=== PATIENT | male | born 1950 | race Caucasian/White ===

== ENCOUNTER 2016-12-25 18:26 | Inpatient (IN) | payer OTHER ==
[~2016-12-25] VITALS: Ht 175.3 cm; Wt 59.8 kg
[~2016-12-25 18:26] MED LIST: AUGM875T PO; BACT800T5 PO; CIPR500T4 PO; FURO1TAB93 PO; HYDR-3533 PO; POTA10IN2 PO; TAB-TAB PO
[2016-12-25 18:42] VITALS: BP 94/66; PULSE 83; RESP 15; TEMP 97.6; O2SAT 97
[2016-12-25] MEDS ORDERED: FURO1TAB60 PO (19:52)
[2016-12-25] MEDS ORDERED: MULTTAB67 PO (19:52)
[2016-12-25] MEDS ORDERED: IRON18TA2 PO (19:53)
[2016-12-25] MEDS ORDERED: VITA50TA10 PO (19:53)
[2016-12-25 19:54] VITALS: BP 107/67; PULSE 70; RESP 18; O2SAT 99
[2016-12-25 20:33] LABS: AUTOMATED NEUTROPHIL # 8.9 TH/MM3 (1.8-7.7); BASOPHIL # 0.1 TH/MM3 (0-0.2); BASOPHIL % 0.7 % (0.0-2.0); EOSINOPHIL # 0.2 TH/MM3 (0-0.4); EOSINOPHIL % 1.6 % (0.0-4.0); HEMATOCRIT 24.4 % (39.0-51.0); LYMPH % 7.2 % (9.0-44.0); LYMPHOCYTE # 0.8 TH/MM3 (1.0-4.8); MEAN CELL VOLUME 86.1 FL (80.0-100.0); MEAN CORPUSCULAR HEMOGLOBIN 28.2 PG (27.0-34.0); MEAN CORPUSCULAR HGB CONC 32.7 % (32.0-36.0); MONO % 8.8 % (0.0-8.0); NEUT % 81.7 % (16.0-70.0); PLATELET COUNT 238 TH/MM3 (150-450); RED BLOOD COUNT 2.83 MIL/MM3 (4.50-5.90); RED CELL DISTRIBUTION WIDTH 16.6 % (11.6-17.2)
[2016-12-25 20:36] LABS: HEMO FLAGS AUTO DIFF
[2016-12-25 20:43] LABS: POTASSIUM 3.9 MEQ/L (3.5-5.1)
[2016-12-25 20:46] LABS: BICARBONATE 24.9 MEQ/L (21.0-32.0)
[2016-12-25 20:48] LABS: APTT (PATIENT) 29.7 SEC (24.3-30.1); INTERNATIONAL NORMALIZED RATIO 1.3 RATIO
[2016-12-25 20:50] LABS: OVALOCYTES 1+ (NORMAL); TEARDROP RBCS 1+ (NORMAL)
[2016-12-25 20:51] LABS: PLATELET ESTIMATE SMEAR NORMAL (NORMAL); PLATELET MORPHOLOGY NORMAL (NORMAL); SCAN/DIFF AUTO DIFF CONFIRMED
[2016-12-25 21:15] VITALS: BP 109/70; PULSE 76; RESP 18; O2SAT 100
[2016-12-25] MEDS ORDERED: MORPHINE SULFATE 4 MG/ML INJ IV PUSH ONE (21:15)
--- NOTE | 2016-12-25 21:16 | RADHPO ---
EXAM DATE/TIME: 12/25/2016 20:52 [facility] COMPARISON: No previous studies available for comparison. INDICATIONS : Left leg swelling. MEDICAL HISTORY : Carcinoma, bladder. Hypercholesterolemia. Arthritis. Hyperlipidemia. HTN. Hernias. Gout. Depressio n. Anxiety. SURGICAL HISTORY : Inguinal hernia repair. Bladder cancer surgery. Testicle removed for infection. Orthopedic surgery , left leg and left thumb fracture. Chemotherapy. Blood transfusions. ENCOUNTER: Initial ACUITY: 2 weeks PAIN SCORE: 6/10 LOCATION: Left leg. TECHNIQUE: Venous ultrasound of the leg was performed from the inguinal ligament to the proximal calf. Real-jony e, color Doppler and spectral tracing, compression and augmentation techniques were used. FINDINGS: The examination is positive for nonocclusive deep venous thrombosis in the left iliac vein and common femoral vein as well as superficial thrombus in the proximal greater saphenous vein within the spine . Distal popliteal, peroneal posterior tibial veins are patent. CONCLUSION: Positive for nonocclusive deep venous thrombosis in the left iliac vein and common femoral vein as we ll as superficial thrombus in the greater saphenous vein. Trevon Real MD on December 25, 2016 at 21:14 Board Certified Radiologist. This report was verified electronically.
--- NOTE | 2016-12-25 21:19 | PD ---
HPI Chief Complaint: Edema Time Seen by Provider: 19:50 Travel History International Travel<30 days: No Contact w/Intl Traveler<30days: No Traveled to known affect area: No History of Present Illness HPI Patient is a 66-year-old male who comes in due to left leg swelling. He says he went to see his primary doctor this afternoon who told him to come in for an ultrasound to rule out a DVT. He has history of bladder cancer and reports producing large blood clots in his urine. He denies any chest pain or shortness of breath. He says he is scheduled to have surgery in another week at the [facility] in [place] to remove his bladder. He says he feels like his feet are in ice. PFSH Past Medical History Hx Anticoagulant Therapy: No Arthritis: Yes Asthma: No Autoimmune Disease: No Blood Disorders: No Anxiety: Yes Depression: Yes (at times) Heart Rhythm Problems: No Cancer: Yes (bladder) Cardiovascular Problems: Yes High Cholesterol: Yes Chemotherapy: Yes Chest Pain: No Congestive Heart Failure: No COPD: No Cerebrovascular Accident: No Diabetes: No Diminished Hearing: No Endocrine: No Gastrointestinal Disorders: Yes (hernias right side) GERD: No Gout: Yes Genitourinary: Yes Headaches: No Hiatal Hernia: Yes (BILAT) Hypertension: Yes Immune Disorder: No Inguinal Hernia: Yes (RIGHT SIDE REPAIRED) Implanted Vascular Access Dvce: No Kidney Stones: No Musculoskeletal: No Neurologic: No Psychiatric: No Reproductive: No Respiratory: No Immunizations Current: Yes Migraines: No Radiation Therapy: No Renal Failure: No Seizures: No Sleep Apnea: No Thyroid Disease: No Triglycerides - High: Yes Ulcer: No Tetanus Vaccination: > 5 Years Influenza Vaccination: No PNEUMOCCOCAL Vaccine (Year): 2 ?: Not Past Surgical History Abdominal Surgery: Yes (BILAT HERNIA) AICD: No Arteriovenous Shunt: No Cardiac Surgery: No Ear Surgery: No Endocrine Surgery: No Eye Surgery: No Genitourinary Surgery: Yes (BLADDER CA) Gynecologic Surgery: No Insulin Pump: No Joint Replacement: No Neurologic Surgery: No Oral Surgery: No Pacemaker: No Thoracic Surgery: No Other Surgery: Yes (RT HERNIA REPAR/ TESTICLE REMOVED) Social History Alcohol Use: No Tobacco Use: Yes (1 ppd) Substance Use: No Allergies-Medications (Allergen,Severity, Reaction): Uncoded Allergies: BCG TREATMENT (Adverse Reaction, Severe, HTYPOTENSION , 12/25/16) Reported Meds & Prescriptions Reported Meds & Active Scripts Active Reported Vitamin B-12 (Cyanocobalamin) 50 Mcg Tab 50 Mcg PO DAILY Iron (Ferrous Fumarate) 18 Mg Tab 18 Mg PO BID Multiple Vitamin 1 Tab 1 Tab PO DAILY Lasix (Furosemide) 40 Mg Tab 40 Mg PO DAILY Review of Systems Except as stated in HPI: all other systems reviewed are Neg General / Constitutional: No: Fever, Chills HENT: No: Headaches, Lightheadedness Cardiovascular: No: Chest Pain or Discomfort Respiratory: No: Shortness of Breath Gastrointestinal: No: Nausea, Vomiting Genitourinary: Positive: Hematuria Musculoskeletal: Positive: Edema, Pain Skin: No Change in Pigmentation Neurologic: No: Weakness, Dizziness Physical Exam Narrative GENERAL: Awake and alert, in no acute distress. SKIN: Warm and dry. HEAD: Atraumatic. Normocephalic. EYES: Pupils equal and round. No scleral icterus. ENT: Mucous membranes pink and moist. NECK: Trachea midline. No JVD. CARDIOVASCULAR: Regular rate and rhythm. No murmur appreciated. RESPIRATORY: No accessory muscle use. Clear to auscultation. Breath sounds equal bilaterally. GASTROINTESTINAL: Abdomen soft, non-tender, nondistended. MUSCULOSKELETAL: No obvious deformities. No clubbing. No cyanosis. Large edema of left foot and ankle, 3+ pitting edema. Pain to palpation of left calf. Pedal pulses intact. NEUROLOGICAL: Awake and alert. No obvious cranial nerve deficits. Motor grossly within normal limits. Normal speech. PSYCHIATRIC: Appropriate mood and affect; insight and judgment normal. Data Data Last Documented VS Vital Signs Date Time Temp Pulse Resp B/P Pulse Ox O2 Delivery O2 Flow Rate FiO2 12/25/16 22:20 83 18 107/71 100 Room Air 12/25/16 18:42 97.6 Orders Complete Blood Count With Diff (12/25/16 19:59) Basic Metabolic Panel (Bmp) (12/25/16 19:59) Act Partial Throm Time (Ptt) (12/25/16 19:59) Prothrombin Time / Inr (Pt) (12/25/16 19:59) Us Leg Venous Doppler (12/25/16 ) Ct Pulmonary Angiogram (12/25/16 21:08) Morphine Inj (Morphine Inj) (12/25/16 21:15) Iohexol 350 Inj (Omnipaque 350 Inj) (12/25/16 22:24) Heparin Infusion ZOYA.Q1H (12/25/16 23:14) Heparin Inj (Heparin Inj) (12/26/16 05:15) Heparin Inj (Heparin Inj) (12/26/16 05:15) Heparin-D5w Inj (Heparin-D5w Inj) (12/25/16 23:15) Cbc No Diff, Includes Plts (12/28/16 06:00) Act Partial Throm Time (Ptt) (12/26/16 06:14) Occult Blood (Hemoccult) Stool (12/25/16 23:14) Admit Order (Ed Use Only) (12/25/16 ) Labs Laboratory Tests Test 12/25/16 20:25 White Blood Count 11.0 TH/MM3 Red Blood Count 2.83 MIL/MM3 Hemoglobin 8.0 GM/DL Hematocrit 24.4 % Mean Corpuscular Volume 86.1 FL Mean Corpuscular Hemoglobin 28.2 PG Mean Corpuscular Hemoglobin 32.7 % Concent Red Cell Distribution Width 16.6 % Platelet Count 238 TH/MM3 Mean Platelet Volume 8.6 FL Neutrophils (%) (Auto) 81.7 % Lymphocytes (%) (Auto) 7.2 % Monocytes (%) (Auto) 8.8 % Eosinophils (%) (Auto) 1.6 % Basophils (%) (Auto) 0.7 % Neutrophils # (Auto) 8.9 TH/MM3 Lymphocytes # (Auto) 0.8 TH/MM3 Monocytes # (Auto) 1.0 TH/MM3 Eosinophils # (Auto) 0.2 TH/MM3 Basophils # (Auto) 0.1 TH/MM3 CBC Comment AUTO DIFF Differential Comment AUTO DIFF CONFIRMED Platelet Estimate NORMAL Platelet Morphology Comment NORMAL Tear Drop Cells 1+ Ovalocytes 1+ Prothrombin Time 14.0 SEC Prothromb Time International 1.3 RATIO Ratio Activated Partial 29.7 SEC Thromboplast Time Sodium Level 136 MEQ/L Potassium Level 3.9 MEQ/L Chloride Level 101 MEQ/L Carbon Dioxide Level 24.9 MEQ/L Anion Gap 10 MEQ/L Blood Urea Nitrogen 17 MG/DL Creatinine 1.10 MG/DL Estimat Glomerular Filtration 67 ML/MIN Rate Random Glucose 143 MG/DL Calcium Level 8.8 MG/DL MDM Medical Decision Making Medical Screen Exam Complete: Yes Emergency Medical Condition: Yes Medical Record Reviewed: Yes Differential Diagnosis DVT versus cellulitis versus PE Narrative Course Patient is a 66-year-old male who comes in complaining of left leg pain and swelling. Exam shows large swelling to the left foot and ankle. IV established , labs sent. Labs show hemoglobin of 8.0 which is consistent with previous labs. Doppler ultrasound performed of the left leg shows 2 DVTs as well as one superficial clot. CTA of the chest performed shows no evidence of PE. I spoke with Dr. Kim of hematology for recommendations on anticoagulation as the patient has history of bladder cancer and often passes clots from his bladder. He recommends starting the patient on heparin and monitoring him for excessive bleeding. If he tolerates the heparin, he can be switched to Lovenox for discharge. Patient admitted for further management. Diagnosis Primary Impression: DVT (deep venous thrombosis) Qualified Code: I82.4Y2 - Acute deep vein thrombosis (DVT) of proximal vein of left lower extremity Additional Impression: Gross hematuria Admitting Information Admitting Physician Requests: Admit Condition: Stable Nayeli Wiley MD Dec 25, 2016 21:19 bladder. Nayeli Wiley MD Dec 25, 2016 21:19
[2016-12-25 22:20] VITALS: BP 107/71; PULSE 83; RESP 18; O2SAT 100
[2016-12-25] MEDS ORDERED: IOHEXOL 350 MG/ML 10 ML VIAL (for RAD DIAG) IV ONE (22:24)
--- NOTE | 2016-12-25 22:39 | RADHPO ---
EXAM DATE/TIME: 12/25/2016 22:02 [facility] COMPARISON: No previous studies available for comparison. INDICATIONS : Left leg swelling. IV CONTRAST: 80 cc Omnipaque 350 (iohexol) IV RADIATION DOSE: 12.23 CTDIvol (mGy) MEDICAL HISTORY : Carcinoma, bladder. Hypertension. Hernia, hiatal. SURGICAL HISTORY : Inguinal hernia repair. ENCOUNTER: Initial ACUITY: 1 day PAIN SCALE: 7/10 LOCATION: chest TECHNIQUE: Volumetric scanning of the chest was performed using a pulmonary embolism protocol MIP images were re constructed. Using automated exposure control and adjustment of the mA and/or kV according to patien t size, radiation dose was kept as low as reasonably achievable to obtain optimal diagnostic quality images. FINDINGS: No filling defects identified within the pulmonary arteries to suggest pulmonary embolic disease. No focal lung consolidation. Minimal dependent atelectasis. No pleural or pericardial effusion. Upper abdomen reveals findings characteristic of liver cirrhosis. There is mild ascites. Hydronephrosis ri ght kidney and probably left kidney as well. Small hiatal hernia. Moderate coronary calcifications. CONCLUSION: 1. Negative for pulmonary embolus. 2. Moderate to severe coronary calcifications. 3. Liver cirrhosis and ascites in the upper abdomen. Hydronephrosis on the right and possibly the lef t. Trevon Real MD on December 25, 2016 at 22:34 Board Certified Radiologist. This report was verified electronically.
[2016-12-25] MEDS ORDERED: HEPARIN-D5W INJ 250 ML IV SCH (23:15)
[2016-12-25] MEDS ORDERED: ONDANSETRON HCL 4 MG/2 ML VIAL IVP PRN (23:30)
[2016-12-25] MEDS ORDERED: BISACODYL 10 MG SUPP PR PRN (23:30)
[2016-12-25] MEDS ORDERED: SODIUM CHLORIDE 0.9% FLUSH 10 ML FLUSH IV FLUSH PRN (23:30)
[2016-12-26] VITALS (7 sets, daily range): BP systolic 94–107; BP diastolic 52–72; PULSE 71–77; RESP 18; TEMP 96.4–98.1; O2SAT 95–98
[2016-12-26] MEDS: SODIUM CHLOR 0.9% 1000 ML INJ 1,000 ML IV SCH ×2 (00:14→10:20)
[2016-12-26] MEDS: HYDROmorphone HCL PF 1 MG/ML VIAL IV PRN ×4 (00:14→15:13)
[2016-12-26] MEDS ORDERED: HEPARIN SODIUM - IV 10,000 UNITS/10 ML VIAL IV PRN ×2 (05:15)
[2016-12-26 06:51] LABS: AUTOMATED NEUTROPHIL # 9.2 TH/MM3 (1.8-7.7); BASOPHIL % 0.3 % (0.0-2.0); EOSINOPHIL # 0.3 TH/MM3 (0-0.4); EOSINOPHIL % 2.2 % (0.0-4.0); HEMATOCRIT 24.4 % (39.0-51.0); HEMO FLAGS DIFF FINAL; LYMPH % 9.2 % (9.0-44.0); LYMPHOCYTE # 1.1 TH/MM3 (1.0-4.8); MEAN CELL VOLUME 87.3 FL (80.0-100.0); MEAN CORPUSCULAR HEMOGLOBIN 28.3 PG (27.0-34.0); MEAN CORPUSCULAR HGB CONC 32.4 % (32.0-36.0); MONO % 8.9 % (0.0-8.0); NEUT % 79.4 % (16.0-70.0); PLATELET COUNT 221 TH/MM3 (150-450); RED CELL DISTRIBUTION WIDTH 16.4 % (11.6-17.2); WHITE BLOOD COUNT 11.6 TH/MM3 (4.0-11.0)
[2016-12-26 06:53] LABS: CHLORIDE 104 MEQ/L (98-107); POTASSIUM 4.1 MEQ/L (3.5-5.1); SODIUM (NA) 136 MEQ/L (136-145)
[2016-12-26 06:56] LABS: APTT (PATIENT) 38.4 SEC (24.3-30.1)
[2016-12-26 06:57] LABS: ANION GAP 9 MEQ/L (5-15); BLOOD UREA NITROGEN 15 MG/DL (7-18)
[2016-12-26 07:00] LABS: ALT (GPT) 11 U/L (12-78); AST (GOT) 14 U/L (15-37); GLOMERULAR FILTRATION RATE 84 ML/MIN (>89)
[2016-12-26 07:02] LABS: TOTAL BILIRUBIN ADULT 0.4 MG/DL (0.2-1.0)
[2016-12-26 07:03] LABS: ALKALINE PHOSPHATASE 124 U/L (45-117)
[2016-12-26] MEDS: SODIUM CHLORIDE 0.9% FLUSH 10 ML FLUSH IV FLUSH SCH ×2 (08:35→20:15)
[2016-12-26] MEDS: ACETAMINOPHEN/HYDROcodone 325 MG/5 MG TAB PO PRN ×2 (08:39→12:21)
[2016-12-26] MEDS: FUROSEMIDE 40 MG TAB PO SCH (08:39)
[2016-12-26] MEDS: FERROUS FUMARATE 325 MG TAB (106 MG ELEMENTAL IRON) PO SCH (08:41)
[2016-12-26] MEDS: CYANOCOBALAMIN 100 MCG TAB PO SCH (08:44)
[2016-12-26] MEDS: MULTIVITAMIN TAB PO SCH (08:44)
--- NOTE | 2016-12-26 11:18 | HHI.HP ---
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 In the ED, doppler US revealed nonocclusive DVT in the left iliac vein and common femoral vein and superficial thrombus in the greater saphenous vein. CTA was obtained and was negative for DVT. Patient is under the care of Dr. Lo. Presently, patient is in alot of pain and is either unable or unwilling to give accurate historical information therefore majority of history is obtained from medical chart review. Purportedly, the patients urine has been dark in color but turned bright red today. He has been unable to urinate. ED physician spoke with licensed audiologist Dr. Kim who recommended starting the patient on heparin followed by Lovenox at discharge. Review of Systems Except as stated in HPI: all other systems reviewed are Neg (10 point review of systems completed and all pertinent negative except for stated in history of present illness) Past Family Social History Past Medical History Cirrhosis with chronic ascites due to liver failure from alcohol dependency Chronic alcohol dependency from history Muscle invasive bladder cancer GERD HLD Tobacco dependency Depression Anxiety Past Surgical History Umbilical Hernia repair Tonsillectomy Cystoscopy with TURBT Reported Medications Vitamin B-12 (Cyanocobalamin) 50 Mcg Tab 50 Mcg PO DAILY Iron (Ferrous Fumarate) 18 Mg Tab 18 Mg PO BID Multiple Vitamin 1 Tab 1 Tab PO DAILY Lasix (Furosemide) 40 Mg Tab 40 Mg PO DAILY Allergies: Uncoded Allergies: BCG TREATMENT (Adverse Reaction, Severe, HTYPOTENSION , 12/25/16) Active Ordered Medications Current Medications Medications (Trade) Dose Ordered Sig/Dejuan Route Start Time Stop Time Status Last Admin (Heparin Inj) 5,000 units UNSCH PRN IV 12/26/16 05:15 Heparin Sodium (Porcine) 2500 units 2,500 units UNSCH PRN IV 12/26/16 05:15 Heparin Sodium/ Dextrose 250 ml @ 0 mls/hr TITRATE IV 12/25/16 23:15 12/26/16 00:24 (NS 1000 ml Inj) 1,000 ml @ 100 mls/hr Q10H IV 12/25/16 23:28 12/26/16 10:20 (NS Flush) 2 ml UNSCH PRN IV FLUSH 12/25/16 23:30 (NS Flush) 2 ml BID IV FLUSH 12/26/16 09:00 (Zofran Inj) 4 mg Q6H PRN IVP 12/25/16 23:30 (Dulcolax Supp) 10 mg DAILY PRN OK 12/25/16 23:30 (Tylenol) 650 mg Q6H PRN PO 12/25/16 23:30 (Durand 5-325 Mg) 1 tab Q4H PRN PO 12/25/16 23:30 12/26/16 12:21 (Dilaudid Pf Inj) 1 mg Q3H PRN IV 12/25/16 23:30 12/26/16 11:18 (Vitamin B12) 50 mcg DAILY PO 12/26/16 09:00 12/26/16 08:44 (Lasix) 40 mg DAILY PO 12/26/16 09:00 12/26/16 08:39 (Theragran) 1 tab DAILY PO 12/26/16 09:00 12/26/16 08:44 (Hemocyte) 325 mg DAILY PO 12/26/16 09:00 12/26/16 08:41 (Xylocaine 2% Jelly) 5 ml STAT ONCE TOPICAL 12/26/16 13:30 12/26/16 13:31 (Morphine Inj) 2 mg STAT ONCE IV 12/26/16 13:30 12/26/16 13:31 Family History Parents are in their 80s and healthy Social History Smoker, 1ppd Patient denies any alcohol use. Review of previous medical record reveals the patient previously had history of alcohol dependency and consumed beer daily and whiskey at night. He denies any illicit drug use. Physical Exam Vital Signs Vital Signs Date Time Temp Pulse Resp B/P Pulse Ox O2 Delivery O2 Flow Rate FiO2 12/26/16 10:17 72 18 104/68 97 Room Air 12/26/16 07:55 98 Room Air 12/26/16 07:55 97.6 73 18 94/62 98 Room Air 12/26/16 06:30 71 18 101/72 95 Room Air 12/26/16 05:20 18 12/26/16 04:00 97.8 72 18 103/66 98 Room Air 12/26/16 01:30 75 18 100/64 96 Room Air 12/26/16 00:00 98.1 77 18 104/60 95 Room Air 12/25/16 22:20 83 18 107/71 100 Room Air 12/25/16 22:20 18 12/25/16 21:15 76 18 109/70 100 Room Air 12/25/16 19:54 18 97 Room Air 12/25/16 19:54 70 18 107/67 99 Room Air 12/25/16 18:42 97.6 83 15 94/66 97 Physical Exam GENERAL: This is a well-nourished, well-developed patient. In obvious pain. Lying in hospital bed trying to use urinal with gross hematuria. SKIN: Warm and dry. HEAD: Atraumatic. Normocephalic. EYES: EOMI. ENT: Nose without bleeding, purulent drainage or septal hematoma. NECK: Trachea midline. CARDIOVASCULAR: Regular rate and rhythm without murmurs, gallops, or rubs. RESPIRATORY: Clear to auscultation. Breath sounds equal bilaterally. No wheezes , rales, or rhonchi. GASTROINTESTINAL: Abdomen soft, non-tender, nondistended. No hepato-splenomegaly , or palpable masses. No guarding. GENITOURINARY: Normal phallus with obvious blood at the meatus. MUSCULOSKELETAL: Extremities without clubbing or cyanosis. Appreciable edema in the entire left foot extending into the ankle. NEUROLOGICAL: Awake and alert. Patient will all 4 extremities. No focal neurologic deficits appreciated. Laboratory Laboratory Tests Test 12/25/16 12/26/16 20:25 06:25 White Blood Count 11.0 11.6 Red Blood Count 2.83 2.80 Hemoglobin 8.0 7.9 Hematocrit 24.4 24.4 Mean Corpuscular Volume 86.1 87.3 Mean Corpuscular Hemoglobin 28.2 28.3 Mean Corpuscular Hemoglobin 32.7 32.4 Concent Red Cell Distribution Width 16.6 16.4 Platelet Count 238 221 Mean Platelet Volume 8.6 8.8 Neutrophils (%) (Auto) 81.7 79.4 Lymphocytes (%) (Auto) 7.2 9.2 Monocytes (%) (Auto) 8.8 8.9 Eosinophils (%) (Auto) 1.6 2.2 Basophils (%) (Auto) 0.7 0.3 Neutrophils # (Auto) 8.9 9.2 Lymphocytes # (Auto) 0.8 1.1 Monocytes # (Auto) 1.0 1.0 Eosinophils # (Auto) 0.2 0.3 Basophils # (Auto) 0.1 0.0 CBC Comment AUTO DIFF DIFF FINAL Differential Comment AUTO DIFF CONFIRMED Platelet Estimate NORMAL Platelet Morphology Comment NORMAL Tear Drop Cells 1+ Ovalocytes 1+ Prothrombin Time 14.0 Prothromb Time International 1.3 Ratio Activated Partial 29.7 38.4 Thromboplast Time Sodium Level 136 136 Potassium Level 3.9 4.1 Chloride Level 101 104 Carbon Dioxide Level 24.9 23.0 Anion Gap 10 9 Blood Urea Nitrogen 17 15 Creatinine 1.10 0.91 Estimat Glomerular Filtration 67 84 Rate Random Glucose 143 89 Calcium Level 8.8 8.5 Total Bilirubin 0.4 Aspartate Amino Transf 14 (AST/SGOT) Alanine Aminotransferase 11 (ALT/SGPT) Alkaline Phosphatase 124 Total Protein 6.8 Albumin 2.5 Result Diagram: 12/26/1625 12/26/16624 Imaging Last [address] Angiography 12/25/162107 Signed Impressions: Service Date/Time: Sunday, December 25, 2016 22:02 - CONCLUSION: 1. Negative for pulmonary embolus. 2. Moderate to severe coronary calcifications. 3. Liver cirrhosis and ascites in the upper abdomen. Hydronephrosis on the right and possibly the left. Trevon Real MD Lower Extremity Ultrasound 12/25/16 0000 Signed Impressions: Service Date/Time: Sunday, December 25, 2016 20:52 - CONCLUSION: Positive for nonocclusive deep venous thrombosis in the left iliac vein and common femoral vein as well as superficial thrombus in the greater saphenous vein. 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 Presently, patient is in significant pain and is either unable to unwilling to give an accurate history. Majority of history is obtained from chart review. Nonocclusive DVT left lower extremity - Admit to inpatient - Left lower extremity ultrasound shows nonocclusive deep vein thrombosis in the left iliac vein and common femoral vein as well as superficial thrombus in the greater saphenous vein. - CTA negative for PE - Currently on heparin drip per hematology recommendations. Plans for heparin drip to be placed on hold for upcoming procedure. - Plan for Lovenox at discharge Urinary retention secondary to hematuria and clotting - Urology consulted and evaluated by Dr. Castillo. Very much appreciate his assistance. Discussed with Dr. Castillo plans to transfer patient to the main for cystoscopy with clot evacuation - IV pain medications prn Anemia - secondary to active bleeding - hypotensive but MAP intact - serial H&Hs Cirrhosis with chronic ascites due to ETOH related liver failure - patient did not divulge this history but recovered from chart review - CTA shows liver cirrhosis and ascites in the upper abdomen and hydronephrosis on the right and possibly the left. - continue on Lasix - Denies any current alcohol use. Monitor for signs of withdrawal. DVT prophylaxis - on Heparin Written by Karley Phillips PA-C acting as scribe for Dr. Arias on 12/26/16 at 11:16. All or portions of this note were transcribed by scribfred Phillips PA-C. I, Dr. Chang Arias personally performed the history, physical exam, and medical decision making; and confirmed the accuracy of the information in the transcribed note. Authenticated by Dr. Chang Arias on 12/26/16 at 15:01. Physician Certification 2 Midnight Certification Type: Admission for Inpatient Services Order for Inpatient Services The services are ordered in accordance with Medicare regulations or non- Medicare payer requirements, as applicable. In the case of services not specified as inpatient-only, they are appropriately provided as inpatient services in accordance with the 2-midnight benchmark. Estimated LOS (days): 3 3 days is the estimated time the patient will need to remain in the hospital, assuming treatment plan goals are met and no additional complications. Post-Hospital Plan: Not yet determined Karley Phillips Dec 26, 2016 11:18 Chang Arias MD Dec 26, 2016 15:01
[2016-12-26] MEDS ORDERED: MORPHINE SULFATE 4 MG/ML INJ ONE (13:04)
[2016-12-26] MEDS ORDERED: MORPHINE SULFATE 4 MG/ML INJ IV ONE (13:30)
[2016-12-26] MEDS ORDERED: LIDOCAINE HCL 2% JELLY 5 ML SYRINGE TOPICAL ONE (13:30)
--- NOTE | 2016-12-26 13:37 | PD.CONS ---
[facility] Service Urology Consult Requested By Primary Care Physician Non-Staff Diagnosis: History of Present Illness 66-year-old male with history of muscle invasive bladder cancer presents with left lower leg swelling and gross hematuria. Lower extremity ultrasound demonstrated a left DVT patient is now currently on a heparin drip. Patient states that he's had ongoing hematuria over a long course of time he's been passing clots. Until today, the urine was dark in color and outs become more bright red probably secondary to the heparin drip. Attempt was made to place a Ellis catheter to bedside this was unsuccessful. Patient will quite ago the OR today to undergo cystoscopy with clot evacuation and Ellis insertion. Patient was scheduled to go to [facility] next Tuesday to undergo cystectomy. He's currently under the care of Dr. Lo. Review of Systems Constitutional: DENIES: Diaphoretic episodes Endocrine: DENIES: Heat/cold intolerance Eyes: DENIES: Blurred vision Ears, nose, mouth, throat: DENIES: Tinnitus Respiratory: DENIES: Apneas Cardiovascular: DENIES: Chest pain Gastrointestinal: DENIES: Abdominal pain Genitourinary: COMPLAINS OF: Hematuria Musculoskeletal: DENIES: Joint pain Integumentary: DENIES: Abnormal pigmentation Hematologic/lymphatic: DENIES: Bruising Immunologic/allergic: DENIES: Eczema Neurologic: DENIES: Abnormal gait Past Family Social History Past Medical History Muscle invasive bladder cancer GERD Hyperlipidemia Anxiety/depression Liver cirrhosis BPH Past Surgical History Cystoscopy with TURBT Umbilical hernia repair Inguinal hernia repair Allergies: Uncoded Allergies: BCG TREATMENT (Adverse Reaction, Severe, HTYPOTENSION , 12/25/16) Family History Denies family history of prostate cancer Social History Long history of smoking and alcohol usage Prior service Physical Exam Vital Signs Date Time Temp Pulse Resp B/P Pulse Ox O2 Delivery O2 Flow Rate FiO2 12/26/16 10:17 72 18 104/68 97 Room Air 12/26/16 07:55 98 Room Air 12/26/16 07:55 97.6 73 18 94/62 98 Room Air 12/26/16 06:30 71 18 101/72 95 Room Air 12/26/16 05:20 18 12/26/16 04:00 97.8 72 18 103/66 98 Room Air 12/26/16 01:30 75 18 100/64 96 Room Air 12/26/16 00:00 98.1 77 18 104/60 95 Room Air 12/25/16 22:20 83 18 107/71 100 Room Air 12/25/16 22:20 18 12/25/16 21:15 76 18 109/70 100 Room Air 12/25/16 19:54 18 97 Room Air 12/25/16 19:54 70 18 107/67 99 Room Air 12/25/16 18:42 97.6 83 15 94/66 97 Physical Exam GENERAL: This is a well-nourished, well-developed patient, in no apparent distress. SKIN: No rashes, ecchymoses or lesions. Cool and dry. HEAD: Atraumatic. Normocephalic. No temporal or scalp tenderness. EYES: Pupils equal round and reactive. Extraocular motions intact. No scleral icterus. No injection or drainage. ENT: Nose without bleeding, purulent drainage or septal hematoma. Throat without erythema, tonsillar hypertrophy or exudate. Uvula midline. Airway patent. NECK: Trachea midline. No JVD or lymphadenopathy. Supple, nontender, no meningeal signs. CARDIOVASCULAR: Regular rate and rhythm without murmurs, gallops, or rubs. RESPIRATORY: Clear to auscultation. Breath sounds equal bilaterally. No wheezes , rales, or rhonchi. GASTROINTESTINAL: Abdomen soft, non-tender, bladder distended on exam. No hepato -splenomegaly, or palpable masses. No guarding. GENITOURINARY: Normal phallus with testes descended. MUSCULOSKELETAL: Left lower extremity with some edema compared with right lower extremity. NEUROLOGICAL: Awake and alert. Normal speech. Laboratory Tests Test 12/25/16 12/26/16 20:25 06:25 White Blood Count 11.0 11.6 Red Blood Count 2.83 2.80 Hemoglobin 8.0 7.9 Hematocrit 24.4 24.4 Mean Corpuscular Volume 86.1 87.3 Mean Corpuscular Hemoglobin 28.2 28.3 Mean Corpuscular Hemoglobin 32.7 32.4 Concent Red Cell Distribution Width 16.6 16.4 Platelet Count 238 221 Mean Platelet Volume 8.6 8.8 Neutrophils (%) (Auto) 81.7 79.4 Lymphocytes (%) (Auto) 7.2 9.2 Monocytes (%) (Auto) 8.8 8.9 Eosinophils (%) (Auto) 1.6 2.2 Basophils (%) (Auto) 0.7 0.3 Neutrophils # (Auto) 8.9 9.2 Lymphocytes # (Auto) 0.8 1.1 Monocytes # (Auto) 1.0 1.0 Eosinophils # (Auto) 0.2 0.3 Basophils # (Auto) 0.1 0.0 CBC Comment AUTO DIFF DIFF FINAL Differential Comment AUTO DIFF CONFIRMED Platelet Estimate NORMAL Platelet Morphology Comment NORMAL Tear Drop Cells 1+ Ovalocytes 1+ Prothrombin Time 14.0 Prothromb Time International 1.3 Ratio Activated Partial 29.7 38.4 Thromboplast Time Sodium Level 136 136 Potassium Level 3.9 4.1 Chloride Level 101 104 Carbon Dioxide Level 24.9 23.0 Anion Gap 10 9 Blood Urea Nitrogen 17 15 Creatinine 1.10 0.91 Estimat Glomerular Filtration 67 84 Rate Random Glucose 143 89 Calcium Level 8.8 8.5 Total Bilirubin 0.4 Aspartate Amino Transf 14 (AST/SGOT) Alanine Aminotransferase 11 (ALT/SGPT) Alkaline Phosphatase 124 Total Protein 6.8 Albumin 2.5 Result Diagram: 12/26/1662412/26/[address] Angiography 12/25/162107 Signed Impressions: Service Date/Time: Sunday, December 25, 2016 22:02 - CONCLUSION: 1. Negative for pulmonary embolus. 2. Moderate to severe coronary calcifications. 3. Liver cirrhosis and ascites in the upper abdomen. Hydronephrosis on the right and possibly the left. Trevon Real MD Lower Extremity Ultrasound 12/25/16 0000 Signed Impressions: Service Date/Time: Sunday, December 25, 2016 20:52 - CONCLUSION: Positive for nonocclusive deep venous thrombosis in the left iliac vein and common femoral vein as well as superficial thrombus in the greater saphenous vein. Trevon Real MD Assessment and Plan Assessment and Plan 66-year-old male with muscle invasive bladder cancer with newly diagnosed left DVT and gross hematuria with clot retention. Plan for cystoscopy with clot evacuation in the OR today Nothing by mouth. Hold heparin drip for now. Audie Castillo DO Dec 26, 2016 13:37
[2016-12-26] MEDS ORDERED: PHENYLEPH/NS 1000 MCG/10 ML SYR IV ONE (14:10)
[2016-12-26] MEDS ORDERED: ONDANSETRON HCL 4 MG/2 ML VIAL IV PUSH ONE (14:10)
[2016-12-26] MEDS ORDERED: PROPOFOL 200 MG/20 ML AMP IV ONE (14:10)
[2016-12-26] MEDS ORDERED: SODIUM CHLOR 0.9% 1000 ML INJ 1,000 ML IV ONE (14:11)
[2016-12-26 14:33] LABS: HEMATOCRIT 27.3 % (39.0-51.0)
[2016-12-26 14:41] LABS: REVIEW FLAG FINAL
[2016-12-26 15:05] LABS: APTT (PATIENT) 36.2 SEC (24.3-30.1)
[2016-12-26] MEDS ORDERED: SUGAMMADEX SODIUM 200 MG/2 ML VIAL IV PUSH ONE ×2 (17:05)
[2016-12-26] MEDS ORDERED: ceFAZolin INJ 1,000 MG VIAL IV ONE (17:28)
[2016-12-26] MEDS: BELLADONNA ALKALOIDS/OPIUM 60 MG SUPP RECTAL SCH (18:30)
--- NOTE | 2016-12-26 18:31 | PD.OP ---
Operative Report Date of Surgery: Dec 26, 2016 Preoperative Diagnosis: Gross hematuria with history of bladder cancer Postoperative Diagnosis: Same Procedure: Cystoscopy, clot evacuation, fulguration, Ellis catheter placed over a wire. Anesthesia: YOSELIN Surgeon: Audie Castilol Risk Mgr(s): None Resident Surgeon: None Operation and Findings: 66-year-old male with history of muscle invasive bladder cancer who presented ongoing gross hematuria with clot retention. Earlier today, at the bedside, I was unable to pass a Ellis catheter into the bladder. Decision was then made to take patient to the operating room. Risk and benefit assessment he is willing to proceed. Patient was brought to the operating room and identified by myself as Randall Bello. He was placed in dorsal lithotomy position, prepped and draped in usual sterile fashion, received preprocedure antibiotics, and general endotracheal tube anesthesia was administered. 22 Nigerian scope was inserted in the bladder. Large amount of clots were identified within the bladder. Using the elic evacuator the clots were then evacuated. The 24 sheath resectoscope was inserted in the bladder. Bleeding was identified at the area of the bladder neck. Friable tumor was also identified in this region. The rollerball was then used at a setting of 180 to coagulate the areas bleeding around the bladder neck. Once hemostasis was obtained and a Amplatz wire was passed through the resectoscope sheath, then a 24 Nigerian hematuria catheter was then placed. He was then started on CBI. He was extubated and transferred to recovery in stable condition. He tolerated procedure well. Audie Castillo DO Dec 26, 2016 18:31
[2016-12-26] MEDS ORDERED: fentaNYL CITRATE 250 MCG/5 ML AMP ONE (18:35)
[2016-12-26] MEDS ORDERED: DO NOT ADM ANY ANTICOAGULANT DRUGS XX PRN (19:00)
[2016-12-26] MEDS: AMINOCAPROIC ACID INJ 3,000 MG in SODIUM CHLORIDE 0.9% IRR BAG 3,000 ML IRRIGATION SCH (19:26)
[2016-12-27] VITALS (14 sets, daily range): BP systolic 82–99; BP diastolic 51–72; PULSE 59–93; RESP 14–20; TEMP 97.8–100.7; O2SAT 95–100
[2016-12-27] MEDS: AMINOCAPROIC ACID INJ 3,000 MG in SODIUM CHLORIDE 0.9% IRR BAG 3,000 ML IRRIGATION SCH ×2 (00:34→06:15)
[2016-12-27] MEDS: BELLADONNA ALKALOIDS/OPIUM 60 MG SUPP RECTAL SCH ×4 (00:34→15:52)
[2016-12-27] MEDS: ACETAMINOPHEN 325 MG TAB PO PRN (01:07)
[2016-12-27] MEDS ORDERED: SODIUM CHLOR 0.9% 1000 ML INJ 1,000 ML IV ONE (03:45)
[2016-12-27] MEDS ORDERED: SODIUM CHLORID 0.9% 500 ML INJ 500 ML IV ONE (03:45)
[2016-12-27 04:31] LABS: AUTOMATED NEUTROPHIL # 9.8 TH/MM3 (1.8-7.7); BASOPHIL # 0.1 TH/MM3 (0-0.2); BASOPHIL % 0.8 % (0.0-2.0); EOSINOPHIL # 0.1 TH/MM3 (0-0.4); LYMPH % 8.1 % (9.0-44.0); MEAN CELL VOLUME 85.4 FL (80.0-100.0); MEAN CORPUSCULAR HGB CONC 32.7 % (32.0-36.0); MONO % 10.3 % (0.0-8.0); NEUT % 79.8 % (16.0-70.0); PLATELET COUNT 184 TH/MM3 (150-450); RED BLOOD COUNT 2.36 MIL/MM3 (4.50-5.90); RED CELL DISTRIBUTION WIDTH 17.1 % (11.6-17.2); WHITE BLOOD COUNT 12.3 TH/MM3 (4.0-11.0)
[2016-12-27 04:33] LABS: HEMATOCRIT 20.2 % (39.0-51.0)
[2016-12-27 04:34] LABS: HEMO FLAGS DIFF FINAL
[2016-12-27 04:44] LABS: BICARBONATE 22.5 MEQ/L (21.0-32.0)
[2016-12-27] MEDS ORDERED: SODIUM CHLOR 0.9% 250 ML INJ 250 ML IV ONE (04:45)
[2016-12-27] MEDS: SODIUM CHLORIDE 0.9% FLUSH 10 ML FLUSH IV FLUSH SCH ×2 (09:00→21:43)
--- NOTE | 2016-12-27 09:16 | HHI.PR ---
Subjective Patient symptoms today Pt seen and examined. Feeling better. Urine clear. Objective Vital Signs Vital Signs Date Time Temp Pulse Resp B/P Pulse Ox O2 Delivery O2 Flow Rate FiO2 12/27/16 08:00 97.8 72 18 87/59 96 12/27/16 07:55 97 Nasal Cannula 2.00 12/27/16 04:23 82/51 12/27/16 03:21 98.8 82 18 85/52 97 12/27/16 00:00 100.7 93 19 90/57 97 12/26/16 20:00 96.4 76 18 107/52 97 12/26/16 19:00 97.4 89 12 102/66 97 Nasal Cannula 2 12/26/16 18:45 75 12 114/73 97 Nasal Cannula 2 12/26/16 18:30 97.4 98 12 104/65 94 Nasal Cannula 2 12/26/16 10:17 72 18 104/68 97 Room Air Result Diagram: 12/27/16 0419 12/27/16 0419 Objective Remarks Abd:soft,nt,nd Ellis: urine clear. Left SADIE/DVT Medications and IVs Current Medications Medications (Trade) Dose Ordered Sig/Dejuan Route Start Time Stop Time Status Last Admin (Heparin Inj) 5,000 units UNSCH PRN IV 12/26/16 05:15 Heparin Sodium (Porcine) 2500 units 2,500 units UNSCH PRN IV 12/26/16 05:15 (Heparin-D5W Inj) 250 ml @ 0 mls/hr TITRATE IV 12/25/16 23:15 12/26/16 00:24 (NS Flush) 2 ml UNSCH PRN IV FLUSH 12/25/16 23:30 (NS Flush) 2 ml BID IV FLUSH 12/26/16 09:00 12/26/16 20:15 (Zofran Inj) 4 mg Q6H PRN IVP 12/25/16 23:30 (Dulcolax Supp) 10 mg DAILY PRN OK 12/25/16 23:30 (Tylenol) 650 mg Q6H PRN PO 12/25/16 23:30 12/27/16 01:07 (Yermo 5-325 Mg) 1 tab Q4H PRN PO 12/25/16 23:30 12/26/16 12:21 (Dilaudid Pf Inj) 1 mg Q3H PRN IV 12/25/16 23:30 12/26/16 15:13 (Vitamin B12) 50 mcg DAILY PO 12/26/16 09:00 12/26/16 08:44 (Lasix) 40 mg DAILY PO 12/26/16 09:00 12/26/16 08:39 (Theragran) 1 tab DAILY PO 12/26/16 09:00 12/26/16 08:44 Ferrous Fumarate 325 mg 325 mg DAILY PO 12/26/16 09:00 12/26/16 08:41 (Amicar Inj/NS Irr Bag) 3,012 ml @ 125.5 mls/ hr Q24H IRRIGATION 12/26/16 18:30 12/27/16 06:15 (B & O Supp) 60 mg Q6HR RECTAL 12/26/16 18:30 12/27/16 06:14 Miscellaneous Information ALL NURSING DEPARTME... UNSCH PRN XX 12/26/16 19:00 12/27/16 18:59 (NS 250 ml Inj) 250 ml @ 15 mls/hr ONCE ONCE IV 12/27/16 04:45 12/27/16 21:24 Assessment and Plan Assessment and Plan 66-year-old male with muscle invasive bladder cancer with newly diagnosed left DVT and gross hematuria with clot retention. Plan for cystoscopy with clot evacuation in the OR today Nothing by mouth. Hold heparin drip for now. 12/27 66 y.o male with muscle invasive bladder cancer s/p cysto with fulguration Hgb at 6.6. Transfuse 2 units of PRBC's today CBI off After transfusion; consider restarting anticoagulation for DVT. Audie Castillo DO Dec 27, 2016 09:15
[2016-12-27] MEDS: CYANOCOBALAMIN 100 MCG TAB PO SCH (09:38)
[2016-12-27] MEDS: MULTIVITAMIN TAB PO SCH (09:38)
[2016-12-27] MEDS: FERROUS FUMARATE 325 MG TAB (106 MG ELEMENTAL IRON) PO SCH (09:39)
[2016-12-27] MEDS: FUROSEMIDE 40 MG TAB PO SCH (09:39)
--- NOTE | 2016-12-27 09:57 | HHI.PR ---
Subjective Remarks Urine clearing up. CBI dced. Patient eager to be discharged so he can make his appointment to [place] on Tuesday. home but agreed to stay for blood transfusion. Objective Vitals Vital Signs Date Time Temp Pulse Resp B/P Pulse Ox O2 Delivery O2 Flow Rate FiO2 12/27/16 08:00 97.8 72 18 87/59 96 12/27/16 07:55 97 Nasal Cannula 2.00 12/27/16 04:23 82/51 12/27/16 03:21 98.8 82 18 85/52 97 12/27/16 00:00 100.7 93 19 90/57 97 12/26/16 20:00 96.4 76 18 107/52 97 12/26/16 19:00 97.4 89 12 102/66 97 Nasal Cannula 2 12/26/16 18:45 75 12 114/73 97 Nasal Cannula 2 12/26/16 18:30 97.4 98 12 104/65 94 Nasal Cannula 2 12/26/16 10:17 72 18 104/68 97 Room Air I/O 12/26/16 12/26/16 12/26/16 12/27/16 12/27/16 12/27/16 07:00 15:00 23:00 07:00 15:00 23:00 Intake Total 1240 ml 1540 ml 240 ml Output Total 50 ml Balance 1240 ml 1490 ml 240 ml Intake Oral 240 ml 240 ml 240 ml IV Total 1000 ml Other 1300 ml Estimated Blood Loss 50 ml # Voids 1 Result Diagram: 12/27/16 0419 12/27/[address] Angiography 12/25/162107 Signed Impressions: Service Date/Time: Sunday, December 25, 2016 22:02 - CONCLUSION: 1. Negative for pulmonary embolus. 2. Moderate to severe coronary calcifications. 3. Liver cirrhosis and ascites in the upper abdomen. Hydronephrosis on the right and possibly the left. Trevon Real MD Lower Extremity Ultrasound 12/25/16 0000 Signed Impressions: Service Date/Time: Sunday, December 25, 2016 20:52 - CONCLUSION: Positive for nonocclusive deep venous thrombosis in the left iliac vein and common femoral vein as well as superficial thrombus in the greater saphenous vein. Trevon Real MD Objective Remarks GENERAL: This is a well-nourished, well-developed patient, in no apparent distress. CARDIOVASCULAR: Normal rate and regular rhythm without murmurs, gallops, or rubs. RESPIRATORY: Good respiratory efforts. Breath sounds equal and clear to auscultation bilaterally. GASTROINTESTINAL: Abdomen soft, non-tender, non-distended. Normal active bowel sounds MUSCULOSKELETAL: Trace left lower extremity edema. NEURO: Alert & Oriented x4 to person, place, time, situation. Moves all ext x4 PSYCH: Appropriate mood and affect. 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 Imaging confirmed left lower extremity DVT. Left lower extremity DVT:Left lower extremity ultrasound shows nonocclusive deep vein thrombosis in the left iliac vein and common femoral vein as well as superficial thrombus in the greater saphenous vein. - CTA negative for PE -Discontinue heparin and switch to Lovenox in anticipation for discharge. Nursing to teach patient to do Lovenox injection. Hematuria and urinary retention secondary to clots - Urology following. Patient is status post cystoscopy and cauterization of bleeding. Urine clearing up. CBI discontinued. - Further plans per urology. Anemia secondary to blood loss: - Transfuse 2 units of PRBC today. Monitor H&H. Cirrhosis with chronic ascites due to ETOH related liver failure - CTA shows liver cirrhosis and ascites in the upper abdomen and hydronephrosis on the right and possibly the left. - continue on Lasix - Denies any current alcohol use. Monitor for signs of withdrawal. DVT prophylaxis - on Lovenox Discharge Planning Possible discharge tomorrow if okay from a urological standpoint. Freedom Amador MD Dec 27, 2016 09:57
[2016-12-27] MEDS: ACETAMINOPHEN/HYDROcodone 325 MG/5 MG TAB PO PRN (12:00)
[2016-12-27] MEDS: HYDROmorphone HCL PF 1 MG/ML VIAL IV PRN ×3 (13:27→21:39)
--- NOTE | 2016-12-27 18:13 | EKG ---
Date Performed: 12/26/2016 Time Performed: 16:58:59 PTAGE: 66 years EKG: Sinus rhythm Normalization compared to prior tracing. NORMAL ECG PREVIOUS TRACING : 05/13/2016 08.39 DOCTOR: Ashkan Reza Interpretating Date/Time 12/27/2016 18:13:19
[2016-12-27] MEDS: ENOXAPARIN SODIUM 60 MG/0.6 ML SYRINGE SQ SCH (18:37)
[2016-12-27 20:57] LABS: HEMATOCRIT 27.7 % (39.0-51.0)
[2016-12-28] VITALS (8 sets, daily range): BP systolic 90–98; BP diastolic 54–66; PULSE 63–75; RESP 17–20; TEMP 97–99.5; O2SAT 94–99
[2016-12-28] MEDS: HYDROmorphone HCL PF 1 MG/ML VIAL IV PRN ×6 (01:32→20:51)
[2016-12-28] MEDS: ACETAMINOPHEN 325 MG TAB PO PRN (03:37)
[2016-12-28] MEDS: BELLADONNA ALKALOIDS/OPIUM 60 MG SUPP RECTAL SCH ×5 (05:17→16:32)
[2016-12-28] MEDS: ENOXAPARIN SODIUM 60 MG/0.6 ML SYRINGE SQ SCH ×2 (05:29→17:48)
[2016-12-28] MEDS: FUROSEMIDE 40 MG TAB PO SCH (08:47)
[2016-12-28] MEDS: FERROUS FUMARATE 325 MG TAB (106 MG ELEMENTAL IRON) PO SCH (08:47)
[2016-12-28] MEDS: MULTIVITAMIN TAB PO SCH (08:47)
[2016-12-28] MEDS: SODIUM CHLORIDE 0.9% FLUSH 10 ML FLUSH IV FLUSH SCH ×2 (08:50→20:52)
[2016-12-28] MEDS: CYANOCOBALAMIN 100 MCG TAB PO SCH (08:50)
--- NOTE | 2016-12-28 08:58 | HHI.PR ---
Subjective Remarks Hematuria again noted this morning. Urine was clear yesterday. He denies pain or shortness of breath. Objective Vitals Vital Signs Date Time Temp Pulse Resp B/P Pulse Ox O2 Delivery O2 Flow Rate FiO2 12/28/16 04:00 98.8 68 18 96/54 94 12/28/16 00:00 99.5 72 17 98/63 99 12/27/16 20:23 95 12/27/16 20:00 98.3 72 18 94/62 98 12/27/16 20:00 68 12/27/16 16:23 98 12/27/16 16:21 98.5 68 14 98/68 12/27/16 16:13 98.8 68 14 96/62 98 12/27/16 15:30 98.3 88 20 96/72 96 12/27/16 13:50 99.2 59 14 99/58 12/27/16 13:31 99.5 69 14 89/57 99 12/27/16 12:00 98.5 70 18 91/62 100 I/O 12/27/16 12/27/16 12/27/16 12/28/16 12/28/16 12/28/16 07:00 15:00 23:00 07:00 15:00 23:00 Intake Total 240 ml 960 ml 480 ml 250 ml Output Total 900 ml 600 ml Balance 240 ml 960 ml -420 ml -350 ml Intake Oral 240 ml 960 ml 480 ml 250 ml Output Urine Total 900 ml 600 ml # Bowel Movements 0 1 Result Diagram: 12/27/16202612/27/16 0419 Objective Remarks GENERAL: This is a well-nourished, well-developed patient, in no apparent distress. CARDIOVASCULAR: Normal rate and regular rhythm without murmurs, gallops, or rubs. RESPIRATORY: Good respiratory efforts. Breath sounds equal and clear to auscultation bilaterally. GASTROINTESTINAL: Abdomen soft, non-tender, non-distended. Normal active bowel sounds MUSCULOSKELETAL: Trace left lower extremity edema. NEURO: Alert & Oriented x4 to person, place, time, situation. Moves all ext x4 PSYCH: Appropriate mood and affect. 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 Imaging confirmed left lower extremity DVT. Left lower extremity DVT:Left lower extremity ultrasound shows nonocclusive deep vein thrombosis in the left iliac vein and common femoral vein as well as superficial thrombus in the greater saphenous vein. - CTA negative for PE - On Lovenox. Hematuria again this morning. Discussed with urology. Irrigation done at bedside and his urine cleared up. Plan to discharge tomorrow with Ellis for the patient to follow-up at [facility]. Hematuria and urinary retention secondary to clots - Urology following. Patient is status post cystoscopy and cauterization of bleeding. Urine clearing up Anemia secondary to blood loss: - S/P 2 units of PRBC on 12/28/16. Monitor H&H. Cirrhosis with chronic ascites due to ETOH related liver failure - CTA shows liver cirrhosis and ascites in the upper abdomen and hydronephrosis on the right and possibly the left. - continue on Lasix - Denies any current alcohol use. Monitor for signs of withdrawal. DVT prophylaxis - on Lovenox Discharge Planning Possible discharge tomorrow if stable Freedom Amador MD Dec 28, 2016 08:58 Freedom Amador MD Dec 28, 2016 08:58
--- NOTE | 2016-12-28 10:03 | HHI.PR ---
Subjective Patient symptoms today Pt seen and examined. Feeling better after 2 Units PRBC's. Urine irrigated at bedside. Now clear. Objective Vital Signs Vital Signs Date Time Temp Pulse Resp B/P Pulse Ox O2 Delivery O2 Flow Rate FiO2 12/28/16 04:00 98.8 68 18 96/54 94 12/28/16 00:00 99.5 72 17 98/63 99 12/27/16 20:23 95 12/27/16 20:00 98.3 72 18 94/62 98 12/27/16 20:00 68 12/27/16 16:23 98 12/27/16 16:21 98.5 68 14 98/68 12/27/16 16:13 98.8 68 14 96/62 98 12/27/16 15:30 98.3 88 20 96/72 96 12/27/16 13:50 99.2 59 14 99/58 12/27/16 13:31 99.5 69 14 89/57 99 12/27/16 12:00 98.5 70 18 91/62 100 Result Diagram: 12/27/16202612/27/16418 Objective Remarks Abd:soft,nt,nd Lion: urine clear. Left SADIE/DVT 12/28 Abd:soft,nt,nd Lion: urine clear. Left SADIE/DVT Medications and IVs Current Medications Medications (Trade) Dose Ordered Sig/Dejuan Route Start Time Stop Time Status Last Admin (NS Flush) 2 ml UNSCH PRN IV FLUSH 12/25/16 23:30 (NS Flush) 2 ml BID IV FLUSH 12/26/16 09:00 12/28/16 08:50 (Zofran Inj) 4 mg Q6H PRN IVP 12/25/16 23:30 (Dulcolax Supp) 10 mg DAILY PRN MS 12/25/16 23:30 (Tylenol) 650 mg Q6H PRN PO 12/25/16 23:30 12/28/16 03:37 (Vitamin B12) 50 mcg DAILY PO 12/26/16 09:00 12/28/16 08:50 (Lasix) 40 mg DAILY PO 12/26/16 09:00 12/28/16 08:47 (Theragran) 1 tab DAILY PO 12/26/16 09:00 12/28/16 08:47 Ferrous Fumarate 325 mg 325 mg DAILY PO 12/26/16 09:00 12/28/16 08:47 (Amicar Inj/NS Irr Bag) 3,012 ml @ 125.5 mls/ hr Q24H IRRIGATION 12/26/16 18:30 12/27/16 06:15 (B & O Supp) 60 mg Q6HR RECTAL 12/26/16 18:30 12/27/16 06:14 (Lovenox Inj) 60 mg Q12H SQ 12/27/16 19:00 12/28/16 05:29 (Dilaudid Pf Inj) 1 mg Q4HR PRN IV 12/28/16 12:00 (Percocet 7.5-325 Mg) 1 tab Q6H PRN PO 12/28/16 09:30 Assessment and Plan Assessment and Plan 66-year-old male with muscle invasive bladder cancer with newly diagnosed left DVT and gross hematuria with clot retention. Plan for cystoscopy with clot evacuation in the OR today Nothing by mouth. Hold heparin drip for now. 12/27 66 y.o male with muscle invasive bladder cancer s/p cysto with fulguration Hgb at 6.6. Transfuse 2 units of PRBC's today CBI off After transfusion; consider restarting anticoagulation for DVT. 12/28 66 y.o male with muscle invasive bladder cancer s/p cysto with fulguration Ok for discharge with lion in tomorrow. Continue Lovenox for DVT F/u at [place] on Tuesday Audie Castillo DO Dec 28, 2016 10:03
[2016-12-28] MEDS: oxyCODONE/ACETAMINOPHEN 7.5 MG/325 MG TAB PO PRN ×3 (11:27→23:46)
[2016-12-28] MEDS: AMINOCAPROIC ACID INJ 3,000 MG in SODIUM CHLORIDE 0.9% IRR BAG 3,000 ML IRRIGATION SCH (18:30)
[2016-12-29] VITALS: BP 101/66; PULSE 72; RESP 18; TEMP 98.6; O2SAT 98
[2016-12-29 04:00] VITALS: BP 93/55; PULSE 66; RESP 17; TEMP 98.2; O2SAT 96
[2016-12-29] MEDS: HYDROmorphone HCL PF 1 MG/ML VIAL IV PRN (04:40)
[2016-12-29] MEDS: BELLADONNA ALKALOIDS/OPIUM 60 MG SUPP RECTAL SCH (04:43)
[2016-12-29] MEDS: ENOXAPARIN SODIUM 60 MG/0.6 ML SYRINGE SQ SCH (06:11)
[2016-12-29] MEDS: oxyCODONE/ACETAMINOPHEN 7.5 MG/325 MG TAB PO PRN ×2 (06:11→12:43)
[2016-12-29 07:50] VITALS: BP 98/69; PULSE 67; RESP 20; TEMP 97.3; O2SAT 94
[2016-12-29] MEDS: FERROUS FUMARATE 325 MG TAB (106 MG ELEMENTAL IRON) PO SCH (08:00)
[2016-12-29] MEDS: MULTIVITAMIN TAB PO SCH (08:00)
[2016-12-29] MEDS: CYANOCOBALAMIN 100 MCG TAB PO SCH (08:00)
[2016-12-29] MEDS: FUROSEMIDE 40 MG TAB PO SCH (08:00)
[2016-12-29] MEDS: SODIUM CHLORIDE 0.9% FLUSH 10 ML FLUSH IV FLUSH SCH (08:04)
[2016-12-29] MEDS ORDERED: ENOX60P SQ (09:03)
[2016-12-29] MEDS ORDERED: OXYC1TAB35 PO (09:03)
--- NOTE | 2016-12-29 09:07 | HHI.DS ---
Non-Staff Discharge Summary Admission Date Dec 25, 2016 at 23:25 Discharge Date: Dec 29, 2016 Admitting Diagnosis DVT, hematuria (1) Bladder cancer ICD Code: C67.9 (2) DVT (deep venous thrombosis) ICD Code: I82.409 (3) Hematuria ICD Code: R31.9 (4) Anemia ICD Code: D64.9 Procedures cystoscopy and cauterization of bleeding Brief History - From Admission History from admitting physician. 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 In the ED, doppler US revealed nonocclusive DVT in the left iliac vein and common femoral vein and superficial thrombus in the greater saphenous vein. CTA was obtained and was negative for DVT. Patient is under the care of Dr. Lo. Presently, patient is in alot of pain and is either unable or unwilling to give accurate historical information therefore majority of history is obtained from medical chart review. Purportedly, the patients urine has been dark in color but turned bright red today. He has been unable to urinate. ED physician spoke with client support coordinator Dr. Kim who recommended starting the patient on heparin followed by Lovenox at discharge. CBC/BMP: 12/27/16202612/27/16 0419 Significant Findings Laboratory Tests Test 12/26/16 12/27/16 12/27/16 14:16 04:19 20:27 Hemoglobin 8.8 GM/DL 6.6 GM/DL 9.3 GM/DL (13.0-17.0) (13.0-17.0) (13.0-17.0) Hematocrit 27.3 % 20.2 % 27.7 % (39.0-51.0) (39.0-51.0) (39.0-51.0) Activated Partial 36.2 SEC Thromboplast Time (24.3-30.1) White Blood Count 12.3 TH/MM3 (4.0-11.0) Red Blood Count 2.36 MIL/MM3 (4.50-5.90) Neutrophils (%) (Auto) 79.8 % (16.0-70.0) Lymphocytes (%) (Auto) 8.1 % (9.0-44.0) Monocytes (%) (Auto) 10.3 % (0.0-8.0) Neutrophils # (Auto) 9.8 TH/MM3 (1.8-7.7) Monocytes # (Auto) 1.3 TH/MM3 (0-0.9) Estimat Glomerular Filtration 62 ML/MIN (>89) Rate Calcium Level 7.8 MG/DL (8.5-10.1) Imaging Last Impressions CT Angiography 12/25/16 2108 Signed Impressions: Service Date/Time: Sunday, December 25, 2016 22:02 - CONCLUSION: 1. Negative for pulmonary embolus. 2. Moderate to severe coronary calcifications. 3. Liver cirrhosis and ascites in the upper abdomen. Hydronephrosis on the right and possibly the left. Trevon Real MD Lower Extremity Ultrasound 12/25/16 0000 Signed Impressions: Service Date/Time: Sunday, December 25, 2016 20:52 - CONCLUSION: Positive for nonocclusive deep venous thrombosis in the left iliac vein and common femoral vein as well as superficial thrombus in the greater saphenous vein. Trevon Real MD PE at Discharge GENERAL: This is a well-nourished, well-developed patient, in no apparent distress. CARDIOVASCULAR: Normal rate and regular rhythm without murmurs, gallops, or rubs. RESPIRATORY: Good respiratory efforts. Breath sounds equal and clear to auscultation bilaterally. GASTROINTESTINAL: Abdomen soft, non-tender, non-distended. Normal active bowel sounds MUSCULOSKELETAL: Trace left lower extremity edema. NEURO: Alert & Oriented x4 to person, place, time, situation. Moves all ext x4 PSYCH: Appropriate mood and affect. Pt update on day of discharge Patient eager to go home. Urine is pink. He states he can do his own bladder irrigation if needed. 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 Imaging confirmed left lower extremity DVT. Evaluation and treatment course detailed below: Left lower extremity DVT: Left lower extremity ultrasound shows nonocclusive deep vein thrombosis in the left iliac vein and common femoral vein as well as superficial thrombus in the greater saphenous vein. - CTA negative for PE - Patient is discharged on On Lovenox. Hematuria and urinary retention secondary to clots: Patient underwent cystoscopy and cauterization of bleeding. Patient did have intermittent hematuria but this is really clear up with bladder irrigation. I discussed with urology. Best option for the patient is to make his appointment to [facility] [place] and to have his bladder removed as previously scheduled. -Patient knows how to do bladder irrigation. He is discharged with a Ellis to follow-up outpatient. Anemia secondary to blood loss: - S/P 2 units of PRBC on 12/28/16. H&H remained stable posttransfusion. Cirrhosis with chronic ascites due to ETOH related liver failure - CTA shows liver cirrhosis and ascites in the upper abdomen and hydronephrosis on the right and possibly the left. - May restart Lasix outpatient. Pt Condition on Discharge: Stable Discharge Disposition: Discharge Home Discharge Time: <= 30 minutes Discharge Instructions DIET: Follow Instructions for: Heart Healthy Diet Activities you can perform: Regular-No Restrictions Follow up Referrals: Appointment for Follow Up with F/U with [facility] on Tuesday as sched New Medications: Enoxaparin Inj (Lovenox Inj) 60 Mg/0.6 Ml Syr 60 MG SQ Q12H Days 30 INJECTION Oxycodone-Acetaminophen (Oxycodone-Acetaminophen) 7.5-325 mg Tab 1 TAB PO Q6H PRN PAIN GREATER THAN 5 #20 TAB Continued Medications: Cyanocobalamin (Vitamin B-12) 50 Mcg Tab 50 MCG PO DAILY Nutritional Supplement #1 Ref 0 BOTTLE Ferrous Fumarate (Iron) 18 Mg Tab 18 MG PO BID Nutritional Supplement Ref 0 TAB Multiple Vitamin (Multiple Vitamin) 1 Tab 1 TAB PO DAILY Nutritional Supplement Ref 0 TAB Discontinued Medications: Furosemide (Lasix) 40 Mg Tab 40 MG PO DAILY #30 Ref 0 TAB Freedom Amador MD Dec 29, 2016 09:07
[2016-12-29 11:00] VITALS: BP 112/73; PULSE 87; RESP 20; TEMP 96.3; O2SAT 100
[2016-12-29 11:08] VITALS: O2SAT 95
[2016-12-29 11:40] LABS: AUTOMATED NEUTROPHIL # 13.6 TH/MM3 (1.8-7.7); BASOPHIL # 0.1 TH/MM3 (0-0.2); BASOPHIL % 0.5 % (0.0-2.0); EOSINOPHIL # 0.3 TH/MM3 (0-0.4); EOSINOPHIL % 1.8 % (0.0-4.0); HEMATOCRIT 30.6 % (39.0-51.0); HEMO FLAGS DIFF FINAL; LYMPH % 5.5 % (9.0-44.0); LYMPHOCYTE # 0.9 TH/MM3 (1.0-4.8); MEAN CELL VOLUME 85.7 FL (80.0-100.0); MEAN CORPUSCULAR HEMOGLOBIN 28.9 PG (27.0-34.0); MEAN CORPUSCULAR HGB CONC 33.7 % (32.0-36.0); NEUT % 84.2 % (16.0-70.0); PLATELET COUNT 263 TH/MM3 (150-450); RED BLOOD COUNT 3.57 MIL/MM3 (4.50-5.90); RED CELL DISTRIBUTION WIDTH 16.3 % (11.6-17.2); WHITE BLOOD COUNT 16.2 TH/MM3 (4.0-11.0)
== END 2016-12-29 13:41 | disposition home or self-care (01) | DRG 264 ==
LOC: PHED 18:26 → PHEDA 23:25 → PHEDH 12-26 03:39 → PH3B 12-26 10:46 → HPAC 12-26 16:46 → HOCA 12-26 19:20
PROVIDERS: ADMIT Family Medicine; ATTEND Family Medicine
PROC: 0TCB8ZZ Extirpation of Matter from Bladder, Via Natural or Artificial Opening Endoscopic (ICD-10-PCS; 2016-12-26)
PROC: 0T9B80Z Drainage of Bladder with Drainage Device, Via Natural or Artificial Opening Endoscopic (ICD-10-PCS; 2016-12-26)
PROC: 0W3R8ZZ Control Bleeding in Genitourinary Tract, Via Natural or Artificial Opening Endoscopic (ICD-10-PCS; principal; 2016-12-26 17:15)
PROC: 30233N1 Transfusion of Nonautologous Red Blood Cells into Peripheral Vein, Percutaneous Approach (ICD-10-PCS; 2016-12-27)
DX: I82.412 Acute embolism and thrombosis of left femoral vein (principal); K70.31 Alcoholic cirrhosis of liver with ascites; I95.9 Hypotension, unspecified; I82.422 Acute embolism and thrombosis of left iliac vein; C67.9 Malignant neoplasm of bladder, unspecified; K70.40 Alcoholic hepatic failure without coma; I10 Essential (primary) hypertension; D50.0 Iron deficiency anemia secondary to blood loss (chronic); F10.20 Alcohol dependence, uncomplicated; I82.819 Embolism and thrombosis of superficial veins of unspecified lower extremity; K21.9 Gastro-esophageal reflux disease without esophagitis; R31.0 Gross hematuria; N40.0 Benign prostatic hyperplasia without lower urinary tract symptoms; E78.5 Hyperlipidemia, unspecified; M10.9 Gout, unspecified; M19.90 Unspecified osteoarthritis, unspecified site; F17.200 Nicotine dependence, unspecified, uncomplicated; F32.9 Major depressive disorder, single episode, unspecified; F41.9 Anxiety disorder, unspecified
CPT/HCPCS: 36430; 71275; 80048; 80053; 85014; 85018; 85025; 85610; 85730; 86850; 86900; 86901; 86920; 93005; 93971; 96374; C1769; J0690; J1170; J1644; J1650; J2270; J2370; J2405; J3010; J7030; J7040; J7050; P9016; Q9967

== ENCOUNTER 2017-01-14 13:11 | Inpatient (IN) | payer OTHER ==
[2017-01-14] VITALS (17 sets, daily range): BP systolic 78–115; BP diastolic 51–84; PULSE 86–110; RESP 16–20; TEMP 98–99.6; O2SAT 94–100
[~2017-01-14] VITALS: Ht 175.3 cm; Wt 64.1 kg
[~2017-01-14 13:11] MED LIST changes: -AUGM875T PO; -BACT800T5 PO; -CIPR500T4 PO; +ENOX60P SQ; -FURO1TAB93 PO; -HYDR-3533 PO; +IRON18TA2 PO; +MULTTAB67 PO; +OXYC1TAB35 PO; -POTA10IN2 PO; -TAB-TAB PO; +VITA50TA10 PO
[2017-01-14] MEDS ORDERED: SODIUM CHLOR 0.9% 1000 ML INJ 1,000 ML IV SCH (13:37)
[2017-01-14] MEDS ORDERED: TAMS0.4C4 PO (13:41)
[2017-01-14] MEDS ORDERED: GABA300C5 PO (13:41)
[2017-01-14] MEDS ORDERED: SPIR50TA PO (13:41)
[2017-01-14] MEDS ORDERED: FOLI5CAP PO (13:41)
[2017-01-14] MEDS ORDERED: PANTOPRAZOLE INJ 80 MG in SODIUM CHLORIDE 0.9% INJ 35 ML IV ONE (13:45)
[2017-01-14 14:33] LABS: AUTOMATED NEUTROPHIL # 14.8 TH/MM3 (1.8-7.7); BASOPHIL # 0.1 TH/MM3 (0-0.2); BASOPHIL % 0.3 % (0.0-2.0); EOSINOPHIL % 0.1 % (0.0-4.0); LYMPHOCYTE # 1.6 TH/MM3 (1.0-4.8); MEAN CELL VOLUME 88.7 FL (80.0-100.0); MEAN CORPUSCULAR HEMOGLOBIN 28.7 PG (27.0-34.0); MEAN CORPUSCULAR HGB CONC 32.3 % (32.0-36.0); MONO % 7.3 % (0.0-8.0); NEUT % 83.3 % (16.0-70.0); PLATELET COUNT 282 TH/MM3 (150-450); RED BLOOD COUNT 1.61 MIL/MM3 (4.50-5.90); RED CELL DISTRIBUTION WIDTH 18.5 % (11.6-17.2); WHITE BLOOD COUNT 17.8 TH/MM3 (4.0-11.0)
[2017-01-14 14:38] LABS: HEMATOCRIT 14.3 % (39.0-51.0); HEMO FLAGS DIFF FINAL
[2017-01-14 14:44] LABS: APTT (PATIENT) 27.3 SEC (24.3-30.1); INTERNATIONAL NORMALIZED RATIO 1.4 RATIO; PROTHROMBIN TIME - PATIENT 15.3 SEC (9.8-11.6)
[2017-01-14] MEDS ORDERED: SODIUM CHLOR 0.9% 250 ML INJ 250 ML IV ONE (14:45)
[2017-01-14 14:46] LABS: ALT (GPT) 43 U/L (12-78); ANION GAP 12 MEQ/L (5-15); AST (GOT) 94 U/L (15-37); BICARBONATE 19.5 MEQ/L (21.0-32.0); BLOOD UREA NITROGEN 52 MG/DL (7-18); CHLORIDE 105 MEQ/L (98-107); GLOMERULAR FILTRATION RATE 40 ML/MIN (>89); POTASSIUM 6.2 MEQ/L (3.5-5.1); SODIUM (NA) 136 MEQ/L (136-145)
[2017-01-14 14:48] LABS: ALKALINE PHOSPHATASE 149 U/L (45-117); TOTAL BILIRUBIN ADULT 0.4 MG/DL (0.2-1.0)
[2017-01-14] MEDS ORDERED: SODIUM BICARBONATE 8.4% SOLN 50 MEQ/50 ML VIAL SLOW IVP ONE (15:15)
[2017-01-14] MEDS ORDERED: INSULIN HUMAN REGULAR 1,000 UNITS/10 ML VIAL IV PUSH ONE (15:15)
[2017-01-14] MEDS ORDERED: RESP: ALBUTEROL CONC 2.5 MG/0.5 ML NEB INH ONE (15:15)
[2017-01-14] MEDS ORDERED: DEXTROSE 50% IN WATER 50 ML VIAL(D50) IV PUSH ONE (15:15)
[2017-01-14] MEDS ORDERED: CALCIUM GLUCONATE 10% 1 GM/10 ML VIAL SLOW IVP ONE (15:15)
[2017-01-14] MEDS: OCTREOTIDE INJ 500 MCG in SODIUM CHLORID 0.9% 500 ML INJ 500 ML IV SCH (15:40)
[2017-01-14] MEDS: PANTOPRAZOLE INJ 80 MG in SODIUM CHLORIDE 0.9% INJ 100 ML IV SCH (15:40)
[2017-01-14 15:52] LABS: MAGNESIUM 1.8 MG/DL (1.5-2.5)
--- NOTE | 2017-01-14 16:06 | PD.PN.STU ---
Subjective Remarks This is a 66 year old male with history of bladder cancer, ETOH abuse with hepatic cirrhosis, DVTs, previous GI bleed with esophageal varices and HTN that has come to ED after dark tarry stool X 1-2 weeks. Patient is a poor historian and not providing clear meaningful answers to questions. Medical information provided also gathered from patients previous charts. He states that he has had dark stools for approximately 1-2 weeks which he believed were due to taking pain medications. he has also experienced constipation and has taken OTC stool softener and prunes over the past several days. Last night patient could not get up from bed due to pain and weakness in his legs and he could not make it to the bathroom. He reports having several large loose bowel movements in bed and was laying in his stool overnight. He reports that a friend came over and found him and called 911 for him. He has a history of ETOH abuse, but he denies any recent ETOH, substance or tobacco use. Patient was seen in GI office 01/07/11 for clearance of bladder cancer surgery at [facility] in [place], [place] and denied any symptoms at that time. He refused the follow up endoscopy and banding for esophageal varices at that time as well. He denies any bright red blood, nausea or vomiting, chest pain or syncope. Objective Vitals Vital Signs Date Time Temp Pulse Resp B/P Pulse Ox O2 Delivery O2 Flow Rate FiO2 01/14/17 14:30 16 95 Room Air 01/14/17 13:26 98.3 88 16 97/55 100 Result Diagram: 01/14/17 1406 01/14/17 1406 Objective Remarks GENERAL: White 66 year old male, appears slightly disheveled, no acute distress. SKIN: Paleness throughout with minimal jaundice HEAD: Normocephalic, atraumatic EYES: PERRL, EOMI. Mild scleral icterus CARDIAC: S1, S2 heard. RRR. No murmurs, rubs or gallops PULMONARY: BS equally bilaterally, no wheezing rales or rhonchi ABDOMEN: Soft, appears mildly distended, TTP diffusely. No organomegaly, no masses. MUSCULOSKELETAL: Generalized muscle atrophy, no cyanosis clubbing or edema. NEURO: A/O X 4, no focal deficits. Medications and IVs Current Medications Medications (Trade) Dose Ordered Sig/Dejuan Route Start Time Stop Time Status Last Admin Sodium Chloride 2 ml 2 ml UNSCH PRN IVF 01/14/17 13:45 Octreotide Acetate 500 mcg/ Sodium Chloride 500.5 ml @ 50 mls/hr Q10H IV 01/14/17 13:45 Pantoprazole Sodium 80 mg/ Sodium Chloride 100 ml @ 10 mls/hr Q10H IV 01/14/17 13:45 (NS 250 ml Inj) 250 ml @ 15 mls/hr ONCE ONCE IV 01/14/17 14:45 01/15/17 07:24 A/P Assessment and Plan Problem List: 1. Anemia - HgB 4.6 Hct 14.3 - type and cross sent. ED will provide patient with 1 unit emergency blood at this time. Will continue to follow. - This is most likely due to patients GI bleed, Hx of liver cirrhosis with esophageal varices, was due for banding procedure. GI consulted for possible EGD today, will keep patient NPO. Octreotide and PPI ordered. 2. Hyperkalemia - 6.2 calcium gluconate 1gm administer in ED, Insulin 10 units also administered. Will reorder BMP. 3. DVT - Hold anticoagulation at this time for EGD. Restart Lovenox tomorrow. 4. HTN - blood pressure now 97/55, will hold any antihypertensives at this time. 5. Bladder CA - scheduled with [facility] [facility] to have surgical removal, patient will follow up as out patient. patient was seen and examined, very poor prognosis, I D/W Dr. Orellana, he think patient is still unstable to have EGD, we will continue supportive care and PRBC , if stable we will do EGD with possible banding. patient has multi comorbid condition including bladder cancer DVT, may consider palliative care. Clarissa Jeffrey M3 Jan 14, 2017 16:06 Meredith Galloway MD Jan 14, 2017 20:45
--- NOTE | 2017-01-14 16:15 | PD.CONS ---
HPI History of Present Illness This is a 66 with history of alcoholic cirrhosis, esophageal varices, bladder cancer, recent DVT in left leg on Lovenox who states he has been having black stools for approximally 2 weeks duration but he attributed this to pain medications. He reports constipation and has been taking OTC laxatives and stool softeners. States yesterday night he was laying in his stools, his legs gave up and wasn't able to get to the bathroom or reach his phone. This morning his friend came over and was able to bring him to the ED. Patient was seen in our office on 01/07/17 for clearance to undergo cystectomy which was scheduled at [facility] [place], however, this is currently on hold. Patient denies any signs of bleeding in our office. He is poor historian and not able to give meaningful answers or explanations. Patient was scheduled to have EGD/banding at [facility] on Tuesday. He states, it has been 6 months since he had alcohol. He reports nausea, but denies vomiting, hematemesis, or hematochezia. He has tenderness to the abdomen upon palpation. In ED, hgb is 4.6, WBC 17.8. He was started on PPI drip and octreotide. EGD/colonoscopy on (07/21/16)----> three semi-pedunculated polyps ranging between 5-9 mm in size were found in the ascending colon, three semi-pedunculated polyps ranging between 5-9 mm in size were found in the transverse colon, bx showed adenomatous polyps, large esophageal varices in distal esophagus, and was told to return in 4 weeks for EGD/band ligation, but he never followed up. (Shannan Cordova) PFSH Past Medical History Muscle invasive bladder cancer GERD Hyperlipidemia Anxiety/depression Liver cirrhosis Varices BPH left DVT Past Surgical History Cystoscopy with TURBT Umbilical hernia repair Inguinal hernia repair EGD/colonoscopy on 07/21/16 (Shannan Cordova) Uncoded Allergies: BCG TREATMENT (Adverse Reaction, Severe, HTYPOTENSION , 12/25/16) Medications Current Medications Medications (Trade) Dose Ordered Sig/Dejuan Route Start Time Stop Time Status Last Admin Sodium Chloride 2 ml 2 ml UNSCH PRN IVF 01/14/17 13:45 Octreotide Acetate 500 mcg/ Sodium Chloride 500.5 ml @ 50 mls/hr Q10H IV 01/14/17 13:45 Pantoprazole Sodium 80 mg/ Sodium Chloride 100 ml @ 10 mls/hr Q10H IV 01/14/17 13:45 (NS 250 ml Inj) 250 ml @ 15 mls/hr ONCE ONCE IV 01/14/17 14:45 01/15/17 07:24 Family History Non contributory Social History Former smoker States it has been 6 months since alcohol consumption occasional marijuana (Shannan Cordova) Review of Systems Constitutional: COMPLAINS OF: Fatigue Eyes: DENIES: Double Vision Ears, nose, mouth, throat: DENIES: Hoarseness Respiratory: DENIES: Shortness of breath Cardiovascular: DENIES: Lower Extremity Edema Gastrointestinal: COMPLAINS OF: Abdominal pain, Black stools, Constipation, Nausea, DENIES: Bloody stools, Diarrhea, Vomiting, Difficulty Swallowing, Anorexia, Odynophagia, Swelling of Abdomen, Heartburn, Hematemesis Genitourinary: COMPLAINS OF: Hematuria Musculoskeletal: COMPLAINS OF: Joint pain, Muscle aches, DENIES: Neck pain Integumentary: COMPLAINS OF: Jaundice Hematologic/lymphatic: DENIES: Bruising Immunologic/allergic: DENIES: Eczema Neurologic: COMPLAINS OF: Abnormal gait Psychiatric: DENIES: Anxiety (Shannan Cordova) GI Exam Vitals I&O Vital Signs Date Time Temp Pulse Resp B/P Pulse Ox O2 Delivery O2 Flow Rate FiO2 01/14/17 14:30 16 95 Room Air 01/14/17 13:26 98.3 88 16 97/55 100 Laboratory Test 01/14/17 14:06 White Blood Count 17.8 TH/MM3 Red Blood Count 1.61 MIL/MM3 Hemoglobin 4.6 GM/DL Hematocrit 14.3 % Mean Corpuscular Volume 88.7 FL Mean Corpuscular Hemoglobin 28.7 PG Mean Corpuscular Hemoglobin 32.3 % Concent Red Cell Distribution Width 18.5 % Platelet Count 282 TH/MM3 Mean Platelet Volume 9.8 FL Neutrophils (%) (Auto) 83.3 % Lymphocytes (%) (Auto) 9.0 % Monocytes (%) (Auto) 7.3 % Eosinophils (%) (Auto) 0.1 % Basophils (%) (Auto) 0.3 % Neutrophils # (Auto) 14.8 TH/MM3 Lymphocytes # (Auto) 1.6 TH/MM3 Monocytes # (Auto) 1.3 TH/MM3 Eosinophils # (Auto) 0.0 TH/MM3 Basophils # (Auto) 0.1 TH/MM3 CBC Comment DIFF FINAL Differential Comment Prothrombin Time 15.3 SEC Prothromb Time International 1.4 RATIO Ratio Activated Partial 27.3 SEC Thromboplast Time Sodium Level 136 MEQ/L Potassium Level 6.2 MEQ/L Chloride Level 105 MEQ/L Carbon Dioxide Level 19.5 MEQ/L Anion Gap 12 MEQ/L Blood Urea Nitrogen 52 MG/DL Creatinine 1.72 MG/DL Estimat Glomerular Filtration 40 ML/MIN Rate Random Glucose 94 MG/DL Calcium Level 7.7 MG/DL Total Bilirubin 0.4 MG/DL Aspartate Amino Transf 94 U/L (AST/SGOT) Alanine Aminotransferase 43 U/L (ALT/SGPT) Alkaline Phosphatase 149 U/L Total Protein 5.8 GM/DL Albumin 2.1 GM/DL Physical Examination HEENT: normocephalic; atraumatic; + jaundice. Pale NECK: Neck is supple, no JVD, no lymphadenopathy. CHEST: Chest is clear to auscultation and percussion. CARDIAC: Regular rate and rhythm with no murmur gallop or rubs. ABDOMEN: Soft, nondistended, diffused tenderness to palpation; Ascites, bowel sounds are present in all four quadrants. EXTREMITIES: No clubbing, cyanosis, or edema. SKIN: Normal;+ jaundice. AERIAL INSTALLER: No focal deficits; alert and oriented times three. (Shannan Cordova) Assessment and Plan Plan - Profound anemia hgb is 4.6, melena, hx of esophageal varices. NPO PPI drip and octreotide. he is hypotensive. EGD/banding today has been having black stools for approximally 2 weeks duration but he attributed this to pain medications. States yesterday night he was laying in his stools, his legs gave up and wasn't able to get to the bathroom or reach his phone. This morning his friend came over and was able to bring him to the ED. Patient was seen in our office on 01/07/17 for clearance to undergo cystectomy which was scheduled at [facility] [place], however, this is currently on hold. Patient denied any signs of bleeding in our office. He is poor historian and not able to give meaningful answers or explanations. Patient was scheduled to have EGD/banding at [facility] on Tuesday. He states, it has been 6 months since he had alcohol. He reports nausea, but denies vomiting, hematemesis, or hematochezia. He has tenderness to the abdomen upon palpation. EGD/colonoscopy on (07/21/16)----> three semi-pedunculated polyps ranging between 5-9 mm in size were found in the ascending colon, three semi- pedunculated polyps ranging between 5-9 mm in size were found in the transverse colon, bx showed adenomatous polyps, large esophageal varices in distal esophagus, and was told to return in 4 weeks for EGD/band ligation, but he never followed up. - Leukocytosis- WBC 17.8, could be stress related, ?SBP, Rocephin - Hyperkalemia- Received calcium gluconate - BARBARA- multi factorial - History of alcoholic cirrhosis/ ascites- states hasn't been drinking for the past 6 months - bladder cancer, he was suppose to undergo cystectomy which was scheduled at [facility] [place], but this is on hold now. - Recent DVT in left leg on Lovenox, he last took it yesterday, wasn't able to get to it today. Plan: - NPO - EGD/banding ligation today - Obtain consents - Cont. PPI drip, Octreotide - Transfuse as needed to keep hgb >7 - Supportive care - Patient seen and examined by Dr. Galloway and myself and this note is written on his behalf. (Shannan Cordova) Physician Comments patient was seen and examined, very poor prognosis, I D/W Dr. Orellana, he think patient is still unstable to have EGD, we will continue supportive care and PRBC , if stable we will do EGD with possible banding. patient has multi comorbid condition including bladder cancer DVT, may consider palliative care. (Meredith Galloway MD) Shannan Cordova Jan 14, 2017 16:15 Meredith Galloway MD Jan 14, 2017 20:45
--- NOTE | 2017-01-14 16:26 | PD ---
HPI Chief Complaint: General Weakness Time Seen by Provider: 13:36 Travel History International Travel<30 days: No Contact w/Intl Traveler<30days: No Traveled to known affect area: No History of Present Illness HPI 66-year-old male presents with rectal bleeding over the past couple days. He states that he feels weak and cannot walk from the weakness. He denies other concurrent complaints other than intermittent abdominal pain. He states that he is currently on Lovenox and has been on that for a couple weeks for a blood clot in his leg. He states that Dr. Simeon is his GI specialist. He states that he's been scoped in the past but he doesn't know what they've shown. He states his last scope was July of this past year. He states the quality has been dark tarry. He feels worse with movement. He denies other modifying factors. Severity is increasing in amount. He states when he had his hemoglobin checked just a couple days ago it was 9 PFSH Past Medical History Hx Anticoagulant Therapy: No Arthritis: Yes Asthma: No Autoimmune Disease: No Blood Disorders: No Anxiety: Yes Depression: Yes (at times) Heart Rhythm Problems: No Cancer: Yes (bladder) Cardiovascular Problems: Yes High Cholesterol: Yes Chemotherapy: Yes Chest Pain: No Congestive Heart Failure: No COPD: No Cerebrovascular Accident: No Diabetes: No Diminished Hearing: No Endocrine: No Gastrointestinal Disorders: Yes (hernias right side) GERD: No Gout: Yes Genitourinary: Yes Headaches: No Hiatal Hernia: Yes (BILAT) Hypertension: Yes Immune Disorder: No Inguinal Hernia: Yes (RIGHT SIDE REPAIRED) Implanted Vascular Access Dvce: No Kidney Stones: No Musculoskeletal: No Neurologic: No Psychiatric: No Reproductive: No Respiratory: No Immunizations Current: Yes Migraines: No Radiation Therapy: No Renal Failure: No Seizures: No Sleep Apnea: No Thyroid Disease: No Triglycerides - High: Yes Ulcer: No PNEUMOCCOCAL Vaccine (Year): 2 Past Surgical History Abdominal Surgery: Yes (BILAT HERNIA) AICD: No Arteriovenous Shunt: No Cardiac Surgery: No Ear Surgery: No Endocrine Surgery: No Eye Surgery: No Genitourinary Surgery: Yes (BLADDER CA) Gynecologic Surgery: No Insulin Pump: No Joint Replacement: No Neurologic Surgery: No Oral Surgery: No Pacemaker: No Thoracic Surgery: No Other Surgery: Yes (RT HERNIA REPAR/ TESTICLE REMOVED) Social History Alcohol Use: No Tobacco Use: No (quit 4 months ago) Substance Use: Yes (marijuana 3 weeks ago) Allergies-Medications (Allergen,Severity, Reaction): Uncoded Allergies: BCG TREATMENT (Adverse Reaction, Severe, HTYPOTENSION , 12/25/16) Reported Meds & Prescriptions Reported Meds & Active Scripts Active Oxycodone-Acetaminophen 7.5-325 mg Tab 1 Tab PO Q6H PRN Lovenox Inj (Enoxaparin Sodium) 60 Mg/0.6 Ml Syr 60 Mg SQ Q12H 30 Days Reported Tamsulosin (Tamsulosin HCl) 0.4 Mg Cap 0.4 Mg PO DAILY Folic Acid 5 Mg Cap 0.4 Mg PO DAILY Spironolactone 50 Mg Tab 50 Mg PO BIDPC Gabapentin 300 Mg Cap 300 Mg PO TID Vitamin B-12 (Cyanocobalamin) 50 Mcg Tab 50 Mcg PO DAILY Iron (Ferrous Fumarate) 18 Mg Tab 18 Mg PO BID Multiple Vitamin 1 Tab 1 Tab PO DAILY Review of Systems Except as stated in HPI: all other systems reviewed are Neg Physical Exam Narrative GENERAL: Ill-appearing, pale, well-developed patient. SKIN: Warm and dry. HEAD: Normocephalic EYES: No injection or drainage. ENT: No nasal drainage noted. NECK: Supple, trachea midline. CARDIOVASCULAR: Regular rate and rhythm RESPIRATORY: no increased effort. No accessory muscle use. GASTROINTESTINAL: Abdomen soft, non-tender, mildly distended. RECTAL EXAM: Performed with carton counter feeder and after permission. stool is dark with blood. NEUROLOGICAL: Awake and alert. Motor and sensory grossly within normal limits. Normal speech. Data Data Last Documented VS Vital Signs Date Time Temp Pulse Resp B/P Pulse Ox O2 Delivery O2 Flow Rate FiO2 01/14/17 14:30 16 95 Room Air 01/14/17 13:26 98.3 88 97/55 Orders Complete Blood Count With Diff (01/14/17 13:37) Comprehensive Metabolic Panel (01/14/17 13:37) Prothrombin Time / Inr (Pt) (01/14/17 13:37) Act Partial Throm Time (Ptt) (01/14/17 13:37) Type And Screen (01/14/17 13:37) Ecg Monitoring (01/14/17 13:37) Iv Access Insert/Monitor (01/14/17 13:37) Oximetry (01/14/17 13:37) Sodium Chlor 0.9% 1000 Ml Inj (Ns 1000 M (01/14/17 13:37) Sodium Chloride 0.9% Flush (Ns Flush) (01/14/17 13:45) Octreotide Inj (Sandostatin Inj) (01/14/17 13:45) Pantoprazole Inj (Protonix Inj) (01/14/17 13:45) Pantoprazole Inj (Protonix Inj) (01/14/17 13:45) Red Blood Cells (Rbc) (01/14/17 14:36) Blood Product Administration .UPON TRANSFUSION (01/14/17 14:36) Sodium Chlor 0.9% 250 Ml Inj (Ns 250 Ml (01/14/17 14:45) Consult Gastroenterology (01/14/17 ) Diet Npo (01/14/17 Dinner) Electrocardiogram (01/14/17 15:01) Calcium Gluconate Inj (Calcium Gluconate (01/14/17 15:15) Insulin Human Regular Inj (Novolin R Inj (01/14/17 15:15) Dextrose 50% In Nalini (Vial) Inj (D50w (Vi (01/14/17 15:15) Sodium Bicarbonate 8.4% Inj (Sodium Bica (01/14/17 15:15) Albuterol Concentrated Neb (Albuterol Co (01/14/17 15:15) Admit Order (Ed Use Only) (01/14/17 15:02) Magnesium (Mg) (01/14/17 14:06) Phosphorus (Po4) (01/14/17 14:06) Labs Laboratory Tests Test 01/14/17 01/14/17 14:06 15:04 White Blood Count 17.8 TH/MM3 Red Blood Count 1.61 MIL/MM3 Hemoglobin 4.6 GM/DL Hematocrit 14.3 % Mean Corpuscular Volume 88.7 FL Mean Corpuscular Hemoglobin 28.7 PG Mean Corpuscular Hemoglobin 32.3 % Concent Red Cell Distribution Width 18.5 % Platelet Count 282 TH/MM3 Mean Platelet Volume 9.8 FL Neutrophils (%) (Auto) 83.3 % Lymphocytes (%) (Auto) 9.0 % Monocytes (%) (Auto) 7.3 % Eosinophils (%) (Auto) 0.1 % Basophils (%) (Auto) 0.3 % Neutrophils # (Auto) 14.8 TH/MM3 Lymphocytes # (Auto) 1.6 TH/MM3 Monocytes # (Auto) 1.3 TH/MM3 Eosinophils # (Auto) 0.0 TH/MM3 Basophils # (Auto) 0.1 TH/MM3 CBC Comment DIFF FINAL Differential Comment Prothrombin Time 15.3 SEC Prothromb Time International 1.4 RATIO Ratio Activated Partial 27.3 SEC Thromboplast Time Sodium Level 136 MEQ/L Potassium Level 6.2 MEQ/L Chloride Level 105 MEQ/L Carbon Dioxide Level 19.5 MEQ/L Anion Gap 12 MEQ/L Blood Urea Nitrogen 52 MG/DL Creatinine 1.72 MG/DL Estimat Glomerular Filtration 40 ML/MIN Rate Random Glucose 94 MG/DL Calcium Level 7.7 MG/DL Phosphorus Level 3.6 MG/DL Magnesium Level 1.8 MG/DL Total Bilirubin 0.4 MG/DL Aspartate Amino Transf 94 U/L (AST/SGOT) Alanine Aminotransferase 43 U/L (ALT/SGPT) Alkaline Phosphatase 149 U/L Total Protein 5.8 GM/DL Albumin 2.1 GM/DL Blood Type A POSITIVE Antibody Screen POSITIVE Crossmatch Leukocyte-Reduced Red Blood Cells Blood Bank Comment MDM Medical Decision Making Medical Screen Exam Complete: Yes Emergency Medical Condition: Yes Medical Record Reviewed: Yes (pmh confirmed) Interpretation(s) CBC & BMP Diagram 01/14/17 14:06 Differential Diagnosis Variceal bleed, ulcer, anemia, renal failure.... Narrative Course Will check blood work and give IV fluids Hemoglobin resulted at 4.6, paged GI and ordered stat emergency release blood, 1440 called blood Bank for emergency release 1515 patient updated and ICU physician will be helping coordinate care Emergency blood held as blood Bank was initially concerned he had antibody that he could have a fatal reaction to, they called back and stated that after running a panel it is now safe for him to get the emergency release blood. This will be transfused and his care will be continued in the ICU Critical Care Narrative Aggregate critical care time was 35 minutes. Time to perform other separately billable procedures was not included in the critical care time. My time did not include minutes spent treating any other patients simultaneously or on activities that did not directly contribute to the patient's treatment. The services I provided to this patient were to treat and/or prevent clinically significant deterioration that could result in: Hemorrhagic shock, renal failure I provided critical care services requiring my management, as noted below: Chart data review, documentation time, medication orders and management, vital sign assessments/reviewing monitor data, ordering and reviewing lab tests, ordering and interpreting/reviewing x-rays and diagnostic studies, care of the patient and discussion of the patient with the admitting physicians. Physician Communication Physician Communication dr almonte agrees to admit gi justin aware of patient and evaluated patient at bedside Diagnosis Primary Impression: GI bleed Qualified Code: K92.2 - Gastrointestinal hemorrhage, unspecified gastrointestinal hemorrhage type Additional Impressions: Hyperkalemia Anemia Qualified Code: D64.9 - Anemia, unspecified type Acute kidney injury Bladder cancer Qualified Code: C67.9 - Malignant neoplasm of urinary bladder, unspecified site Admitting Information Admitting Physician Requests: Admit Mariela Palmer MD Jan 14, 2017 16:25
[2017-01-14] MEDS ORDERED: SODIUM CHLOR 0.9% 1000 ML INJ 1,000 ML IV ONE (16:30)
--- NOTE | 2017-01-14 16:33 | HHI.HP ---
HPI Service Critical Care Medicine Primary Care Physician Non-Staff Admission Diagnosis gi bleed, hyperkalemia Diagnosis: (1) GI bleed Diagnosis: Principal (2) Hypotension Diagnosis: Principal (3) Anemia requiring transfusions Diagnosis: Principal (4) Leukocytosis Diagnosis: Principal (5) Hyperkalemia Diagnosis: Principal (6) Acute kidney injury Diagnosis: Principal (7) DVT (deep venous thrombosis) Diagnosis: Secondary (8) Bladder cancer Diagnosis: Secondary (9) Hypertension Diagnosis: Secondary (10) Ascites Diagnosis: Secondary Chief Complaint: Lower GI bleed/melena Severe anemia Travel History International Travel<30 Days: No Contact w/Intl Traveler <30 Da: No Traveled to Known Affected Are: No Sepsis Criteria SIRS Criteria (2 or more): WBC > 65795, < 4000 or > 10% bands History of Present Illness Patient is a 66-year-old male with past medical history significant for alcoholic cirrhosis, esophageal varices, bladder cancer, recent DVT (12/25/16 ) in left leg on therapeutic Lovenox was started noticing melanotic stools predominantly since yesterday. He states that he has noted on all for the last 2 weeks.. Yesterday night he had multiple episodes of melanotic diarrhea. Apparently he is scheduled to undergo cystectomy at [facility], and this is currently hold. Per GI notes, patient was scheduled to [place] [facility] [place]. He denies alcohol consumption and last drink was 7 months ago denies any hematemesis. In the emergency department hgb is 4.6, INR 1.4 and WBC 17.8.he has been placed on IV Protonix infusion and octreotide infusion as he has a history of esophageal varices. Blood transfusion had been ordered and is pending at this time. Last EGD colonoscopy was 07/21/16 which showed adenomatous polyps in colon, large esophageal varices in distal esophagus. He was to return in 4 weeks for EGD/band ligation, but apparently patient did not follow-up I evaluated the patient in the ED. He is in [id number]-gxmfzxwd distress and he is pale. His blood pressure is in the 90s. Patient received 1 L of normal saline bolus. I will give 2L additional fluid boluses. Check a lactic acid. I will start him on Rocephin for SBP prophylaxis. Patient will have bedside ultrasound and probable paracentesis once in the ICU. Patient received treatment for hyperkalemia in the ED will repeat K at 5 PM Review of Systems ROS Limitations: Other (as per HPI) Past Family Social History Allergies: Uncoded Allergies: BCG TREATMENT (Adverse Reaction, Severe, HTYPOTENSION , 12/25/16) Past Medical History Liver cirrhosis Varices LLE DVT diagnosed Muscle invasive bladder cancer GERD Hyperlipidemia Anxiety/depression BPH Past Surgical History EGD/colonoscopy on 07/21/16 Cystoscopy with TURP Umbilical hernia repair Inguinal hernia repair Reported Medications Lovenox 60 mg subcutaneous every 12 Aldactone 50 mg twice a day Neurontin 300 mg 3 times a day Iron multivitamin vitamin B-12 and folic acid Tamsulosin Active Ordered Medications Reviewed. Currently on octreotide and Protonix infusion Family History Reviewed Social History Former smoker occasional marijuana use Quit drinking alcohol 7 months ago Physical Exam Vital Signs Vital Signs Date Time Temp Pulse Resp B/P Pulse Ox O2 Delivery O2 Flow Rate FiO2 01/14/17 14:30 16 95 Room Air 01/14/17 13:26 98.3 88 16 97/55 100 Physical Exam GEN: Patient appears older than stated age, lying in bed in mild distress HEENT: Normocephalic; atraumatic; pale NECK: Neck is supple, no JVD, no lymphadenopathy. CHEST: Chest is clear to auscultation. CARDIAC: Regular rate and rhythm with no murmur gallop or rubs. Borderline hypotensive ABDOMEN: Soft, distended, mild tenderness to palpation; bowel sounds are present in all four quadrants. Fluid thrill positive EXTREMITIES: No clubbing, cyanosis, or edema. SKIN: Pale NEURO: No focal deficits; alert and oriented times three. Laboratory Laboratory Tests Test 01/14/17 01/14/17 01/14/17 14:06 15:04 15:44 White Blood Count 17.8 Red Blood Count 1.61 Hemoglobin 4.6 Hematocrit 14.3 Mean Corpuscular Volume 88.7 Mean Corpuscular Hemoglobin 28.7 Mean Corpuscular Hemoglobin 32.3 Concent Red Cell Distribution Width 18.5 Platelet Count 282 Mean Platelet Volume 9.8 Neutrophils (%) (Auto) 83.3 Lymphocytes (%) (Auto) 9.0 Monocytes (%) (Auto) 7.3 Eosinophils (%) (Auto) 0.1 Basophils (%) (Auto) 0.3 Neutrophils # (Auto) 14.8 Lymphocytes # (Auto) 1.6 Monocytes # (Auto) 1.3 Eosinophils # (Auto) 0.0 Basophils # (Auto) 0.1 CBC Comment DIFF FINAL Differential Comment Prothrombin Time 15.3 Prothromb Time International 1.4 Ratio Activated Partial 27.3 Thromboplast Time Sodium Level 136 Potassium Level 6.2 Chloride Level 105 Carbon Dioxide Level 19.5 Anion Gap 12 Blood Urea Nitrogen 52 Creatinine 1.72 Estimat Glomerular Filtration 40 Rate Random Glucose 94 Calcium Level 7.7 Phosphorus Level 3.6 Magnesium Level 1.8 Total Bilirubin 0.4 Aspartate Amino Transf 94 (AST/SGOT) Alanine Aminotransferase 43 (ALT/SGPT) Alkaline Phosphatase 149 Total Protein 5.8 Albumin 2.1 Blood Type A POSITIVE Antibody Screen POSITIVE Crossmatch Leukocyte-Reduced Red Blood Cells Blood Bank Comment Antibody Identification Non-Specific Agglutinin Result Diagram: 01/14/17 1406 01/14/17 1406 Assessment and Plan Assessment and Plan NEURO: -Minimize sedation. Hold home medications of oxycodone and Neurontin at this time RESP: -Nasal cannula oxygen. Incentive spirometry CV: Hypotension History of hypertension -Normal saline IV fluids 3L bolus and 125 ml per hour -Check lactic acid GI: GI bleed most likely variceal bleed Ascites Liver cirrhosis -GI consulted. Plan for endoscopy -Continue Protonix and octreotide -SBP prophylaxis with Rocephin 1 g IV every 24 hours -Nothing by mouth -Bedside ultrasound with possible paracentesis : Acute kidney injury History of bladder cancer -Most likely secondary to ATN. Monitor renal function closely. Ellis catheter. -F/u at [place] for bladder cancer ID: Leukocytosis may be stress related -Send sputum and urine cultures. Empiric Rocephin for SBP prophylaxis -Send fluid studies from ascites fluid if present HEME: Severe anemia requiring transfusion Left lower extremity DVT 12/25/16 -Give 3 units of PRBC -Monitor CBC coags -Definitive management per GI/need endoscopy -IR consulted for IVC filter placement -Check bilateral lower extremity venous Doppler ENDO: Hyperkalemia -Received calcium gluconate, DuoNeb breathing treatment, D5 and IV insulin, and bicarbonate for hyperkalemia -Repeat potassium at 1700 PROPH: IVC filter, IV Protonix CC time 45 min Code Status Full Problem Qualifiers (1) GI bleed: Qualified Code: K92.2 - Gastrointestinal hemorrhage, unspecified gastrointestinal hemorrhage type (2) Hypotension: Qualified Code: I95.9 - Hypotension, unspecified hypotension type (3) DVT (deep venous thrombosis): Brian Logan MD Jan 14, 2017 16:33 Brian Logan MD Jan 14, 2017 16:33
[2017-01-14] MEDS ORDERED: diphenhydrAMINE HCL 50 MG/ML VIAL IV PUSH ONE ×2 (18:00→18:45)
--- NOTE | 2017-01-14 18:58 | RADRPT ---
EXAM DATE/TIME: 01/14/2017 17:28 [facility] COMPARISON: No previous studies available for comparison. INDICATIONS : Bilateral leg swelling. MEDICAL HISTORY : Hypercholesterolemia. Hypertension. Hernia, hiatal. Hyperlipidemia. Bladder cancer. Blood transfusion . Chemotherapy. Measles. SURGICAL HISTORY : Inguinal hernia repair. Orchiectomy. Left leg surgery. Left thumb fracture repair. ENCOUNTER: Initial ACUITY: 1 day PAIN SCORE: 6/10 LOCATION: Bilateral legs. TECHNIQUE: Venous ultrasound of the left and right leg was performed from the inguinal ligament to the proximal calf. Real-time, color Doppler and spectral tracing, compression and augmentation techniques were us ed. FINDINGS: RIGHT LEG: There is normal compressibility of the deep venous system from the inguinal region to the proximal ca lf. No echogenic clot is seen in the lumen of the common femoral, femoral, popliteal, and posterior tibial veins. There is a normal response of the venous system to proximal and distal augmentation an d respiration. LEFT LEG: There is incomplete compressibility of the visualized iliac vein consistent with partial recanalizati on of DVT. In the thigh, and the deep femoral vein is thrombosed. The superficial femoral vein is pat ent. Popliteal and tibial veins are patent. CONCLUSION: Left iliac and deep femoral DVT. No evidence of DVT on the right. Desmond Villatoro MD on January 14, 2017 at 18:50 Board Certified Radiologist. This report was verified electronically.
[2017-01-14] MEDS: SODIUM CHLOR 0.9% 1000 ML INJ 1,000 ML IV SCH (20:08)
[2017-01-14] MEDS: cefTRIAXone INJ 1,000 MG in SODIUM CHLORIDE 0.9% INJ 100 ML IV SCH (20:09)
[2017-01-15] VITALS (8 sets, daily range): BP systolic 99–113; BP diastolic 68–76; PULSE 84–90; RESP 18–20; TEMP 98–99.1; O2SAT 94–98
[2017-01-15] MEDS: PANTOPRAZOLE INJ 80 MG in SODIUM CHLORIDE 0.9% INJ 100 ML IV SCH ×2 (00:17→01:19)
[2017-01-15] MEDS: SODIUM CHLOR 0.9% 1000 ML INJ 1,000 ML IV SCH ×2 (00:19→10:36)
[2017-01-15 01:34] LABS: MEAN CELL VOLUME 84.8 FL (80.0-100.0); MEAN CORPUSCULAR HEMOGLOBIN 28.4 PG (27.0-34.0); MEAN CORPUSCULAR HGB CONC 33.5 % (32.0-36.0); PLATELET COUNT 262 TH/MM3 (150-450); RED BLOOD COUNT 2.15 MIL/MM3 (4.50-5.90); RED CELL DISTRIBUTION WIDTH 18.7 % (11.6-17.2)
[2017-01-15 01:39] LABS: HEMATOCRIT 18.2 % (39.0-51.0); REVIEW FLAG FINAL
[2017-01-15] MEDS: OCTREOTIDE INJ 500 MCG in SODIUM CHLORID 0.9% 500 ML INJ 500 ML IV SCH ×2 (02:35→10:31)
[2017-01-15] MEDS: HYDROmorphone HCL PF 1 MG/ML VIAL IV PRN (02:46)
[2017-01-15 05:46] LABS: AUTOMATED NEUTROPHIL # 31.9 TH/MM3 (1.8-7.7); BASOPHIL # 0.1 TH/MM3 (0-0.2); BASOPHIL % 0.4 % (0.0-2.0); HEMATOCRIT 24.7 % (39.0-51.0); LYMPH % 1.9 % (9.0-44.0); LYMPHOCYTE # 0.6 TH/MM3 (1.0-4.8); MEAN CELL VOLUME 86.2 FL (80.0-100.0); MEAN CORPUSCULAR HGB CONC 32.5 % (32.0-36.0); MONO % 5.3 % (0.0-8.0); NEUT % 92.4 % (16.0-70.0); PLATELET COUNT 222 TH/MM3 (150-450); RED BLOOD COUNT 2.87 MIL/MM3 (4.50-5.90); RED CELL DISTRIBUTION WIDTH 17.5 % (11.6-17.2); WHITE BLOOD COUNT 34.5 TH/MM3 (4.0-11.0)
[2017-01-15 05:48] LABS: HEMO FLAGS AUTO DIFF
[2017-01-15 07:00] LABS: BICARBONATE 18.6 MEQ/L (21.0-32.0); CALCIUM-PROTEIN CORRECTED 8.1 MG/DL (8.5-10.1); MAGNESIUM 1.7 MG/DL (1.5-2.5); POTASSIUM 4.3 MEQ/L (3.5-5.1); TOTAL BILIRUBIN ADULT 1.6 MG/DL (0.2-1.0)
[2017-01-15 07:49] LABS: BANDS 1 % (0-6); NEUTROPHIL # MANUAL DIFF 32.4 TH/MM3 (1.8-7.7); POLYS (SEG NEUTROPHILS) 93 % (16-70); WBC DIFF SAMPLE 100
[2017-01-15 07:50] LABS: PLATELET ESTIMATE SMEAR NORMAL (NORMAL); PLATELET MORPHOLOGY NORMAL (NORMAL); SCAN/DIFF FINAL DIFF MANUAL
[2017-01-15 07:51] LABS: OVALOCYTES 1+ (NORMAL)
[2017-01-15] MEDS ORDERED: MAGNESIUM SULFATE 1 GM PREMIX 100 ML IV SCH (08:15)
--- NOTE | 2017-01-15 08:16 | HHI.CCPN ---
Subjective Remarks/Hospital Course Patient is a 66-year-old male with past medical history significant for alcoholic cirrhosis, esophageal varices, bladder cancer, recent DVT (12/25/16 ) in left leg on therapeutic Lovenox was started noticing melanotic stools predominantly since yesterday. He states that he has noted on all for the last 2 weeks.. Yesterday night he had multiple episodes of melanotic diarrhea. Apparently he is scheduled to undergo cystectomy at [facility], and this is currently hold. Per GI notes, patient was scheduled to [place] [facility] [place]. He denies alcohol consumption and last drink was 7 months ago denies any hematemesis. In the emergency department hgb is 4.6, INR 1.4 and WBC 17.8.he has been placed on IV Protonix infusion and octreotide infusion as he has a history of esophageal varices. Blood transfusion had been ordered and is pending at this time. Last EGD colonoscopy was 07/21/16 which showed adenomatous polyps in colon, large esophageal varices in distal esophagus. He was to return in 4 weeks for EGD/band ligation, but apparently patient did not follow-up I evaluated the patient in the ED. He is in ufad-nd-aukiem[place] distress and he is pale. His blood pressure is in the 90s. Patient received 1 L of normal saline bolus. I will give 2L additional fluid boluses. Check a lactic acid. I will start him on Rocephin for SBP prophylaxis. Patient will have bedside ultrasound and probable paracentesis once in the ICU. Patient received treatment for hyperkalemia in the ED will repeat K at 5 PM Subjective 01/15: Received 7 units PRBCs ordered since admission. Remains normotensive currently. Complains of vague abdominal pain/moaning in room. Answers questions appropriately. Afebrile. Hemoccult positive BM's. Objective Vital Signs Date Time Temp Pulse Resp B/P Pulse Ox O2 Delivery O2 Flow Rate FiO2 01/15/17 03:00 99.1 90 20 99/68 94 01/14/17 23:00 Room Air Intake and Output 01/14/17 01/14/17 01/15/17 08:00 16:00 00:00 Intake Total 500 ml Balance 500 ml Result Diagram: 01/15/17 0518 01/15/17 0518 Other Results Microbiology Date/Time Procedure Status Source Growth 01/14/17 18:10 Aerobic Blood Culture Received Blood Peripheral Pending 01/14/17 18:10 Anaerobic Blood Culture Received Blood Peripheral Pending Imaging Last Impressions Lower Extremity Ultrasound 01/14/17 0000 Signed Impressions: Service Date/Time: Saturday, January 14, 2017 17:28 - CONCLUSION: Left iliac and deep femoral DVT. No evidence of DVT on the right. Desmond Villatoro MD Objective Remarks GEN: 66-year-old male, lying in bed in mild distress HEENT: Normocephalic; atraumatic NECK: Neck is supple, no JVD, no lymphadenopathy. CHEST: Chest is clear to auscultation bilaterally without wheezes rales or rhonchi CARDIAC: RRR. S1, S2. No S4. No murmur ABDOMEN: Soft, distended, mild tenderness to palpation; bowel sounds are present in all four quadrants. Positive succussion splash EXTREMITIES: With trace edema left lower extremity. SKIN: Warm and dry. No rash NEURO: Cranial nerves II through XII grossly intact. Strength is equal symmetric. Normal sensation. A/P Assessment and Plan NEURO/PSYCH: History of peripheral neuropathy History of EtOH abuse Depression/anxiety -Minimize sedation. -As needed Dilaudid 0.5 every 4 mg when necessary pain Hold home medications of oxycodoneacetaminophen as needed for pain and Neurontin 300 mg 3 times a day at this time We'll continue thiamine at 100 mg IV daily. On B12 50 by mouth daily folic acid 0.4 mg by mouth daily at home for EtOH use RESP: -Nasal cannula oxygen to maintain saturations greater than equal to 92% currently on room air. Incentive spirometry while awake CV: Hypotension secondary to hypovolemia History of hypertension Lactic acidosis -Normal saline IV fluids 3L bolus given in ED. Will decrease to 42 mg/h -Check lactic acid. Last one 2.7. Repeat this afternoon until cleared We'll start on low-dose Lasix 20 mEq IV twice a day since currently hemodynamically stable On spironolactone 50 mill grams twice a day at home. This is currently on hold GI: GI bleed most likely variceal bleed Ascites/abdominal Liver cirrhosis History of gastroesophageal reflux disease Elevated transaminases likely secondary to EtOH Hypoalbuminemia -GI consulted. Plan for endoscopy today 11 AM -Continue Protonix at 8 mg an hour and julreotide at 50 grams an hour -SBP prophylaxis with Rocephin 1 g IV every 24 hours -Nothing by mouth : Acute kidney injury History of bladder cancer/muscular invasive Bilateral hydronephrosis by history BPH -Most likely secondary to ATN. Monitor renal function closely. Noted recent CT chest revealed right greater than left hydronephrosis. Currently with adequate urine output. -F/u at [place] for bladder cancer Resume Flomax or 0.4 mg daily when clinically indicated ID: -Send for blood sputum and urine cultures. Empiric Rocephin for SBP prophylaxis -Send fluid studies from ascites fluid if present HEME: Severe anemia requiring transfusion of 7 units PRBCs Left lower extremity DVT 12/25/16 - left iliac and deep femoral Leukocytosis -Given 7 units of PRBC -Monitor CBC coags are last INR 1.4 -Definitive management per GI/need endoscopy -IR consulted for IVC filter placement On iron fumarate 18 mg twice a day at home. Currently on hold On Lovenox 60 mg subcutaneous twice a day for DVT. This is currently on hold ENDO: Hyperkalemia - resolved Hypo-magnesium -We'll give 2 g mag sulfate IV 1 now. Recheck in a.m. PROPH: IVC filter, IV Protonix/octreotide Critical Care: The total critical care time was 55 minutes. Time to perform other separately billable procedures was not included in the critical care time. Ramon Mata MD Jan 15, 2017 08:16
[2017-01-15] MEDS: THIAMINE INJ 100 MG in SODIUM CHLORIDE 0.9% INJ 100 ML IV SCH (10:32)
[2017-01-15] MEDS: FUROSEMIDE 20 MG/2 ML VIAL IV PUSH SCH ×2 (10:32→19:02)
[2017-01-15] MEDS ORDERED: KETAMINE HCL 500 MG/10 ML VIAL IV ONE (12:00)
[2017-01-15 12:07] LABS: HEMATOCRIT 32.3 % (39.0-51.0)
[2017-01-15 12:09] LABS: REVIEW FLAG FINAL
[2017-01-15] MEDS ORDERED: PROPOFOL 200 MG/20 ML AMP IV ONE (13:09)
[2017-01-15 15:25] LABS: HEMATOCRIT 31.4 % (39.0-51.0)
[2017-01-15 15:28] LABS: REVIEW FLAG FINAL
[2017-01-15 15:33] LABS: APTT (PATIENT) 29.1 SEC (24.3-30.1); INTERNATIONAL NORMALIZED RATIO 1.4 RATIO; PROTHROMBIN TIME - PATIENT 15.3 SEC (9.8-11.6)
--- NOTE | 2017-01-15 15:53 | EKG ---
Date Performed: 01/14/2017 Time Performed: 15:48:09 PTAGE: 66 years EKG: Sinus rhythm LOW QRS VOLTAGE IN PRECORDIAL LEADS BORDERLINE ECG PREVIOUS TRACING : 12/26/2016 16.58 Compared to previous tracing, QRS voltage is somewhat lower in precordial leads, otherwise no significant change. DOCTOR: Albert Stanford Interpretating Date/Time 01/15/2017 15:51:40
--- NOTE | 2017-01-15 17:50 | RADRPT ---
EXAM DATE/TIME: 01/15/2017 16:21 [place] COMPARISON: No previous studies available for comparison. EXTERNAL COMPARISON : [facility], CT ABDOMEN & PELVIS W CONTRAST, December 01, 2016 INDICATIONS : Abdominal pain. MEDICAL HISTORY : Hypercholesterolemia. Carcinoma, bladder. Arthritis. Liver cirrhosis. Hyperlipidemia. Hypertension. H ernias. Hematuria. Gout. Gait problems. Jaundice. Depression. Anxiety. SURGICAL HISTORY : Inguinal hernia repair. Testicle removed for infeciton. Orthopedic surgery; left leg, left thumb fracture. Chemotherapy. Blood transfusions. ENCOUNTER: Initial ACUITY: 2 days PAIN SCORE: 9/10 LOCATION: Abdomen. MEASUREMENTS: LIVER: 18.1 cm length COMMON DUCT: 8 mm RIGHT KIDNEY: 12.3 x 6.3 x 5.9 cm LEFT KIDNEY: 12.7 x 7.1 x 6.5 cm SPLEEN: 15.8 cm length AORTA: 2.5cm maximal FINDINGS: Liver is lobular characteristic of cirrhosis which is associated with moderate ascites. There is sludge in the gallbladder with thickened wall. Common bile duct mildly dilated at 8 mm. Righ t kidney echogenic with moderate hydronephrosis. Left kidney also echogenic with mild hydronephrosis. Spleen enlarged to 16 cm. Aorta and IVC unremarkable. CONCLUSION: 1. Liver cirrhosis with moderate ascites. Splenomegaly. 2. Echogenic kidneys characteristic of medical renal disease with moderate right hydronephrosis and m ild left hydronephrosis. Trevon Real MD on January 15, 2017 at 17:46 Board Certified Radiologist. This report was verified electronically.
[2017-01-15] MEDS: cefTRIAXone INJ 1,000 MG in SODIUM CHLORIDE 0.9% INJ 100 ML IV SCH (19:01)
[2017-01-16] VITALS (11 sets, daily range): BP systolic 93–132; BP diastolic 53–85; PULSE 78–92; RESP 18; TEMP 97.9–98.6; O2SAT 93–97
[2017-01-16] MEDS: PANTOPRAZOLE INJ 80 MG in SODIUM CHLORIDE 0.9% INJ 100 ML IV SCH ×2 (00:02→17:44)
--- NOTE | 2017-01-16 06:27 | HHI.CCPN ---
Subjective Remarks/Hospital Course Patient is a 66-year-old male with past medical history significant for alcoholic cirrhosis, esophageal varices, bladder cancer, recent DVT (12/25/16 ) in left leg on therapeutic Lovenox was started noticing melanotic stools predominantly since yesterday. He states that he has noted on all for the last 2 weeks.. Yesterday night he had multiple episodes of melanotic diarrhea. Apparently he is scheduled to undergo cystectomy at [facility], and this is currently hold. Per GI notes, patient was scheduled [place] [facility] [place] He denies alcohol consumption and last drink was 7 months ago denies any hematemesis. In the emergency department hgb is 4.6, INR 1.4 and WBC 17.8.he has been placed on IV Protonix infusion and octreotide infusion as he has a history of esophageal varices. Blood transfusion had been ordered and is pending at this time. Last EGD colonoscopy was 07/21/16 which showed adenomatous polyps in colon, large esophageal varices in distal esophagus. He was to return in 4 weeks for EGD/band ligation, but apparently patient did not follow-up I evaluated the patient in the ED. He is in [id number] distress and he is pale. His blood pressure is in the 90s. Patient received 1 L of normal saline bolus. I will give 2L additional fluid boluses. Check a lactic acid. I will start him on Rocephin for SBP prophylaxis. Patient will have bedside ultrasound and probable paracentesis once in the ICU. Patient received treatment for hyperkalemia in the ED will repeat K at 5 PM 01/15: Received 7 units PRBCs ordered since admission. Remains normotensive currently. Complains of vague abdominal pain/moaning in room. Answers questions appropriately. Afebrile. Hemoccult positive BM's. Subjective 01/16: Afebrile. 2 bowel movements/dark tarry overnight. Hemodynamically stable. Noted EGD revealed gastric ulcers in antrum was biopsied. Gastropathy. Old banding with no esophageal varices. Moderate ascites on ultrasound. Patient at baseline compared yesterday neurologic was Objective Vital Signs Date Time Temp Pulse Resp B/P Pulse Ox O2 Delivery O2 Flow Rate FiO2 01/16/17 03:00 83 01/16/17 03:00 98.1 18 100/70 94 01/15/17 21:20 Nasal Cannula 2.00 Intake and Output 01/15/17 01/15/17 01/16/17 08:00 16:00 00:00 Intake Total 3000 ml 200 ml 0 ml Output Total 200 ml 0 ml Balance 2800 ml 200 ml 0 ml Result Diagram: 01/16/17 0018 01/15/17 0518 Other Results Microbiology Date/Time Procedure Status Source Growth 01/14/17 18:10 Aerobic Blood Culture - Preliminary Resulted Blood Peripheral NO GROWTH IN 1 DAY 01/14/17 18:10 Anaerobic Blood Culture - Preliminary Resulted Blood Peripheral NO GROWTH IN 1 DAY Imaging Last Impressions Abdomen Ultrasound 01/15/17 0000 Signed Impressions: Service Date/Time: Sunday, January 15, 2017 16:21 - CONCLUSION: 1. Liver cirrhosis with moderate ascites. Splenomegaly. 2. Echogenic kidneys characteristic of medical renal disease with moderate right hydronephrosis and mild left hydronephrosis. Trevon Real MD Lower Extremity Ultrasound 01/14/17 0000 Signed Impressions: Service Date/Time: Saturday, January 14, 2017 17:28 - CONCLUSION: Left iliac and deep femoral DVT. No evidence of DVT on the right. Desmond Villatoro MD Objective Remarks GEN: 66-year-old male, lying in bed in no acute distress HEENT: Normocephalic; atraumatic NECK: Neck is supple, no JVD, no lymphadenopathy. CHEST: Chest is clear to auscultation bilaterally without wheezes rales or rhonchi CARDIAC: RRR. S1, S2. No S4. No murmur ABDOMEN: Soft, distended, mild tenderness to palpation; bowel sounds are present in all four quadrants. Positive succussion splash EXTREMITIES: With trace edema left lower extremity. SKIN: Warm and dry. No rash NEURO: Cranial nerves II through XII grossly intact. Strength is equal symmetric. Normal sensation. A/P Assessment and Plan NEURO/PSYCH: History of peripheral neuropathy History of EtOH abuse Depression/anxiety -Minimize sedation. -As needed Dilaudid 0.5 every 4 mg when necessary pain Hold home medications of oxycodoneacetaminophen as needed for pain and Neurontin 300 mg 3 times a day at this time We'll continue thiamine at 100 mg IV daily. On B12 50 by mouth daily folic acid 0.4 mg by mouth daily at home for EtOH use RESP: -Nasal cannula oxygen to maintain saturations greater than equal to 92% currently on 2 L nasal cannula Incentive spirometry while awake CV: Hypotension secondary to hypovolemia History of hypertension Lactic acidosis -Normal saline IV fluids 3L bolus given in ED. normal saline currently at 42 cc an hour -Check lactic acid. Last one 2.4. Repeat this afternoon until cleared We'll start on low-dose Lasix 20 mEq IV twice a day since currently hemodynamically stable On spironolactone 50 mill grams twice a day at home. This is currently on hold GI: GI bleed most likely variceal bleed Ascites/abdominal Liver cirrhosis History of gastroesophageal reflux disease Elevated transaminases likely secondary to EtOH Hypoalbuminemia -GI consulted. EGD revealed gastric ulcer in antrum. This is biopsied. Gastropathy. Old many. No varices. -Continue Protonix at 8 mg an hour and octreotide at 50 grams an hour per GI -SBP prophylaxis with Rocephin 1 g IV every 24 hours 7 days with upper GI bleed -Nothing by mouth. Advance diet per GI : Acute kidney injury History of bladder cancer/muscular invasive Bilateral hydronephrosis by history right greater than left BPH -Most likely secondary to ATN. Monitor renal function closely. Noted recent CT chest revealed right greater than left hydronephrosis. Currently with adequate urine output. -F/u at [place] for bladder cancer Resume Flomax or 0.4 mg daily when clinically indicated ID: -Send for blood sputum and urine cultures. No growth to date Empiric Rocephin for SBP prophylaxis HEME: Severe anemia requiring transfusion of 7 units PRBCs Left lower extremity DVT 12/25/16 - left iliac and deep femoral Leukocytosis -Given 7 units of PRBC during this hospitalization -Monitor CBC coags are last INR 1.4 -Definitive management per GI/need endoscopy -IR consulted for IVC filter placement On iron fumarate 18 mg twice a day at home. Currently on hold On Lovenox 60 mg subcutaneous twice a day for DVT. This is currently on hold ENDO: Hyperkalemia - resolved Hypo-magnesium Follow-up on a.m. CMP PROPH: IVC filter ordered for Tuesday currently with SCDs, IV Protonix/octreotide Critical Care: The total critical care time was 35 minutes. Time to perform other separately billable procedures was not included in the critical care time. Ramon Mata MD Jan 16, 2017 06:27
--- NOTE | 2017-01-16 07:35 | MR ---
cc: EZEQUIEL GALLOWAY M.D. DATE: 01/15/2017 [address] Ton Logan PROCEDURE Upper gastrointestinal endoscopy with biopsy. ENDOSCOPIST Dr. Galloway. MEDICATIONS: Propofol with anesthesia INSTRUMENT: Pentax upper endoscope. INDICATION 66-year-old gentleman who has anemia, GI bleed. PROCEDURE After informing the patient about the procedure and complications, consent was signed. The patient was placed on his left lateral decubitus, adequate sedation was achieved by propofol. Scope was placed in the mouth advanced under video guidance to the second portion of the duodenum. The scope drawn back through the stomach. Retroflexion was performed. The scope drawn back without immediate complication. FINDINGS Esophagus: Sign of old varices of banding. No varices at this time. Stomach: Severe gastropathy throughout the colon. No sign of active bleeding. No old blood. Multiple ulcers in the antrum, one biopsied. No active bleeding. Duodenum normal. RECOMMENDATIONS: Continue PPI. Follow up biopsy. Packed RBCs as needed. MD AFSANEH Gibbs/JUSTUS /1:24 PM /7:06 AM
[2017-01-16] MEDS: SODIUM CHLOR 0.9% 1000 ML INJ 1,000 ML IV SCH (08:04)
[2017-01-16] MEDS: THIAMINE INJ 100 MG in SODIUM CHLORIDE 0.9% INJ 100 ML IV SCH (08:22)
[2017-01-16] MEDS: FUROSEMIDE 20 MG/2 ML VIAL IV PUSH SCH ×2 (08:22→17:34)
[2017-01-16 10:14] LABS: AUTOMATED NEUTROPHIL # 29.3 TH/MM3 (1.8-7.7); BASOPHIL # 0.1 TH/MM3 (0-0.2); BASOPHIL % 0.3 % (0.0-2.0); EOSINOPHIL % 0.1 % (0.0-4.0); HEMATOCRIT 29.7 % (39.0-51.0); LYMPH % 1.9 % (9.0-44.0); LYMPHOCYTE # 0.6 TH/MM3 (1.0-4.8); MEAN CELL VOLUME 84.4 FL (80.0-100.0); MEAN CORPUSCULAR HGB CONC 34.4 % (32.0-36.0); MONO % 5.1 % (0.0-8.0); NEUT % 92.6 % (16.0-70.0); PLATELET COUNT 210 TH/MM3 (150-450); RED BLOOD COUNT 3.52 MIL/MM3 (4.50-5.90); RED CELL DISTRIBUTION WIDTH 17.8 % (11.6-17.2); WHITE BLOOD COUNT 31.6 TH/MM3 (4.0-11.0)
[2017-01-16 10:17] LABS: HEMO FLAGS AUTO DIFF
--- NOTE | 2017-01-16 10:18 | MB ---
cc: JESSA HINDS DATE OF CONSULTATION: 01/16/2017 1950. REASON FOR CONSULTATION Patient with a history of bladder cancer, esophageal varices, history of left lower extremity DVT, who presents with melanotic stools. CHIEF COMPLAINT Weakness, dark stools. HISTORY OF PRESENT ILLNESS Mr. Kang is a 66-year-old male who has a diagnosis of bladder cancer, alcoholic cirrhosis, esophageal varices, and DVT of the left lower extremity. He was on therapeutic Lovenox. He started noticing dark colored stools and felt weak, since he started anticoagulation. He was brought to the emergency room. He was found to have a very low hemoglobin of 4.6. The patient was given packed red blood cell transfusion and was started on IV Protonix infusion and Octreotide. The patient is somewhat of a poor historian. He states that he has had a diagnosis of bladder cancer since 2009. He follows with Dr. Lo. He never received any chemotherapy for his bladder cancer, although he does admit to receiving intravesicular BCG treatment. He was supposed to go to [facility] later this month for a cystectomy. The patient has had an EGD on 07/21/2016 and he was found to have esophageal varices. In addition to receiving packed red blood cells, he has received fresh frozen plasma. GI has been consulted. He had an EGD which did not show any active site of bleeding. I have been consulted to make recommendations in this patient who has left lower extremity DVT and GI bleeding. REVIEW OF SYSTEMS A comprehensive 14-point review of systems was completed which is negative except as described in HPI. PAST MEDICAL HISTORY 1. Bladder cancer 2. Liver cirrhosis 3. Esophageal varices 4. Left lower extremity DVT 5. Gastroesophageal reflux disease. 6. Hyperlipidemia 7. Anxiety depression 8. BPH. PAST SURGICAL HISTORY 1. History of EGD and colonoscopy on 07/21/2016. 2. Cystoscopy with TURP. 3. Umbilical hernia repair. 4. Inguinal hernia repair. INPATIENT MEDICATIONS: 1. Lasix 20 milligrams IV b.i.d. 2. Thiamine IV daily. 3. Dilaudid 0.5 milligrams IV q4 hours. 4. Ceftriaxone 1000 milligrams IV q24 hours. 5. Pantoprazole 80 milligrams 6. IV GGT. 7. Anticoagulation has been stopped. ALLERGIES: BCG TREATMENT ? FAMILY HISTORY: Reviewed, noncontributory. SOCIAL HISTORY He is a former smoker of more than 30 pack-years of smoking history. He states that quit drinking alcohol 6 months ago, he occasionally smokes marijuana. PHYSICAL EXAMINATION Vital signs: Blood pressure is 100/70, pulse in the 80s, temperature is 98.3, pulse ox 97. General: Chronically ill-appearing, cachectic thin male who is in no apparent distress. HEENT: Pupils are equal, round, reactive to light. EOMI. No oral thrush. No oral lesions. NECK: Neck is supple without JVD or bruits. No lymphadenopathy. CHEST: Chest is clear to auscultation bilaterally. CARDIAC: S1-S2 regular rate and rhythm. ABDOMEN: Abdomen is soft, nontender, nondistended. Bowel sounds are present. EXTREMITIES: Without any edema, erythema or cyanosis. SKIN: Without any petechiae, lesion or bruises. LABORATORY DATA WBCs 17.8, hemoglobin is 9.9, platelet count is 222. Serum chemistries show sodium of 141, potassium 4.3, chloride 110, CO2 18.6, BUN is 46, creatinine is 1.42, GFR is 50, glucose is 137, calcium is 7.2, magnesium is 1.7, total bilirubin is 1.6, AST is 206, ALT is 97, alk phos is 127, total protein is 5.4, albumin is 2.1. IMAGING STUDIES Abdominal ultrasound shows liver cirrhosis with ascites, splenomegaly. Lower extremity ultrasound shows left celiac deep femoral DVT. ASSESSMENT/PLAN This is a 66-year-old male with a diagnosis of muscle invasive bladder cancer, history of liver cirrhosis due to alcoholism, esophageal varices, history of left lower extremity DVT, who presents to the emergency department with GI bleeding and was found to be severely anemic with a hemoglobin of 4.6. 1. Severe anemia and GI bleeding in a patient who has left lower extremity DVT. I agree with stopping anticoagulation at this time. He has had an EGD which showed gastric ulcers with no active bleeding. We need to obtain a colonoscopy as well to identify any active bleeding. I would defer this to GI. If he is not found to have any active source of bleeding in the GI tract and his Hb remains stable then we can restart him on heparin drip and monitor him. If his hemoglobin does drop again, then anticoagulation would be contraindicated. We should consider placing an IVC filter. I discussed this with the patient and his family. I explained to them that our first priority should be to identify a source of bleeding at this time. We will obtain anemia studies. I doubt that his anemia is secondary to hemolysis. He does have splenomegaly and liver cirrhosis which can contribute to anemia but the likely source of severe anemia is underlying GI bleeding. We should obtain hepatitis panel 2. Mild hyperbilirubinemia secondary to liver disease. Obtain bilirubin components. 3. Bladder Cancer: outpatient management Thank you for allowing me to participate in the care of this patient. I will continue to follow this patient along. MD MARILEE Kessler/JUSTUS /8:58 AM /9:35 AM MTDYris
[2017-01-16 10:43] LABS: ALKALINE PHOSPHATASE 124 U/L (45-117); ALT (GPT) 85 U/L (12-78); ANION GAP 9 MEQ/L (5-15); AST (GOT) 96 U/L (15-37); BICARBONATE 21.6 MEQ/L (21.0-32.0); BLOOD UREA NITROGEN 33 MG/DL (7-18); CHLORIDE 110 MEQ/L (98-107); CREATINE KINASE 284 U/L (39-308); GLOMERULAR FILTRATION RATE 66 ML/MIN (>89); MAGNESIUM 1.9 MG/DL (1.5-2.5); POTASSIUM 3.5 MEQ/L (3.5-5.1); SODIUM (NA) 141 MEQ/L (136-145); TOTAL BILIRUBIN ADULT 1.5 MG/DL (0.2-1.0)
[2017-01-16 10:44] LABS: BANDS 1 % (0-6); NEUTROPHIL # MANUAL DIFF 30.3 TH/MM3 (1.8-7.7); PLATELET ESTIMATE SMEAR NORMAL (NORMAL); PLATELET MORPHOLOGY NORMAL (NORMAL); POLYS (SEG NEUTROPHILS) 95 % (16-70); WBC DIFF SAMPLE 100
[2017-01-16 10:45] LABS: SCAN/DIFF FINAL DIFF MANUAL
[2017-01-16 11:02] LABS: LDH SERUM 431 U/L (87-241)
--- NOTE | 2017-01-16 12:20 | HHI.GIFU ---
Subjective Remarks Patient is resting in bed no more melena, no nausea or vomiting, doing better. Objective Vitals I&O Vital Signs Date Time Temp Pulse Resp B/P Pulse Ox O2 Delivery O2 Flow Rate FiO2 01/16/17 11:43 98.6 81 18 100/58 94 01/16/17 11:00 81 01/16/17 07:31 98.3 80 18 93/53 95 01/16/17 07:29 96 Nasal Cannula 2.00 01/16/17 07:00 78 01/16/17 03:00 83 01/16/17 03:00 98.1 83 18 100/70 94 01/15/17 23:00 87 01/15/17 23:00 98.3 87 18 100/70 97 01/15/17 21:20 97 Nasal Cannula 2.00 01/15/17 19:00 85 01/15/17 19:00 98.2 85 18 112/71 98 01/15/17 19:00 98 Room Air 01/15/17 16:00 98.0 85 18 113/76 94 01/15/17 15:00 84 01/15/17 14:00 98.8 90 12 104/75 96 Nasal Cannula 3 01/15/17 13:45 98 12 107/65 97 Nasal Cannula 3 01/15/17 13:30 97 12 101/64 95 Nasal Cannula 3 01/15/17 13:23 98.6 99 12 91/60 96 Nasal Cannula 3 I/O 01/15/17 01/15/17 01/15/17 01/16/17 01/16/17 01/16/17 07:00 15:00 23:00 07:00 15:00 23:00 Intake Total 3000 ml 200 ml 0 ml 1305 ml Output Total 200 ml 0 ml 700 ml Balance 2800 ml 200 ml 0 ml 605 ml Intake Oral 0 ml 0 ml 0 ml 50 ml IV Total 1860 ml 1255 ml Packed Cells 1140 ml Other 200 ml Output Urine Total 200 ml 0 ml 700 ml Estimated Blood Loss 0 ml # Voids 1 1 # Bowel Movements 2 2 Laboratory Laboratory Tests Test 01/15/17 01/16/17 01/16/17 01/16/17 15:08 00:18 09:40 09:46 Hemoglobin 10.4 9.9 10.2 Hematocrit 31.4 29.7 Prothrombin Time 15.3 Prothromb Time International 1.4 Ratio Activated Partial 29.1 Thromboplast Time Fibrinogen 327 Lactic Acid Level 2.4 1.5 White Blood Count 31.6 Red Blood Count 3.52 Mean Corpuscular Volume 84.4 Mean Corpuscular Hemoglobin 29.0 Mean Corpuscular Hemoglobin 34.4 Concent Red Cell Distribution Width 17.8 Platelet Count 210 Mean Platelet Volume 9.6 Neutrophils (%) (Auto) 92.6 Lymphocytes (%) (Auto) 1.9 Monocytes (%) (Auto) 5.1 Eosinophils (%) (Auto) 0.1 Basophils (%) (Auto) 0.3 Neutrophils # (Auto) 29.3 Lymphocytes # (Auto) 0.6 Monocytes # (Auto) 1.6 Eosinophils # (Auto) 0.0 Basophils # (Auto) 0.1 CBC Comment AUTO DIFF Differential Total Cells 100 Counted Neutrophils % (Manual) 95 Band Neutrophils % 1 Lymphocytes % 1 Monocytes % 3 Neutrophils # (Manual) 30.3 Differential Comment FINAL DIFF MANUAL Platelet Estimate NORMAL Platelet Morphology Comment NORMAL Haptoglobin 224 Sodium Level 141 Potassium Level 3.5 Chloride Level 110 Carbon Dioxide Level 21.6 Anion Gap 9 Blood Urea Nitrogen 33 Creatinine 1.12 Estimat Glomerular Filtration 66 Rate Random Glucose 115 Calcium Level 7.9 Phosphorus Level 2.2 Magnesium Level 1.9 Total Bilirubin 1.5 Aspartate Amino Transf 96 (AST/SGOT) Alanine Aminotransferase 85 (ALT/SGPT) Alkaline Phosphatase 124 Lactate Dehydrogenase 431 Total Creatine Kinase 284 Total Protein 6.1 Albumin 2.1 Vitamin B12 Level GREATER THAN 2000 Blood Type A POSITIVE Direct Antiglobulin Test NEGATIVE (Eugenie) Date/Time Procedure Status Source Growth 01/14/17 18:10 Aerobic Blood Culture - Preliminary Resulted Blood Peripheral NO GROWTH IN 2 DAYS 01/14/17 18:10 Anaerobic Blood Culture - Preliminary Resulted Blood Peripheral NO GROWTH IN 2 DAYS Imaging Last Impressions Abdomen Ultrasound 01/15/17 0000 Signed Impressions: Service Date/Time: Sunday, January 15, 2017 16:21 - CONCLUSION: 1. Liver cirrhosis with moderate ascites. Splenomegaly. 2. Echogenic kidneys characteristic of medical renal disease with moderate right hydronephrosis and mild left hydronephrosis. Trevon Real MD Lower Extremity Ultrasound 01/14/17 0000 Signed Impressions: Service Date/Time: Saturday, January 14, 2017 17:28 - CONCLUSION: Left iliac and deep femoral DVT. No evidence of DVT on the right. Desmond Villatoro MD Physical Exam HEENT: normocephalic; atraumatic; + jaundice. NECK: Neck is supple, no JVD, no lymphadenopathy. CHEST: Chest is clear to auscultation and percussion. CARDIAC: Regular rate and rhythm with no murmur gallop or rubs. ABDOMEN: Soft, mildly distended, nontender; ascites; bowel sounds are present in all four quadrants. EXTREMITIES: No clubbing, cyanosis, or edema. SKIN: Normal; no rash; + jaundice. LINE TESTER: No focal deficits; alert and oriented times three. Assessment and Plan Plan - Profound anemia hgb is 4.6, melena, hx of esophageal varices. no more bleeding hgb 10.2 s/p 6 units of blood S/P EGD on (01/16/16)---> signs of old varices banding, no varices at this time , severe gastropathy, no active bleeding, no old blood, multiple ulcers in the antrum, no active bleeding bx pending. Abdomen Ultrasound 01/15/17 1. Liver cirrhosis with moderate ascites. Splenomegaly. 2. Echogenic kidneys characteristic of medical renal disease with moderate right hydronephrosis and mild left hydronephrosis. palpation. EGD/colonoscopy on (07/21/16)----> three semi-pedunculated polyps ranging between 5-9 mm in size were found in the ascending colon, three semi- pedunculated polyps ranging between 5-9 mm in size were found in the transverse colon, bx showed adenomatous polyps, large esophageal varices in distal esophagus, and was told to return in 4 weeks for EGD/band ligation, but he never followed up. - Leukocytosis- WBC 31.6 could be stress related, ?SBP, Rocephin - Hyperkalemia- Received calcium gluconate - BARBARA- multi factorial - History of alcoholic cirrhosis/ ascites- states hasn't been drinking for the past 6 months, us as above - bladder cancer, he was suppose to undergo cystectomy which was scheduled at [facility], but this is on hold now. - Recent DVT in left leg on Lovenox, on hold, hematology on the case Plan: - Clear liquids - Colonoscopy in am - goltacholy today - Obtain consents - NPO mn - DC Octreotide - Cont. ppi - Consider paracentesis after having colonoscopy done - Transfuse as needed to keep hgb >7 - Supportive care - Patient seen and examined by Dr. Galloway and myself and this note is written on his behalf. Shannan Cordova Jan 16, 2017 12:20
[2017-01-16] MEDS ORDERED: PEG (High)/E-LYTE SOLN 4000 ML BTL PO ONE (16:00)
[2017-01-16 16:48] LABS: HEMATOCRIT 32.3 % (39.0-51.0)
[2017-01-16 16:49] LABS: REVIEW FLAG FINAL
[2017-01-16] MEDS: cefTRIAXone INJ 1,000 MG in SODIUM CHLORIDE 0.9% INJ 100 ML IV SCH (17:35)
[2017-01-17] VITALS (9 sets, daily range): BP systolic 132–145; BP diastolic 75–91; PULSE 76–93; RESP 14–19; TEMP 97–98.4; O2SAT 93–99
[2017-01-17] MEDS ORDERED: ceFAZolin 2 GM PREMIX 50 ML IV ONE (05:00)
[2017-01-17] MEDS ORDERED: GLYCOPYRROLATE 0.2 MG/ML VIAL IV ONE (05:00)
[2017-01-17] MEDS ORDERED: NITROGLYCERIN-DEXTROSE INJ 250 ML IV ONE (05:00)
[2017-01-17] MEDS ORDERED: ACETAMINOPHEN 1000 MG/100 ML VIAL IV ONE (05:00)
[2017-01-17] MEDS ORDERED: DEXMEDETOMIDINE INJ 50 ML IV ONE (05:00)
[2017-01-17] MEDS ORDERED: AMINOCAPROIC ACID INJ 250 MG/ML 20 ML VIAL IV ONE (05:00)
[2017-01-17] MEDS ORDERED: HEPARIN SODIUM - SQ 10,000 UNITS/ML VIAL SQ ONE (05:00)
[2017-01-17] MEDS ORDERED: PHENYLEPHRINE HCL 10 MG/ML VIAL IV ONE (05:00)
[2017-01-17 06:00] LABS: AUTOMATED NEUTROPHIL # 25.9 TH/MM3 (1.8-7.7); BASOPHIL # 0.1 TH/MM3 (0-0.2); BASOPHIL % 0.3 % (0.0-2.0); HEMATOCRIT 29.9 % (39.0-51.0); LYMPH % 2.3 % (9.0-44.0); LYMPHOCYTE # 0.7 TH/MM3 (1.0-4.8); MEAN CELL VOLUME 85.2 FL (80.0-100.0); MEAN CORPUSCULAR HEMOGLOBIN 28.4 PG (27.0-34.0); MEAN CORPUSCULAR HGB CONC 33.4 % (32.0-36.0); MONO % 7.5 % (0.0-8.0); NEUT % 89.9 % (16.0-70.0); PLATELET COUNT 188 TH/MM3 (150-450); RED BLOOD COUNT 3.52 MIL/MM3 (4.50-5.90); RED CELL DISTRIBUTION WIDTH 17.9 % (11.6-17.2); WHITE BLOOD COUNT 28.9 TH/MM3 (4.0-11.0)
[2017-01-17 06:04] LABS: HEMO FLAGS AUTO DIFF
[2017-01-17 06:21] LABS: ALKALINE PHOSPHATASE 125 U/L (45-117); ALT (GPT) 74 U/L (12-78); ANION GAP 9 MEQ/L (5-15); AST (GOT) 59 U/L (15-37); BICARBONATE 21.6 MEQ/L (21.0-32.0); BLOOD UREA NITROGEN 26 MG/DL (7-18); CHLORIDE 111 MEQ/L (98-107); GLOMERULAR FILTRATION RATE 84 ML/MIN (>89); MAGNESIUM 1.9 MG/DL (1.5-2.5); POTASSIUM 3.4 MEQ/L (3.5-5.1); SODIUM (NA) 142 MEQ/L (136-145); TOTAL BILIRUBIN ADULT 1.2 MG/DL (0.2-1.0)
--- NOTE | 2017-01-17 06:35 | HHI.CCPN ---
Subjective Remarks/Hospital Course Patient is a 66-year-old male with past medical history significant for alcoholic cirrhosis, esophageal varices, bladder cancer, recent DVT (12/25/16 ) in left leg on therapeutic Lovenox was started noticing melanotic stools predominantly since yesterday. He states that he has noted on all for the last 2 weeks.. Yesterday night he had multiple episodes of melanotic diarrhea. Apparently he is scheduled to undergo cystectomy at [facility], and this is currently hold. Per GI notes, patient was scheduled to have EGD/banding at [facility] on Tuesday. He denies alcohol consumption and last drink was 7 months ago denies any hematemesis. In the emergency department hgb is 4.6, INR 1.4 and WBC 17.8.he has been placed on IV Protonix infusion and octreotide infusion as he has a history of esophageal varices. Blood transfusion had been ordered and is pending at this time. Last EGD colonoscopy was 07/21/16 which showed adenomatous polyps in colon, large esophageal varices in distal esophagus. He was to return in 4 weeks for EGD/band ligation, but apparently patient did not follow-up I evaluated the patient in the ED. He is in [id number] distress and he is pale. His blood pressure is in the 90s. Patient received 1 L of normal saline bolus. I will give 2L additional fluid boluses. Check a lactic acid. I will start him on Rocephin for SBP prophylaxis. Patient will have bedside ultrasound and probable paracentesis once in the ICU. Patient received treatment for hyperkalemia in the ED will repeat K at 5 PM 01/15: Received 7 units PRBCs ordered since admission. Remains normotensive currently. Complains of vague abdominal pain/moaning in room. Answers questions appropriately. Afebrile. Hemoccult positive BM's. 01/16: Afebrile. 2 bowel movements/dark tarry overnight. Hemodynamically stable. Noted EGD revealed gastric ulcers in antrum was biopsied. Gastropathy. Old banding with no esophageal varices. Moderate ascites on ultrasound. Patient at baseline compared yesterday neurologic baseline Subjective 01/17: Currently on commode for bowel prep for colonoscopy today. Hemoglobin stable. Denies chest pain or shortness of breath. Afebrile. Hemodynamically stable Objective Vital Signs Date Time Temp Pulse Resp B/P Pulse Ox O2 Delivery O2 Flow Rate FiO2 01/17/17 03:00 84 01/17/17 03:00 98.4 18 136/83 93 01/16/17 20:08 21 01/16/17 19:00 Room Air 01/16/17 07:29 2.00 Intake and Output 01/16/17 01/16/17 01/17/17 08:00 16:00 00:00 Intake Total 1305 ml 1300 ml Output Total 700 ml 700 ml Balance 605 ml 600 ml Result Diagram: 01/17/17 0545 01/17/17 0545 Other Results Microbiology Date/Time Procedure Status Source Growth 01/14/17 18:10 Aerobic Blood Culture - Preliminary Resulted Blood Peripheral NO GROWTH IN 2 DAYS 01/14/17 18:10 Anaerobic Blood Culture - Preliminary Resulted Blood Peripheral NO GROWTH IN 2 DAYS Imaging Last Impressions Abdomen Ultrasound 01/15/17 0000 Signed Impressions: Service Date/Time: Sunday, January 15, 2017 16:21 - CONCLUSION: 1. Liver cirrhosis with moderate ascites. Splenomegaly. 2. Echogenic kidneys characteristic of medical renal disease with moderate right hydronephrosis and mild left hydronephrosis. Trevon Real MD Lower Extremity Ultrasound 01/14/17 0000 Signed Impressions: Service Date/Time: Saturday, January 14, 2017 17:28 - CONCLUSION: Left iliac and deep femoral DVT. No evidence of DVT on the right. Desmond Villatoro MD Objective Remarks GEN: 66-year-old male, sitting on commode in no acute distress HEENT: Normocephalic; atraumatic NECK: Neck is supple, no JVD, no lymphadenopathy. CHEST: Chest is clear to auscultation bilaterally without wheezes rales or rhonchi CARDIAC: RRR. S1, S2. No S4. No murmur ABDOMEN: Soft, distended, mild tenderness to palpation; bowel sounds are present in all four quadrants. Positive succussion splash. EXTREMITIES: With trace edema left lower extremity. SKIN: Warm and dry. No rash NEURO: Cranial nerves II through XII grossly intact. Strength is equal symmetric. Normal sensation. Urinary Catheter: Yes Assessment to: Continue Ellis insert reason: Prolonged Immobilization Vascular Central Line Catheter: No Assessment to: Continue A/P Assessment and Plan NEURO/PSYCH: History of peripheral neuropathy History of EtOH abuse Depression/anxiety -Minimize sedation. -As needed Dilaudid 0.5 every 4 mg when necessary pain Hold home medications of oxycodoneacetaminophen as needed for pain and Neurontin 300 mg 3 times a day at this time. Likely resume after colonoscopy today We'll continue thiamine at 100 mg IV daily. On B12 50 by mouth daily folic acid 0.4 mg by mouth daily at home for EtOH use RESP: -Nasal cannula oxygen to maintain saturations greater than equal to 92% currently on 2 L nasal cannula Incentive spirometry while awake CV: Hypotension secondary to hypovolemia History of hypertension Lactic acidosis -Normal saline IV fluids 3L bolus given in ED. normal saline currently at 42 cc an hour We'll start on low-dose Lasix 20 mEq IV twice a day since currently hemodynamically stable On spironolactone 50 mill grams twice a day at home. This is currently on hold GI: GI bleed most likely variceal bleed Ascites/abdominal Liver cirrhosis History of gastroesophageal reflux disease Elevated transaminases likely secondary to EtOH Hypoalbuminemia -GI consulted. EGD revealed gastric ulcer in antrum. This is biopsied. Gastropathy. Old banding. No varices. Ultrasound - Liver cirrhosis with moderate ascites. Splenomegaly. -Continue Protonix at 8 mg an hour and octreotide at 50 grams an hour per GI -SBP prophylaxis with Rocephin 1 g IV every 24 hours 7 days with upper GI bleed Clear liquid diet. Advance diet per GI Renal/: Acute kidney injury - resolved History of bladder cancer/muscular invasive Bilateral hydronephrosis by history right greater than left BPH Ultrasound - Echogenic kidneys characteristic of medical renal disease with moderate right hydronephrosis and mild left hydronephrosis. -Most likely secondary to ATN. Monitor renal function closely. Noted recent CT chest revealed right greater than left hydronephrosis. Currently with adequate urine output. -F/u at [place] for bladder cancer Resume Flomax 0.4 mg daily when clinically indicated ID: -Sent for blood sputum and urine cultures. No growth to date Empiric Rocephin for SBP prophylaxis 7 days HEME: Severe anemia requiring transfusion of 7 units PRBCs Left lower extremity DVT 12/25/16 - left iliac and deep femoral Leukocytosis -Given 7 units of PRBC during this hospitalization -Monitor CBC coags are last INR 1.4 -IR consulted for IVC filter placement On iron fumarate 18 mg twice a day at home. Currently on hold On Lovenox 60 mg subcutaneous twice a day for DVT. This is currently on hold Dr. Georges following. Heparin drip possibly after colonoscopy. ENDO: Hypokalemia - resolved Hypophosphatemia Follow-up on a.m. CMP 30 mmol potassium phosphate IV 1. Recheck in a.m. PROPH: IVC filter ordered for Tuesday currently with SCDs, IV Protonix Critical Care: The total critical care time was 35 minutes. Time to perform other separately billable procedures was not included in the critical care time. Ramon Mata MD Jan 17, 2017 06:35
[2017-01-17 07:26] LABS: KERATOCYTES OCC (NORMAL)
[2017-01-17 07:27] LABS: PLATELET ESTIMATE SMEAR NORMAL (NORMAL); PLATELET MORPHOLOGY NORMAL (NORMAL); SCAN/DIFF AUTO DIFF CONFIRMED
[2017-01-17] MEDS: SODIUM CHLOR 0.9% 1000 ML INJ 1,000 ML IV SCH (07:53)
[2017-01-17] MEDS: GABAPENTIN 300 MG CAP PO SCH ×3 (08:43→17:33)
[2017-01-17] MEDS: FERROUS FUMARATE 325 MG TAB (106 MG ELEMENTAL IRON) PO SCH (09:00)
[2017-01-17] MEDS: TAMSULOSIN HCL 0.4 MG CAP PO SCH (09:00)
[2017-01-17] MEDS: FOLIC ACID 1 MG TAB PO SCH (09:00)
[2017-01-17] MEDS ORDERED: SODIUM PHOSPHATE INJ 30 MMOL in SODIUM CHLOR 0.9% 250 ML INJ 250 ML IV ONE (09:00)
[2017-01-17] MEDS: MULTIVITAMIN TAB PO SCH (09:00)
[2017-01-17] MEDS: THIAMINE INJ 100 MG in SODIUM CHLORIDE 0.9% INJ 100 ML IV SCH (09:54)
[2017-01-17] MEDS: FUROSEMIDE 20 MG/2 ML VIAL IV PUSH SCH ×2 (09:54→17:33)
[2017-01-17] MEDS: PANTOPRAZOLE INJ 80 MG in SODIUM CHLORIDE 0.9% INJ 100 ML IV SCH ×2 (11:45→22:27)
[2017-01-17 13:30] LABS: HEPATITIS B SURFACE ANTIBODY 1.2 mIU/mL
[2017-01-17] MEDS ORDERED: PROPOFOL 200 MG/20 ML AMP IV ONE (13:30)
[2017-01-17] MEDS ORDERED: DO NOT ADM ANY ANTICOAGULANT DRUGS PRN (14:09)
--- NOTE | 2017-01-17 14:09 | PD.ONC.PN ---
Subjective Subjective Remarks Afebrile overnight. Patient just back from colonoscopy. Multiple polyps removed. He is resting comfortably without complaint. Objective Data Date Time Temp Pulse Resp B/P Pulse Ox O2 Delivery O2 Flow Rate FiO2 01/17/17 11:04 98.0 80 14 136/85 01/17/17 11:04 80 01/17/17 07:30 93 21 01/17/17 07:22 76 01/17/17 07:22 Room Air 01/17/17 07:22 98.1 76 16 136/85 95 01/17/17 03:00 84 01/17/17 03:00 98.4 78 18 136/83 93 01/16/17 23:00 78 01/16/17 23:00 98.6 78 18 108/63 94 01/16/17 20:08 97 21 01/16/17 19:00 94 Room Air 01/16/17 19:00 97.9 78 18 132/85 93 01/16/17 19:00 78 01/16/17 16:00 21 01/16/17 15:28 98.6 81 18 100/58 94 01/16/17 15:00 92 01/17/17 01/17/17 01/17/17 07:00 15:00 23:00 Intake Total 821 ml Balance 821 ml Result Diagram: 01/17/17 0545 01/17/17 0545 Laboratory Results Laboratory Tests Test 01/16/17 01/17/17 16:20 05:45 Hemoglobin 10.6 GM/DL 10.0 GM/DL Hematocrit 32.3 % 29.9 % White Blood Count 28.9 TH/MM3 Red Blood Count 3.52 MIL/MM3 Mean Corpuscular Volume 85.2 FL Mean Corpuscular Hemoglobin 28.4 PG Mean Corpuscular Hemoglobin 33.4 % Concent Red Cell Distribution Width 17.9 % Platelet Count 188 TH/MM3 Mean Platelet Volume 9.2 FL Neutrophils (%) (Auto) 89.9 % Lymphocytes (%) (Auto) 2.3 % Monocytes (%) (Auto) 7.5 % Eosinophils (%) (Auto) 0.0 % Basophils (%) (Auto) 0.3 % Neutrophils # (Auto) 25.9 TH/MM3 Lymphocytes # (Auto) 0.7 TH/MM3 Monocytes # (Auto) 2.2 TH/MM3 Eosinophils # (Auto) 0.0 TH/MM3 Basophils # (Auto) 0.1 TH/MM3 CBC Comment AUTO DIFF Differential Comment AUTO DIFF CONFIRMED Platelet Estimate NORMAL Platelet Morphology Comment NORMAL Keratocytes OCC Sodium Level 142 MEQ/L Potassium Level 3.4 MEQ/L Chloride Level 111 MEQ/L Carbon Dioxide Level 21.6 MEQ/L Anion Gap 9 MEQ/L Blood Urea Nitrogen 26 MG/DL Creatinine 0.91 MG/DL Estimat Glomerular Filtration 84 ML/MIN Rate Random Glucose 115 MG/DL Lactic Acid Level 1.1 mmol/L Calcium Level 8.1 MG/DL Phosphorus Level 1.8 MG/DL Magnesium Level 1.9 MG/DL Total Bilirubin 1.2 MG/DL Aspartate Amino Transf 59 U/L (AST/SGOT) Alanine Aminotransferase 74 U/L (ALT/SGPT) Alkaline Phosphatase 125 U/L Total Protein 6.1 GM/DL Albumin 2.1 GM/DL Culture Results Microbiology Date/Time Procedure Status Source Growth 01/14/17 17:50 Aerobic Blood Culture - Preliminary Resulted Blood Peripheral NO GROWTH IN 3 DAYS 01/14/17 17:50 Anaerobic Blood Culture - Preliminary Resulted Blood Peripheral NO GROWTH IN 3 DAYS 01/14/17 18:10 Aerobic Blood Culture - Preliminary Resulted Blood Peripheral NO GROWTH IN 3 DAYS 01/14/17 18:10 Anaerobic Blood Culture - Preliminary Resulted Blood Peripheral NO GROWTH IN 3 DAYS Administered Medications Medications (Trade) Dose Ordered Sig/Dejuan Route PRN Reason Start Time Stop Time Status Last Admin Dose Admin Pantoprazole Sodium 80 mg/ Sodium Chloride 100 ml @ 10 mls/hr Q10H IV 01/14/17 13:45 01/17/17 11:45 Ceftriaxone Sodium/Sodium Chloride (Rocephin Inj/NS Inj) 100 ml @ 200 mls/hr Q24H IV 01/14/17 17:00 01/16/17 17:35 Hydromorphone HCl (Dilaudid Pf Inj) 0.5 mg Q4H PRN IV PAIN 1-10 01/15/17 02:30 01/15/17 02:46 Furosemide 20 mg 20 mg BID@09,18 IV PUSH 01/15/17 09:00 01/17/17 09:54 Sodium Chloride 1,000 ml @ 42 mls/hr [id number] IV 01/15/17 08:15 01/17/17 07:53 Thiamine HCl 100 mg/Sodium Chloride 101 ml @ 101 mls/hr DAILY IV 01/15/17 09:00 01/17/17 09:54 Sodium Phosphate/ Sodium Chloride (Sodium Phosphate Inj/NS 250 ml Inj) 260 ml @ 43.333 mls/ hr ONCE ONCE IV 01/17/17 09:00 01/17/17 14:59 01/17/17 09:00 Objective Remarks GENERAL: Lethargic male, lying in bed resting SKIN: Warm and dry. HEAD: Normocephalic. EYES: + scleral icterus. No injection or drainage. NECK: Supple, trachea midline. CARDIOVASCULAR: Regular rate and rhythm without murmurs RESPIRATORY: Breath sounds equal bilaterally. No accessory muscle use. GASTROINTESTINAL: Abdomen mildly distended. MUSCULOSKELETAL: No cyanosis. LLE with edema. Assessment/Plan Problem List: (1) DVT (deep venous thrombosis) Status: Acute Plan: --hold anticoagulation d/t GIB --If he is not found to have any active source of bleeding in the GI tract and his Hb remains stable then we can restart him on heparin drip and monitor him. --If his hemoglobin does drop again, then anticoagulation would be contraindicated. We should consider placing an IVC filter. (2) GI bleed Status: Acute Plan: --likely d/t GI bleeding --EGD showed gastric ulcers with no active bleeding. --colonoscopy today +splenomegaly and liver cirrhosis which can contribute to anemia but the likely source of severe anemia is underlying GI bleeding. --hepatitis panel negative --was on therapeutic Lovenox. He started noticing dark colored stools and felt weak, since he started anticoagulation. --FERMIN negative (3) Hyperbilirubinemia Status: Acute Plan: --Mild hyperbilirubinemia secondary to liver disease (4) Bladder cancer Status: Acute Plan: --outpatient management --diagnosed in 2009. --follows with Dr. Lo. --never received any chemotherapy --did receive intravesicular BCG treatment. --was supposed to go to [facility] later this month for a cystectomy. Assessment 66y/o male admitted with melanotic stools, anemia h/o bladder cancer, alcoholic cirrhosis, esophageal varices, and DVT of the left lower extremity. Plan 1. await complete colonoscopy report. 2. monitor CBC 3. monitor for bleeding Attending Statement The exam, history, and the medical decision-making described in the above note were completed with the assistance of the mid-level provider. I reviewed and agree with the findings presented. I attest that I had a [id number] encounter with the patient on the same day, and personally performed and documented my assessment and findings in the medical record. No apparent bleeding source from colonoscopy. full report pending Monitor Hb until tomorrow. If stable--will start Heparin GTT and closely monitor Hb If rebleeds agin or has drop in Hb --would recommend IVC filter placement Problem Qualifiers (1) DVT (deep venous thrombosis): Karishma Lacey Jan 17, 2017 14:08 Jeancarlos Perry MD Jan 17, 2017 22:50
--- NOTE | 2017-01-17 14:10 | GIPROC ---
[facility] [address] [facility]. [facility], [address] COLONOSCOPY PROCEDURE REPORT EXAM DATE: 01/17/2017 PATIENT NAME: Randall Kang MR #: [id number] BIRTHDATE: 1950 ENDOSCOPIST: Leila Simeon MD ORDER #: [id number] ONLINE HEALTH AND FITNESS COACH: Hadley Mahoney and Vanda Melgar STATUS: inpatient INDICATIONS: The patient is a 66 yr old male here for a colonoscopy due to anemia, gi bleeding PROCEDURE PERFORMED: Colonoscopy with polypectomy MEDICATIONS: None and Per Anesthesia. PREP QUALITY: 10 % obscured PREP TYPE:GoLytely ESTIMATED BLOOD LOSS: None CONSENT: The patient understands the risks and benefits of the procedure and understands that these risks include, but are not limited to: sedation, allergic reaction, infection, perforation and/or bleeding. Alternative means of evaluation and treatment include, among others: physical exam, x-rays, and/or surgical intervention. The patient elects to proceed with this endoscopic procedure. medical equipment was checked for proper function. Hand hygiene and appropriate measures for infection prevention was taken. After the risks, benefits and alternatives of the procedure were thoroughly explained, Informed consent was verified, confirmed and timeout was successfully executed by the treatment team. A digital exam revealed decreased sphincter tone and revealed external hemorrhoids The New [id number] (Std Gastro) and [id number] endoscope was introduced through the anus and advanced to the cecum, which was identified by both the appendix and ileocecal valve. The instrument was then slowly withdrawn as the colon was fully examined. COLON FINDINGS: Polyp sessile hepatic flexure -6 mm-hot snare polypectomy with complete removal polyp diminutive midtransverse-hot snare polypectomy with complete removal polyp descending-6 mm-hot snare polypectomy with complete removal two polyps in sigmoid, one 6 mm, one 8 mm sessile-hot snare polypectomy , some bleeding from both sites, 1 clip and respectively 2 clips applied at the sites no further bleeding edematous rectal mucos a. Retroflexed views revealed internal hemorrhoids and Retroflexed views revealed small internal hemorrhoids The scope was then completely withdrawn from the patient and the procedure terminated. PROCEDURE WITHDRAWAL TIME:20minutes ADVERSE EVENTS: There were no complications. IMPRESSIONS: 1. Polyp sessile hepatic flexure -6 mm-hot snare polypectomy with complete removal polyp diminutive midtransverse-hot snare polypectomy with complete removal polyp descending-6 mm-hot snare polypectomy with complete removal two polyps in sigmoid, one 6 mm, one 8 mm sessile-hot snare polypectomy , some bleeding from both sites, 1 clip and respectively 2 clips applied at the sites no further bleeding edematous rectal mucos a 2. Retroflexed views revealed internal hemorrhoids 3. Retroflexed views revealed small internal hemorrhoids 4. Revealed decreased sphincter tone 5. Revealed external hemorrhoids RECOMMENDATIONS: 1. Await biopsy results. Biopsy results will not be ready for 7-10 days. If you don't hear from us in two weeks, call our office for results. 2. Probiotics from any [employer] or health food store 3. Yearly rectal exams RECALL: Colonoscopy, pending biopsy results Leila Simeon MD eSigned: Leila Simeon MD 01/17/2017 2:10 PM cc: PATIENT NAME: Randall Kang MR#: [id number]
[2017-01-17] MEDS ORDERED: MIDAZOLAM HCL 2 MG/2 ML VIAL ONE (14:51)
--- NOTE | 2017-01-17 15:04 | PD.TRANSFR ---
Transfer Summary Admission Date Jan 14, 2017 at 15:04 Admitting Diagnosis gi bleed, hyperkalemia Diagnoses: (1) GI bleed Diagnosis: Principal (2) Hypotension Diagnosis: Principal (3) Anemia requiring transfusions Diagnosis: Principal (4) Leukocytosis Diagnosis: Principal (5) Hyperkalemia Diagnosis: Principal (6) Acute kidney injury Diagnosis: Principal (7) DVT (deep venous thrombosis) Diagnosis: Secondary (8) Bladder cancer Diagnosis: Secondary (9) Hypertension Diagnosis: Secondary (10) Ascites Diagnosis: Secondary Significant Findings Gastric ulcer Transfer Summary/Subjective This is 66-year-old male admitted with hypotension/upper GI bleed receives 70s. BCs and 2 FFP. He has known history of bladder cancer with muscle invasion. Noted nonbleeding large gastric ulcer currently in Protonix drip. Colonoscopy revealed colonic polyps which were biopsied but no acute findings. Dr. Perry is following him from a heme standpoint. He recommends start heparin drip versus IVC filter which has been ordered by IR for iliac DVT. Objective Vital Signs Date Time Temp Pulse Resp B/P Pulse Ox O2 Delivery O2 Flow Rate FiO2 01/17/17 11:04 98.0 80 14 136/85 01/17/17 07:30 93 21 01/17/17 07:22 Room Air 01/16/17 07:29 2.00 Intake and Output 01/16/17 01/16/17 01/17/17 08:00 16:00 00:00 Intake Total 1305 ml 1300 ml Output Total 700 ml 700 ml Balance 605 ml 600 ml Result Diagram: 01/17/17 0545 01/17/17 0545 Imaging Last Impressions Abdomen Ultrasound 01/15/17 0000 Signed Impressions: Service Date/Time: Sunday, January 15, 2017 16:21 - CONCLUSION: 1. Liver cirrhosis with moderate ascites. Splenomegaly. 2. Echogenic kidneys characteristic of medical renal disease with moderate right hydronephrosis and mild left hydronephrosis. Trevon Real MD Lower Extremity Ultrasound 01/14/17 0000 Signed Impressions: Service Date/Time: Saturday, January 14, 2017 17:28 - CONCLUSION: Left iliac and deep femoral DVT. No evidence of DVT on the right. Desmond Villatoro MD Objective Remarks GEN: 66-year-old male, sitting on commode in no acute distress HEENT: Normocephalic; atraumatic NECK: Neck is supple, no JVD, no lymphadenopathy. CHEST: Chest is clear to auscultation bilaterally without wheezes rales or rhonchi CARDIAC: RRR. S1, S2. No S4. No murmur ABDOMEN: Soft, distended, mild tenderness to palpation; bowel sounds are present in all four quadrants. Positive succussion splash. EXTREMITIES: With trace edema left lower extremity. SKIN: Warm and dry. No rash NEURO: Cranial nerves II through XII grossly intact. Strength is equal symmetric. Normal sensation. A/P Assessment and Plan NEURO/PSYCH: History of peripheral neuropathy History of EtOH abuse Depression/anxiety -Minimize sedation. -As needed Dilaudid 0.5 every 4 mg when necessary pain Hold home medications of oxycodoneacetaminophen as needed for pain and Neurontin 300 mg 3 times a day at this time. Likely resume after colonoscopy today We'll continue thiamine at 100 mg IV daily. On B12 50 by mouth daily folic acid 0.4 mg by mouth daily at home for EtOH use RESP: -Nasal cannula oxygen to maintain saturations greater than equal to 92% currently on 2 L nasal cannula Incentive spirometry while awake CV: Hypotension secondary to hypovolemia History of hypertension Lactic acidosis -Normal saline IV fluids 3L bolus given in ED. normal saline currently at 42 cc an hour We'll start on low-dose Lasix 20 mEq IV twice a day since currently hemodynamically stable On spironolactone 50 mill grams twice a day at home. This is currently on hold GI: GI bleed most likely variceal bleed Ascites/abdominal Liver cirrhosis History of gastroesophageal reflux disease Elevated transaminases likely secondary to EtOH Hypoalbuminemia -GI consulted. EGD revealed gastric ulcer in antrum. This is biopsied. Gastropathy. Old banding. No varices. Ultrasound - Liver cirrhosis with moderate ascites. Splenomegaly. -Continue Protonix at 8 mg an hour and octreotide at 50 grams an hour per GI -SBP prophylaxis with Rocephin 1 g IV every 24 hours 7 days with upper GI bleed Clear liquid diet. Advance diet per GI Renal/: Acute kidney injury - resolved History of bladder cancer/muscular invasive Bilateral hydronephrosis by history right greater than left BPH Ultrasound - Echogenic kidneys characteristic of medical renal disease with moderate right hydronephrosis and mild left hydronephrosis. -Most likely secondary to ATN. Monitor renal function closely. Noted recent CT chest revealed right greater than left hydronephrosis. Currently with adequate urine output. -F/u at [place] for bladder cancer Resume Flomax 0.4 mg daily when clinically indicated ID: -Sent for blood sputum and urine cultures. No growth to date Empiric Rocephin for SBP prophylaxis 7 days HEME: Severe anemia requiring transfusion of 7 units PRBCs Left lower extremity DVT 12/25/16 - left iliac and deep femoral Leukocytosis -Given 7 units of PRBC during this hospitalization -Monitor CBC coags are last INR 1.4 -IR consulted for IVC filter placement On iron fumarate 18 mg twice a day at home. Currently on hold On Lovenox 60 mg subcutaneous twice a day for DVT. This is currently on hold Dr. Georges following. Heparin drip possibly after colonoscopy. ENDO: Hypokalemia - resolved Hypophosphatemia Follow-up on a.m. CMP 30 mmol potassium phosphate IV 1. Recheck in a.m. PROPH: IVC filter ordered for Tuesday currently with SCDs, IV Protonix Critical Care: The total critical care time was 35 minutes. Time to perform other separately billable procedures was not included in the critical care time. Ramon Mata MD Jan 17, 2017 15:04
[2017-01-17] MEDS: cefTRIAXone INJ 1,000 MG in SODIUM CHLORIDE 0.9% INJ 100 ML IV SCH (17:21)
[2017-01-18] VITALS (8 sets, daily range): BP systolic 105–138; BP diastolic 64–77; PULSE 80–93; RESP 16–21; TEMP 97.4–99.7; O2SAT 95–98
[2017-01-18 06:28] LABS: AUTOMATED NEUTROPHIL # 20.2 TH/MM3 (1.8-7.7); BASOPHIL # 0.2 TH/MM3 (0-0.2); BASOPHIL % 0.8 % (0.0-2.0); EOSINOPHIL % 0.2 % (0.0-4.0); HEMO FLAGS DIFF FINAL; LYMPH % 3.3 % (9.0-44.0); LYMPHOCYTE # 0.8 TH/MM3 (1.0-4.8); MEAN CELL VOLUME 85.6 FL (80.0-100.0); MEAN CORPUSCULAR HEMOGLOBIN 28.3 PG (27.0-34.0); MONO % 8.5 % (0.0-8.0); NEUT % 87.2 % (16.0-70.0); PLATELET COUNT 183 TH/MM3 (150-450); RED BLOOD COUNT 3.61 MIL/MM3 (4.50-5.90); RED CELL DISTRIBUTION WIDTH 18.1 % (11.6-17.2); WHITE BLOOD COUNT 23.1 TH/MM3 (4.0-11.0)
[2017-01-18 06:50] LABS: ALKALINE PHOSPHATASE 156 U/L (45-117); ALT (GPT) 58 U/L (12-78); ANION GAP 11 MEQ/L (5-15); AST (GOT) 39 U/L (15-37); BICARBONATE 24.1 MEQ/L (21.0-32.0); BLOOD UREA NITROGEN 16 MG/DL (7-18); CHLORIDE 105 MEQ/L (98-107); GLOMERULAR FILTRATION RATE 100 ML/MIN (>89); MAGNESIUM 1.6 MG/DL (1.5-2.5); SODIUM (NA) 140 MEQ/L (136-145); TOTAL BILIRUBIN ADULT 1.1 MG/DL (0.2-1.0)
[2017-01-18 07:02] LABS: POTASSIUM 2.8 MEQ/L (3.5-5.1)
[2017-01-18] MEDS ORDERED: POTASSIUM CHLORIDE 10 MEQ CONTROLLED RELEASE TAB PO ONE (07:30)
[2017-01-18] MEDS: MULTIVITAMIN TAB PO SCH (08:02)
[2017-01-18] MEDS: GABAPENTIN 300 MG CAP PO SCH ×3 (08:02→17:08)
[2017-01-18] MEDS: FOLIC ACID 1 MG TAB PO SCH (08:02)
[2017-01-18] MEDS: TAMSULOSIN HCL 0.4 MG CAP PO SCH (08:02)
[2017-01-18] MEDS: FUROSEMIDE 20 MG/2 ML VIAL IV PUSH SCH ×2 (08:03→17:07)
[2017-01-18] MEDS: THIAMINE INJ 100 MG in SODIUM CHLORIDE 0.9% INJ 100 ML IV SCH (08:03)
[2017-01-18] MEDS: SODIUM CHLOR 0.9% 1000 ML INJ 1,000 ML IV SCH (08:06)
[2017-01-18] MEDS: FERROUS FUMARATE 325 MG TAB (106 MG ELEMENTAL IRON) PO SCH (08:09)
[2017-01-18] MEDS: PANTOPRAZOLE INJ 80 MG in SODIUM CHLORIDE 0.9% INJ 100 ML IV SCH (08:12)
--- NOTE | 2017-01-18 10:29 | PD.ONC.PN ---
Subjective Subjective Remarks Afebrile overnight. "I feel better than being would feel." No bleeding. Denies abdominal pain. Daughter at bedside. Objective Data Date Time Temp Pulse Resp B/P Pulse Ox O2 Delivery O2 Flow Rate FiO2 01/18/17 08:00 95 Room Air 01/18/17 08:00 98.6 82 16 138/77 95 01/18/17 00:00 97.4 80 19 132/75 96 01/17/17 22:25 78 01/17/17 22:25 Room Air 01/17/17 21:30 97.4 80 19 132/75 96 01/17/17 19:01 97.7 93 18 145/76 99 01/17/17 18:45 97.9 90 18 141/84 99 01/17/17 15:20 76 01/17/17 15:20 97.0 76 14 143/91 95 01/17/17 14:30 97.6 75 18 126/81 99 Nasal Cannula 2 01/17/17 14:15 75 18 119/86 99 Nasal Cannula 2 01/17/17 14:09 97.5 76 18 114/67 99 Nasal Cannula 2 01/17/17 11:04 98.0 80 14 136/85 01/17/17 11:04 80 01/18/17 01/18/17 01/18/17 07:00 15:00 23:00 Intake Total 612 ml Balance 612 ml Result Diagram: 01/18/17 0526 01/18/17 0526 Laboratory Results Laboratory Tests Test 01/18/17 05:26 White Blood Count 23.1 TH/MM3 Red Blood Count 3.61 MIL/MM3 Hemoglobin 10.2 GM/DL Hematocrit 31.0 % Mean Corpuscular Volume 85.6 FL Mean Corpuscular Hemoglobin 28.3 PG Mean Corpuscular Hemoglobin 33.0 % Concent Red Cell Distribution Width 18.1 % Platelet Count 183 TH/MM3 Mean Platelet Volume 9.4 FL Neutrophils (%) (Auto) 87.2 % Lymphocytes (%) (Auto) 3.3 % Monocytes (%) (Auto) 8.5 % Eosinophils (%) (Auto) 0.2 % Basophils (%) (Auto) 0.8 % Neutrophils # (Auto) 20.2 TH/MM3 Lymphocytes # (Auto) 0.8 TH/MM3 Monocytes # (Auto) 2.0 TH/MM3 Eosinophils # (Auto) 0.0 TH/MM3 Basophils # (Auto) 0.2 TH/MM3 CBC Comment DIFF FINAL Differential Comment Sodium Level 140 MEQ/L Potassium Level 2.8 MEQ/L Chloride Level 105 MEQ/L Carbon Dioxide Level 24.1 MEQ/L Anion Gap 11 MEQ/L Blood Urea Nitrogen 16 MG/DL Creatinine 0.78 MG/DL Estimat Glomerular Filtration 100 ML/MIN Rate Random Glucose 97 MG/DL Calcium Level 7.8 MG/DL Phosphorus Level 2.0 MG/DL Magnesium Level 1.6 MG/DL Total Bilirubin 1.1 MG/DL Aspartate Amino Transf 39 U/L (AST/SGOT) Alanine Aminotransferase 58 U/L (ALT/SGPT) Alkaline Phosphatase 156 U/L Total Protein 6.0 GM/DL Albumin 2.1 GM/DL Administered Medications Medications (Trade) Dose Ordered Sig/Dejuan Route PRN Reason Start Time Stop Time Status Last Admin Dose Admin Pantoprazole Sodium 80 mg/ Sodium Chloride 100 ml @ 10 mls/hr Q10H IV 01/14/17 13:45 01/18/17 08:12 Ceftriaxone Sodium/Sodium Chloride (Rocephin Inj/NS Inj) 100 ml @ 200 mls/hr Q24H IV 01/14/17 17:00 01/17/17 17:21 Hydromorphone HCl (Dilaudid Pf Inj) 0.5 mg Q4H PRN IV PAIN 1-10 01/15/17 02:30 01/15/17 02:46 Furosemide 20 mg 20 mg BID@09,18 IV PUSH 01/15/17 09:00 01/18/17 08:03 Sodium Chloride 1,000 ml @ 42 mls/hr [id number] IV 01/15/17 08:15 01/18/17 08:06 Thiamine HCl/ Sodium Chloride (Thiamine Inj/NS Inj) 101 ml @ 101 mls/hr DAILY IV 01/15/17 09:00 01/18/17 08:03 Folic Acid (Folate) 1 mg DAILY PO 01/17/17 09:00 01/18/17 08:02 Gabapentin (Neurontin) 300 mg TID PO 01/17/17 09:00 01/18/17 08:02 Tamsulosin HCl (Flomax) 0.4 mg DAILY PO 01/17/17 09:00 01/18/17 08:02 Ferrous Fumarate (Hemocyte) 325 mg DAILY PO 01/17/17 09:00 01/18/17 08:09 Multivitamins (Theragran) 1 tab DAILY PO 01/17/17 09:00 01/18/17 08:02 Objective Remarks GENERAL: Middle aged chronically ill appearing male, lying in bed in nad. SKIN: Warm and dry. HEAD: Normocephalic. EYES: + scleral icterus. No injection or drainage. NECK: Supple, trachea midline. CARDIOVASCULAR: Regular rate and rhythm RESPIRATORY: Breath sounds equal bilaterally. No accessory muscle use. GASTROINTESTINAL: Abdomen distended with ascites. MUSCULOSKELETAL: No cyanosis. LLE with edema. Assessment/Plan Problem List: (1) DVT (deep venous thrombosis) Status: Acute Plan: --hold anticoagulation d/t GIB ----started on heparin gtt on 01/18. --If his hemoglobin does drop again, then anticoagulation would be contraindicated. We should consider placing an IVC filter. (2) GI bleed Status: Acute Plan: --likely d/t GI bleeding --EGD showed gastric ulcers with no active bleeding. --colonoscopy showed polyps but no active bleeding. +splenomegaly and liver cirrhosis which can contribute to anemia but the likely source of severe anemia is underlying GI bleeding. --hepatitis panel negative --was on therapeutic Lovenox. He started noticing dark colored stools and felt weak, since he started anticoagulation. --FERMIN negative (3) Hyperbilirubinemia Status: Acute Plan: --Mild hyperbilirubinemia secondary to liver disease (4) Bladder cancer Status: Acute Plan: --outpatient management --diagnosed in 2009. --follows with Dr. Lo. --never received any chemotherapy --did receive intravesicular BCG treatment. --was supposed to go to [facility] later this month for a cystectomy. Assessment 66y/o male admitted with melanotic stools, anemia h/o bladder cancer, alcoholic cirrhosis, esophageal varices, and DVT of the left lower extremity. Plan 1. start heparin gtt 2. monitor for bleeding 3. if he starts bleeding, will stop heparin gtt and obtain IVC filter. Attending Statement The exam, history, and the medical decision-making described in the above note were completed with the assistance of the mid-level provider. I reviewed and agree with the findings presented. I attest that I had a [id number] encounter with the patient on the same day, and personally performed and documented my assessment and findings in the medical record. Hemoccult negative. Hb stable Start Heparin GTT monitor Hb closely replace potassium d/w rn Problem Qualifiers (1) DVT (deep venous thrombosis): Karishma Lacey Jan 18, 2017 10:29 Jeancarlos Perry MD Jan 18, 2017 23:26
[2017-01-18 10:35] LABS: HEMATOCRIT 32.2 % (39.0-51.0); MEAN CELL VOLUME 86.5 FL (80.0-100.0); MEAN CORPUSCULAR HEMOGLOBIN 27.8 PG (27.0-34.0); MEAN CORPUSCULAR HGB CONC 32.1 % (32.0-36.0); PLATELET COUNT 194 TH/MM3 (150-450); RED BLOOD COUNT 3.73 MIL/MM3 (4.50-5.90); RED CELL DISTRIBUTION WIDTH 18.3 % (11.6-17.2); REVIEW FLAG FINAL; WHITE BLOOD COUNT 24.1 TH/MM3 (4.0-11.0)
[2017-01-18 10:47] LABS: APTT (PATIENT) 30.5 SEC (24.3-30.1); INTERNATIONAL NORMALIZED RATIO 1.2 RATIO; PROTHROMBIN TIME - PATIENT 13.5 SEC (9.8-11.6)
[2017-01-18] MEDS: HEPARIN-D5W INJ 250 ML IV SCH (11:07)
--- NOTE | 2017-01-18 11:45 | HHI.GIFU ---
Subjective Remarks Resting in bed. Lethargic. No n/v. No active bleeding. Denies abdominal pain. (Yolanda Hansen) Objective Vitals I&O Vital Signs Date Time Temp Pulse Resp B/P Pulse Ox O2 Delivery O2 Flow Rate FiO2 01/18/17 10:44 95 21 01/18/17 08:00 95 Room Air 01/18/17 08:00 98.6 82 16 138/77 95 01/18/17 00:00 97.4 80 19 132/75 96 01/17/17 22:25 78 01/17/17 22:25 Room Air 01/17/17 21:30 97.4 80 19 132/75 96 01/17/17 19:01 97.7 93 18 145/76 99 01/17/17 18:45 97.9 90 18 141/84 99 01/17/17 15:20 76 01/17/17 15:20 97.0 76 14 143/91 95 01/17/17 14:30 97.6 75 18 126/81 99 Nasal Cannula 2 01/17/17 14:15 75 18 119/86 99 Nasal Cannula 2 01/17/17 14:09 97.5 76 18 114/67 99 Nasal Cannula 2 I/O 01/17/17 01/17/17 01/17/17 01/18/17 01/18/17 01/18/17 07:00 15:00 23:00 07:00 15:00 23:00 Intake Total 821 ml 575 ml 780 ml 612 ml Output Total 0 ml 600 ml Balance 821 ml 575 ml 180 ml 612 ml Intake Oral 200 ml 0 ml 30 ml 240 ml IV Total 621 ml 75 ml 750 ml 372 ml Other 500 ml Output Urine Total 0 ml 600 ml Stool Total 0 ml Estimated Blood Loss 0 ml # Voids 13 0 2 3 # Bowel Movements 0 0 Laboratory Laboratory Tests Test 01/18/17 01/18/17 05:26 09:50 White Blood Count 23.1 24.1 Red Blood Count 3.61 3.73 Hemoglobin 10.2 10.4 Hematocrit 31.0 32.2 Mean Corpuscular Volume 85.6 86.5 Mean Corpuscular Hemoglobin 28.3 27.8 Mean Corpuscular Hemoglobin 33.0 32.1 Concent Red Cell Distribution Width 18.1 18.3 Platelet Count 183 194 Mean Platelet Volume 9.4 9.6 Neutrophils (%) (Auto) 87.2 Lymphocytes (%) (Auto) 3.3 Monocytes (%) (Auto) 8.5 Eosinophils (%) (Auto) 0.2 Basophils (%) (Auto) 0.8 Neutrophils # (Auto) 20.2 Lymphocytes # (Auto) 0.8 Monocytes # (Auto) 2.0 Eosinophils # (Auto) 0.0 Basophils # (Auto) 0.2 CBC Comment DIFF FINAL Differential Comment Sodium Level 140 Potassium Level 2.8 Chloride Level 105 Carbon Dioxide Level 24.1 Anion Gap 11 Blood Urea Nitrogen 16 Creatinine 0.78 Estimat Glomerular Filtration 100 Rate Random Glucose 97 Calcium Level 7.8 Phosphorus Level 2.0 Magnesium Level 1.6 Total Bilirubin 1.1 Aspartate Amino Transf 39 (AST/SGOT) Alanine Aminotransferase 58 (ALT/SGPT) Alkaline Phosphatase 156 Total Protein 6.0 Albumin 2.1 Prothrombin Time 13.5 Prothromb Time International 1.2 Ratio Activated Partial 30.5 Thromboplast Time Date/Time Procedure Status Source Growth 01/14/17 18:10 Aerobic Blood Culture - Preliminary Resulted Blood Peripheral NO GROWTH IN 4 DAYS 01/14/17 18:10 Anaerobic Blood Culture - Preliminary Resulted Blood Peripheral NO GROWTH IN 4 DAYS Imaging Last Impressions Abdomen Ultrasound 01/15/17 0000 Signed Impressions: Service Date/Time: Sunday, January 15, 2017 16:21 - CONCLUSION: 1. Liver cirrhosis with moderate ascites. Splenomegaly. 2. Echogenic kidneys characteristic of medical renal disease with moderate right hydronephrosis and mild left hydronephrosis. Trevon Real MD Lower Extremity Ultrasound 01/14/17 0000 Signed Impressions: Service Date/Time: Saturday, January 14, 2017 17:28 - CONCLUSION: Left iliac and deep femoral DVT. No evidence of DVT on the right. Desmond Villatoro MD Physical Exam HEENT: Normocephalic; atraumatic; CHEST: CTA. CARDIAC: RRR. ABDOMEN: Soft, mildly distended ascites, nontender; bowel sounds are present in all four quadrants. EXTREMITIES: No clubbing, cyanosis, or edema. SKIN: Normal; no rash RN PRIVATE DUTY: No focal deficits; alert and oriented times three. (Yolanda Hansen) Assessment and Plan Plan ASSESSMENT: - Severe anemia with melena and hx of esophageal varices. S/P EGD on (01/16/16)- --> signs of old varices banding, no varices at this time, severe gastropathy, no active bleeding, no old blood, multiple ulcers in the antrum, no active bleeding bx pending. Abdomen Ultrasound 01/15/17 1. Liver cirrhosis with moderate ascites. Splenomegaly. 2. Echogenic kidneys characteristic of medical renal disease with moderate right hydronephrosis and mild left hydronephrosis. Colonoscopy (01/17/17)----> 1. Polyp sessile hepatic flexure -6 mm-hot snare polypectomy with complete removal polyp diminutive midtransverse-hot snare polypectomy with complete removal polyp descending-6 mm-hot snare polypectomy with complete removal two polyps in sigmoid, one 6 mm, one 8 mm sessile-hot snare polypectomy , some bleeding from both sites, 1 clip and respectively 2 clips applied at the sites no further bleeding edematous rectal mucosa 2. Retroflexed views revealed internal hemorrhoids 3. Retroflexed views revealed small internal hemorrhoids 4. Revealed decreased sphincter tone 5. Revealed external hemorrhoids. Pathology pending. S/P 6 units PRBC. HH 10.4/32.2. Protonix gtt. - Multiple gastric ulcers. PPI - Leukocytosis- WBC 24.1. Ceftriaxone. - Ascites. Pt with large amount ascites, soft not tense On Ceftrixaone. Lasix. - Liver cirrhosis, no ETOH x 6 months. - BARBARA, with electrolyte abnormalities. Per primary- multi factorial - Bladder cancer, he was suppose to undergo cystectomy which was scheduled at [facility] [place], but this is on hold now. - Recent DVT in left leg on Lovenox, on hold, hematology on the case. Heparin. Plan: - 2 gram sodium diet - Await pathology - D/C protonix Gtt - Protonix 40mg po BID - Cont. Lasix - Cont. Ceftriaxone. - Monitor HH - Transfuse as needed to keep hgb >7 - Supportive care - Further recommendations to follow based on results of above - Patient seen and examined by Dr. Simeon and myself and this note is written on her behalf. (Yolanda Hansen) Physician Comments seen, examined agree with above we will order us guided paracentesis, diagnostic and therapeutic we will add rifaximin 550 mg po bid lactulose 30 cc po bid ammonia level (Leila Simeon MD) Yolanda Hansen Jan 18, 2017 11:45 Leila Simeon MD Jan 18, 2017 17:31
--- NOTE | 2017-01-18 12:17 | HHI.PR ---
Subjective Remarks Follow-up GI bleed/cirrhosis/hypotension/DVT 01/18/17-patient seen and examined, denies any GI bleeding. Had an endoscopy performed yesterday. Alert and oriented 3. Daughter by the bedside. Objective Vitals Vital Signs Date Time Temp Pulse Resp B/P Pulse Ox O2 Delivery O2 Flow Rate FiO2 01/18/17 10:44 95 21 01/18/17 08:00 95 Room Air 01/18/17 08:00 98.6 82 16 138/77 95 01/18/17 00:00 97.4 80 19 132/75 96 01/17/17 22:25 78 01/17/17 22:25 Room Air 01/17/17 21:30 97.4 80 19 132/75 96 01/17/17 19:01 97.7 93 18 145/76 99 01/17/17 18:45 97.9 90 18 141/84 99 01/17/17 15:20 76 01/17/17 15:20 97.0 76 14 143/91 95 01/17/17 14:30 97.6 75 18 126/81 99 Nasal Cannula 2 01/17/17 14:15 75 18 119/86 99 Nasal Cannula 2 01/17/17 14:09 97.5 76 18 114/67 99 Nasal Cannula 2 I/O 01/17/17 01/17/17 01/17/17 01/18/17 01/18/17 01/18/17 07:00 15:00 23:00 07:00 15:00 23:00 Intake Total 821 ml 575 ml 780 ml 612 ml Output Total 0 ml 600 ml Balance 821 ml 575 ml 180 ml 612 ml Intake Oral 200 ml 0 ml 30 ml 240 ml IV Total 621 ml 75 ml 750 ml 372 ml Other 500 ml Output Urine Total 0 ml 600 ml Stool Total 0 ml Estimated Blood Loss 0 ml # Voids 13 0 2 3 # Bowel Movements 0 0 Result Diagram: 01/18/17 0950 01/18/17 0526 Imaging Last Impressions Abdomen Ultrasound 01/15/17 0000 Signed Impressions: Service Date/Time: Sunday, January 15, 2017 16:21 - CONCLUSION: 1. Liver cirrhosis with moderate ascites. Splenomegaly. 2. Echogenic kidneys characteristic of medical renal disease with moderate right hydronephrosis and mild left hydronephrosis. Trevon Real MD Lower Extremity Ultrasound 01/14/17 0000 Signed Impressions: Service Date/Time: Saturday, January 14, 2017 17:28 - CONCLUSION: Left iliac and deep femoral DVT. No evidence of DVT on the right. Desmond Villatoro MD Objective Remarks GENERAL: NAD SKIN: Warm and dry. HEAD: Normocephalic. EYES: No scleral icterus. No injection or drainage. NECK: Supple, trachea midline. No JVD or lymphadenopathy. CARDIOVASCULAR: Regular rate and rhythm without murmurs, gallops, or rubs. RESPIRATORY: Breath sounds equal bilaterally. No accessory muscle use. GASTROINTESTINAL: Abdomen soft, non-tender, distended. Positive bowel sounds MUSCULOSKELETAL: No cyanosis, or edema. BACK: Nontender without obvious deformity. No CVA tenderness. A/P Problem List: (1) GI bleed ICD Code: K92.2 Status: Acute (2) Hypotension ICD Code: I95.9 Status: Acute (3) Anemia requiring transfusions ICD Code: D64.9 Status: Acute (4) Leukocytosis ICD Code: D72.829 Status: Acute (5) Hyperkalemia ICD Code: E87.5 Status: Acute (6) Acute kidney injury ICD Code: N17.9 Status: Acute (7) DVT (deep venous thrombosis) ICD Code: I82.409 Status: Acute (8) Bladder cancer ICD Code: C67.9 Status: Acute (9) Hypertension ICD Code: I10 Status: Chronic (10) Ascites ICD Code: R18.8 Status: Acute Assessment and Plan 66-year-old man with History of peripheral neuropathy History of EtOH abuse Depression/anxiety Hold home medications of oxycodoneacetaminophen as needed for pain and Continue Neurontin 300 mg 3 times a day at this time. continue thiamine at 100 mg IV daily. On B12 50 by mouth daily folic acid 0.4 mg by mouth daily at home for EtOH use. CIWA per protocol Hypotension secondary to hypovolemia History of hypertension Lactic acidosis on low-dose Lasix 20 mEq IV twice a day since currently hemodynamically stable Resume spironolactone 50 mill grams twice a day at home. GI bleed most likely variceal bleed Ascites/abdominal Liver cirrhosis History of gastroesophageal reflux disease Elevated transaminases likely secondary to EtOH Hypoalbuminemia -GI consulted. EGD revealed gastric ulcer in antrum. This is biopsied. Gastropathy. Old banding. No varices. Ultrasound - Liver cirrhosis with moderate ascites. Splenomegaly. -s/p Protonix at 8 mg an hour and octreotide at 50 grams an hour per GI -Currently on Protonix 40 mg by mouth twice a day -SBP prophylaxis with Rocephin 1 g IV every 24 hours 7 days with upper GI bleed Acute kidney injury - resolved History of bladder cancer/muscular invasive Bilateral hydronephrosis by history right greater than left BPH Ultrasound - Echogenic kidneys characteristic of medical renal disease with moderate right hydronephrosis and mild left hydronephrosis. Noted recent CT chest revealed right greater than left hydronephrosis. -F/u at [facility] for bladder cancer Continue Flomax 0.4 mg daily Severe anemia requiring transfusion of 7 units PRBCs Left lower extremity DVT 12/25/16 - left iliac and deep femoral Leukocytosis -Given 7 units of PRBC during this hospitalization -Monitor CBC coags are last INR 1.4 -s/p IVC filter placement by interventional radiology On iron fumarate 18 mg twice a day at home. Currently on hold Resume heparin drip for DVT. Appreciate input from hematology Hypokalemia - replace electrolytes and monitor Hypophosphatemia-resolved PROPH: currently with SCDs, PO Protonix Problem Qualifiers (1) Hypotension: Qualified Code: I95.9 - Hypotension, unspecified hypotension type (2) DVT (deep venous thrombosis): Geremias Rainey MD Jan 18, 2017 12:17
[2017-01-18] MEDS: cefTRIAXone INJ 1,000 MG in SODIUM CHLORIDE 0.9% INJ 100 ML IV SCH (17:07)
[2017-01-18 17:36] LABS: INTERNATIONAL NORMALIZED RATIO 1.2 RATIO; PROTHROMBIN TIME - PATIENT 13.4 SEC (9.8-11.6)
[2017-01-18 20:13] LABS: HEMATOCRIT 30.7 % (39.0-51.0); MEAN CELL VOLUME 86.4 FL (80.0-100.0); MEAN CORPUSCULAR HEMOGLOBIN 28.1 PG (27.0-34.0); MEAN CORPUSCULAR HGB CONC 32.5 % (32.0-36.0); PLATELET COUNT 196 TH/MM3 (150-450); RED BLOOD COUNT 3.55 MIL/MM3 (4.50-5.90); RED CELL DISTRIBUTION WIDTH 18.3 % (11.6-17.2); REVIEW FLAG FINAL; WHITE BLOOD COUNT 22.3 TH/MM3 (4.0-11.0)
[2017-01-18] MEDS: RIFAXIMIN 550 MG TAB PO SCH (20:14)
[2017-01-18] MEDS: PANTOPRAZOLE SOD 40 MG DELAYED RELEASE TAB PO SCH (20:14)
[2017-01-18 20:27] LABS: INTERNATIONAL NORMALIZED RATIO 1.2 RATIO; PROTHROMBIN TIME - PATIENT 13.7 SEC (9.8-11.6)
[2017-01-18] MEDS: HYDROmorphone HCL PF 1 MG/ML VIAL IV PRN (22:22)
[2017-01-18 23:32] LABS: APTT (PATIENT) 36.2 SEC (24.3-30.1); INTERNATIONAL NORMALIZED RATIO 1.2 RATIO; PROTHROMBIN TIME - PATIENT 13.9 SEC (9.8-11.6)
[2017-01-19] VITALS (9 sets, daily range): BP systolic 100–118; BP diastolic 59–74; PULSE 62–99; RESP 14–19; TEMP 97.6–100.8; O2SAT 93–98
[2017-01-19] MEDS: HYDROmorphone HCL PF 1 MG/ML VIAL IV PRN ×4 (02:36→19:26)
[2017-01-19] MEDS: HEPARIN-D5W INJ 250 ML IV SCH (02:38)
[2017-01-19 06:05] LABS: BICARBONATE 23.2 MEQ/L (21.0-32.0); POTASSIUM 3.6 MEQ/L (3.5-5.1)
[2017-01-19] MEDS: SODIUM CHLOR 0.9% 1000 ML INJ 1,000 ML IV SCH (07:30)
[2017-01-19] MEDS ORDERED: ALBUMIN HUMAN 25% 25 GM/100 ML BAGP IV ONE ×2 (08:00→15:00)
[2017-01-19] MEDS: GABAPENTIN 300 MG CAP PO SCH ×3 (08:25→17:24)
[2017-01-19] MEDS: FERROUS FUMARATE 325 MG TAB (106 MG ELEMENTAL IRON) PO SCH (08:25)
[2017-01-19] MEDS: TAMSULOSIN HCL 0.4 MG CAP PO SCH (08:25)
[2017-01-19] MEDS: RIFAXIMIN 550 MG TAB PO SCH ×3 (08:26→21:45)
[2017-01-19] MEDS: FOLIC ACID 1 MG TAB PO SCH (08:26)
[2017-01-19] MEDS: MULTIVITAMIN TAB PO SCH (08:26)
[2017-01-19] MEDS: PANTOPRAZOLE SOD 40 MG DELAYED RELEASE TAB PO SCH ×2 (08:26→21:45)
[2017-01-19] MEDS: FUROSEMIDE 20 MG/2 ML VIAL IV PUSH SCH ×2 (08:26→17:23)
[2017-01-19] MEDS: THIAMINE INJ 100 MG in SODIUM CHLORIDE 0.9% INJ 100 ML IV SCH (08:27)
[2017-01-19] MEDS ORDERED: HYDROmorphone HCL PF 1 MG/ML VIAL IV ONE (09:45)
[2017-01-19 11:27] LABS: AUTOMATED NEUTROPHIL # 17.5 TH/MM3 (1.8-7.7); BASOPHIL # 0.1 TH/MM3 (0-0.2); BASOPHIL % 0.6 % (0.0-2.0); EOSINOPHIL # 0.1 TH/MM3 (0-0.4); EOSINOPHIL % 0.3 % (0.0-4.0); HEMATOCRIT 29.2 % (39.0-51.0); LYMPH % 4.1 % (9.0-44.0); LYMPHOCYTE # 0.9 TH/MM3 (1.0-4.8); MEAN CELL VOLUME 86.4 FL (80.0-100.0); MEAN CORPUSCULAR HEMOGLOBIN 28.5 PG (27.0-34.0); MONO % 11.8 % (0.0-8.0); NEUT % 83.2 % (16.0-70.0); PLATELET COUNT 190 TH/MM3 (150-450); RED BLOOD COUNT 3.38 MIL/MM3 (4.50-5.90)
[2017-01-19 11:30] LABS: HEMO FLAGS AUTO DIFF
--- NOTE | 2017-01-19 11:57 | HHI.PR ---
Subjective Remarks Follow-up GI bleed/cirrhosis/hypotension/DVT 01/18/17-patient seen and examined, denies any GI bleeding. Had an endoscopy performed yesterday. Alert and oriented 3. Daughter by the bedside. 01/19/17-patient seen and examined, alert and oriented 3, plan for paracentesis today. He was having breakfast without any competition nausea and vomiting. Complains of watery stool as well as abdominal pain. Daughter by the bedside. Objective Vitals Vital Signs Date Time Temp Pulse Resp B/P Pulse Ox O2 Delivery O2 Flow Rate FiO2 01/19/17 10:19 18 01/19/17 08:00 99.1 86 16 118/74 96 01/19/17 08:00 Room Air 01/19/17 07:00 18 01/19/17 04:00 98.8 62 19 106/68 96 01/19/17 00:00 97.6 82 19 106/59 98 01/18/17 20:13 93 01/18/17 20:00 99.7 80 21 105/66 98 01/18/17 18:17 96 21 01/18/17 16:00 99.0 91 17 120/74 96 01/18/17 12:00 97.7 83 16 111/64 97 I/O 01/18/17 01/18/17 01/18/17 01/19/17 01/19/17 01/19/17 07:00 15:00 23:00 07:00 15:00 23:00 Intake Total 612 ml 800 ml 1157 ml 687 ml Balance 612 ml 800 ml 1157 ml 687 ml Intake Oral 240 ml 800 ml 360 ml 120 ml IV Total 372 ml 797 ml 567 ml # Voids 3 7 3 3 # Bowel Movements 0 1 1 1 Result Diagram: 01/19/17 1102 01/19/17 0432 Imaging Last Impressions Abdomen Ultrasound 01/15/17 0000 Signed Impressions: Service Date/Time: Sunday, January 15, 2017 16:21 - CONCLUSION: 1. Liver cirrhosis with moderate ascites. Splenomegaly. 2. Echogenic kidneys characteristic of medical renal disease with moderate right hydronephrosis and mild left hydronephrosis. Trevon Real MD Lower Extremity Ultrasound 01/14/17 0000 Signed Impressions: Service Date/Time: Saturday, January 14, 2017 17:28 - CONCLUSION: Left iliac and deep femoral DVT. No evidence of DVT on the right. Desmond Villatoro MD Objective Remarks GENERAL: NAD SKIN: Warm and dry. HEAD: Normocephalic. EYES: No scleral icterus. No injection or drainage. NECK: Supple, trachea midline. No JVD or lymphadenopathy. CARDIOVASCULAR: Regular rate and rhythm without murmurs, gallops, or rubs. RESPIRATORY: Breath sounds equal bilaterally. No accessory muscle use. GASTROINTESTINAL: Abdomen soft, non-tender, distended. Positive bowel sounds MUSCULOSKELETAL: No cyanosis, or edema. BACK: Nontender without obvious deformity. No CVA tenderness. A/P Problem List: (1) GI bleed ICD Code: K92.2 Status: Acute (2) Hypotension ICD Code: I95.9 Status: Acute (3) Anemia requiring transfusions ICD Code: D64.9 Status: Acute (4) Leukocytosis ICD Code: D72.829 Status: Acute (5) Hyperkalemia ICD Code: E87.5 Status: Acute (6) Acute kidney injury ICD Code: N17.9 Status: Acute (7) DVT (deep venous thrombosis) ICD Code: I82.409 Status: Acute (8) Bladder cancer ICD Code: C67.9 Status: Acute (9) Hypertension ICD Code: I10 Status: Chronic (10) Ascites due to alcoholic cirrhosis ICD Code: K70.31 Status: Acute Assessment and Plan 66-year-old man with History of peripheral neuropathy History of EtOH abuse Depression/anxiety Hold home medications of oxycodoneacetaminophen as needed for pain and Continue Neurontin 300 mg 3 times a day at this time. continue thiamine at 100 mg IV daily. On B12 50 by mouth daily folic acid 0.4 mg by mouth daily at home for EtOH use. CIWA per protocol Hypotension secondary to hypovolemia History of hypertension Lactic acidosis on low-dose Lasix 20 mEq IV twice a day since currently hemodynamically stable Continue spironolactone 50 mill grams twice a day at home. GI bleed most likely variceal bleed Ascites due to alcoholic cirrhosis Liver cirrhosis History of gastroesophageal reflux disease Elevated transaminases likely secondary to EtOH Hypoalbuminemia -GI consulted. EGD revealed gastric ulcer in antrum. This is biopsied. Gastropathy. Old banding. No varices. Ultrasound - Liver cirrhosis with moderate ascites. Splenomegaly. -s/p Protonix at 8 mg an hour and octreotide at 50 grams an hour per GI -Currently on Protonix 40 mg by mouth twice a day -SBP prophylaxis with Rocephin 1 g IV every 24 hours 7 days total with upper GI bleed -Plan for paracentesis today 01/19/17 Acute kidney injury - resolved History of bladder cancer/muscular invasive Bilateral hydronephrosis by history right greater than left BPH Ultrasound - Echogenic kidneys characteristic of medical renal disease with moderate right hydronephrosis and mild left hydronephrosis. Noted recent CT chest revealed right greater than left hydronephrosis. -F/u at [place] for bladder cancer Continue Flomax 0.4 mg daily Severe anemia requiring transfusion of 7 units PRBCs Left lower extremity DVT 12/25/16 - left iliac and deep femoral Leukocytosis -s/p 7 units of PRBC during this hospitalization -Monitor CBC coags are last INR 1.4 -s/p IVC filter placement by interventional radiology -Continue iron fumarate 18 mg twice a day -Continue heparin drip for DVT. Appreciate input from hematology Hypokalemia - replace electrolytes and monitor Hypophosphatemia-resolved PROPH: currently with SCDs, PO Protonix Problem Qualifiers (1) Hypotension: Qualified Code: I95.9 - Hypotension, unspecified hypotension type (2) DVT (deep venous thrombosis): Geremias Rainey MD Jan 19, 2017 11:57
[2017-01-19 12:10] LABS: PLATELET ESTIMATE SMEAR NORMAL (NORMAL)
[2017-01-19 12:11] LABS: PLATELET MORPHOLOGY NORMAL (NORMAL); SCAN/DIFF AUTO DIFF CONFIRMED
--- NOTE | 2017-01-19 13:38 | PD.ONC.PN ---
Subjective Subjective Remarks Afebrile overnight. Patient resting comfortably without complaint. No bleeding. Had BM this AM with no bleeding. Objective Data Date Time Temp Pulse Resp B/P Pulse Ox O2 Delivery O2 Flow Rate FiO2 01/19/17 12:28 98 21 01/19/17 12:00 99.3 85 17 114/69 98 01/19/17 10:19 18 01/19/17 08:00 99.1 86 16 118/74 96 01/19/17 08:00 Room Air 01/19/17 07:00 18 01/19/17 04:00 98.8 62 19 106/68 96 01/19/17 00:00 97.6 82 19 106/59 98 01/18/17 20:13 93 01/18/17 20:00 99.7 80 21 105/66 98 01/18/17 18:17 96 21 01/18/17 16:00 99.0 91 17 120/74 96 01/19/17 01/19/17 01/19/17 07:00 15:00 23:00 Intake Total 687 ml Balance 687 ml Result Diagram: 01/19/17 1102 01/19/17 0432 Laboratory Results Laboratory Tests Test 01/18/17 01/18/17 01/18/17 01/19/17 16:51 19:45 22:48 04:32 Prothrombin Time 13.4 SEC 13.7 SEC 13.9 SEC Prothromb Time International 1.2 RATIO 1.2 RATIO 1.2 RATIO Ratio Activated Partial 34.0 SEC 36.2 SEC 36.0 SEC Thromboplast Time White Blood Count 22.3 TH/MM3 Red Blood Count 3.55 MIL/MM3 Hemoglobin 10.0 GM/DL Hematocrit 30.7 % Mean Corpuscular Volume 86.4 FL Mean Corpuscular Hemoglobin 28.1 PG Mean Corpuscular Hemoglobin 32.5 % Concent Red Cell Distribution Width 18.3 % Platelet Count 196 TH/MM3 Mean Platelet Volume 9.3 FL Ammonia 41 MCMOL/L Total Protein 6.2 GM/DL Sodium Level 136 MEQ/L Potassium Level 3.6 MEQ/L Chloride Level 104 MEQ/L Carbon Dioxide Level 23.2 MEQ/L Anion Gap 9 MEQ/L Blood Urea Nitrogen 12 MG/DL Creatinine 0.74 MG/DL Estimat Glomerular Filtration 106 ML/MIN Rate Random Glucose 85 MG/DL Calcium Level 7.6 MG/DL Test 01/19/17 11:02 White Blood Count 21.0 TH/MM3 Red Blood Count 3.38 MIL/MM3 Hemoglobin 9.6 GM/DL Hematocrit 29.2 % Mean Corpuscular Volume 86.4 FL Mean Corpuscular Hemoglobin 28.5 PG Mean Corpuscular Hemoglobin 33.0 % Concent Red Cell Distribution Width 18.0 % Platelet Count 190 TH/MM3 Mean Platelet Volume 9.4 FL Neutrophils (%) (Auto) 83.2 % Lymphocytes (%) (Auto) 4.1 % Monocytes (%) (Auto) 11.8 % Eosinophils (%) (Auto) 0.3 % Basophils (%) (Auto) 0.6 % Neutrophils # (Auto) 17.5 TH/MM3 Lymphocytes # (Auto) 0.9 TH/MM3 Monocytes # (Auto) 2.5 TH/MM3 Eosinophils # (Auto) 0.1 TH/MM3 Basophils # (Auto) 0.1 TH/MM3 CBC Comment AUTO DIFF Differential Comment AUTO DIFF CONFIRMED Platelet Estimate NORMAL Platelet Morphology Comment NORMAL Culture Results Microbiology Date/Time Procedure Status Source Growth 01/18/17 15:00 Stool Occult Blood (ALTAGRACIA) - Final Complete Stool Stool HEMOCCULT NEGATIVE Administered Medications Medications (Trade) Dose Ordered Sig/Dejuan Route PRN Reason Start Time Stop Time Status Last Admin Dose Admin Ceftriaxone Sodium/Sodium Chloride (Rocephin Inj/NS Inj) 100 ml @ 200 mls/hr Q24H IV 01/14/17 17:00 01/18/17 17:07 Hydromorphone HCl (Dilaudid Pf Inj) 0.5 mg Q4H PRN IV PAIN 1-10 01/15/17 02:30 01/19/17 13:15 Furosemide 20 mg 20 mg BID@,18 IV PUSH 01/15/17 09:00 01/19/17 08:26 Sodium Chloride 1,000 ml @ 42 mls/hr [id number] IV 01/15/17 08:15 01/19/17 07:30 Thiamine HCl/ Sodium Chloride (Thiamine Inj/NS Inj) 101 ml @ 101 mls/hr DAILY IV 01/15/17 09:00 01/19/17 08:27 Folic Acid (Folate) 1 mg DAILY PO 01/17/17 09:00 01/19/17 08:26 Gabapentin (Neurontin) 300 mg TID PO 01/17/17 09:00 01/19/17 12:47 Tamsulosin HCl (Flomax) 0.4 mg DAILY PO 01/17/17 09:00 01/19/17 08:25 Ferrous Fumarate (Hemocyte) 325 mg DAILY PO 01/17/17 09:00 01/19/17 08:25 Multivitamins 1 tab 1 tab DAILY PO 01/17/17 09:00 01/19/17 08:26 Heparin Sodium/ Dextrose (Heparin-D5W Inj) 250 ml @ 0 mls/hr TITRATE IV 01/18/17 08:15 01/19/17 02:38 Pantoprazole Sodium (Protonix) 40 mg Q12HR PO 01/18/17 21:00 01/19/17 08:26 Rifaximin (Xifaxan) 550 mg BID PO 01/18/17 21:00 01/18/17 20:14 Objective Remarks GENERAL: Middle aged male, sitting up in bed in nad, eating lunch SKIN: Warm and dry. HEAD: Normocephalic. EYES: No injection or drainage. NECK: Supple, trachea midline. CARDIOVASCULAR: Regular rate and rhythm RESPIRATORY: Breath sounds equal bilaterally. No accessory muscle use. GASTROINTESTINAL: Abdomen mildly distended with ascites. EXTREMITIES: No cyanosis NEUROLOGICAL: No obvious focal deficit. Awake, alert, and oriented x3. Assessment/Plan Problem List: (1) DVT (deep venous thrombosis) Status: Acute Plan: --hold anticoagulation d/t GIB --started on heparin gtt on 01/18. --If his hemoglobin does drop again, then anticoagulation would be contraindicated. We should consider placing an IVC filter. (2) GI bleed Status: Acute Plan: --likely d/t GI bleeding --EGD showed gastric ulcers with no active bleeding. --colonoscopy showed polyps but no active bleeding. +splenomegaly and liver cirrhosis which can contribute to anemia but the likely source of severe anemia is underlying GI bleeding. --hepatitis panel negative --was on therapeutic Lovenox. He started noticing dark colored stools and felt weak, since he started anticoagulation. --FERMIN negative (3) Hyperbilirubinemia Status: Acute Plan: --Mild hyperbilirubinemia secondary to liver disease (4) Bladder cancer Status: Acute Plan: --outpatient management --diagnosed in 2009. --follows with Dr. Wally. --never received any chemotherapy --did receive intravesicular BCG treatment. --was supposed to go to [facility] later this month for a cystectomy. Assessment 66y/o male admitted with melanotic stools, anemia h/o bladder cancer, alcoholic cirrhosis, esophageal varices, and DVT of the left lower extremity. Plan 1. continue heparin gtt 2. monitor hgb Attending Statement The exam, history, and the medical decision-making described in the above note were completed with the assistance of the mid-level provider. I reviewed and agree with the findings presented. I attest that I had a [id number] encounter with the patient on the same day, and personally performed and documented my assessment and findings in the medical record. no overt bleeding monitor Hb continue heparin infusion Problem Qualifiers (1) DVT (deep venous thrombosis): Karishma Lacey Jan 19, 2017 13:38 Jeancarlos Perry MD Jan 19, 2017 23:04
--- NOTE | 2017-01-19 14:20 | PQ ---
Physician Query Response Document PATIENT: SABIHA ARAMBULA : 1950 ADMIT DATE: 01/14/2017 3:04 PM DISCH DATE: RESPONDING PROVIDER #: Charlie QUERY TEXT: Anemia Type Anemia is documented in the Medical Record. Please specify the cause (includes suspected or probable cause) Such as: -- Due to acute blood loss -- Due to chronic blood loss -- Due to iron deficiency -- Due to postoperative blood loss -- Due to chronic disease -- Other, please specify The patient's Clinical Indicators include: Patient is a 66-year-old male with past medical history significant for alcoholic cirrhosis , esophageal varices, bladder cancer, recent DVT (12/25/16) in left leg on therapeutic Lovenox started noticing melanotic stools. Hbg was 4.[address] Galloway/THOM Cordova note states Profound anemia (01/14/17) Dr. Perry note states Severe anemia (01/16/17) 01/14/17 - hbg 4.6, Hct 14.3 01/15/17 - Hbg 16.1, Hct 18.2 01/15/17 - Hbg 8.0, Hct 24.7 Query created by: Jitendra Barrios on 01/19/2017 1:57 PM RESPONSE TEXT: Anemia due to acute blood loss Electronically signed by: Geremias Rainey MD 01/19/2017 2:16 PM
--- NOTE | 2017-01-19 16:17 | RADRPT ---
EXAM DATE/TIME: 01/19/2017 13:35 [place] COMPARISON: EXTERNAL COMPARISON: US GUIDED ABD PARACENTESIS, September 03, 2015, 12:41. [facility], CT ABDOMEN & PELVIS W CON TRAST, Dec 01 2016. [facility], CT ABDOMEN & PELVIS W CONTRAST, April 12, 2016. INDICATIONS : Ascites. MEDICAL HISTORY : Hypercholesterolemia. Gastroesophageal reflux disease. Hypertension. Bladder cancer. Hernia right si de. Hiatal hernia. Arthritis. Abdominal pain. Jaundice SURGICAL HISTORY : Inguinal hernia repair. Left leg surgery. Left thumb FX repair. Testicle removed. ENCOUNTER: Initial ACUITY: 1 day PAIN SCORE: 0/10 LOCATION: Right lower quadrant FLUID: Total volume of 7,000 cc of clear, yellow fluid was removed. Fluid was sent to lab for ordered studies. Post procedure scanning reveals no hematoma or other complication. TECHNIQUE: 1. Ultrasound guidance for abdominal paracentesis. 2. Paracentesis. The risks, benefits, and alternatives to ultrasound guided paracentesis were explained to the patient in detail including the risk of bleeding and infection. Written and verbal informed consent was obt ained. With the patient on the ultrasound table, ultrasound imaging was used to select the most appropriate approach for paracentesis. Overlying skin was prepped and draped in the usual sterile fashion and wi th a local anesthetic, a dermatotomy was made with an 11 blade scalpel. A 6 Serbian Idb-L-jiadennt ca theter was introduced into the peritoneal cavity and fluid was collected. The patient tolerated the procedure well and left the ultrasound suite in stable condition. CONCLUSION: Uncomplicated ultrasound guided paracentesis. Patient received albumin per protocol. Valente Parks MD FACR on January 19, 2017 at 16:15 Board Certified Radiologist. This report was verified electronically.
[2017-01-19] MEDS: cefTRIAXone INJ 1,000 MG in SODIUM CHLORIDE 0.9% INJ 100 ML IV SCH (17:24)
--- NOTE | 2017-01-19 17:45 | HHI.GIFU ---
GI Follow-up Note Consult Follow-up Subjective: Patient laying in bed comfortably, s/p paracentesis .Denies nausea , vomiting, abdominal pain.More alert today .No active bleeding , on heparin drip Objective: PHYSICAL EXAMINATION: Vitals signs stable No fever Vital Signs Date Time Temp Pulse Resp B/P Pulse Ox O2 Delivery O2 Flow Rate FiO2 01/19/17 16:15 100.2 83 16 117/68 98 01/19/17 16:00 99.7 85 17 106/62 98 01/19/17 13:50 100.8 87 14 112/72 93 01/19/17 12:28 98 21 01/19/17 12:00 99.3 85 17 114/69 98 01/19/17 10:19 18 HEENT: Pupils round and reactive to light; normocephalic; atraumatic; no jaundice. Throat is clear, sick looking NECK: Neck is supple, no JVD, no lymphadenopathy. CHEST: Chest is clear to auscultation and percussion. CARDIAC: Regular rate and rhythm with no murmur gallop or rubs. ABDOMEN: Soft, distended, nontender; no hepatosplenomegaly; bowel sounds are present in all four quadrants, ascites EXTREMITIES: No clubbing, cyanosis, or edema. SKIN: Normal; no rash; no jaundice. COMMUNITY RESOURCE OFFICER: No focal deficits; alert and oriented times three. Available Data (labs, X- Rays, Procedues) : Laboratory Tests Test 01/18/17 01/18/17 01/18/17 01/18/17 05:26 09:50 16:51 19:45 White Blood Count 23.1 TH/MM3 24.1 TH/MM3 22.3 TH/MM3 Red Blood Count 3.61 MIL/MM3 3.73 MIL/MM3 3.55 MIL/MM3 Hemoglobin 10.2 GM/DL 10.4 GM/DL 10.0 GM/DL Hematocrit 31.0 % 32.2 % 30.7 % Mean Corpuscular Volume 85.6 FL 86.5 FL 86.4 FL Mean Corpuscular Hemoglobin 28.3 PG 27.8 PG 28.1 PG Mean Corpuscular Hemoglobin 33.0 % 32.1 % 32.5 % Concent Red Cell Distribution Width 18.1 % 18.3 % 18.3 % Platelet Count 183 TH/MM3 194 TH/MM3 196 TH/MM3 Mean Platelet Volume 9.4 FL 9.6 FL 9.3 FL Neutrophils (%) (Auto) 87.2 % Lymphocytes (%) (Auto) 3.3 % Monocytes (%) (Auto) 8.5 % Eosinophils (%) (Auto) 0.2 % Basophils (%) (Auto) 0.8 % Neutrophils # (Auto) 20.2 TH/MM3 Lymphocytes # (Auto) 0.8 TH/MM3 Monocytes # (Auto) 2.0 TH/MM3 Eosinophils # (Auto) 0.0 TH/MM3 Basophils # (Auto) 0.2 TH/MM3 CBC Comment DIFF FINAL Differential Comment Sodium Level 140 MEQ/L Potassium Level 2.8 MEQ/L Chloride Level 105 MEQ/L Carbon Dioxide Level 24.1 MEQ/L Anion Gap 11 MEQ/L Blood Urea Nitrogen 16 MG/DL Creatinine 0.78 MG/DL Estimat Glomerular Filtration 100 ML/MIN Rate Random Glucose 97 MG/DL Calcium Level 7.8 MG/DL Phosphorus Level 2.0 MG/DL Magnesium Level 1.6 MG/DL Total Bilirubin 1.1 MG/DL Aspartate Amino Transf 39 U/L (AST/SGOT) Alanine Aminotransferase 58 U/L (ALT/SGPT) Alkaline Phosphatase 156 U/L Total Protein 6.0 GM/DL 6.2 GM/DL Albumin 2.1 GM/DL Prothrombin Time 13.5 SEC 13.4 SEC 13.7 SEC Prothromb Time International 1.2 RATIO 1.2 RATIO 1.2 RATIO Ratio Activated Partial 30.5 SEC 34.0 SEC Thromboplast Time Ammonia 41 MCMOL/L Test 01/18/17 01/19/17 01/19/17 01/19/17 22:48 04:32 11:02 14:15 Prothrombin Time 13.9 SEC Prothromb Time International 1.2 RATIO Ratio Activated Partial 36.2 SEC 36.0 SEC Thromboplast Time Sodium Level 136 MEQ/L Potassium Level 3.6 MEQ/L Chloride Level 104 MEQ/L Carbon Dioxide Level 23.2 MEQ/L Anion Gap 9 MEQ/L Blood Urea Nitrogen 12 MG/DL Creatinine 0.74 MG/DL Estimat Glomerular Filtration 106 ML/MIN Rate Random Glucose 85 MG/DL Calcium Level 7.6 MG/DL White Blood Count 21.0 TH/MM3 Red Blood Count 3.38 MIL/MM3 Hemoglobin 9.6 GM/DL Hematocrit 29.2 % Mean Corpuscular Volume 86.4 FL Mean Corpuscular Hemoglobin 28.5 PG Mean Corpuscular Hemoglobin 33.0 % Concent Red Cell Distribution Width 18.0 % Platelet Count 190 TH/MM3 Mean Platelet Volume 9.4 FL Neutrophils (%) (Auto) 83.2 % Lymphocytes (%) (Auto) 4.1 % Monocytes (%) (Auto) 11.8 % Eosinophils (%) (Auto) 0.3 % Basophils (%) (Auto) 0.6 % Neutrophils # (Auto) 17.5 TH/MM3 Lymphocytes # (Auto) 0.9 TH/MM3 Monocytes # (Auto) 2.5 TH/MM3 Eosinophils # (Auto) 0.1 TH/MM3 Basophils # (Auto) 0.1 TH/MM3 CBC Comment AUTO DIFF Differential Comment AUTO DIFF CONFIRMED Platelet Estimate NORMAL Platelet Morphology Comment NORMAL Peritoneal Fluid Total Protein 0.8 GM/DL Peritoneal Fluid Albumin 0.4 G/DL Peritoneal Fluid LDH 62 U/L Peritoneal Fluid Glucose 117 MG/DL ASSESSMENT/PLAN: liver cirrhosis secondary etoh-abstinent for few month ascites s/p paracentesis r/o sbp anemia secondary gi bleeding, s/p egd/colonoscopy dvt on heparing drip, consider IVC filter bladder cancer-possible surgery at [facility] once medically stable Recommendations fu paracentesis results continue current treatment rifaximin 550 mg po bid It was a pleasure seeing Randall Kang. Thank you for this consult. Entered by: Leila Del Cid MD Jan 19, 2017 17:45
[2017-01-19] MEDS: ACETAMINOPHEN 325 MG TAB PO PRN (18:15)
[2017-01-19 18:19] LABS: PERITONEAL WBC 84 /MM3 (0-10)
[2017-01-19 18:20] LABS: PERITONEAL LYMPHS 0 %; PERITONEAL MESOTHELIAL 29 %; PERITONEAL POLYS(SEGS) 71 %
[2017-01-19 19:59] LABS: APTT (PATIENT) 37.5 SEC (24.3-30.1); INTERNATIONAL NORMALIZED RATIO 1.3 RATIO; PROTHROMBIN TIME - PATIENT 14.7 SEC (9.8-11.6)
[2017-01-20] VITALS (8 sets, daily range): BP systolic 93–139; BP diastolic 53–72; PULSE 75–91; RESP 16–19; TEMP 98.1–100.5; O2SAT 95–97
[2017-01-20] MEDS: HYDROmorphone HCL PF 1 MG/ML VIAL IV PRN ×6 (00:12→22:27)
[2017-01-20] MEDS: HEPARIN-D5W INJ 250 ML IV SCH (03:35)
[2017-01-20] MEDS: SODIUM CHLOR 0.9% 1000 ML INJ 1,000 ML IV SCH ×2 (03:36→08:11)
[2017-01-20 04:20] LABS: BASOPHIL % 0.3 % (0.0-2.0); EOSINOPHIL # 0.2 TH/MM3 (0-0.4); EOSINOPHIL % 0.9 % (0.0-4.0); HEMATOCRIT 26.4 % (39.0-51.0); HEMO FLAGS DIFF FINAL; LYMPH % 6.8 % (9.0-44.0); LYMPHOCYTE # 1.2 TH/MM3 (1.0-4.8); MEAN CELL VOLUME 87.7 FL (80.0-100.0); MEAN CORPUSCULAR HEMOGLOBIN 28.9 PG (27.0-34.0); MEAN CORPUSCULAR HGB CONC 32.9 % (32.0-36.0); MONO % 8.9 % (0.0-8.0); NEUT % 83.1 % (16.0-70.0); PLATELET COUNT 147 TH/MM3 (150-450); RED BLOOD COUNT 3.01 MIL/MM3 (4.50-5.90); RED CELL DISTRIBUTION WIDTH 17.1 % (11.6-17.2)
[2017-01-20 04:40] LABS: APTT (PATIENT) 36.6 SEC (24.3-30.1)
[2017-01-20] MEDS: RIFAXIMIN 550 MG TAB PO SCH ×2 (08:09→21:25)
[2017-01-20] MEDS: MULTIVITAMIN TAB PO SCH (08:09)
[2017-01-20] MEDS: PANTOPRAZOLE SOD 40 MG DELAYED RELEASE TAB PO SCH ×2 (08:09→21:25)
[2017-01-20] MEDS: GABAPENTIN 300 MG CAP PO SCH ×3 (08:10→18:25)
[2017-01-20] MEDS: TAMSULOSIN HCL 0.4 MG CAP PO SCH (08:10)
[2017-01-20] MEDS: FOLIC ACID 1 MG TAB PO SCH (08:10)
[2017-01-20] MEDS: FERROUS FUMARATE 325 MG TAB (106 MG ELEMENTAL IRON) PO SCH (08:11)
[2017-01-20] MEDS: FUROSEMIDE 20 MG/2 ML VIAL IV PUSH SCH ×2 (08:14→18:00)
[2017-01-20] MEDS: THIAMINE INJ 100 MG in SODIUM CHLORIDE 0.9% INJ 100 ML IV SCH (08:18)
--- NOTE | 2017-01-20 09:13 | PD.ONC.PN ---
Subjective Subjective Remarks Tmax 100.8 overnight. Patient complaining of bleeding from penis, he states he has noticed two clots come out today. No rectal bleeding. Objective Data Date Time Temp Pulse Resp B/P Pulse Ox O2 Delivery O2 Flow Rate FiO2 01/20/17 04:00 98.5 76 17 93/53 97 01/20/17 00:00 98.1 81 17 118/64 97 01/19/17 20:00 100.5 99 17 100/63 97 01/19/17 20:00 Room Air 01/19/17 16:15 100.2 83 16 117/68 98 01/19/17 16:00 99.7 85 17 106/62 98 01/19/17 13:50 100.8 87 14 112/72 93 01/19/17 12:28 98 21 01/19/17 12:00 99.3 85 17 114/69 98 01/19/17 10:19 18 01/20/17 01/20/17 01/20/17 07:00 15:00 23:00 Intake Total 240 ml Balance 240 ml Result Diagram: 01/20/17 0354 01/19/17 0432 Laboratory Results Laboratory Tests Test 01/19/17 01/19/17 01/19/17 01/20/17 11:02 14:15 19:26 03:54 White Blood Count 21.0 TH/MM3 18.0 TH/MM3 Red Blood Count 3.38 MIL/MM3 3.01 MIL/MM3 Hemoglobin 9.6 GM/DL 8.7 GM/DL Hematocrit 29.2 % 26.4 % Mean Corpuscular Volume 86.4 FL 87.7 FL Mean Corpuscular Hemoglobin 28.5 PG 28.9 PG Mean Corpuscular Hemoglobin 33.0 % 32.9 % Concent Red Cell Distribution Width 18.0 % 17.1 % Platelet Count 190 TH/MM3 147 TH/MM3 Mean Platelet Volume 9.4 FL 9.7 FL Neutrophils (%) (Auto) 83.2 % 83.1 % Lymphocytes (%) (Auto) 4.1 % 6.8 % Monocytes (%) (Auto) 11.8 % 8.9 % Eosinophils (%) (Auto) 0.3 % 0.9 % Basophils (%) (Auto) 0.6 % 0.3 % Neutrophils # (Auto) 17.5 TH/MM3 15.0 TH/MM3 Lymphocytes # (Auto) 0.9 TH/MM3 1.2 TH/MM3 Monocytes # (Auto) 2.5 TH/MM3 1.6 TH/MM3 Eosinophils # (Auto) 0.1 TH/MM3 0.2 TH/MM3 Basophils # (Auto) 0.1 TH/MM3 0.0 TH/MM3 CBC Comment AUTO DIFF DIFF FINAL Differential Comment AUTO DIFF CONFIRMED Platelet Estimate NORMAL Platelet Morphology Comment NORMAL Peritoneal Fluid WBC 84 /MM3 Peritoneal Fluid RBC 50 /MM3 Peritoneal Fluid Neutrophils 71 % Peritoneal Fluid Lymphocytes 0 % Peritoneal Fluid Mesothelial 29 % Cells Peritoneal Fluid Total Protein 0.8 GM/DL Peritoneal Fluid Albumin 0.4 G/DL Peritoneal Fluid LDH 62 U/L Peritoneal Fluid Glucose 117 MG/DL Prothrombin Time 14.7 SEC Prothromb Time International 1.3 RATIO Ratio Activated Partial 37.5 SEC 36.6 SEC Thromboplast Time Culture Results Microbiology Date/Time Procedure Status Source Growth 01/18/17 15:00 Stool Occult Blood (ALTAGRACIA) - Final Complete Stool Stool HEMOCCULT NEGATIVE 01/19/17 14:15 Gram Stain Received Fluid Peritoneal Fluid Pending 01/19/17 14:15 Body Fluid Culture Received Fluid Peritoneal Fluid Pending Administered Medications Medications (Trade) Dose Ordered Sig/Dejuan Route PRN Reason Start Time Stop Time Status Last Admin Dose Admin Ceftriaxone Sodium/Sodium Chloride (Rocephin Inj/NS Inj) 100 ml @ 200 mls/hr Q24H IV 01/14/17 17:00 01/19/17 17:24 Hydromorphone HCl (Dilaudid Pf Inj) 0.5 mg Q4H PRN IV PAIN 1-10 01/15/17 02:30 01/20/17 04:12 Furosemide 20 mg 20 mg BID@09,18 IV PUSH 01/15/17 09:00 01/20/17 08:14 Sodium Chloride 1,000 ml @ 42 mls/hr [id number] IV 01/15/17 08:15 01/20/17 08:11 Thiamine HCl/ Sodium Chloride (Thiamine Inj/NS Inj) 101 ml @ 101 mls/hr DAILY IV 01/15/17 09:00 01/20/17 08:18 Folic Acid (Folate) 1 mg DAILY PO 01/17/17 09:00 01/20/17 08:10 Gabapentin (Neurontin) 300 mg TID PO 01/17/17 09:00 01/20/17 08:10 Tamsulosin HCl (Flomax) 0.4 mg DAILY PO 01/17/17 09:00 01/20/17 08:10 Ferrous Fumarate (Hemocyte) 325 mg DAILY PO 01/17/17 09:00 01/20/17 08:11 Multivitamins (Theragran) 1 tab DAILY PO 01/17/17 09:00 01/20/17 08:09 Pantoprazole Sodium (Protonix) 40 mg Q12HR PO 01/18/17 21:00 01/20/17 08:09 Rifaximin (Xifaxan) 550 mg BID PO 01/18/17 21:00 01/20/17 08:09 Acetaminophen (Tylenol) 650 mg Q6H PRN PO SEE LABEL COMMENTS 01/19/17 17:45 01/19/17 18:15 Objective Remarks GENERAL: Middle aged male, sitting up in bed in [facility]. SKIN: Warm and dry. HEAD: Normocephalic. EYES: No injection or drainage. NECK: Supple, trachea midline. CARDIOVASCULAR: Regular rate and rhythm RESPIRATORY: Breath sounds equal bilaterally. No accessory muscle use. GASTROINTESTINAL: Abdomen soft, non-tender, nondistended. : blood and blood clots in brief. no lesion or abrasion seen on penis EXTREMITIES: No cyanosis, or edema. MUSCULOSKELETAL: Adequate muscle tone. NEUROLOGICAL: No obvious focal deficit. Awake, alert, and oriented x3. PSYCHIATRIC: Appropriate mood and affect; insight and judgment normal. Assessment/Plan Problem List: (1) DVT (deep venous thrombosis) Status: Acute Plan: --heparin stopped due to bleeding, will need IVC filter for multiple blood clots in LLE --heparin gtt 01/18-01/20 (2) Hyperbilirubinemia Status: Acute Plan: --Mild hyperbilirubinemia secondary to liver disease (3) Bladder cancer Status: Acute Plan: --outpatient management --diagnosed in 2009. --follows with Dr. Lo. --never received any chemotherapy --did receive intravesicular BCG treatment. --was supposed to go to [facility] later this month for a cystectomy. (4) Anemia Status: Acute Assessment 66y/o male admitted with melanotic stools, anemia h/o bladder cancer, alcoholic cirrhosis, esophageal varices, and DVT of the left lower extremity. Plan 1. stop heparin drip 2. consult invasive radiology for ivc filter 3. consult urology for penile bleeding--patient may need CBI Attending Statement The exam, history, and the medical decision-making described in the above note were completed with the assistance of the mid-level provider. I reviewed and agree with the findings presented. I attest that I had a [id number] encounter with the patient on the same day, and personally performed and documented my assessment and findings in the medical record. drop in hemoglobin. having hematuria stop heparin. patient is high risk for bleeding due to multiple issues consult IR for retrievable IVC filter. Large DVT clot and high risk for PE without anticoagulation consult urology to asses hematuria d/w rn Problem Qualifiers (1) DVT (deep venous thrombosis): (2) Anemia: Qualified Code: D64.9 - Anemia, unspecified type Karishma Lacey Jan 20, 2017 09:13 Jeancarlos Perry MD Jan 20, 2017 23:22
--- NOTE | 2017-01-20 09:34 | HHI.PR ---
Subjective Remarks Follow-up GI bleed/cirrhosis/hypotension/DVT 01/18/17-patient seen and examined, denies any GI bleeding. Had an endoscopy performed yesterday. Alert and oriented 3. Daughter by the bedside. 01/19/17-patient seen and examined, alert and oriented 3, plan for paracentesis today. He was having breakfast without any competition nausea and vomiting. Complains of watery stool as well as abdominal pain. Daughter by the bedside. 01/20/17-patient seen and examined, now with gross hematuria. He had paracentesis done yesterday and denies any significant abdominal pain Objective Vitals Vital Signs Date Time Temp Pulse Resp B/P Pulse Ox O2 Delivery O2 Flow Rate FiO2 01/20/17 04:00 98.5 76 17 93/53 97 01/20/17 00:00 98.1 81 17 118/64 97 01/19/17 20:00 100.5 99 17 100/63 97 01/19/17 20:00 Room Air 01/19/17 16:15 100.2 83 16 117/68 98 01/19/17 16:00 99.7 85 17 106/62 98 01/19/17 13:50 100.8 87 14 112/72 93 01/19/17 12:28 98 21 01/19/17 12:00 99.3 85 17 114/69 98 01/19/17 10:19 18 I/O 01/19/17 01/19/17 01/19/17 01/20/17 01/20/17 01/20/17 07:00 15:00 23:00 07:00 15:00 23:00 Intake Total 687 ml 480 ml 240 ml 240 ml Output Total 450 ml 250 ml Balance 687 ml 30 ml -10 ml 240 ml Intake Oral 120 ml 480 ml 240 ml 240 ml IV Total 567 ml Output Urine Total 450 ml 250 ml # Voids 3 2 1 2 # Bowel Movements 1 0 Result Diagram: 01/20/17 0354 01/19/17 0432 Imaging Last Impressions Cyst Biopsy Asp-Paracentesis US 01/19/17 0000 Signed Impressions: Service Date/Time: Thursday, January 19, 2017 13:35 - CONCLUSION: Uncomplicated ultrasound guided paracentesis. Patient received albumin per protocol. Valente Parks MD FACR Abdomen Ultrasound 01/15/17 0000 Signed Impressions: Service Date/Time: Sunday, January 15, 2017 16:21 - CONCLUSION: 1. Liver cirrhosis with moderate ascites. Splenomegaly. 2. Echogenic kidneys characteristic of medical renal disease with moderate right hydronephrosis and mild left hydronephrosis. Trevon Real MD Lower Extremity Ultrasound 01/14/17 0000 Signed Impressions: Service Date/Time: Saturday, January 14, 2017 17:28 - CONCLUSION: Left iliac and deep femoral DVT. No evidence of DVT on the right. Desmond Villatoro MD Objective Remarks GENERAL: NAD SKIN: Warm and dry. HEAD: Normocephalic. EYES: No scleral icterus. No injection or drainage. NECK: Supple, trachea midline. No JVD or lymphadenopathy. CARDIOVASCULAR: Regular rate and rhythm without murmurs, gallops, or rubs. RESPIRATORY: Breath sounds equal bilaterally. No accessory muscle use. GASTROINTESTINAL: Abdomen soft, non-tender, mildly distended. Positive bowel sounds : diaper with gross hematuria MUSCULOSKELETAL: No cyanosis, or edema. BACK: Nontender without obvious deformity. No CVA tenderness. A/P Problem List: (1) GI bleed ICD Code: K92.2 Status: Acute (2) Hypotension ICD Code: I95.9 Status: Acute (3) Anemia requiring transfusions ICD Code: D64.9 Status: Acute (4) Leukocytosis ICD Code: D72.829 Status: Acute (5) Hyperkalemia ICD Code: E87.5 Status: Acute (6) Acute kidney injury ICD Code: N17.9 Status: Acute (7) DVT (deep venous thrombosis) ICD Code: I82.409 Status: Acute (8) Bladder cancer ICD Code: C67.9 Status: Acute (9) Hypertension ICD Code: I10 Status: Chronic (10) Ascites due to alcoholic cirrhosis ICD Code: K70.31 Status: Acute Assessment and Plan 66-year-old man with History of peripheral neuropathy History of EtOH abuse Depression/anxiety Hold home medications of oxycodoneacetaminophen as needed for pain and Continue Neurontin 300 mg 3 times a day at this time. continue thiamine at 100 mg IV daily. On B12 50 by mouth daily folic acid 0.4 mg by mouth daily at home for EtOH use. CIWA per protocol Hypotension secondary to hypovolemia History of hypertension Lactic acidosis on low-dose Lasix 20 mEq IV twice a day since currently hemodynamically stable Continue spironolactone 50 mill grams twice a day at home. GI bleed most likely variceal bleed Ascites due to alcoholic cirrhosis Liver cirrhosis History of gastroesophageal reflux disease Elevated transaminases likely secondary to EtOH Hypoalbuminemia -GI consulted. EGD revealed gastric ulcer in antrum. This is biopsied. Gastropathy. Old banding. No varices. Ultrasound - Liver cirrhosis with moderate ascites. Splenomegaly. -s/p Protonix at 8 mg an hour and octreotide at 50 grams an hour per GI -Currently on Protonix 40 mg by mouth twice a day -SBP prophylaxis with Rocephin 1 g IV every 24 hours 7 days total with upper GI bleed -Status post paracentesis 01/19/17 with 7 L fluid out Acute kidney injury - resolved History of bladder cancer/muscular invasive Bilateral hydronephrosis by history right greater than left BPH Ultrasound - Echogenic kidneys characteristic of medical renal disease with moderate right hydronephrosis and mild left hydronephrosis. Noted recent CT chest revealed right greater than left hydronephrosis. -F/u at [place] for bladder cancer however secondary to gross hematuria, will consult urology for further evaluation and treatment with CBI 01/20/17. May need cystoscopy Continue Flomax 0.4 mg daily Severe anemia requiring transfusion of 7 units PRBCs Left lower extremity DVT 12/25/16 - left iliac and deep femoral Leukocytosis -s/p 7 units of PRBC during this hospitalization -Monitor CBC as well as Coags -Consult interventional radiology for evaluation for placement of IVC filter -Continue iron fumarate 18 mg twice a day -Discontinue heparin drip for DVT secondary to gross hematuria 01/20/17. Appreciate input from hematology Hypokalemia - replace electrolytes and monitor Hypophosphatemia-resolved PROPH: currently with SCDs, PO Protonix Problem Qualifiers (1) Hypotension: Qualified Code: I95.9 - Hypotension, unspecified hypotension type (2) DVT (deep venous thrombosis): Geremias Rainey MD Jan 20, 2017 09:34
--- NOTE | 2017-01-20 10:10 | HHI.GIFU ---
Subjective Remarks Pt resting comfortably in bed. As of this morning pt has started having red blood from penis. Denies n/v, diarrhea, pain. (Bia Gage) Objective Vitals I&O Vital Signs Date Time Temp Pulse Resp B/P Pulse Ox O2 Delivery O2 Flow Rate FiO2 01/20/17 04:00 98.5 76 17 93/53 97 01/20/17 00:00 98.1 81 17 118/64 97 01/19/17 20:00 100.5 99 17 100/63 97 01/19/17 20:00 Room Air 01/19/17 16:15 100.2 83 16 117/68 98 01/19/17 16:00 99.7 85 17 106/62 98 01/19/17 13:50 100.8 87 14 112/72 93 01/19/17 12:28 98 21 01/19/17 12:00 99.3 85 17 114/69 98 01/19/17 10:19 18 I/O 01/19/17 01/19/17 01/19/17 01/20/17 01/20/17 01/20/17 07:00 15:00 23:00 07:00 15:00 23:00 Intake Total 687 ml 480 ml 240 ml 240 ml Output Total 450 ml 250 ml Balance 687 ml 30 ml -10 ml 240 ml Intake Oral 120 ml 480 ml 240 ml 240 ml IV Total 567 ml Output Urine Total 450 ml 250 ml # Voids 3 2 1 2 # Bowel Movements 1 0 Laboratory Laboratory Tests Test 01/19/17 01/19/17 01/19/17 01/20/17 11:02 14:15 19:26 03:54 White Blood Count 21.0 18.0 Red Blood Count 3.38 3.01 Hemoglobin 9.6 8.7 Hematocrit 29.2 26.4 Mean Corpuscular Volume 86.4 87.7 Mean Corpuscular Hemoglobin 28.5 28.9 Mean Corpuscular Hemoglobin 33.0 32.9 Concent Red Cell Distribution Width 18.0 17.1 Platelet Count 190 147 Mean Platelet Volume 9.4 9.7 Neutrophils (%) (Auto) 83.2 83.1 Lymphocytes (%) (Auto) 4.1 6.8 Monocytes (%) (Auto) 11.8 8.9 Eosinophils (%) (Auto) 0.3 0.9 Basophils (%) (Auto) 0.6 0.3 Neutrophils # (Auto) 17.5 15.0 Lymphocytes # (Auto) 0.9 1.2 Monocytes # (Auto) 2.5 1.6 Eosinophils # (Auto) 0.1 0.2 Basophils # (Auto) 0.1 0.0 CBC Comment AUTO DIFF DIFF FINAL Differential Comment AUTO DIFF CONFIRMED Platelet Estimate NORMAL Platelet Morphology Comment NORMAL Peritoneal Fluid WBC 84 Peritoneal Fluid RBC 50 Peritoneal Fluid Neutrophils 71 Peritoneal Fluid Lymphocytes 0 Peritoneal Fluid Mesothelial 29 Cells Peritoneal Fluid Total Protein 0.8 Peritoneal Fluid Albumin 0.4 Peritoneal Fluid LDH 62 Peritoneal Fluid Glucose 117 Prothrombin Time 14.7 Prothromb Time International 1.3 Ratio Activated Partial 37.5 36.6 Thromboplast Time Date/Time Procedure Status Source Growth 01/19/17 14:15 Gram Stain - Final Resulted Fluid Peritoneal Fluid 01/19/17 14:15 Body Fluid Culture Resulted Fluid Peritoneal Fluid Pending 01/18/17 15:00 Stool Occult Blood (ALTAGRACIA) - Final Complete Stool Stool HEMOCCULT NEGATIVE Imaging Last Impressions Cyst Biopsy Asp-Paracentesis US 01/19/17 0000 Signed Impressions: Service Date/Time: Thursday, January 19, 2017 13:35 - CONCLUSION: Uncomplicated ultrasound guided paracentesis. Patient received albumin per protocol. Valente Parks MD FACR Abdomen Ultrasound 01/15/17 0000 Signed Impressions: Service Date/Time: Sunday, January 15, 2017 16:21 - CONCLUSION: 1. Liver cirrhosis with moderate ascites. Splenomegaly. 2. Echogenic kidneys characteristic of medical renal disease with moderate right hydronephrosis and mild left hydronephrosis. Trevon Real MD Lower Extremity Ultrasound 01/14/17 0000 Signed Impressions: Service Date/Time: Saturday, January 14, 2017 17:28 - CONCLUSION: Left iliac and deep femoral DVT. No evidence of DVT on the right. Desmond Villatoro MD Physical Exam HEENT: Normocephalic; atraumatic; CHEST: CTA. CARDIAC: RRR. ABDOMEN: Soft, mildly distended, nontender; bowel sounds are present in all four quadrants. Dressing RLQ free of drainage. EXTREMITIES: No clubbing, cyanosis, or edema. SKIN: Normal; no rash ANDROID [employer]OS DEVELOPER: No focal deficits; alert and oriented times three. (Bia Gage) Assessment and Plan Plan ASSESSMENT: - Severe anemia with melena and hx of esophageal varices. S/P EGD on (01/16/16)- --> signs of old varices banding, no varices at this time, severe gastropathy, no active bleeding, no old blood, multiple ulcers in the antrum, no active bleeding; path benign but suggestive possibility h pylori induced gastritis. Stool h pylori pending. Abdomen Ultrasound 01/15/17 1. Liver cirrhosis with moderate ascites. Splenomegaly. 2. Echogenic kidneys characteristic of medical renal disease with moderate right hydronephrosis and mild left hydronephrosis. Colonoscopy (01/17/17)----> 1. Polyp sessile hepatic flexure -6 mm-hot snare polypectomy with complete removal polyp diminutive midtransverse-hot snare polypectomy with complete removal polyp descending-6 mm-hot snare polypectomy with complete removal two polyps in sigmoid, one 6 mm, one 8 mm sessile-hot snare polypectomy , some bleeding from both sites, 1 clip and respectively 2 clips applied at the sites no further bleeding edematous rectal mucosa 2. Retroflexed views revealed internal hemorrhoids 3. Retroflexed views revealed small internal hemorrhoids 4. Revealed decreased sphincter tone 5. Revealed external hemorrhoids. Pathology shows adenomatous polyps hepatic flexure and transverse mid colon, and tubulovillous adenoma from sigmoid. S/P 6 units PRBC, 1 FFP. HH 8.7/26.4. Protonix - Multiple gastric ulcers. PPI - Leukocytosis- WBC 24.1. Ceftriaxone. - Ascites. S/P paracentesis On Ceftrixaone. Lasix. - Liver cirrhosis, no ETOH x 6 months. - BARBARA, with electrolyte abnormalities. Per primary- multi factorial - Bladder cancer, new onset blood per urethra, urology consulted. he was suppose to undergo cystectomy which was scheduled at [facility], but this is on hold now. - Recent DVT in left leg on Lovenox, on hold, hematology on the case. Heparin. Plan: - 2 gram sodium diet - Protonix 40mg po BID - Cont. Lasix - Cont. Ceftriaxone. - Monitor HH - Transfuse as needed to keep hgb >7 - Supportive care - Patient seen and examined by Dr. Simeon and myself and this note is written on her behalf. (Bia Gage) Physician Comments seen, examined agree with above (Leila Simeon MD) Bia Gage Jan 20, 2017 10:10 Leila Simeon MD Jan 20, 2017 14:48
[2017-01-20] MEDS ORDERED: fentaNYL CITRATE 250 MCG/5 ML AMP IV ONE (12:50)
[2017-01-20] MEDS ORDERED: VANCOMYCIN HCL 1000 MG VIAL IV ONE (12:50)
--- NOTE | 2017-01-20 13:16 | PD.RAD ---
Post Procedure Progress Note Pre Procedure Diagnosis: (1) UTI (urinary tract infection) (2) Gross hematuria (3) GI bleed (4) DVT (deep venous thrombosis) Post Procedure Diagnosis: (1) UTI (urinary tract infection) (2) Clot retention of urine (3) DVT (deep venous thrombosis) (4) GI bleed Procedure Date: Jan 20, 2017 Supervising Radiologist: Sai Hernández Proceduralist/Assist: Jolie Cabello, RT(R)(CV), Jenny Guzman RT(R)() Anesthesia: Local, Analgesia, Conscious Sedation Plan of Activity Patient to Unit: ROPU Patient Condition: Good See PACS Report for procedural detail/treatment Vascular-Venous Procedure Procedure 1 Procedure Site: Abdominal (IVC) Procedure(s): Retrievable IVC Filter Access Access Site(s): Right Jugular Vein Closure Site(s): Right manual pressure Sai Hernández MD Jan 20, 2017 13:16
[2017-01-20] MEDS ORDERED: IOHEXOL 350 MG/ML 50 ML BTL (for RAD DIAG) ONE (13:22)
[2017-01-20] MEDS: cefTRIAXone INJ 1,000 MG in SODIUM CHLORIDE 0.9% INJ 100 ML IV SCH (16:22)
[2017-01-20 18:20] LABS: APTT (PATIENT) 31.7 SEC (24.3-30.1)
[2017-01-20 18:35] LABS: BICARBONATE 25.7 MEQ/L (21.0-32.0); POTASSIUM 3.1 MEQ/L (3.5-5.1)
[2017-01-20] MEDS: SODIUM CHLORIDE 0.9% FLUSH 10 ML FLUSH IVF PRN (21:25)
[2017-01-21] VITALS (9 sets, daily range): BP systolic 104–119; BP diastolic 63–72; PULSE 78–91; RESP 16–20; TEMP 97.9–100.3; O2SAT 94–98
[2017-01-21] MEDS: HYDROmorphone HCL PF 1 MG/ML VIAL IV PRN ×6 (02:27→22:08)
[2017-01-21 05:43] LABS: AUTOMATED NEUTROPHIL # 16.9 TH/MM3 (1.8-7.7); BASOPHIL % 0.2 % (0.0-2.0); EOSINOPHIL # 0.2 TH/MM3 (0-0.4); HEMATOCRIT 24.8 % (39.0-51.0); HEMO FLAGS DIFF FINAL; LYMPH % 4.8 % (9.0-44.0); LYMPHOCYTE # 0.9 TH/MM3 (1.0-4.8); MEAN CELL VOLUME 86.4 FL (80.0-100.0); MEAN CORPUSCULAR HEMOGLOBIN 29.1 PG (27.0-34.0); MEAN CORPUSCULAR HGB CONC 33.7 % (32.0-36.0); MONO % 7.2 % (0.0-8.0); NEUT % 86.8 % (16.0-70.0); PLATELET COUNT 166 TH/MM3 (150-450); RED BLOOD COUNT 2.87 MIL/MM3 (4.50-5.90); RED CELL DISTRIBUTION WIDTH 17.9 % (11.6-17.2); WHITE BLOOD COUNT 19.5 TH/MM3 (4.0-11.0)
[2017-01-21 06:14] LABS: ALKALINE PHOSPHATASE 226 U/L (45-117); ALT (GPT) 33 U/L (12-78); ANION GAP 9 MEQ/L (5-15); AST (GOT) 29 U/L (15-37); BICARBONATE 26.1 MEQ/L (21.0-32.0); BLOOD UREA NITROGEN 13 MG/DL (7-18); CHLORIDE 100 MEQ/L (98-107); GLOMERULAR FILTRATION RATE 84 ML/MIN (>89); SODIUM (NA) 135 MEQ/L (136-145); TOTAL BILIRUBIN ADULT 0.7 MG/DL (0.2-1.0)
[2017-01-21 06:18] LABS: POTASSIUM 2.8 MEQ/L (3.5-5.1)
[2017-01-21] MEDS ORDERED: POTASSIUM CHLOR 20 MEQ PREMIX 100 ML IV ONE (06:30)
[2017-01-21] MEDS ORDERED: POTASSIUM CHLORIDE 10 MEQ CONTROLLED RELEASE TAB PO ONE ×2 (06:45→19:45)
[2017-01-21] MEDS: RIFAXIMIN 550 MG TAB PO SCH ×2 (08:37→22:08)
[2017-01-21] MEDS: GABAPENTIN 300 MG CAP PO SCH ×3 (08:37→18:13)
[2017-01-21] MEDS: FOLIC ACID 1 MG TAB PO SCH (08:37)
[2017-01-21] MEDS: PANTOPRAZOLE SOD 40 MG DELAYED RELEASE TAB PO SCH ×2 (08:37→22:06)
[2017-01-21] MEDS: THIAMINE INJ 100 MG in SODIUM CHLORIDE 0.9% INJ 100 ML IV SCH (08:37)
[2017-01-21] MEDS: MULTIVITAMIN TAB PO SCH (08:38)
[2017-01-21] MEDS: FUROSEMIDE 20 MG/2 ML VIAL IV PUSH SCH (08:38)
[2017-01-21] MEDS: TAMSULOSIN HCL 0.4 MG CAP PO SCH (08:50)
[2017-01-21] MEDS: FERROUS FUMARATE 325 MG TAB (106 MG ELEMENTAL IRON) PO SCH (08:50)
--- NOTE | 2017-01-21 09:38 | HHI.PR ---
Subjective Remarks Follow-up left spontaneous tension pneumothorax 01/15/17-patient seen and examined, denies any shortness of breath or left- sided chest pain. Patient states, he would not agree on any surgical intervention 01/16/17-patient seen and examined, although he denies shortness of breath or chest pain patient appears tired. 01/17/17-patient seen and examined, denies any chest pain or shortness of breath. Repeat chest x-ray with persistent pneumothorax 01/18/17-patient seen and examined, repeat chest x-ray today with finding of 5 mm lateral left apical pneumothorax. Denies any chest pain or shortness of breath 01/19/17-patient seen and examined, although he denies any shortness of breath however he is now agreeable to have surgery from cardiothoracic surgery 01/20/17-patient seen and examined, denies any significant shortness of breath. Reports pain control. Patient is not agreeable for surgery. 01/21/17-patient seen and examined by me at episode of hematuria earlier this morning. Alert and oriented 3. IVC filter placed yesterday. Objective Vitals Vital Signs Date Time Temp Pulse Resp B/P Pulse Ox O2 Delivery O2 Flow Rate FiO2 01/21/17 08:49 95 01/21/17 08:25 78 01/21/17 08:00 99.1 78 16 108/68 95 01/21/17 04:00 99.7 78 17 108/63 94 01/21/17 00:00 97.9 82 17 104/68 96 01/20/17 20:00 98.8 89 17 100/64 95 01/20/17 20:00 88 01/20/17 17:51 96 21 01/20/17 16:00 100.5 91 16 139/72 96 01/20/17 12:00 99.5 85 19 105/63 95 I/O 01/20/17 01/20/17 01/20/17 01/21/17 01/21/17 01/21/17 07:00 15:00 23:00 07:00 15:00 23:00 Intake Total 240 ml 556 ml 240 ml 240 ml Output Total 200 ml Balance 240 ml 356 ml 240 ml 240 ml Intake Oral 240 ml 300 ml 240 ml 240 ml IV Total 256 ml Output Urine Total 200 ml # Voids 2 2 2 2 # Bowel Movements 0 Result Diagram: 01/21/17 0515 01/21/17 0515 Imaging Last Impressions Cyst Biopsy Asp-Paracentesis US 01/19/17 0000 Signed Impressions: Service Date/Time: Thursday, January 19, 2017 13:35 - CONCLUSION: Uncomplicated ultrasound guided paracentesis. Patient received albumin per protocol. Valente Parks MD FACR Abdomen Ultrasound 01/15/17 0000 Signed Impressions: Service Date/Time: Sunday, January 15, 2017 16:21 - CONCLUSION: 1. Liver cirrhosis with moderate ascites. Splenomegaly. 2. Echogenic kidneys characteristic of medical renal disease with moderate right hydronephrosis and mild left hydronephrosis. Trevon Real MD Lower Extremity Ultrasound 01/14/17 0000 Signed Impressions: Service Date/Time: Saturday, January 14, 2017 17:28 - CONCLUSION: Left iliac and deep femoral DVT. No evidence of DVT on the right. Desmond Villatoro MD Objective Remarks GENERAL: NAD SKIN: Warm and dry. HEAD: Normocephalic. EYES: No scleral icterus. No injection or drainage. NECK: Supple, trachea midline. No JVD or lymphadenopathy. CARDIOVASCULAR: Regular rate and rhythm without murmurs, gallops, or rubs. RESPIRATORY: Breath sounds equal bilaterally. No accessory muscle use. GASTROINTESTINAL: Abdomen soft, non-tender, mildly distended. Positive bowel sounds : diaper with gross hematuria MUSCULOSKELETAL: No cyanosis, or edema. BACK: Nontender without obvious deformity. No CVA tenderness. A/P Problem List: (1) GI bleed ICD Code: K92.2 Status: Acute (2) Hypotension ICD Code: I95.9 Status: Acute (3) Anemia requiring transfusions ICD Code: D64.9 Status: Acute (4) Leukocytosis ICD Code: D72.829 Status: Acute (5) Hyperkalemia ICD Code: E87.5 Status: Acute (6) Acute kidney injury ICD Code: N17.9 Status: Acute (7) DVT (deep venous thrombosis) ICD Code: I82.409 Status: Acute (8) Bladder cancer ICD Code: C67.9 Status: Acute (9) Hypertension ICD Code: I10 Status: Chronic (10) Ascites due to alcoholic cirrhosis ICD Code: K70.31 Status: Acute Assessment and Plan 66-year-old man with History of peripheral neuropathy History of EtOH abuse Depression/anxiety Hold home medications of oxycodoneacetaminophen as needed for pain and Continue Neurontin 300 mg 3 times a day at this time. continue thiamine at 100 mg PO daily. On B12 50 by mouth daily folic acid 0.4 mg by mouth daily at home for EtOH use. CIWA per protocol Hypotension secondary to hypovolemia History of hypertension Lactic acidosis on low-dose Lasix 20 mEq IV twice a day however 2/2 Hypotension will decrease to 20mg Daily Holding spironolactone 50 mill grams twice a day at home due to Hypotension GI bleed most likely variceal bleed Ascites due to alcoholic cirrhosis Liver cirrhosis History of gastroesophageal reflux disease Elevated transaminases likely secondary to EtOH Hypoalbuminemia -GI consulted. EGD revealed gastric ulcer in antrum. This is biopsied. Gastropathy. Old banding. No varices. Ultrasound - Liver cirrhosis with moderate ascites. Splenomegaly. -s/p Protonix at 8 mg an hour and octreotide at 50 grams an hour per GI -Currently on Protonix 40 mg by mouth twice a day -SBP prophylaxis with Rocephin 1 g IV every 24 hours 7 days total with upper GI bleed -Status post paracentesis 01/19/17 with 7 L fluid out -Start Lactulose 30mg daily PRN and monitor Ammonia level Acute kidney injury - resolved History of bladder cancer/muscular invasive Bilateral hydronephrosis by history right greater than left BPH Ultrasound - Echogenic kidneys characteristic of medical renal disease with moderate right hydronephrosis and mild left hydronephrosis. Noted recent CT chest revealed right greater than left hydronephrosis. -F/u at [place] for bladder cancer however secondary to gross hematuria, Urology consultation pending for further evaluation and treatment possible with CBI . May need cystoscopy Continue Flomax 0.4 mg daily Severe anemia requiring transfusion of 7 units PRBCs Left lower extremity DVT 12/25/16 - left iliac and deep femoral Leukocytosis -s/p 7 units of PRBC during this hospitalization -Monitor CBC as well as Coags -s/p IVC filter placement 01/20/17 -Continue iron fumarate 18 mg twice a day - heparin drip for DVT on hold secondary to gross hematuria 01/20/17. Appreciate input from hematology Hypokalemia - replace electrolytes and monitor Hypophosphatemia-resolved PROPH: currently with SCDs, PO Protonix Problem Qualifiers (1) Hypotension: Qualified Code: I95.9 - Hypotension, unspecified hypotension type (2) DVT (deep venous thrombosis): Geremias Rainey MD Jan 21, 2017 09:38
--- NOTE | 2017-01-21 09:41 | PD.CONS ---
HPI Service Urology Consult Requested By Reason for Consult Hematuria Primary Care Physician Non-Staff Diagnosis: (1) GI bleed ICD Code: K92.2 (2) Hypotension ICD Code: I95.9 (3) Anemia requiring transfusions ICD Code: D64.9 (4) Leukocytosis ICD Code: D72.829 (5) Hyperkalemia ICD Code: E87.5 (6) Acute kidney injury ICD Code: N17.9 (7) DVT (deep venous thrombosis) ICD Code: I82.409 (8) Bladder cancer ICD Code: C67.9 (9) Hypertension ICD Code: I10 (10) Ascites due to alcoholic cirrhosis ICD Code: K70.31 History of Present Illness Consulted to evaluate this 66 year-old gentleman with history muscle invasive bladder cancer for intermittent gross hematuria. Patient is presently admitted for management of melanotic stools. He has a history of liver cirrhosis and esophageal varices and was recently evaluated by my associate Dr. Castillo recently performed cystoscopy and fulguration of friable bladder tumor tissue involving the bladder neck region on December 26 of this year. Patient reports that he was originally diagnosed with bladder cancer back in 2009 and has been treated with transurethral resections, intravesical BCG and mitomycin. He is presently under the care of Dr. Lo who has referred the patient to [facility] to undergo a radical cystectomy. Patient reports that the physicians at [facility] will not operate on him until he is medically stable. Presently, the patient reports that he is voiding spontaneously with intermittent periods of bloody urine with small clots. He has been managed with a Ellis catheter in the past for worsening hematuria. Patient is aware that he has multiple comorbidities that would make radical surgery somewhat risky. Review of Systems Gastrointestinal: COMPLAINS OF: Abdominal pain, Bloody stools, Diarrhea Genitourinary: COMPLAINS OF: Hematuria (intermittent grossly bloody urine) Except as stated in HPI: all other systems reviewed are Neg Past Family Social History Past Medical History Muscle invasive bladder cancer GERD Liver cirrhosis Esophageal varices Hyperlipidemia Anxiety/depression BPH Past Surgical History Status post multiple transurethral resections Status post umbilical hernia and inguinal hernia repairs Reported Medications Refer to EMR Allergies: Uncoded Allergies: BCG TREATMENT (Adverse Reaction, Severe, HTYPOTENSION , 12/25/16) Active Ordered Medications Refer to EMR Family History Reviewed and noncontributory Social History Extensive history of smoking and alcohol usage Physical Exam Vital Signs Date Time Temp Pulse Resp B/P Pulse Ox O2 Delivery O2 Flow Rate FiO2 01/21/17 08:49 95 01/21/17 08:25 78 01/21/17 08:00 99.1 78 16 108/68 95 01/21/17 04:00 99.7 78 17 108/63 94 01/21/17 00:00 97.9 82 17 104/68 96 01/20/17 20:00 98.8 89 17 100/64 95 01/20/17 20:00 88 01/20/17 17:51 96 21 01/20/17 16:00 100.5 91 16 139/72 96 01/20/17 12:00 99.5 85 19 105/63 95 Physical Exam GENERAL: This is a well-nourished, well-developed patient, in no apparent distress. SKIN: No rashes, ecchymoses or lesions. Cool and dry. HEAD: Atraumatic. Normocephalic. No temporal or scalp tenderness. EYES: Pupils equal round and reactive. Extraocular motions intact. No scleral icterus. No injection or drainage. ENT: Nose without bleeding, purulent drainage or septal hematoma. Throat without erythema, tonsillar hypertrophy or exudate. Uvula midline. Airway patent. NECK: Trachea midline. No JVD or lymphadenopathy. Supple, nontender, no meningeal signs. GASTROINTESTINAL: Abdomen protuberant and soft, No guarding. GENITOURINARY: Bladder not distended MUSCULOSKELETAL: Extremities adequately perfused NEUROLOGICAL: Awake and alert. Cranial nerves II through XII intact. Motor and sensory grossly within normal limits. Normal speech. Laboratory Tests Test 01/20/17 01/21/17 17:56 05:15 Activated Partial 31.7 Thromboplast Time Sodium Level 136 135 Potassium Level 3.1 2.8 Chloride Level 101 100 Carbon Dioxide Level 25.7 26.1 Anion Gap 9 9 Blood Urea Nitrogen 13 13 Creatinine 0.87 0.91 Estimat Glomerular Filtration 88 84 Rate Random Glucose 145 109 Calcium Level 7.3 7.5 Protein Corrected Calcium 8.0 Total Protein 5.8 5.8 White Blood Count 19.5 Red Blood Count 2.87 Hemoglobin 8.4 Hematocrit 24.8 Mean Corpuscular Volume 86.4 Mean Corpuscular Hemoglobin 29.1 Mean Corpuscular Hemoglobin 33.7 Concent Red Cell Distribution Width 17.9 Platelet Count 166 Mean Platelet Volume 10.0 Neutrophils (%) (Auto) 86.8 Lymphocytes (%) (Auto) 4.8 Monocytes (%) (Auto) 7.2 Eosinophils (%) (Auto) 1.0 Basophils (%) (Auto) 0.2 Neutrophils # (Auto) 16.9 Lymphocytes # (Auto) 0.9 Monocytes # (Auto) 1.4 Eosinophils # (Auto) 0.2 Basophils # (Auto) 0.0 CBC Comment DIFF FINAL Differential Comment Total Bilirubin 0.7 Aspartate Amino Transf 29 (AST/SGOT) Alanine Aminotransferase 33 (ALT/SGPT) Alkaline Phosphatase 226 Ammonia 68 Albumin 2.2 Date/Time Procedure Status Source Growth 01/19/17 14:15 Gram Stain - Final Resulted Fluid Peritoneal Fluid 01/19/17 14:15 Body Fluid Culture - Preliminary Resulted Fluid Peritoneal Fluid NO GROWTH IN 48 HOURS. 01/18/17 15:00 Stool Occult Blood (ALTAGRACIA) - Final Complete Stool Stool HEMOCCULT NEGATIVE Result Diagram: 01/21/1751401/21/17 0515 Imaging Last Impressions Cyst Biopsy Asp-Paracentesis US 01/19/17 0000 Signed Impressions: Service Date/Time: Thursday, January 19, 2017 13:35 - CONCLUSION: Uncomplicated ultrasound guided paracentesis. Patient received albumin per protocol. Valente Parks MD FACR Abdomen Ultrasound 01/15/17 0000 Signed Impressions: Service Date/Time: Sunday, January 15, 2017 16:21 - CONCLUSION: 1. Liver cirrhosis with moderate ascites. Splenomegaly. 2. Echogenic kidneys characteristic of medical renal disease with moderate right hydronephrosis and mild left hydronephrosis. Trevon Real MD Lower Extremity Ultrasound 01/14/17 0000 Signed Impressions: Service Date/Time: Saturday, January 14, 2017 17:28 - CONCLUSION: Left iliac and deep femoral DVT. No evidence of DVT on the right. Desmond Villatoro MD Assessment and Plan Assessment and Plan Urologic impression: Intermittent gross hematuria related to patient's known history of muscle invasive bladder cancer. Recommendations: #1 we'll manage conservatively for now #2 place a 20 Bulgarian Ellis catheter only if the patient develops problems urinating, #3 patient to follow up at [facility] as advised by his established urologist Dr. Lo when medically stable for surgical management. #4 will be available as needed during present hospitalization Problem Qualifiers (1) Hypotension: Qualified Code: I95.9 - Hypotension, unspecified hypotension type (2) DVT (deep venous thrombosis): Moises Wolfe MD Jan 21, 2017 09:41
[2017-01-21] MEDS ORDERED: LACTULOSE SYRUP 20 GM/30 ML CUP PO PRN (09:45)
--- NOTE | 2017-01-21 11:19 | PD.ONC.PN ---
Subjective Subjective Remarks Afebrile overnight. patient had retrievable IVC filter placed yesterday. He had a small amount of bleeding from penis this AM, but not as much as yesterday. Objective Data Date Time Temp Pulse Resp B/P Pulse Ox O2 Delivery O2 Flow Rate FiO2 01/21/17 08:49 95 01/21/17 08:25 78 01/21/17 08:00 99.1 78 16 108/68 95 01/21/17 04:00 99.7 78 17 108/63 94 01/21/17 00:00 97.9 82 17 104/68 96 01/20/17 20:00 98.8 89 17 100/64 95 01/20/17 20:00 88 01/20/17 17:51 96 21 01/20/17 16:00 100.5 91 16 139/72 96 01/20/17 12:00 99.5 85 19 105/63 95 01/21/17 01/21/17 01/21/17 07:00 15:00 23:00 Intake Total 240 ml Balance 240 ml Result Diagram: 01/21/17 0515 01/21/17 0515 Laboratory Results Laboratory Tests Test 01/20/17 01/21/17 17:56 05:15 Activated Partial 31.7 SEC Thromboplast Time Sodium Level 136 MEQ/L 135 MEQ/L Potassium Level 3.1 MEQ/L 2.8 MEQ/L Chloride Level 101 MEQ/L 100 MEQ/L Carbon Dioxide Level 25.7 MEQ/L 26.1 MEQ/L Anion Gap 9 MEQ/L 9 MEQ/L Blood Urea Nitrogen 13 MG/DL 13 MG/DL Creatinine 0.87 MG/DL 0.91 MG/DL Estimat Glomerular Filtration 88 ML/MIN 84 ML/MIN Rate Random Glucose 145 MG/DL 109 MG/DL Calcium Level 7.3 MG/DL 7.5 MG/DL Protein Corrected Calcium 8.0 MG/DL Total Protein 5.8 GM/DL 5.8 GM/DL White Blood Count 19.5 TH/MM3 Red Blood Count 2.87 MIL/MM3 Hemoglobin 8.4 GM/DL Hematocrit 24.8 % Mean Corpuscular Volume 86.4 FL Mean Corpuscular Hemoglobin 29.1 PG Mean Corpuscular Hemoglobin 33.7 % Concent Red Cell Distribution Width 17.9 % Platelet Count 166 TH/MM3 Mean Platelet Volume 10.0 FL Neutrophils (%) (Auto) 86.8 % Lymphocytes (%) (Auto) 4.8 % Monocytes (%) (Auto) 7.2 % Eosinophils (%) (Auto) 1.0 % Basophils (%) (Auto) 0.2 % Neutrophils # (Auto) 16.9 TH/MM3 Lymphocytes # (Auto) 0.9 TH/MM3 Monocytes # (Auto) 1.4 TH/MM3 Eosinophils # (Auto) 0.2 TH/MM3 Basophils # (Auto) 0.0 TH/MM3 CBC Comment DIFF FINAL Differential Comment Total Bilirubin 0.7 MG/DL Aspartate Amino Transf 29 U/L (AST/SGOT) Alanine Aminotransferase 33 U/L (ALT/SGPT) Alkaline Phosphatase 226 U/L Ammonia 68 MCMOL/L Albumin 2.2 GM/DL Culture Results Microbiology Date/Time Procedure Status Source Growth 01/18/17 15:00 Stool Occult Blood (ALTAGRACIA) - Final Complete Stool Stool HEMOCCULT NEGATIVE 01/19/17 14:15 Gram Stain - Final Resulted Fluid Peritoneal Fluid 01/19/17 14:15 Body Fluid Culture - Preliminary Resulted Fluid Peritoneal Fluid NO GROWTH IN 48 HOURS. Administered Medications Medications (Trade) Dose Ordered Sig/Dejuan Route PRN Reason Start Time Stop Time Status Last Admin Dose Admin Sodium Chloride 2 ml 2 ml UNSCH PRN IVF FLUSH AFTER USING IV ACCESS 01/14/17 13:45 01/20/17 21:25 Ceftriaxone Sodium/Sodium Chloride (Rocephin Inj/NS Inj) 100 ml @ 200 mls/hr Q24H IV 01/14/17 17:00 01/20/17 16:22 Hydromorphone HCl 0.5 mg 0.5 mg Q4H PRN IV PAIN 1-10 01/15/17 02:30 01/21/17 10:34 Sodium Chloride (NS 1000 ml Inj) 1,000 ml @ 42 mls/hr [id number] IV 01/15/17 08:15 01/20/17 08:11 Folic Acid (Folate) 1 mg DAILY PO 01/17/17 09:00 01/21/17 08:37 Gabapentin (Neurontin) 300 mg TID PO 01/17/17 09:00 01/21/17 08:37 Tamsulosin HCl (Flomax) 0.4 mg DAILY PO 01/17/17 09:00 01/21/17 08:50 Ferrous Fumarate (Hemocyte) 325 mg DAILY PO 01/17/17 09:00 01/21/17 08:50 Multivitamins (Theragran) 1 tab DAILY PO 01/17/17 09:00 01/21/17 08:38 Pantoprazole Sodium (Protonix) 40 mg Q12HR PO 01/18/17 21:00 01/21/17 08:37 Rifaximin (Xifaxan) 550 mg BID PO 01/18/17 21:00 01/21/17 08:37 Acetaminophen (Tylenol) 650 mg Q6H PRN PO SEE LABEL COMMENTS 01/19/17 17:45 01/19/17 18:15 Objective Remarks GENERAL: Middle aged male, upright in bed in nad. SKIN: Warm and dry. HEAD: Normocephalic. EYES: No injection or drainage. NECK: Supple, trachea midline. CARDIOVASCULAR: Regular rate and rhythm RESPIRATORY: Breath sounds equal bilaterally. No accessory muscle use. GASTROINTESTINAL: Abdomen soft, non-tender, nondistended. : penis without bleeding or lesion. no blood in brief. EXTREMITIES: No cyanosis, or edema. MUSCULOSKELETAL: Adequate muscle tone. NEUROLOGICAL: awake and alert, normal speech. Assessment/Plan Problem List: (1) DVT (deep venous thrombosis) Status: Acute Plan: --retrievable IVC filter placed on 01/20 --heparin gtt 01/18-01/20 (2) Hyperbilirubinemia Status: Acute Plan: --Mild hyperbilirubinemia secondary to liver disease (3) Bladder cancer Status: Acute Plan: --outpatient management --diagnosed in 2009. --follows with Dr. Lo. --never received any chemotherapy --did receive intravesicular BCG treatment. --was supposed to go to [facility] later this month for a cystectomy. (4) Anemia Status: Acute Assessment 66y/o male admitted with melanotic stools, anemia h/o bladder cancer, alcoholic cirrhosis, esophageal varices, and DVT of the left lower extremity. Plan 1. monitor CBC 2. follow up with Dr. Lo outpatient Attending Statement The exam, history, and the medical decision-making described in the above note were completed with the assistance of the mid-level provider. I reviewed and agree with the findings presented. I attest that I had a [id number] encounter with the patient on the same day, and personally performed and documented my assessment and findings in the medical record. Problem Qualifiers (1) DVT (deep venous thrombosis): (2) Anemia: Qualified Code: D64.9 - Anemia, unspecified type Karishma Lacey Jan 21, 2017 11:19 Jeancarlos Perry MD Jan 21, 2017 23:03
[2017-01-21] MEDS: SODIUM CHLOR 0.9% 1000 ML INJ 1,000 ML IV SCH (14:09)
--- NOTE | 2017-01-21 16:57 | HHI.GIFU ---
Subjective Remarks Resting in bed. Generalized weakness. No n/v. No abdominal pain. Tolerating diet. Objective Vitals I&O Vital Signs Date Time Temp Pulse Resp B/P Pulse Ox O2 Delivery O2 Flow Rate FiO2 01/21/17 16:00 98.3 91 16 105/67 96 01/21/17 12:00 98.6 82 17 105/69 96 01/21/17 08:49 95 01/21/17 08:25 78 01/21/17 08:00 99.1 78 16 108/68 95 01/21/17 04:00 99.7 78 17 108/63 94 01/21/17 00:00 97.9 82 17 104/68 96 01/20/17 20:00 98.8 89 17 100/64 95 01/20/17 20:00 88 01/20/17 17:51 96 21 I/O 01/20/17 01/20/17 01/20/17 01/21/17 01/21/17 01/21/17 07:00 15:00 23:00 07:00 15:00 23:00 Intake Total 240 ml 556 ml 240 ml 240 ml 240 ml Output Total 200 ml 600 ml Balance 240 ml 356 ml 240 ml 240 ml -360 ml Intake Oral 240 ml 300 ml 240 ml 240 ml 240 ml IV Total 256 ml Output Urine Total 200 ml 600 ml # Voids 2 2 2 2 # Bowel Movements 0 0 Laboratory Laboratory Tests Test 01/20/17 01/21/17 17:56 05:15 Activated Partial 31.7 Thromboplast Time Sodium Level 136 135 Potassium Level 3.1 2.8 Chloride Level 101 100 Carbon Dioxide Level 25.7 26.1 Anion Gap 9 9 Blood Urea Nitrogen 13 13 Creatinine 0.87 0.91 Estimat Glomerular Filtration 88 84 Rate Random Glucose 145 109 Calcium Level 7.3 7.5 Protein Corrected Calcium 8.0 Total Protein 5.8 5.8 White Blood Count 19.5 Red Blood Count 2.87 Hemoglobin 8.4 Hematocrit 24.8 Mean Corpuscular Volume 86.4 Mean Corpuscular Hemoglobin 29.1 Mean Corpuscular Hemoglobin 33.7 Concent Red Cell Distribution Width 17.9 Platelet Count 166 Mean Platelet Volume 10.0 Neutrophils (%) (Auto) 86.8 Lymphocytes (%) (Auto) 4.8 Monocytes (%) (Auto) 7.2 Eosinophils (%) (Auto) 1.0 Basophils (%) (Auto) 0.2 Neutrophils # (Auto) 16.9 Lymphocytes # (Auto) 0.9 Monocytes # (Auto) 1.4 Eosinophils # (Auto) 0.2 Basophils # (Auto) 0.0 CBC Comment DIFF FINAL Differential Comment Total Bilirubin 0.7 Aspartate Amino Transf 29 (AST/SGOT) Alanine Aminotransferase 33 (ALT/SGPT) Alkaline Phosphatase 226 Ammonia 68 Albumin 2.2 Date/Time Procedure Status Source Growth 01/19/17 14:15 Gram Stain - Final Resulted Fluid Peritoneal Fluid 01/19/17 14:15 Body Fluid Culture - Preliminary Resulted Fluid Peritoneal Fluid NO GROWTH IN 48 HOURS. 01/18/17 15:00 Stool Occult Blood (ALTAGRACIA) - Final Complete Stool Stool HEMOCCULT NEGATIVE Imaging Last Impressions Cyst Biopsy Asp-Paracentesis US 01/19/17 0000 Signed Impressions: Service Date/Time: Thursday, January 19, 2017 13:35 - CONCLUSION: Uncomplicated ultrasound guided paracentesis. Patient received albumin per protocol. Valente Parks MD FACR Abdomen Ultrasound 01/15/17 0000 Signed Impressions: Service Date/Time: Sunday, January 15, 2017 16:21 - CONCLUSION: 1. Liver cirrhosis with moderate ascites. Splenomegaly. 2. Echogenic kidneys characteristic of medical renal disease with moderate right hydronephrosis and mild left hydronephrosis. Trevon Real MD Lower Extremity Ultrasound 01/14/17 0000 Signed Impressions: Service Date/Time: Saturday, January 14, 2017 17:28 - CONCLUSION: Left iliac and deep femoral DVT. No evidence of DVT on the right. Desmond Villatoro MD Physical Exam HEENT: Normocephalic; atraumatic; CHEST: CTA. CARDIAC: RRR. ABDOMEN: Soft, mildly distended with ascites, nontender; bowel sounds are present in all four quadrants. EXTREMITIES: No clubbing, cyanosis, or edema. SKIN: Ecchymotic areas DEAN OF STUDENTS: No focal deficits; lethargic and oriented times three. Assessment and Plan Plan ASSESSMENT: - Severe anemia with melena and hx of esophageal varices. S/P EGD on (01/16/16)- --> signs of old varices banding, no varices at this time, severe gastropathy, no active bleeding, no old blood, multiple ulcers in the antrum, no active bleeding; path benign but suggestive possibility h pylori induced gastritis. Stool h pylori pending. Abdomen Ultrasound 01/15/17 1. Liver cirrhosis with moderate ascites. Splenomegaly. 2. Echogenic kidneys characteristic of medical renal disease with moderate right hydronephrosis and mild left hydronephrosis. Colonoscopy (01/17/17)----> 1. Polyp sessile hepatic flexure -6 mm-hot snare polypectomy with complete removal polyp diminutive midtransverse-hot snare polypectomy with complete removal polyp descending-6 mm-hot snare polypectomy with complete removal two polyps in sigmoid, one 6 mm, one 8 mm sessile-hot snare polypectomy , some bleeding from both sites, 1 clip and respectively 2 clips applied at the sites no further bleeding edematous rectal mucosa 2. Retroflexed views revealed internal hemorrhoids 3. Retroflexed views revealed small internal hemorrhoids 4. Revealed decreased sphincter tone 5. Revealed external hemorrhoids. Pathology shows adenomatous polyps hepatic flexure and transverse mid colon, and tubulovillous adenoma from sigmoid. S/P 6 units PRBC, 1 FFP. HH 8.4/24.8. Protonix - Multiple gastric ulcers. PPI - Leukocytosis- WBC 19.5. Ceftriaxone. - Ascites. S/P paracentesis with removal of 7,000cc fluid (01/19/17). On Ceftrixaone. Lasix. - Liver cirrhosis, no ETOH x 6 months. - BARBARA, with electrolyte abnormalities. Per primary- multi factorial - Bladder cancer, new onset blood per urethra, urology consulted. he was suppose to undergo cystectomy which was scheduled at [facility] [place], but this is on hold now. - Recent DVT in left leg on Lovenox, on hold, hematology on the case. Heparin. Plan: - 2 gram sodium diet - Await cytology from paracentesis - Protonix 40mg po BID - Cont. Lasix - Cont. Ceftriaxone. - Monitor HH - Transfuse as needed to keep hgb >7 - Supportive care - Further recommendations to follow based on results of above - Patient seen and examined by Dr. Simeon and myself and this note is written on her behalf. Yolanda Hansen Jan 21, 2017 16:57
[2017-01-21] MEDS: cefTRIAXone INJ 1,000 MG in SODIUM CHLORIDE 0.9% INJ 100 ML IV SCH (18:11)
[2017-01-22] VITALS (8 sets, daily range): BP systolic 95–123; BP diastolic 60–79; PULSE 77–110; RESP 16–20; TEMP 98.3–101.2; O2SAT 95–99
[2017-01-22] MEDS: ACETAMINOPHEN 325 MG TAB PO PRN (01:12)
[2017-01-22] MEDS: HYDROmorphone HCL PF 1 MG/ML VIAL IV PRN ×5 (03:41→22:53)
[2017-01-22 05:35] LABS: AUTOMATED NEUTROPHIL # 16.3 TH/MM3 (1.8-7.7); BASOPHIL # 0.1 TH/MM3 (0-0.2); BASOPHIL % 0.3 % (0.0-2.0); EOSINOPHIL # 0.4 TH/MM3 (0-0.4); EOSINOPHIL % 2.2 % (0.0-4.0); HEMATOCRIT 25.9 % (39.0-51.0); HEMO FLAGS DIFF FINAL; LYMPH % 4.7 % (9.0-44.0); LYMPHOCYTE # 0.9 TH/MM3 (1.0-4.8); MEAN CELL VOLUME 88.9 FL (80.0-100.0); MEAN CORPUSCULAR HEMOGLOBIN 29.3 PG (27.0-34.0); MONO % 8.8 % (0.0-8.0); PLATELET COUNT 180 TH/MM3 (150-450); RED BLOOD COUNT 2.92 MIL/MM3 (4.50-5.90); RED CELL DISTRIBUTION WIDTH 18.4 % (11.6-17.2); WHITE BLOOD COUNT 19.4 TH/MM3 (4.0-11.0)
[2017-01-22 05:52] LABS: ALKALINE PHOSPHATASE 376 U/L (45-117); ALT (GPT) 41 U/L (12-78); ANION GAP 9 MEQ/L (5-15); AST (GOT) 60 U/L (15-37); BICARBONATE 25.3 MEQ/L (21.0-32.0); BLOOD UREA NITROGEN 12 MG/DL (7-18); CHLORIDE 102 MEQ/L (98-107); GLOMERULAR FILTRATION RATE 86 ML/MIN (>89); POTASSIUM 3.5 MEQ/L (3.5-5.1); SODIUM (NA) 136 MEQ/L (136-145); TOTAL BILIRUBIN ADULT 0.7 MG/DL (0.2-1.0)
[2017-01-22] MEDS: GABAPENTIN 300 MG CAP PO SCH ×3 (07:47→17:07)
[2017-01-22] MEDS: TAMSULOSIN HCL 0.4 MG CAP PO SCH (07:47)
[2017-01-22] MEDS: FOLIC ACID 1 MG TAB PO SCH (07:47)
[2017-01-22] MEDS: THIAMINE HCL 100 MG TAB PO SCH (07:48)
[2017-01-22] MEDS: FUROSEMIDE 20 MG/2 ML VIAL IV PUSH SCH (07:48)
[2017-01-22] MEDS: RIFAXIMIN 550 MG TAB PO SCH ×2 (07:48→20:06)
[2017-01-22] MEDS: POTASSIUM CHLORIDE 20 MEQ CONTROLLED RELEASE TAB PO SCH (07:48)
[2017-01-22] MEDS: PANTOPRAZOLE SOD 40 MG DELAYED RELEASE TAB PO SCH ×2 (07:48→20:04)
[2017-01-22] MEDS: FERROUS FUMARATE 325 MG TAB (106 MG ELEMENTAL IRON) PO SCH (08:05)
[2017-01-22] MEDS: MULTIVITAMIN TAB PO SCH (08:07)
--- NOTE | 2017-01-22 08:51 | HHI.PR ---
Subjective Remarks Commode with normal stool and bloody urine. Says he has some pain when he urinates, says sometimes he has clots coming out and is more painful. Denies fever or chills. Would like to have pain meds by mouth No cp, sob, lightheadedness. H/H so far at baseline. Objective Vitals Vital Signs Date Time Temp Pulse Resp B/P Pulse Ox O2 Delivery O2 Flow Rate FiO2 01/22/17 04:00 98.6 77 20 95/60 98 01/22/17 00:00 100.4 89 20 108/69 97 01/21/17 20:00 100.3 86 20 119/72 98 01/21/17 19:59 91 01/21/17 16:00 98.3 91 16 105/67 96 01/21/17 12:00 98.6 82 17 105/69 96 01/21/17 08:49 95 I/O 01/21/17 01/21/17 01/21/17 01/22/17 01/22/17 01/22/17 07:00 15:00 23:00 07:00 15:00 23:00 Intake Total 240 ml 507 ml 240 ml 1059 ml Output Total 600 ml 200 ml Balance 240 ml -93 ml 240 ml 859 ml Intake Oral 240 ml 240 ml 240 ml 480 ml IV Total 267 ml 579 ml Output Urine Total 600 ml 200 ml # Voids 2 1 # Bowel Movements 0 1 Result Diagram: 01/22/17 0506 01/22/17 0506 Imaging Last Impressions Cyst Biopsy Asp-Paracentesis US 01/19/17 0000 Signed Impressions: Service Date/Time: Thursday, January 19, 2017 13:35 - CONCLUSION: Uncomplicated ultrasound guided paracentesis. Patient received albumin per protocol. Valente Parks MD FACR Abdomen Ultrasound 01/15/17 0000 Signed Impressions: Service Date/Time: Sunday, January 15, 2017 16:21 - CONCLUSION: 1. Liver cirrhosis with moderate ascites. Splenomegaly. 2. Echogenic kidneys characteristic of medical renal disease with moderate right hydronephrosis and mild left hydronephrosis. Trevon Real MD Lower Extremity Ultrasound 01/14/17 0000 Signed Impressions: Service Date/Time: Saturday, January 14, 2017 17:28 - CONCLUSION: Left iliac and deep femoral DVT. No evidence of DVT on the right. Desmond Villatoro MD Objective Remarks GENERAL: NAD SKIN: Warm and dry. HEAD: Normocephalic. EYES: No scleral icterus. No injection or drainage. NECK: Supple, trachea midline. No JVD or lymphadenopathy. CARDIOVASCULAR: Regular rate and rhythm without murmurs, gallops, or rubs. RESPIRATORY: Breath sounds equal bilaterally. No accessory muscle use. GASTROINTESTINAL: Abdomen soft, non-tender, mildly distended. Positive bowel sounds : diaper with gross hematuria MUSCULOSKELETAL: No cyanosis, or edema. BACK: Nontender without obvious deformity. No CVA tenderness. A/P Problem List: (1) GI bleed ICD Code: K92.2 Status: Acute (2) Hypotension ICD Code: I95.9 Status: Acute (3) Anemia requiring transfusions ICD Code: D64.9 Status: Acute (4) Leukocytosis ICD Code: D72.829 Status: Acute (5) Hyperkalemia ICD Code: E87.5 Status: Acute (6) Acute kidney injury ICD Code: N17.9 Status: Acute (7) DVT (deep venous thrombosis) ICD Code: I82.409 Status: Acute (8) Bladder cancer ICD Code: C67.9 Status: Acute (9) Hypertension ICD Code: I10 Status: Chronic (10) Ascites due to alcoholic cirrhosis ICD Code: K70.31 Status: Acute Assessment and Plan 66-year-old man with History of peripheral neuropathy History of EtOH abuse Depression/anxiety Hold home medications of oxycodoneacetaminophen as needed for pain and Continue Neurontin 300 mg 3 times a day at this time. continue thiamine at 100 mg PO daily. On B12 50 by mouth daily folic acid 0.4 mg by mouth daily at home for EtOH use. CIWA per protocol Hypotension secondary to hypovolemia History of hypertension Lactic acidosis on low-dose Lasix 20 mEq IV twice a day however 2/2 Hypotension will decrease to 20mg Daily Holding spironolactone 50 mill grams twice a day at home due to Hypotension GI bleed most likely variceal bleed Ascites due to alcoholic cirrhosis Liver cirrhosis History of gastroesophageal reflux disease Elevated transaminases likely secondary to EtOH Hypoalbuminemia -GI consulted. EGD revealed gastric ulcer in antrum. This is biopsied. Gastropathy. Old banding. No varices. Ultrasound - Liver cirrhosis with moderate ascites. Splenomegaly. -s/p Protonix at 8 mg an hour and octreotide at 50 grams an hour per GI -Currently on Protonix 40 mg by mouth twice a day -SBP prophylaxis with Rocephin 1 g IV every 24 hours 7 days total with upper GI bleed -Status post paracentesis 01/19/17 with 7 L fluid out -Start Lactulose 30mg daily PRN and monitor Ammonia level - Monitopr H/H . So far stable. H/H Acute kidney injury - resolved History of bladder cancer/muscular invasive Bilateral hydronephrosis by history right greater than left BPH Ultrasound - Echogenic kidneys characteristic of medical renal disease with moderate right hydronephrosis and mild left hydronephrosis. Noted recent CT chest revealed right greater than left hydronephrosis. -F/u at [facility] for bladder cancer however secondary to gross hematuria, Urology consultation pending for further evaluation and treatment possible with CBI . May need cystoscopy Continue Flomax 0.4 mg daily Severe anemia requiring transfusion of 7 units PRBCs Left lower extremity DVT 12/25/16 - left iliac and deep femoral Leukocytosis -s/p 7 units of PRBC during this hospitalization -Monitor CBC as well as Coags -s/p IVC filter placement 01/20/17 -Continue iron fumarate 18 mg twice a day - heparin drip for DVT on hold secondary to gross hematuria 01/20/17. Appreciate input from hematology Hypokalemia - replace electrolytes and monitor Hypophosphatemia-resolved PROPH: currently with SCDs, PO Protonix Discussed with the patient. nurse. Problem Qualifiers (1) Hypotension: Qualified Code: I95.9 - Hypotension, unspecified hypotension type (2) DVT (deep venous thrombosis): Bernadette Hebert MD Jan 22, 2017 08:51
[2017-01-22] MEDS: ACETAMINOPHEN/HYDROcodone 325 MG/5 MG TAB PO PRN ×3 (11:39→20:06)
[2017-01-22] MEDS: cefTRIAXone INJ 1,000 MG in SODIUM CHLORIDE 0.9% INJ 100 ML IV SCH (17:07)
[2017-01-22] MEDS: SODIUM CHLORIDE 0.9% FLUSH 10 ML FLUSH IVF PRN (22:53)
[2017-01-23] VITALS (7 sets, daily range): BP systolic 102–132; BP diastolic 64–81; PULSE 80–92; RESP 16–20; TEMP 97.6–100.8; O2SAT 95–99
[2017-01-23] MEDS: ACETAMINOPHEN/HYDROcodone 325 MG/5 MG TAB PO PRN ×5 (01:01→19:48)
[2017-01-23] MEDS: HYDROmorphone HCL PF 1 MG/ML VIAL IV PRN ×4 (03:05→21:48)
[2017-01-23 05:20] LABS: AUTOMATED NEUTROPHIL # 15.5 TH/MM3 (1.8-7.7); BASOPHIL # 0.1 TH/MM3 (0-0.2); BASOPHIL % 0.6 % (0.0-2.0); EOSINOPHIL # 0.5 TH/MM3 (0-0.4); EOSINOPHIL % 2.7 % (0.0-4.0); HEMATOCRIT 27.9 % (39.0-51.0); HEMO FLAGS DIFF FINAL; LYMPH % 4.8 % (9.0-44.0); LYMPHOCYTE # 0.9 TH/MM3 (1.0-4.8); MEAN CORPUSCULAR HEMOGLOBIN 28.1 PG (27.0-34.0); MEAN CORPUSCULAR HGB CONC 31.9 % (32.0-36.0); MONO % 8.9 % (0.0-8.0); PLATELET COUNT 204 TH/MM3 (150-450); RED BLOOD COUNT 3.17 MIL/MM3 (4.50-5.90); RED CELL DISTRIBUTION WIDTH 18.3 % (11.6-17.2); WHITE BLOOD COUNT 18.6 TH/MM3 (4.0-11.0)
[2017-01-23 05:50] LABS: BICARBONATE 25.5 MEQ/L (21.0-32.0); MAGNESIUM 1.8 MG/DL (1.5-2.5); POTASSIUM 3.9 MEQ/L (3.5-5.1)
[2017-01-23] MEDS: POTASSIUM CHLORIDE 20 MEQ CONTROLLED RELEASE TAB PO SCH (08:18)
[2017-01-23] MEDS: TAMSULOSIN HCL 0.4 MG CAP PO SCH (08:18)
[2017-01-23] MEDS: GABAPENTIN 300 MG CAP PO SCH ×3 (08:18→17:35)
[2017-01-23] MEDS: MULTIVITAMIN TAB PO SCH (08:18)
[2017-01-23] MEDS: FOLIC ACID 1 MG TAB PO SCH (08:18)
[2017-01-23] MEDS: RIFAXIMIN 550 MG TAB PO SCH ×2 (08:18→19:47)
[2017-01-23] MEDS: FERROUS FUMARATE 325 MG TAB (106 MG ELEMENTAL IRON) PO SCH (08:18)
[2017-01-23] MEDS: PANTOPRAZOLE SOD 40 MG DELAYED RELEASE TAB PO SCH ×2 (08:18→19:47)
[2017-01-23] MEDS: THIAMINE HCL 100 MG TAB PO SCH (08:18)
[2017-01-23] MEDS: SODIUM CHLOR 0.9% 1000 ML INJ 1,000 ML IV SCH (08:19)
[2017-01-23] MEDS: FUROSEMIDE 20 MG/2 ML VIAL IV PUSH SCH (08:19)
--- NOTE | 2017-01-23 12:18 | HHI.GIFU ---
GI Follow-up Note Consult Follow-up Subjective: Patient laying in bed comfortably, feeling better . No nausea, vomiting , abdominal pain.No gi bleeding .S/p paracentesis -no indication of SBP , results suggesting portal hypertension .I discussed with his urologist at [facility], due to his decompensated cirrhosis, recent gi bleeding due to portal htn , poor nutritional status he will high risk for surgery and anesthesia .Reaccumulating ascites Objective: PHYSICAL EXAMINATION: Vitals signs stable low garde fever HEENT: Pupils round and reactive to light; normocephalic; atraumatic; no jaundice. Throat is clear. NECK: Neck is supple, no JVD, no lymphadenopathy. CHEST: Chest is clear to auscultation and percussion. CARDIAC: Regular rate and rhythm with no murmur gallop or rubs. ABDOMEN: Soft, ascites, distended, nontender; no hepatosplenomegaly; bowel sounds are present in all four quadrants. EXTREMITIES: No clubbing, cyanosis, or edema. SKIN: Normal; no rash; no jaundice. STORE CASHIER: No focal deficits; alert and oriented times three. Available Data (labs, X- Rays, Procedues) : Laboratory Tests Test 01/21/17 01/22/17 01/23/17 17:02 05:06 04:53 Potassium Level 3.2 MEQ/L 3.5 MEQ/L 3.9 MEQ/L White Blood Count 19.4 TH/MM3 18.6 TH/MM3 Red Blood Count 2.92 MIL/MM3 3.17 MIL/MM3 Hemoglobin 8.6 GM/DL 8.9 GM/DL Hematocrit 25.9 % 27.9 % Mean Corpuscular Volume 88.9 FL 88.0 FL Mean Corpuscular Hemoglobin 29.3 PG 28.1 PG Mean Corpuscular Hemoglobin 33.0 % 31.9 % Concent Red Cell Distribution Width 18.4 % 18.3 % Platelet Count 180 TH/MM3 204 TH/MM3 Mean Platelet Volume 10.2 FL 10.2 FL Neutrophils (%) (Auto) 84.0 % 83.0 % Lymphocytes (%) (Auto) 4.7 % 4.8 % Monocytes (%) (Auto) 8.8 % 8.9 % Eosinophils (%) (Auto) 2.2 % 2.7 % Basophils (%) (Auto) 0.3 % 0.6 % Neutrophils # (Auto) 16.3 TH/MM3 15.5 TH/MM3 Lymphocytes # (Auto) 0.9 TH/MM3 0.9 TH/MM3 Monocytes # (Auto) 1.7 TH/MM3 1.7 TH/MM3 Eosinophils # (Auto) 0.4 TH/MM3 0.5 TH/MM3 Basophils # (Auto) 0.1 TH/MM3 0.1 TH/MM3 CBC Comment DIFF FINAL DIFF FINAL Differential Comment Sodium Level 136 MEQ/L 138 MEQ/L Chloride Level 102 MEQ/L 105 MEQ/L Carbon Dioxide Level 25.3 MEQ/L 25.5 MEQ/L Anion Gap 9 MEQ/L 8 MEQ/L Blood Urea Nitrogen 12 MG/DL 11 MG/DL Creatinine 0.89 MG/DL 0.82 MG/DL Estimat Glomerular Filtration 86 ML/MIN 95 ML/MIN Rate Random Glucose 135 MG/DL 78 MG/DL Calcium Level 7.6 MG/DL 8.0 MG/DL Total Bilirubin 0.7 MG/DL Aspartate Amino Transf 60 U/L (AST/SGOT) Alanine Aminotransferase 41 U/L (ALT/SGPT) Alkaline Phosphatase 376 U/L Ammonia 64 MCMOL/L Total Protein 5.8 GM/DL Albumin 2.1 GM/DL Magnesium Level 1.8 MG/DL ASSESSMENT/PLAN: liver cirrhosis secondary etoh, abstinent for 6 month gi bleeding secondary portal hypertension-stable , triggered by use of anticoagulation bladder cancer -urology following , scheduled at [facility] for radical cystectomy- high risk at this time-child c ascites -no indication of SBP malnutrition dvt -s/p IVC filter precancerous polyps-will need colonoscopy in 1 yr egd/ banding 6 month unless indicated otherwise stool for h.pylori Recommendations strict i/o charting 2 gm na diet Lasix/Aldactone cipro70 mg weekly improve nutritional status ok to dc from gi point fu gi 2 weeks surgery on hold for now-high risk for surgery and anesthesia It was a pleasure seeing Randall Kang. Thank you for this consult. Entered by: Leila Del Cid MD Jan 23, 2017 12:18
--- NOTE | 2017-01-23 13:11 | RADRPT ---
EXAM DATE/TIME: 01/23/2017 12:00 [place] COMPARISON: CHEST SINGLE AP, May 13, 2016, 8:28. INDICATIONS : Fever. No chest complaints. MEDICAL HISTORY : Hypertension. Carcinoma, bladder. Hypercholesterolemia. SURGICAL HISTORY : Inguinal hernia repair. ENCOUNTER: Subsequent ACUITY: 1 week PAIN SCORE: 0/10 LOCATION: Bilateral chest FINDINGS: The heart size is normal. The lungs appear grossly clear. There does appear to be air lucency seen o pravin the right lateral lower chest. This is likely secondary to skin folds. If there is an air of cl inical concern a PA chest x-ray could be performed. CONCLUSION: No acute cardiopulmonary processes are seen. Desmond Carolina MD on January 23, 2017 at 13:02 Board Certified Radiologist. This report was verified electronically.
--- NOTE | 2017-01-23 14:58 | HHI.PR ---
Subjective Remarks Patient in bed. He had fevers last night and low grade fevers overnight. Denies any cough. Has pain/burning with urination . No abdominal pain. No n/v. Able to eat. Not much appetite. Objective Vitals Vital Signs Date Time Temp Pulse Resp B/P Pulse Ox O2 Delivery O2 Flow Rate FiO2 01/23/17 12:00 97.9 86 17 104/68 95 01/23/17 08:00 100.3 87 16 117/69 96 01/23/17 04:00 99.5 80 18 102/64 97 01/23/17 00:00 100.6 87 18 112/71 96 01/22/17 20:00 101.2 94 18 121/79 98 01/22/17 19:56 88 01/22/17 16:00 98.8 96 16 111/68 97 I/O 01/22/17 01/22/17 01/22/17 01/23/17 01/23/17 01/23/17 07:00 15:00 23:00 07:00 15:00 23:00 Intake Total 1059 ml 120 ml 720 ml 240 ml Output Total 200 ml Balance 859 ml 120 ml 720 ml 240 ml Intake Oral 480 ml 120 ml 720 ml 240 ml IV Total 579 ml Output Urine Total 200 ml # Voids 6 3 2 # Bowel Movements 2 1 Result Diagram: 01/23/17 0453 01/23/17 0453 Imaging Last Impressions Chest X-Ray 01/23/17 0000 Signed Impressions: Service Date/Time: Monday, January 23, 2017 12:00 - CONCLUSION: No acute cardiopulmonary processes are seen. Desmond Carolina MD Cyst Biopsy Asp-Paracentesis US 01/19/17 0000 Signed Impressions: Service Date/Time: Thursday, January 19, 2017 13:35 - CONCLUSION: Uncomplicated ultrasound guided paracentesis. Patient received albumin per protocol. Valente Parks MD FACR Abdomen Ultrasound 01/15/17 0000 Signed Impressions: Service Date/Time: Sunday, January 15, 2017 16:21 - CONCLUSION: 1. Liver cirrhosis with moderate ascites. Splenomegaly. 2. Echogenic kidneys characteristic of medical renal disease with moderate right hydronephrosis and mild left hydronephrosis. Trevon Real MD Lower Extremity Ultrasound 01/14/17 0000 Signed Impressions: Service Date/Time: Saturday, January 14, 2017 17:28 - CONCLUSION: Left iliac and deep femoral DVT. No evidence of DVT on the right. Desmond Villatoro MD Objective Remarks GENERAL: NAD SKIN: Warm and dry. HEAD: Normocephalic. EYES: No scleral icterus. No injection or drainage. NECK: Supple, trachea midline. No JVD or lymphadenopathy. CARDIOVASCULAR: Regular rate and rhythm without murmurs, gallops, or rubs. RESPIRATORY: Breath sounds equal bilaterally. No accessory muscle use. GASTROINTESTINAL: Abdomen soft, non-tender, mildly distended. Positive bowel sounds : diaper with gross hematuria MUSCULOSKELETAL: No cyanosis, or edema. BACK: Nontender without obvious deformity. No CVA tenderness. A/P Problem List: (1) GI bleed ICD Code: K92.2 Status: Acute (2) Hypotension ICD Code: I95.9 Status: Acute (3) Anemia requiring transfusions ICD Code: D64.9 Status: Acute (4) Leukocytosis ICD Code: D72.829 Status: Acute (5) Hyperkalemia ICD Code: E87.5 Status: Acute (6) Acute kidney injury ICD Code: N17.9 Status: Acute (7) DVT (deep venous thrombosis) ICD Code: I82.409 Status: Acute (8) Bladder cancer ICD Code: C67.9 Status: Acute (9) Hypertension ICD Code: I10 Status: Chronic (10) Ascites due to alcoholic cirrhosis ICD Code: K70.31 Status: Acute Assessment and Plan 66-year-old man with Sepsis( patient with persistent leukocytosis, temp 101, tachycardia, source likely UTI). Will check blood cx, UA, CXR. LA. UA reviewed. U cx pending . Will start rocephin. Will consult ID. History of peripheral neuropathy History of EtOH abuse Depression/anxiety Hold home medications of oxycodoneacetaminophen as needed for pain and Continue Neurontin 300 mg 3 times a day at this time. continue thiamine at 100 mg PO daily. On B12 50 by mouth daily folic acid 0.4 mg by mouth daily at home for EtOH use. CIWA per protocol Hypotension secondary to hypovolemia History of hypertension Lactic acidosis on low-dose Lasix 20 mEq IV twice a day however 2/2 Hypotension will decrease to 20mg Daily Holding spironolactone 50 mill grams twice a day at home due to Hypotension GI bleed most likely variceal bleed Ascites due to alcoholic cirrhosis Liver cirrhosis History of gastroesophageal reflux disease Elevated transaminases likely secondary to EtOH Hypoalbuminemia -GI consulted. EGD revealed gastric ulcer in antrum. This is biopsied. Gastropathy. Old banding. No varices. Ultrasound - Liver cirrhosis with moderate ascites. Splenomegaly. -s/p Protonix at 8 mg an hour and octreotide at 50 grams an hour per GI -Currently on Protonix 40 mg by mouth twice a day -SBP prophylaxis with Rocephin 1 g IV every 24 hours 7 days total with upper GI bleed -Status post paracentesis 01/19/17 with 7 L fluid out -Start Lactulose 30mg daily PRN and monitor Ammonia level - Monitopr H/H . So far stable. H/H Acute kidney injury - resolved History of bladder cancer/muscular invasive Bilateral hydronephrosis by history right greater than left BPH Ultrasound - Echogenic kidneys characteristic of medical renal disease with moderate right hydronephrosis and mild left hydronephrosis. Noted recent CT chest revealed right greater than left hydronephrosis. -F/u at [facility] for bladder cancer however secondary to gross hematuria, Urology consultation pending for further evaluation and treatment possible with CBI . May need cystoscopy Continue Flomax 0.4 mg daily Severe anemia requiring transfusion of 7 units PRBCs Left lower extremity DVT 12/25/16 - left iliac and deep femoral -s/p 7 units of PRBC during this hospitalization -Monitor CBC as well as Coags -s/p IVC filter placement 01/20/17 -Continue iron fumarate 18 mg twice a day - heparin drip for DVT on hold secondary to gross hematuria 01/20/17. Appreciate input from hematology Hypokalemia - replace electrolytes and monitor Hypophosphatemia-resolved PROPH: currently with SCDs, PO Protonix Discussed with the patient. nurse, Dr Simeon from GI. Dr Simeon GI cleared the patient for DC from GI standpoint,. to follow up as OP with GI. Problem Qualifiers (1) Hypotension: Qualified Code: I95.9 - Hypotension, unspecified hypotension type (2) DVT (deep venous thrombosis): Bernadette Hebert MD Jan 23, 2017 14:58
[2017-01-23 15:31] LABS: BLOOD, URINE LARGE (NEG); COMMENT (UR) CULTURE INDICATED; CULTURE IF INDICATED CULTURE INDICATED; GLUCOSE,URINE NEG (NEG); KETONE, URINE NEG (NEG); NITRITE,URINE NEG (NEG); PH, URINE 6.5 (5.0-8.5); SQUAMOUS EPITHELIAL CELL URINE 1 /hpf (0-5); URINE COLOR YELLOW (YELLW/STRAW)
--- NOTE | 2017-01-23 16:16 | PD.CONS ---
History of Present Illness Service Infectious disease Consult Requested By Dr Esperanza Hebert Reason for Consult Evaluate patient with sepsis and leukocytosis Primary Care Physician Non-Staff Diagnoses: History of Present Illness Patient seen and examined. Records reviewed. Patient is a 66-year-old male, admitted to the hospital with evidence of GI bleed. He had melanotic stools. He has known history of alcoholic cirrhosis, with esophageal varices, and has had previous banding of the varices. During this hospitalization when he presented his hemoglobin was down to 4.6, he was hypotensive. He received 7 units of packed RBC, and his hemoglobin has stabilized. He has been on on Lovenox for DVT and his anticoagulation was stopped. He had placement of an IVC filter. And also had significant abdominal distention due to his ascites, and he was empirically put on Rocephin for SBP. Patient has had on and off problem with hematuria. GI evaluation was done, and his upper endoscopy revealed old varices with banding, gastropathy, and antral ulcers. There was no active bleeding seen. His colonoscopy showed some polyps and hemorrhoids. Patient since January 19 has had some low-grade fevers. Today his temperature went up to 101.3. Patient also has had leukocytosis, and the highest it went up to was 34.5 on January 15, and since then it has been slowly decreasing. It is down to 18.6 today from 19.4 yesterday. His complaining of some dysuria. Patient states he still has some pink urine. His had 2 bowel movements today that are formed. He complains of abdominal discomfort and distention. Denies any significant congestion or cough. He has no central line. Infectious disease consultation has been requested today to evaluate the fever and leukocytosis. Review of Systems Constitutional: COMPLAINS OF: Fever Eyes: DENIES: Eye pain Ears, nose, mouth, throat: DENIES: Nasal discharge, Oral lesions, Throat pain, Ear Pain, Sinus Pain Respiratory: COMPLAINS OF: Cough, DENIES: Sputum production, Shortness of breath Cardiovascular: DENIES: Chest pain, Palpitations Gastrointestinal: COMPLAINS OF: Abdominal pain, Black stools, Anorexia, DENIES : Diarrhea, Nausea, Vomiting, Difficulty Swallowing Genitourinary: COMPLAINS OF: Hematuria, Dysuria Musculoskeletal: COMPLAINS OF: Joint pain, Joint Swelling Integumentary: DENIES: Rash Neurologic: DENIES: Headache Psychiatric: DENIES: Anxiety, Hallucinations Past Family Social History Allergies: Uncoded Allergies: BCG TREATMENT (Adverse Reaction, Severe, HTYPOTENSION , 12/25/16) Past Medical History Liver cirrhosis Varices LLE DVT diagnosed Invasive bladder cancer GERD Hyperlipidemia Anxiety/depression BPH Past Surgical History EGD/colonoscopy on 07/21/16 Cystoscopy with TURP Umbilical hernia repair Inguinal hernia repair Active Ordered Medications Tylenol [employer] Rocephin Hemocyte Folic acid Lasix Neurontin Dilaudid Lactulose MVI Protonix Potassium Rifaximin Flomax Thiamine Social History Ex-smoker Occasional marijuana Ex-alcohol abuse, has been dry in the last 7 months Physical Exam Vital Signs Vital Signs Date Time Temp Pulse Resp B/P Pulse Ox O2 Delivery O2 Flow Rate FiO2 01/23/17 12:00 97.9 86 17 104/68 95 01/23/17 08:00 100.3 87 16 117/69 96 01/23/17 04:00 99.5 80 18 102/64 97 01/23/17 00:00 100.6 87 18 112/71 96 01/22/17 20:00 101.2 94 18 121/79 98 01/22/17 19:56 88 Physical Exam GENERAL: This is a thin, well-developed CM, awake and alert, looks chronically ill appearing, not toxic appearing, not in respiratory distress. SKIN: Warm and dry. Has some ecchymosis in his upper extremities. No generalized rash. HEAD: Atraumatic. Normocephalic. No temporal or scalp tenderness. EYES: [place] conjunctiva. Pupils equal round and reactive. Extraocular motions intact. No scleral icterus. No injection or drainage. ENT: Nose without bleeding, or purulent drainage. Moist oral mucosa. Throat without erythema, or exudate. Uvula midline. Airway patent. NECK: Trachea midline. No JVD or lymphadenopathy. Supple, nontender, no meningeal signs. CARDIOVASCULAR: Regular rate and rhythm without rubs. Has some systolic murmur heard at the apex. RESPIRATORY: Clear to auscultation. Breath sounds equal bilaterally. No wheezes , rales, or rhonchi. Decreased breath sounds at the bases. GASTROINTESTINAL: Abdomen globular and distended, with diffuse mild tenderness on palpation. Bowel sounds are present and normoactive. Has positive ascites. No rebound. No guarding. MUSCULOSKELETAL: Extremities without clubbing, cyanosis. His LLE is larger compared to his RLE. No calf tenderness. NEUROLOGICAL: Awake and alert. Cranial nerves II through XII intact. Five out of 5 muscle strength in all muscle groups. Normal speech. PSYCH: Normal affect, calm and cooperative LINE: PIV with no evidence of infection Laboratory Laboratory Tests Test 01/23/17 01/23/17 01/23/17 04:53 11:56 14:40 White Blood Count 18.6 Red Blood Count 3.17 Hemoglobin 8.9 Hematocrit 27.9 Mean Corpuscular Volume 88.0 Mean Corpuscular Hemoglobin 28.1 Mean Corpuscular Hemoglobin 31.9 Concent Red Cell Distribution Width 18.3 Platelet Count 204 Mean Platelet Volume 10.2 Neutrophils (%) (Auto) 83.0 Lymphocytes (%) (Auto) 4.8 Monocytes (%) (Auto) 8.9 Eosinophils (%) (Auto) 2.7 Basophils (%) (Auto) 0.6 Neutrophils # (Auto) 15.5 Lymphocytes # (Auto) 0.9 Monocytes # (Auto) 1.7 Eosinophils # (Auto) 0.5 Basophils # (Auto) 0.1 CBC Comment DIFF FINAL Differential Comment Sodium Level 138 Potassium Level 3.9 Chloride Level 105 Carbon Dioxide Level 25.5 Anion Gap 8 Blood Urea Nitrogen 11 Creatinine 0.82 Estimat Glomerular Filtration 95 Rate Random Glucose 78 Calcium Level 8.0 Magnesium Level 1.8 Ammonia 39 Urine Color YELLOW Urine Turbidity HAZY Urine pH 6.5 Urine Specific [place] 1.012 Urine Protein 30 Urine Glucose (UA) NEG Urine Ketones NEG Urine Occult Blood LARGE Urine Nitrite NEG Urine Bilirubin NEG Urine Urobilinogen LESS THAN 2.0 Urine Leukocyte Esterase LARGE Urine RBC Urine WBC Urine WBC [place] FEW Urine Squamous Epithelial 1 Cells Microscopic Urinalysis Comment CULTURE INDICATED Date/Time Procedure Status Source Growth 01/23/17 14:40 Urine Culture Received Urine Clean Catch Pending 01/23/17 13:17 Aerobic Blood Culture Received Blood Peripheral Pending 01/23/17 13:17 Anaerobic Blood Culture Received Blood Peripheral Pending 01/19/17 14:15 Gram Stain - Final Complete Fluid Peritoneal Fluid 01/19/17 14:15 Body Fluid Culture - Final Complete Fluid Peritoneal Fluid NO GROWTH IN 72 HRS.--AEROBICALLY OR ... Result Diagram: 01/23/17 0453 01/23/17 0453 Imaging RADIOLOGY STUDIES/FILMS REVIEWED Chest X-Ray 01/23/17 0000 Signed Impressions: Service Date/Time: Monday, January 23, 2017 12:00 - CONCLUSION: No acute cardiopulmonary processes are seen. Desmond Carolina MD Cyst Biopsy Asp-Paracentesis US 01/19/17 0000 Signed Impressions: Service Date/Time: Thursday, January 19, 2017 13:35 - CONCLUSION: Uncomplicated ultrasound guided paracentesis. Patient received albumin per protocol. Valente Parks MD FACR Abdomen Ultrasound 01/15/17 0000 Signed Impressions: Service Date/Time: Sunday, January 15, 2017 16:21 - CONCLUSION: 1. Liver cirrhosis with moderate ascites. Splenomegaly. 2. Echogenic kidneys characteristic of medical renal disease with moderate right hydronephrosis and mild left hydronephrosis. Trevon Real MD Lower Extremity Ultrasound 01/14/17 0000 Signed Impressions: Service Date/Time: Saturday, January 14, 2017 17:28 - CONCLUSION: Left iliac and deep femoral DVT. No evidence of DVT on the right. Desmond Villatoro MD Assessment and Plan Assessment and Plan IMPRESSION Fevers, possible sepsis due to source - has dysuria and (+) UA - has not had lion during this admission - no evidence of SBP based on fluid analysis - no central line currently ETOH cirrhosis with protal HT< varices, ascites DVT LLE, has IVC filter GIB, H/H stable Bladder CA, intermittent hematuria Leukocytosis, likely multifactorial RECOMMENDATION Follow C/S IV Zosyn Stop Rocephin Monitor temps Monitor progress I will determine course of Abx once work-up is completed I will follow along with you. Thank you for this consultation Discussed Condition With Explained plan to the patient, and family Answered all his questions Areli Ni MD Jan 23, 2017 16:16
[2017-01-23] MEDS: cefTRIAXone INJ 1,000 MG in SODIUM CHLORIDE 0.9% INJ 100 ML IV SCH (18:00)
[2017-01-24] VITALS (17 sets, daily range): BP systolic 79–134; BP diastolic 50–77; PULSE 73–187; RESP 12–22; TEMP 97.6–103.7; O2SAT 83–100
[2017-01-24] MEDS: ACETAMINOPHEN/HYDROcodone 325 MG/5 MG TAB PO PRN ×5 (01:06→23:54)
[2017-01-24] MEDS: HYDROmorphone HCL PF 1 MG/ML VIAL IV PRN ×3 (02:32→22:05)
[2017-01-24] MEDS: SODIUM CHLOR 0.9% 1000 ML INJ 1,000 ML IV SCH (05:33)
[2017-01-24 06:33] LABS: AUTOMATED NEUTROPHIL # 17.3 TH/MM3 (1.8-7.7); BASOPHIL # 0.1 TH/MM3 (0-0.2); BASOPHIL % 0.6 % (0.0-2.0); EOSINOPHIL # 0.5 TH/MM3 (0-0.4); EOSINOPHIL % 2.2 % (0.0-4.0); HEMATOCRIT 25.7 % (39.0-51.0); HEMO FLAGS DIFF FINAL; LYMPH % 4.8 % (9.0-44.0); MEAN CELL VOLUME 87.7 FL (80.0-100.0); MEAN CORPUSCULAR HEMOGLOBIN 28.6 PG (27.0-34.0); MEAN CORPUSCULAR HGB CONC 32.6 % (32.0-36.0); MONO % 7.3 % (0.0-8.0); NEUT % 85.1 % (16.0-70.0); PLATELET COUNT 238 TH/MM3 (150-450); RED BLOOD COUNT 2.93 MIL/MM3 (4.50-5.90); WHITE BLOOD COUNT 20.3 TH/MM3 (4.0-11.0)
[2017-01-24 06:50] LABS: BICARBONATE 25.1 MEQ/L (21.0-32.0); POTASSIUM 3.8 MEQ/L (3.5-5.1)
[2017-01-24] MEDS: MULTIVITAMIN TAB PO SCH (08:19)
[2017-01-24] MEDS: GABAPENTIN 300 MG CAP PO SCH ×3 (08:19→17:57)
[2017-01-24] MEDS: TAMSULOSIN HCL 0.4 MG CAP PO SCH (08:19)
[2017-01-24] MEDS: THIAMINE HCL 100 MG TAB PO SCH (08:19)
[2017-01-24] MEDS: PANTOPRAZOLE SOD 40 MG DELAYED RELEASE TAB PO SCH ×2 (08:19→19:53)
[2017-01-24] MEDS: POTASSIUM CHLORIDE 20 MEQ CONTROLLED RELEASE TAB PO SCH (08:19)
[2017-01-24] MEDS: FOLIC ACID 1 MG TAB PO SCH (08:20)
[2017-01-24] MEDS: RIFAXIMIN 550 MG TAB PO SCH ×2 (08:20→19:54)
[2017-01-24] MEDS: FERROUS FUMARATE 325 MG TAB (106 MG ELEMENTAL IRON) PO SCH (08:20)
[2017-01-24] MEDS: FUROSEMIDE 20 MG/2 ML VIAL IV PUSH SCH (08:20)
[2017-01-24] MEDS: ACETAMINOPHEN 325 MG TAB PO PRN (12:19)
[2017-01-24] MEDS ORDERED: ACETAMINOPHEN 1000 MG/100 ML VIAL IV PRN (12:45)
[2017-01-24] MEDS ORDERED: ACETAMINOPHEN 1000 MG/100 ML VIAL IV ONE (12:45)
[2017-01-24 12:56] LABS: BLOOD GAS BASE EXCESS -2.4 mmol/L (-2-2); BLOOD GAS CARBOXYHEMOGLOBIN 1.6 % (0-4); BLOOD GAS HCO3 20 mmol/L (22-26); BLOOD GAS METHEMOGLOBIN 0.7 % (0-2); BLOOD GAS O2 HGB SATURATION 97 % (90-100); BLOOD GAS OXYGEN CONTENT 12.5 Vol % (12.0-20.0); BLOOD GAS PCO2 24 mmHg (38-42); BLOOD GAS PO2 115 mmHg (61-120); BLOOD GAS TOTAL HGB 9.1 G/DL (12.0-16.0); TEMP CORR TO 98.6
[2017-01-24 12:57] LABS: CRITICAL VALUE YES; LITER FLOW 3 L/M; OXYGEN DEVICE NASAL CANNULA
[2017-01-24 12:58] LABS: DRAW SITE RT RADIAL; NUMBER OF ARTERIAL PUNCTURES 1; STAT YES; ULNAR PULSE PRESENT
--- NOTE | 2017-01-24 13:07 | HHI.PR ---
Subjective Remarks I was paged by the nurse. Patient is dessating in 80s. He is sob, no chest pain or diaphoresis. He is shivering, says she is cold. Has abdominal pain and distention. Feels nauseated and did vomit once. Has high grade fevers 101-103 . Started tylenol IV for high grade fevers. He is on rocephin IV currently. ID consult pending. No fevers or chills. Objective Vitals Vital Signs Date Time Temp Pulse Resp B/P Pulse Ox O2 Delivery O2 Flow Rate FiO2 01/24/17 13:03 100 Nasal Cannula 3.00 01/24/17 08:03 89 01/24/17 08:00 99.1 85 12 113/67 95 01/24/17 04:16 97.6 80 20 130/74 95 01/24/17 00:00 98.0 80 20 134/76 96 01/23/17 22:00 97.6 88 20 132/78 95 01/23/17 20:00 86 01/23/17 16:00 100.8 92 19 119/81 99 I/O 01/23/17 01/23/17 01/23/17 01/24/17 01/24/17 01/24/17 07:00 15:00 23:00 07:00 15:00 23:00 Intake Total 240 ml 840 ml 240 ml 360 ml Output Total 875 ml 350 ml 300 ml Balance 240 ml -35 ml -110 ml 60 ml Intake Oral 240 ml 840 ml 240 ml 360 ml Output Urine Total 875 ml 350 ml 300 ml # Voids 2 2 # Bowel Movements 1 1 0 0 Result Diagram: 01/24/17 0606 01/24/17 0606 Imaging Last Impressions Chest X-Ray 01/23/17 0000 Signed Impressions: Service Date/Time: Monday, January 23, 2017 12:00 - CONCLUSION: No acute cardiopulmonary processes are seen. Desmond Carolina MD IVC Filter Placement X-Ray 01/20/17 0836 Signed Impressions: Service Date/Time: January 12:40 - CONCLUSION: Uncomplicated inferior vena cava filter placement as above. Sai Hernández MD Cyst Biopsy Asp-Paracentesis US 01/19/17 0000 Signed Impressions: Service Date/Time: Thursday, January 19, 2017 13:35 - CONCLUSION: Uncomplicated ultrasound guided paracentesis. Patient received albumin per protocol. Valente Parks MD FACR Abdomen Ultrasound 01/15/17 0000 Signed Impressions: Service Date/Time: Sunday, January 15, 2017 16:21 - CONCLUSION: 1. Liver cirrhosis with moderate ascites. Splenomegaly. 2. Echogenic kidneys characteristic of medical renal disease with moderate right hydronephrosis and mild left hydronephrosis. Trevon Real MD Lower Extremity Ultrasound 01/14/17 0000 Signed Impressions: Service Date/Time: Saturday, January 14, 2017 17:28 - CONCLUSION: Left iliac and deep femoral DVT. No evidence of DVT on the right. Desmond Villatoro MD Objective Remarks GENERAL: NAD SKIN: Warm and dry. HEAD: Normocephalic. EYES: No scleral icterus. No injection or drainage. NECK: Supple, trachea midline. No JVD or lymphadenopathy. CARDIOVASCULAR: Regular rate and rhythm without murmurs, gallops, or rubs. RESPIRATORY: Breath sounds equal bilaterally. No accessory muscle use. GASTROINTESTINAL: Abdomen soft, non-tender, mildly distended. Positive bowel sounds : diaper with gross hematuria MUSCULOSKELETAL: No cyanosis, or edema. BACK: Nontender without obvious deformity. No CVA tenderness. A/P Problem List: (1) GI bleed ICD Code: K92.2 Status: Acute (2) Hypotension ICD Code: I95.9 Status: Acute (3) Anemia requiring transfusions ICD Code: D64.9 Status: Acute (4) Leukocytosis ICD Code: D72.829 Status: Acute (5) Hyperkalemia ICD Code: E87.5 Status: Acute (6) Acute kidney injury ICD Code: N17.9 Status: Acute (7) DVT (deep venous thrombosis) ICD Code: I82.409 Status: Acute (8) Bladder cancer ICD Code: C67.9 Status: Acute (9) Hypertension ICD Code: I10 Status: Chronic (10) Ascites due to alcoholic cirrhosis ICD Code: K70.31 Status: Acute Assessment and Plan 66-year-old man with 01/24 Acute respiratory failure noted dessating in 80s on the floor. ABG reviewed. Metabolic alkalosis, compensated. Patient in distress. With high grade fevers 101-103., tachycardic HR in 120s, EKG without significant change no ischemic changes. With abdominal distention, will do US paracentesis both therapeutic and diagnostic as patient with abd pain and severe ascites. BP so far is stable at this time, however patient with ascites he is on 40 cc IVF and BP might decreased. Will transfer the patient to ICU for close observation as he appears clinically worsening. Monitor VS closely. Will consult expressive art therapist as patient deteriorates , noted BP trending down. Dr Mata expressive art therapist already knows the patient. Sepsis( patient with persistent leukocytosis, temp 101, tachycardia, source likely UTI vs SBP). Will recheck blood cx 01/24 as patient with persistent fevers , repeat CXR. U cx are negative. On rocephin. Consult ID. History of peripheral neuropathy History of EtOH abuse Depression/anxiety Hold home medications of oxycodoneacetaminophen as needed for pain and Continue Neurontin 300 mg 3 times a day at this time. continue thiamine at 100 mg PO daily. On B12 50 by mouth daily folic acid 0.4 mg by mouth daily at home for EtOH use. CIWA per protocol Hypotension secondary to hypovolemia History of hypertension Lactic acidosis on low-dose Lasix 20 mEq IV twice a day however 2/2 Hypotension will decrease to 20mg Daily Holding spironolactone 50 mill grams twice a day at home due to Hypotension GI bleed most likely variceal bleed Ascites due to alcoholic cirrhosis Liver cirrhosis History of gastroesophageal reflux disease Elevated transaminases likely secondary to EtOH Hypoalbuminemia -GI consulted. EGD revealed gastric ulcer in antrum. This is biopsied. Gastropathy. Old banding. No varices. Ultrasound - Liver cirrhosis with moderate ascites. Splenomegaly. -s/p Protonix at 8 mg an hour and octreotide at 50 grams an hour per GI -Currently on Protonix 40 mg by mouth twice a day -SBP prophylaxis with Rocephin 1 g IV every 24 hours 7 days total with upper GI bleed -Status post paracentesis 01/19/17 with 7 L fluid out -Start Lactulose 30mg daily PRN and monitor Ammonia level - Monitopr H/H . So far stable. H/H Acute kidney injury - resolved History of bladder cancer/muscular invasive Bilateral hydronephrosis by history right greater than left BPH Ultrasound - Echogenic kidneys characteristic of medical renal disease with moderate right hydronephrosis and mild left hydronephrosis. Noted recent CT chest revealed right greater than left hydronephrosis. -F/u at [place] for bladder cancer however secondary to gross hematuria, Urology consultation pending for further evaluation and treatment possible with CBI . May need cystoscopy Continue Flomax 0.4 mg daily Severe anemia requiring transfusion of 7 units PRBCs Left lower extremity DVT 12/25/16 - left iliac and deep femoral -s/p 7 units of PRBC during this hospitalization -Monitor CBC as well as Coags -s/p IVC filter placement 01/20/17 -Continue iron fumarate 18 mg twice a day - heparin drip for DVT on hold secondary to gross hematuria 01/20/17. Appreciate input from hematology Hypokalemia - replace electrolytes and monitor Hypophosphatemia-resolved PROPH: currently with SCDs, PO Protonix Discussed with the patient. nurse., family, halicat nurse. Dr Cailin WILLOUGHBY cleared the patient for DC from GI standpoint,. to follow up as OP with GI. Problem Qualifiers (1) Hypotension: Qualified Code: I95.9 - Hypotension, unspecified hypotension type (2) DVT (deep venous thrombosis): Bernadette Hebert MD Jan 24, 2017 13:07
--- NOTE | 2017-01-24 13:24 | RADRPT ---
EXAM DATE/TIME: 01/20/2017 12:40 [facility] COMPARISON: No previous studies available for comparison. INDICATIONS : DVT MEDICAL HISTORY : 1. Bladder cancer 2.GI bleed 3. Liver cirrhosis 4. Gout 5. esophageal varices SURGICAL HISTORY : 1. Testicle removale 2. Hernia repair ENCOUNTER: Initial ACUITY: 1 week PAIN SCORE: 0/10 FLUORO TIME: 1.7 minutes IMAGE SERIES: 3 ACCESS SITE: Right Internal jugular vein SEDATION TIME: 30 minutes CONTRAST: 1.) 50 cc Omnipaque (iohexol) 350 MEDICATION(S): 1.) 100 mcg fentanyl (Sublimaze) IV DEVICE(S): 1.) Inferior vena cava Bard Kelsey filter PROCEDURE : 1. Ultrasound-guided venipuncture. 2. Inferior venacavogram. 3. Inferior vena cava filter placement. 4. Conscious sedation with continuous EKG and oximetry monitoring. The risks, benefits and alternatives to the procedure were explained and verbal and written consent w as obtained. The site was prepped in sterile fashion. Full sterile technique was used, including ca p, mask, sterile gloves and gown and a large sterile sheet. Hand hygiene and 2% chlorhexidine and/or betadine/alcohol prep was utilized per protocol for cutaneous antisepsis. The skin and subcutaneous tissues were infiltrated with local anesthetic solution. With ultrasound and fluoroscopic guidance the targeted vein was punctured and a vascular sheath was p laced. Inferior venacavogram was performed to demonstrate level of renal veins. No caval thrombus was identified. The prescribed filter was deployed in the infrarenal inferior vena cava. Following deplo yment the filter was identified in good position. Conscious sedation was performed with the prescribed dosages and duration as above in the presence of an independent trained radiology nurse to assist in the monitoring of the patient. EKG and oximetry remained stable throughout the procedure. The patient tolerated the procedure well and there were n o complications. The patient was sent to post anesthesia recovery in stable condition. CONCLUSION: Uncomplicated inferior vena cava filter placement as above. Sai Hernández MD on January 24, 2017 at 13:22 Board Certified Radiologist. This report was verified electronically.
[2017-01-24 13:39] LABS: AUTOMATED NEUTROPHIL # 25.3 TH/MM3 (1.8-7.7); BASOPHIL # 0.1 TH/MM3 (0-0.2); BASOPHIL % 0.3 % (0.0-2.0); EOSINOPHIL # 0.2 TH/MM3 (0-0.4); EOSINOPHIL % 0.8 % (0.0-4.0); HEMATOCRIT 28.9 % (39.0-51.0); HEMO FLAGS DIFF FINAL; LYMPH % 1.4 % (9.0-44.0); LYMPHOCYTE # 0.4 TH/MM3 (1.0-4.8); MEAN CELL VOLUME 88.1 FL (80.0-100.0); MEAN CORPUSCULAR HEMOGLOBIN 28.6 PG (27.0-34.0); MEAN CORPUSCULAR HGB CONC 32.4 % (32.0-36.0); MONO % 0.9 % (0.0-8.0); NEUT % 96.6 % (16.0-70.0); PLATELET COUNT 269 TH/MM3 (150-450); RED BLOOD COUNT 3.28 MIL/MM3 (4.50-5.90); RED CELL DISTRIBUTION WIDTH 18.4 % (11.6-17.2); WHITE BLOOD COUNT 26.2 TH/MM3 (4.0-11.0)
[2017-01-24 13:50] LABS: ALT (GPT) 36 U/L (12-78); ANION GAP 11 MEQ/L (5-15); AST (GOT) 43 U/L (15-37); BICARBONATE 22.7 MEQ/L (21.0-32.0); BLOOD UREA NITROGEN 12 MG/DL (7-18); CHLORIDE 103 MEQ/L (98-107); GLOMERULAR FILTRATION RATE 65 ML/MIN (>89); SODIUM (NA) 137 MEQ/L (136-145)
[2017-01-24 13:52] LABS: ALKALINE PHOSPHATASE 527 U/L (45-117)
--- NOTE | 2017-01-24 14:48 | RADRPT ---
EXAM DATE/TIME: 01/24/2017 13:37 [facility] COMPARISON: CHEST SINGLE AP, January 23, 2017, 12:00. INDICATIONS : Fever, short of breath MEDICAL HISTORY : Cirrhosis. bladder ca SURGICAL HISTORY : Inguinal hernia repair. ENCOUNTER: Subsequent ACUITY: 1 week PAIN SCORE: 10/10 LOCATION: Bilateral chest FINDINGS: A single view of the chest demonstrates the lungs to be symmetrically, but under aerated without evid ence of mass, infiltrate or effusion. The cardiomediastinal contours are unremarkable. Osseous stru ctures are intact. CONCLUSION: Hypoinflation with no acute cardiopulmonary process. Sai Hernández MD on January 24, 2017 at 14:42 Board Certified Radiologist. This report was verified electronically.
--- NOTE | 2017-01-24 15:10 | RADRPT ---
EXAM DATE/TIME: 01/24/2017 13:47 [facility] COMPARISON: CHEST SINGLE AP, January 24, 2017, 13:37. INDICATIONS : Diffuse abdominal pain and bloating MEDICAL HISTORY : Hypertension. Hypercholesterolemia. Carcinoma, bladder. Arthritis. Liver cirrhosis. SURGICAL HISTORY : Inguinal hernia repair. ENCOUNTER: Subsequent ACUITY: 1 week PAIN SCORE: 10/10 LOCATION: Bilateral abdomen FINDINGS: Supine view of the abdomen was performed. Gas and stool is noted segmentally in the colon. There are multiple loops of nondilated air-containing small bowel in the midabdomen. No abnormal masses, calcif ications, or organomegaly is seen. The osseous structures are unremarkable. An inferior vena caval f ilter is present. There are surgical clips in the pelvis. Vascular calcifications are present. CONCLUSION: Nonspecific bowel gas pattern which may represent mild ileus or gastroenteritis. Silvano Dubois MD on January 24, 2017 at 15:05 Board Certified Radiologist. This report was verified electronically.
[2017-01-24] MEDS ORDERED: ALBUMIN HUMAN 25% 12.5GM-W/25GM FOR 37.5GM IV ONE (16:15)
[2017-01-24] MEDS ORDERED: ALBUMIN HUMAN 25% 25GM-W/12.5GM FOR 37.5GM IV ONE (16:15)
--- NOTE | 2017-01-24 16:39 | RADRPT ---
EXAM DATE/TIME: 01/24/2017 13:34 [facility] COMPARISON: No previous studies available for comparison. INDICATIONS : Ascites. MEDICAL HISTORY : Hypercholesterolemia. Hypertension. Gastroesophageal reflux disease. Bladder cancer. Hernia right robyn e. Hiatal hernia. Arthritis. Abdominal pain. Jaundice SURGICAL HISTORY : Inguinal hernia repair. Left leg surgery. Left thumb FX repair. Testicle removed. ENCOUNTER: Initial ACUITY: 2 weeks PAIN SCORE: 2/10 LOCATION: Right lower quadrant FLUID: Total volume of 7000 cc of clear, yellow fluid was removed. Fluid was sent to lab for ordered studies. Post procedure scanning reveals no hematoma or other complication. TECHNIQUE: 1. Ultrasound guidance for abdominal paracentesis. 2. Paracentesis. The risks, benefits, and alternatives to ultrasound guided paracentesis were explained to the patient in detail including the risk of bleeding and infection. Written and verbal informed consent was obt ained. With the patient on the ultrasound table, ultrasound imaging was used to select the most appropriate approach for paracentesis. Overlying skin was prepped and draped in the usual sterile fashion and wi th a local anesthetic, a dermatotomy was made with an 11 blade scalpel. A 6 [place] [id number] ca theter was introduced into the peritoneal cavity and fluid was collected. The patient tolerated the procedure well and left the ultrasound suite in stable condition. CONCLUSION: Uncomplicated ultrasound guided paracentesis. Geremias Ruth MD on January 24, 2017 at 16:37 Board Certified Radiologist. This report was verified electronically.
[2017-01-24] MEDS: cefTRIAXone INJ 1,000 MG in SODIUM CHLORIDE 0.9% INJ 100 ML IV SCH (16:56)
[2017-01-24] MEDS ORDERED: SODIUM CHLORIDE 0.9% FLUSH 10 ML FLUSH IVF PRN (17:00)
--- NOTE | 2017-01-24 17:03 | PD.PROCEDR ---
Central Line Procedure REASON FOR PROCEDURE Central venous access PROCEDURE PERFORMED Central line placement: Right IJ CVL CONSENT Informed consent for procedure was obtained from patient. The risks and benefits of the procedure were discussed to include but limited to bleeding, clot formation, infection, and even . ANESTHESIA Local injection of 1% Lidocaine DESCRIPTION OF THE PROCEDURE The patient was placed in supine, mild Trendelenburg position. The area was exposed and cleansed with ChloraPrep, times two. Large sterile drape was used to cover the patient, with the site exposed, under sterile conditions including cap, face mask, sterile gown, and sterile gloves. On single attempt, the introducer needle was inserted with negative pressure in syringe and venous flash was obtained. The guide wire was then advanced without any restriction and the needle was removed. The dilator was used without any complications. Using Seldinger technique the triple-lumen catheter was advanced over the guide wire to a depth of 16 centimeters. The guide wire was removed. All ports were aspirated with dark venous blood return and flushed easily with sterile saline. All ports were capped. Antibiotic disc was placed around central line at puncture site. The central line was secured to the skin with two interrupted 2.0 silk sutures. The area was bandaged with sterile see-through central line bandage. RADIOLOGICAL DATA Ultrasound guidance was used to locate right internal jugular vein. Doppler/ color flow was used to confirm venous flow. COMPLICATIONS: No apparent complications ESTIMATED BLOOD LOSS: Less than 1 cc. Ramon Mata MD Jan 24, 2017 17:03
--- NOTE | 2017-01-24 17:07 | HHI.CCPN ---
Subjective Remarks/Hospital Course Patient is a 66-year-old male with past medical history significant for alcoholic cirrhosis, esophageal varices, bladder cancer, recent DVT (12/25/16 ) in left leg on therapeutic Lovenox was started noticing melanotic stools predominantly since yesterday. He states that he has noted on all for the last 2 weeks.. Yesterday night he had multiple episodes of melanotic diarrhea. Apparently he is scheduled to undergo cystectomy at [facility], and this is currently hold. Per GI notes, patient was [place] [facility] [place] He denies alcohol consumption and last drink was 7 months ago denies any hematemesis. In the emergency department hgb is 4.6, INR 1.4 and WBC 17.8.he has been placed on IV Protonix infusion and octreotide infusion as he has a history of esophageal varices. Blood transfusion had been ordered and is pending at this time. Last EGD colonoscopy was 07/21/16 which showed adenomatous polyps in colon, large esophageal varices in distal esophagus. He was to return in 4 weeks for EGD/band ligation, but apparently patient did not follow-up I evaluated the patient in the ED. He is in [id number] distress and he is pale. His blood pressure is in the 90s. Patient received 1 L of normal saline bolus. I will give 2L additional fluid boluses. Check a lactic acid. I will start him on Rocephin for SBP prophylaxis. Patient will have bedside ultrasound and probable paracentesis once in the ICU. Patient received treatment for hyperkalemia in the ED will repeat K at 5 PM 01/15: Received 7 units PRBCs ordered since admission. Remains normotensive currently. Complains of vague abdominal pain/moaning in room. Answers questions appropriately. Afebrile. Hemoccult positive BM's. 01/16: Afebrile. 2 bowel movements/dark tarry overnight. Hemodynamically stable. Noted EGD revealed gastric ulcers in antrum was biopsied. Gastropathy. Old banding with no esophageal varices. Moderate ascites on ultrasound. Patient at baseline compared yesterday neurologic baseline 01/17: Currently on commode for bowel prep for colonoscopy today. Hemoglobin stable. Denies chest pain or shortness of breath. Afebrile. Hemodynamically stable Subjective 01/24: Re consulted secondary to hypotension. Patient had 5.7 L ascites removed today. Tmax 102.8. No chest pain, shortness of breath. Infuse. Objective Vital Signs Date Time Temp Pulse Resp B/P Pulse Ox O2 Delivery O2 Flow Rate FiO2 01/24/17 16:00 99.4 87 16 79/51 95 01/24/17 13:03 Nasal Cannula 3.00 01/22/17 11:34 21 Intake and Output 01/23/17 01/23/17 01/24/17 08:00 16:00 00:00 Intake Total 240 ml 840 ml 240 ml Output Total 875 ml 350 ml Balance 240 ml -35 ml -110 ml Result Diagram: 01/24/17 1300 01/24/17 1300 Other Results Microbiology Date/Time Procedure Status Source Growth 01/24/17 13:10 Aerobic Blood Culture Received Blood Peripheral Pending 01/24/17 13:10 Anaerobic Blood Culture Received Blood Peripheral Pending 01/23/17 14:40 Urine Culture - Preliminary Resulted Urine Clean Catch NO GROWTH IN 24 HOURS. 01/23/17 13:17 Aerobic Blood Culture - Preliminary Resulted Blood Peripheral NO GROWTH IN 1 DAY 01/23/17 13:17 Anaerobic Blood Culture - Preliminary Resulted Blood Peripheral NO GROWTH IN 1 DAY Imaging Last Impressions Abdomen Ultrasound 01/15/17 0000 Signed Impressions: Service Date/Time: Sunday, January 15, 2017 16:21 - CONCLUSION: 1. Liver cirrhosis with moderate ascites. Splenomegaly. 2. Echogenic kidneys characteristic of medical renal disease with moderate right hydronephrosis and mild left hydronephrosis. Trevon Real MD Lower Extremity Ultrasound 01/14/17 0000 Signed Impressions: Service Date/Time: Saturday, January 14, 2017 17:28 - CONCLUSION: Left iliac and deep femoral DVT. No evidence of DVT on the right. Desmond Villatoro MD Objective Remarks GEN: 66-year-old male, improved quite confused HEENT: Normocephalic; atraumatic NECK: Neck is supple, + JVD, no lymphadenopathy. Right IJ is clean dry and intact CHEST: Chest is clear to auscultation bilaterally without wheezes rales or rhonchi CARDIAC: RRR. S1, S2. No S4. No murmur ABDOMEN: Soft, distended, mild tenderness to palpation; bowel sounds are present in all four quadrants. Early no succussion splash. EXTREMITIES: With trace edema left lower extremity. SKIN: Warm and dry. No rash NEURO: Cranial nerves II through XII grossly intact. Strength is equal symmetric. Normal sensation. A/P Assessment and Plan NEURO/PSYCH: History of peripheral neuropathy History of EtOH abuse Depression/anxiety -Minimize sedation. -As needed Dilaudid 0.5 every 4 mg when necessary pain Hold home medications of oxycodoneacetaminophen as needed for pain and Neurontin 300 mg 3 times a day at this time. We'll continue thiamine at 100 mg IV daily. On B12 50 by mouth daily folic acid 0.4 mg by mouth daily at home for EtOH use RESP: -Nasal cannula oxygen to maintain saturations greater than equal to 92% currently on 2 L nasal cannula Incentive spirometry while awake Follow-up on chest x-ray CV: Hypotension secondary to hypovolemia/sepsis? History of hypertension Lactic acidosis. Currently pending -Normal saline IV fluids 1L bolus now on 50 g albumin 1 now. Normal saline currently at 42 cc an hour Previously on low-dose Lasix 20 mEq IV twice a day since currently hemodynamically stable On spironolactone 50 mill grams twice a day at home. This is currently on hold Follow-up on CVP. EKG/ echo ordered. CT/troponin ordered. Nils-Synephrine ordered for vasopressor support if needed. GI: GI bleed most likely variceal bleed Ascites/abdominal Liver cirrhosis History of gastroesophageal reflux disease Elevated transaminases likely secondary to EtOH Hypoalbuminemia -GI consulted on admission EGD revealed gastric ulcer in antrum. This is biopsied. Gastropathy. Old banding. No varices. Ultrasound - Liver cirrhosis with moderate ascites. Splenomegaly. -Continue Protonix at 40 mg twice a day -SBP prophylaxis with Rocephin 1 g IV every 24 hours 7 days with upper GI bleed Status post paracentesis 7 L on 01/19. Last 5.7 L today. Renal/: Acute kidney injury - resolved History of bladder cancer/muscular invasive Bilateral hydronephrosis by history right greater than left BPH Ultrasound - Echogenic kidneys characteristic of medical renal disease with moderate right hydronephrosis and mild left hydronephrosis. -Most likely secondary to ATN. Monitor renal function closely. Noted recent CT chest revealed right greater than left hydronephrosis. Currently with adequate urine output. -F/u at [place] for bladder cancer Dr. Simeon discussed with his urologist at [facility], due to his decompensated cirrhosis, recent gi bleeding due to portal htn , poor nutritional status he will high risk for surgery and anesthesia .Reaccumulating ascites Resume Flomax 0.4 mg daily when clinically indicated ID: Start empirically on vancomycin, Zosyn. Pertinent cultures 01/24 - blood cultures 2 - pending 01/23 - urine - pending 01/23 - blood cultures 2 - no growth to date 01/19 - peritoneal fluid - no growth 01/14 - blood cultures 2 - NGTD No obvious source of sepsis present time. Pro-calcitonin/lactate pending HEME: Severe anemia requiring transfusion of 7 units PRBCs Left lower extremity DVT 12/25/16 - left iliac and deep femoral Leukocytosis -Given 7 units of PRBC during this hospitalization -IR consulted for IVC filter placement performed 01/20 Follow-up and CBC ENDO: Hypokalemia - resolved Hypophosphatemia Follow-up on a.m. CMP PROPH: IVC filter, Protonix Critical Care: The total critical care time was 35 minutes. Time to perform other separately billable procedures was not included in the critical care time. Ramon Mata MD Jan 24, 2017 17:07 Ramon Mata MD Jan 24, 2017 17:07
[2017-01-24] MEDS ORDERED: SODIUM CHLOR 0.9% 1000 ML INJ 1,000 ML IV ONE (17:15)
[2017-01-24] MEDS ORDERED: Vancomycin Consult Pharmacy 1 EA OTHER SCH (17:15)
[2017-01-24] MEDS ORDERED: ALBUMIN HUMAN 25% 25 GM/100 ML BAGP IV ONE (17:15)
[2017-01-24] MEDS ORDERED: TERBUTALINE INJ 1 MG/ML AMP SQ PRN (17:15)
[2017-01-24] MEDS ORDERED: CEFEPIME INJ 2,000 MG in SODIUM CHLORIDE 0.9% INJ 100 ML IV SCH (17:15)
[2017-01-24] MEDS ORDERED: PHENYLEPHRINE INJ 160 MG in DEXTROSE 5% IN WATE 500 ML INJ 484 ML IV SCH ×2 (17:15)
--- NOTE | 2017-01-24 17:43 | RADRPT ---
EXAM DATE/TIME: 01/24/2017 17:16 [facility] COMPARISON: CHEST SINGLE AP, January 24, 2017, 13:37. INDICATIONS : Status post central line placement. MEDICAL HISTORY : Cirrhosis. bladder ca SURGICAL HISTORY : Inguinal hernia repair. ENCOUNTER: Initial ACUITY: 1 day PAIN SCORE: 0/10 LOCATION: Bilateral chest FINDINGS: A single view of the chest demonstrates the lungs to be symmetrically aerated without evidence of mas s, infiltrate or effusion. The cardiomediastinal contours are unremarkable. Osseous structures are intact. There is minimal placement right internal jugular central venous line with the tip projected over the superior vena cava. There is no pneumothorax. There overlying the ctrocardiogram leads. Dege nerative changes are noted in the glenohumeral joints. CONCLUSION: Interval placement of right internal jugular central venous line with no evidence of pneumothorax. Silvano Dubois MD on January 24, 2017 at 17:40 Board Certified Radiologist. This report was verified electronically.
[2017-01-24] MEDS: VANCOMYCIN INJ 1,250 MG in SODIUM CHLOR 0.9% 250 ML INJ 250 ML IV SCH (17:57)
[2017-01-24] MEDS: PIPERACIL-TAZO 4.5 GM PREMIX 100 ML IV SCH ×2 (17:57→23:54)
[2017-01-24 19:12] LABS: APTT (PATIENT) 31.5 SEC (24.3-30.1); INTERNATIONAL NORMALIZED RATIO 1.4 RATIO; PROTHROMBIN TIME - PATIENT 16.2 SEC (9.8-11.6)
[2017-01-24 19:22] LABS: ALKALINE PHOSPHATASE 560 U/L (45-117); ALT (GPT) 40 U/L (12-78); AST (GOT) 48 U/L (15-37); INDIRECT BILIRUBIN 0.5 MG/DL (0.0-0.8); MAGNESIUM 1.7 MG/DL (1.5-2.5)
[2017-01-24 19:23] LABS: CREATINE KINASE 54 U/L (39-308)
[2017-01-24 19:57] LABS: PERITONEAL HISTIOCYTES 11 %; PERITONEAL LYMPHS 26 %; PERITONEAL MESOTHELIAL 10 %; PERITONEAL MONOS 33 %; PERITONEAL POLYS(SEGS) 20 %; PERITONEAL WBC 109 /MM3 (0-10)
[2017-01-24 23:48] LABS: LACTIC ACID GHOST NOT REPORTABLE
[2017-01-25] VITALS (12 sets, daily range): BP systolic 95–123; BP diastolic 60–77; PULSE 65–86; RESP 12–26; TEMP 97.4–99.1; O2SAT 96–100
[2017-01-25 00:40] LABS: APTT (PATIENT) 32.3 SEC (24.3-30.1)
[2017-01-25] MEDS: HYDROmorphone HCL PF 1 MG/ML VIAL IV PRN ×5 (02:21→22:13)
[2017-01-25] MEDS: ACETAMINOPHEN/HYDROcodone 325 MG/5 MG TAB PO PRN ×3 (04:15→20:03)
[2017-01-25 04:33] LABS: HEMATOCRIT 23.8 % (39.0-51.0); MEAN CELL VOLUME 87.7 FL (80.0-100.0); MEAN CORPUSCULAR HEMOGLOBIN 29.1 PG (27.0-34.0); MEAN CORPUSCULAR HGB CONC 33.2 % (32.0-36.0); PLATELET COUNT 261 TH/MM3 (150-450); RED BLOOD COUNT 2.71 MIL/MM3 (4.50-5.90); RED CELL DISTRIBUTION WIDTH 18.4 % (11.6-17.2); WHITE BLOOD COUNT 33.4 TH/MM3 (4.0-11.0)
[2017-01-25 04:39] LABS: HEMO FLAGS AUTO DIFF
[2017-01-25 05:07] LABS: ANION GAP 7 MEQ/L (5-15); AST (GOT) 34 U/L (15-37); BICARBONATE 24.6 MEQ/L (21.0-32.0); BLOOD UREA NITROGEN 16 MG/DL (7-18); CHLORIDE 107 MEQ/L (98-107); GLOMERULAR FILTRATION RATE 66 ML/MIN (>89); MAGNESIUM 1.7 MG/DL (1.5-2.5); POTASSIUM 3.6 MEQ/L (3.5-5.1); SODIUM (NA) 139 MEQ/L (136-145)
[2017-01-25 05:10] LABS: ALKALINE PHOSPHATASE 395 U/L (45-117); ALT (GPT) 31 U/L (12-78); TOTAL BILIRUBIN ADULT 0.6 MG/DL (0.2-1.0)
[2017-01-25 05:17] LABS: CREATINE KINASE 65 U/L (39-308)
[2017-01-25 06:00] LABS: BANDS 2 % (0-6); EOSINOPHILS 1 % (0-4); METAMYELOCYTES 1 % (0-1); NEUTROPHIL # MANUAL DIFF 31.7 TH/MM3 (1.8-7.7); POLYS (SEG NEUTROPHILS) 92 % (16-70); WBC DIFF SAMPLE 100
[2017-01-25] MEDS: PIPERACIL-TAZO 4.5 GM PREMIX 100 ML IV SCH ×4 (06:00→22:18)
[2017-01-25 06:01] LABS: OVALOCYTES 1+ (NORMAL); PLATELET ESTIMATE SMEAR NORMAL (NORMAL); PLATELET MORPHOLOGY NORMAL (NORMAL); SCAN/DIFF FINAL DIFF MANUAL
[2017-01-25] MEDS: SODIUM CHLOR 0.9% 1000 ML INJ 1,000 ML IV SCH (06:25)
--- NOTE | 2017-01-25 08:47 | EKG ---
Date Performed: 01/24/2017 Time Performed: 20:29:54 PTAGE: 66 years EKG: Sinus rhythm NORMAL ECG PREVIOUS TRACING : 01/24/2017 12.53 Compared to previous tracing, heart rate has decreased, non specific ST abnormality has resolved. DOCTOR: Jorge Davidson Interpretating Date/Time 01/25/2017 08:46:19
[2017-01-25] MEDS: FOLIC ACID 1 MG TAB PO SCH (09:00)
[2017-01-25] MEDS: RIFAXIMIN 550 MG TAB PO SCH ×2 (10:13→20:03)
[2017-01-25] MEDS: MULTIVITAMIN TAB PO SCH (10:13)
[2017-01-25] MEDS: POTASSIUM CHLORIDE 20 MEQ CONTROLLED RELEASE TAB PO SCH (10:13)
[2017-01-25] MEDS: FERROUS FUMARATE 325 MG TAB (106 MG ELEMENTAL IRON) PO SCH (10:13)
[2017-01-25] MEDS: Central Line Short Term Adult 7Fr or larger Daily NS Lock Flush IV FLUSH SCH (10:14)
[2017-01-25] MEDS: PANTOPRAZOLE SOD 40 MG DELAYED RELEASE TAB PO SCH ×2 (10:14→20:03)
[2017-01-25] MEDS: THIAMINE HCL 100 MG TAB PO SCH (10:14)
[2017-01-25] MEDS: GABAPENTIN 300 MG CAP PO SCH ×3 (10:14→18:00)
[2017-01-25] MEDS: FUROSEMIDE 20 MG/2 ML VIAL IV PUSH SCH (10:14)
[2017-01-25] MEDS: TAMSULOSIN HCL 0.4 MG CAP PO SCH (10:14)
[2017-01-25] MEDS: SODIUM CHLORIDE 0.9% FLUSH 10 ML FLUSH IVF SCH (10:15)
--- NOTE | 2017-01-25 10:18 | HHI.IDPN ---
Subjective Subjective Remarks Notes reviewed Events of yesterday noted Transferred to ICU Spiked a fever at noon, became very tachycardic and hypotensive Was on Neosynephrine yesterday for several hours, has been weaned off Temps better HR better Has abdominal tap yesterday - took out 7L, no evidence of SBP UC with low colony count Leilani albicans BC negative CXR ok WBC up to 33K this morning Abx changed to Vanco and Zosyn yesterday Antibiotics Zosyn Vancomycin Lines RIJ TLC - 01/24 Past Medical History Liver cirrhosis Varices LLE DVT diagnosed Invasive bladder cancer GERD Hyperlipidemia Anxiety/depression BPH Past Surgical History EGD/colonoscopy on 07/21/16 Cystoscopy with TURP Umbilical hernia repair Inguinal hernia repair Allergies: Uncoded Allergies: BCG TREATMENT (Adverse Reaction, Severe, HTYPOTENSION , 12/25/16) Objective . Vital Signs Date Time Temp Pulse Resp B/P Pulse Ox O2 Delivery O2 Flow Rate FiO2 01/25/17 08:00 99.1 71 12 107/64 99 01/25/17 06:00 68 01/25/17 04:00 98.0 65 19 114/61 100 01/25/17 04:00 65 01/25/17 02:00 72 01/25/17 00:00 66 01/25/17 00:00 97.4 66 15 123/77 98 01/24/17 22:00 73 01/24/17 20:20 97 Nasal Cannula 3.00 01/24/17 20:00 97.7 74 15 94/50 99 01/24/17 20:00 74 01/24/17 19:00 99 Nasal Cannula 2.00 01/24/17 18:00 85 01/24/17 16:00 99.4 87 16 79/51 95 01/24/17 16:00 78 01/24/17 16:00 99.4 88 21 79/53 96 01/24/17 14:44 99.2 93 16 92/54 100 01/24/17 14:00 81 01/24/17 13:03 100 Nasal Cannula 3.00 01/24/17 12:35 103.7 01/24/17 12:35 102.7 01/24/17 12:15 101.9 133 17 122/64 100 01/24/17 12:05 90 Nasal Cannula 3.00 01/24/17 12:05 100.4 187 22 111/77 83 01/24/17 12:00 87 01/24/17 01/24/17 01/25/17 15:00 23:00 07:00 Intake Total 2752 ml 672 ml Output Total 6000 ml 0 ml Balance -6000 ml 2752 ml 672 ml Intake Oral 350 ml 350 ml IV Total 2402 ml 322 ml Output Urine Total 0 ml Drainage Total 6000 ml # Voids 1 # Bowel Movements 0 0 . Laboratory Tests Test 01/24/17 01/24/17 01/25/17 06:06 13:00 04:09 White Blood Count 20.3 TH/MM3 26.2 TH/MM3 33.4 TH/MM3 Red Blood Count 2.93 MIL/MM3 3.28 MIL/MM3 2.71 MIL/MM3 Hemoglobin 8.4 GM/DL 9.4 GM/DL 7.9 GM/DL Hematocrit 25.7 % 28.9 % 23.8 % Mean Corpuscular Volume 87.7 FL 88.1 FL 87.7 FL Mean Corpuscular Hemoglobin 28.6 PG 28.6 PG 29.1 PG Mean Corpuscular Hemoglobin 32.6 % 32.4 % 33.2 % Concent Red Cell Distribution Width 18.0 % 18.4 % 18.4 % Platelet Count 238 TH/MM3 269 TH/MM3 261 TH/MM3 Mean Platelet Volume 10.1 FL 10.3 FL 9.8 FL Neutrophils (%) (Auto) 85.1 % 96.6 % % Lymphocytes (%) (Auto) 4.8 % 1.4 % % Monocytes (%) (Auto) 7.3 % 0.9 % % Eosinophils (%) (Auto) 2.2 % 0.8 % % Basophils (%) (Auto) 0.6 % 0.3 % % Neutrophils # (Auto) 17.3 TH/MM3 25.3 TH/MM3 TH/MM3 Lymphocytes # (Auto) 1.0 TH/MM3 0.4 TH/MM3 TH/MM3 Monocytes # (Auto) 1.5 TH/MM3 0.2 TH/MM3 TH/MM3 Eosinophils # (Auto) 0.5 TH/MM3 0.2 TH/MM3 TH/MM3 Basophils # (Auto) 0.1 TH/MM3 0.1 TH/MM3 TH/MM3 CBC Comment DIFF FINAL DIFF FINAL AUTO DIFF Differential Comment FINAL DIFF MANUAL Differential Total Cells 100 Counted Neutrophils % (Manual) 92 % Band Neutrophils % 2 % Lymphocytes % 2 % Monocytes % 2 % Eosinophils % 1 % Neutrophils # (Manual) 31.7 TH/MM3 Metamyelocytes 1 % Platelet Estimate NORMAL Platelet Morphology Comment NORMAL Ovalocytes 1+ Laboratory Tests Test 01/23/17 01/23/17 01/24/17 01/24/17 11:56 21:45 06:06 13:00 Ammonia 39 MCMOL/L 45 MCMOL/L Lactic Acid Level 1.9 mmol/L 4.5 mmol/L Sodium Level 136 MEQ/L 137 MEQ/L Potassium Level 3.8 MEQ/L 4.0 MEQ/L Chloride Level 103 MEQ/L 103 MEQ/L Carbon Dioxide Level 25.1 MEQ/L 22.7 MEQ/L Anion Gap 8 MEQ/L 11 MEQ/L Blood Urea Nitrogen 12 MG/DL 12 MG/DL Creatinine 0.89 MG/DL 1.14 MG/DL Estimat Glomerular Filtration 86 ML/MIN 65 ML/MIN Rate Random Glucose 94 MG/DL 97 MG/DL Calcium Level 8.2 MG/DL 8.2 MG/DL Procalcitonin 0.24 ng/mL Phosphorus Level 3.0 MG/DL Magnesium Level 1.7 MG/DL Total Bilirubin 1.0 MG/DL Direct Bilirubin 0.5 MG/DL Indirect Bilirubin 0.5 MG/DL Aspartate Amino Transf 48 U/L (AST/SGOT) Alanine Aminotransferase 40 U/L (ALT/SGPT) Alkaline Phosphatase 560 U/L Lactate Dehydrogenase 425 U/L Total Creatine Kinase 54 U/L Troponin I LESS THAN 0.02 NG/ML Total Protein 6.8 GM/DL Albumin 2.3 GM/DL Thyroid Stimulating Hormone 3.070 uIU/ML 3rd Gen Test 01/25/17 01/25/17 00:00 04:09 Lactic Acid Level 1.9 mmol/L 1.5 mmol/L Sodium Level 139 MEQ/L Potassium Level 3.6 MEQ/L Chloride Level 107 MEQ/L Carbon Dioxide Level 24.6 MEQ/L Anion Gap 7 MEQ/L Blood Urea Nitrogen 16 MG/DL Creatinine 1.12 MG/DL Estimat Glomerular Filtration 66 ML/MIN Rate Random Glucose 100 MG/DL Calcium Level 7.7 MG/DL Phosphorus Level 2.6 MG/DL Magnesium Level 1.7 MG/DL Total Bilirubin 0.6 MG/DL Aspartate Amino Transf 34 U/L (AST/SGOT) Alanine Aminotransferase 31 U/L (ALT/SGPT) Alkaline Phosphatase 395 U/L Ammonia 29 MCMOL/L Total Creatine Kinase 65 U/L Total Protein 5.9 GM/DL Albumin 2.3 GM/DL Microbiology Date/Time Procedure Status Source Growth 01/23/17 13:04 Aerobic Blood Culture - Preliminary Resulted Blood Peripheral NO GROWTH IN 1 DAY 01/23/17 13:04 Anaerobic Blood Culture - Preliminary Resulted Blood Peripheral NO GROWTH IN 1 DAY 01/23/17 13:17 Aerobic Blood Culture - Preliminary Resulted Blood Peripheral NO GROWTH IN 1 DAY 01/23/17 13:17 Anaerobic Blood Culture - Preliminary Resulted Blood Peripheral NO GROWTH IN 1 DAY 01/23/17 14:40 Urine Culture - Final Complete Urine Clean Catch Leilani Albicans 01/24/17 13:00 Aerobic Blood Culture Received Blood Peripheral Pending 01/24/17 13:00 Anaerobic Blood Culture Received Blood Peripheral Pending 01/24/17 13:10 Aerobic Blood Culture Received Blood Peripheral Pending 01/24/17 13:10 Anaerobic Blood Culture Received Blood Peripheral Pending 01/24/17 14:40 Gram Stain - Final Resulted Fluid Peritoneal Fluid 01/24/17 14:40 Body Fluid Culture Resulted Fluid Peritoneal Fluid Pending Imaging Last Impressions Chest X-Ray 01/24/17 1657 Signed Impressions: Service Date/Time: Tuesday, January 24, 2017 17:16 - CONCLUSION: Interval placement of right internal jugular central venous line with no evidence of pneumothorax. Silvano Dubois MD Cyst Biopsy Asp-Paracentesis US 01/24/17 0000 Signed Impressions: Service Date/Time: Tuesday, January 24, 2017 13:34 - CONCLUSION: Uncomplicated ultrasound guided paracentesis. Geremias Ruth MD Abdomen X-Ray 01/24/17 0000 Signed Impressions: Service Date/Time: Tuesday, January 24, 2017 13:47 - CONCLUSION: Nonspecific bowel gas pattern which may represent mild ileus or gastroenteritis. Silvano Dubois MD IVC Filter Placement X-Ray 01/20/17 0836 Signed Impressions: Service Date/Time: January 12:40 - CONCLUSION: Uncomplicated inferior vena cava filter placement as above. Sai Hernández MD Abdomen Ultrasound 01/15/17 0000 Signed Impressions: Service Date/Time: Sunday, January 15, 2017 16:21 - CONCLUSION: 1. Liver cirrhosis with moderate ascites. Splenomegaly. 2. Echogenic kidneys characteristic of medical renal disease with moderate right hydronephrosis and mild left hydronephrosis. Trevon Real MD Lower Extremity Ultrasound 01/14/17 0000 Signed Impressions: Service Date/Time: Saturday, January 14, 2017 17:28 - CONCLUSION: Left iliac and deep femoral DVT. No evidence of DVT on the right. Desmond Villatoro MD Physical Exam GENERAL: awake and alert, looks chronically ill appearing, not toxic appearing , not in respiratory distress. SKIN: Warm and dry. Has some ecchymosis in his upper extremities. No generalized rash. HEENT: [place] conjunctiva. No scleral icterus. No injection or drainage. Nose without bleeding, or purulent drainage. Moist oral mucosa. NECK: Trachea midline. No JVD or lymphadenopathy. Supple, nontender, no meningeal signs. Line with no evidence of infection CARDIOVASCULAR: Regular rate and rhythm without rubs. Has some systolic murmur heard at the apex. RESPIRATORY: Clear to auscultation. Breath sounds equal bilaterally. No wheezes , rales, or rhonchi. Decreased breath sounds at the bases. GASTROINTESTINAL: Abdomen globular and less distended, no tenderness on palpation. Bowel sounds are present and normoactive. Has positive ascites. No rebound. No guarding. MUSCULOSKELETAL: Extremities without clubbing, cyanosis. His LLE is larger compared to his RLE. No calf tenderness. LE edema better NEUROLOGICAL: Awake and alert. Cranial nerves II through XII intact. Five out of 5 muscle strength in all muscle groups. Normal speech. PSYCH: Normal affect, calm and cooperative LINE: TLC with no evidence of infection Assessment & Plan Remarks IMPRESSION Sepsis Fevers, possible sepsis due to source - has dysuria and (+) UA - has not had lion during this admission - no evidence of SBP based on fluid analysis ETOH cirrhosis with protal HT< varices, ascites DVT LLE, has IVC filter GIB, H/H stable Bladder CA, intermittent hematuria Leukocytosis, likely multifactorial RECOMMENDATION Follow C/S IV Zosyn Repeat UA and C/S Continue vancomycin for now Monitor temps Monitor progress Explained plan to patient and daughter D/W Areli Escamlila MD Jan 25, 2017 10:18
--- NOTE | 2017-01-25 10:52 | HHI.CCPN ---
Subjective Remarks/Hospital Course Patient is a 66-year-old male with past medical history significant for alcoholic cirrhosis, esophageal varices, bladder cancer, recent DVT (12/25/16 ) in left leg on therapeutic Lovenox was started noticing melanotic stools predominantly since yesterday. He states that he has noted on all for the last 2 weeks.. Yesterday night he had multiple episodes of melanotic diarrhea. Apparently he is scheduled to undergo cystectomy at [facility], and this is currently hold. Per GI notes, patient was scheduled to have EGD/banding at [facility] on Tuesday. He denies alcohol consumption and last drink was 7 months ago denies any hematemesis. In the emergency department hgb is 4.6, INR 1.4 and WBC 17.8.he has been placed on IV Protonix infusion and octreotide infusion as he has a history of esophageal varices. Blood transfusion had been ordered and is pending at this time. Last EGD colonoscopy was 07/21/16 which showed adenomatous polyps in colon, large esophageal varices in distal esophagus. He was to return in 4 weeks for EGD/band ligation, but apparently patient did not follow-up I evaluated the patient in the ED. He is in [id number] distress and he is pale. His blood pressure is in the 90s. Patient received 1 L of normal saline bolus. I will give 2L additional fluid boluses. Check a lactic acid. I will start him on Rocephin for SBP prophylaxis. Patient will have bedside ultrasound and probable paracentesis once in the ICU. Patient received treatment for hyperkalemia in the ED will repeat K at 5 PM 01/15: Received 7 units PRBCs ordered since admission. Remains normotensive currently. Complains of vague abdominal pain/moaning in room. Answers questions appropriately. Afebrile. Hemoccult positive BM's. 01/16: Afebrile. 2 bowel movements/dark tarry overnight. Hemodynamically stable. Noted EGD revealed gastric ulcers in antrum was biopsied. Gastropathy. Old banding with no esophageal varices. Moderate ascites on ultrasound. Patient at baseline compared yesterday neurologic baseline 01/17: Currently on commode for bowel prep for colonoscopy today. Hemoglobin stable. Denies chest pain or shortness of breath. Afebrile. Hemodynamically stable 01/24: Re consulted secondary to hypotension. Patient had 5.7 L ascites removed today. Tmax 102.8. No chest pain, shortness of breath. Subjective 01/25: Currently afebrile. On 6 L ascites removed yesterday. Off vasopressors. Appears comfortable. Noted elevated WBCs. Objective Vital Signs Date Time Temp Pulse Resp B/P Pulse Ox O2 Delivery O2 Flow Rate FiO2 01/25/17 08:00 99.1 71 12 107/64 99 01/24/17 20:20 Nasal Cannula 3.00 01/22/17 11:34 21 Intake and Output 01/24/17 01/24/17 01/25/17 08:00 16:00 00:00 Intake Total 360 ml 2752 ml Output Total 300 ml 6000 ml 0 ml Balance 60 ml -6000 ml 2752 ml Result Diagram: 01/25/17 0409 01/25/17 0409 Other Results Microbiology Date/Time Procedure Status Source Growth 01/24/17 14:40 Gram Stain - Final Resulted Fluid Peritoneal Fluid 01/24/17 14:40 Body Fluid Culture Resulted Fluid Peritoneal Fluid Pending 01/24/17 13:10 Aerobic Blood Culture Received Blood Peripheral Pending 01/24/17 13:10 Anaerobic Blood Culture Received Blood Peripheral Pending 01/23/17 14:40 Urine Culture - Final Complete Urine Clean Catch Leilani Albicans 01/23/17 13:17 Aerobic Blood Culture - Preliminary Resulted Blood Peripheral NO GROWTH IN 1 DAY 01/23/17 13:17 Anaerobic Blood Culture - Preliminary Resulted Blood Peripheral NO GROWTH IN 1 DAY Imaging Last Impressions Chest X-Ray 01/24/17 1657 Signed Impressions: Service Date/Time: Tuesday, January 24, 2017 17:16 - CONCLUSION: Interval placement of right internal jugular central venous line with no evidence of pneumothorax. Silvano Dubois MD Cyst Biopsy Asp-Paracentesis US 01/24/17 0000 Signed Impressions: Service Date/Time: Tuesday, January 24, 2017 13:34 - CONCLUSION: Uncomplicated ultrasound guided paracentesis. Geremias Ruth MD Abdomen X-Ray 01/24/17 0000 Signed Impressions: Service Date/Time: Tuesday, January 24, 2017 13:47 - CONCLUSION: Nonspecific bowel gas pattern which may represent mild ileus or gastroenteritis. Silvano Dubois MD IVC Filter Placement X-Ray 01/20/17 0836 Signed Impressions: Service Date/Time: January 12:40 - CONCLUSION: Uncomplicated inferior vena cava filter placement as above. Sai Hernández MD Abdomen Ultrasound 01/15/17 0000 Signed Impressions: Service Date/Time: Sunday, January 15, 2017 16:21 - CONCLUSION: 1. Liver cirrhosis with moderate ascites. Splenomegaly. 2. Echogenic kidneys characteristic of medical renal disease with moderate right hydronephrosis and mild left hydronephrosis. Trevon Real MD Lower Extremity Ultrasound 01/14/17 0000 Signed Impressions: Service Date/Time: Saturday, January 14, 2017 17:28 - CONCLUSION: Left iliac and deep femoral DVT. No evidence of DVT on the right. Desmond Villatoro MD Objective Remarks GEN: 66-year-old male, improved quite confused HEENT: Normocephalic; atraumatic NECK: Neck is supple, + JVD, no lymphadenopathy. Right IJ is clean dry and intact CHEST: Chest is clear to auscultation bilaterally without wheezes rales or rhonchi CARDIAC: RRR. S1, S2. No S4. No murmur ABDOMEN: Soft, distended, mild tenderness to palpation; bowel sounds are present in all four quadrants. No succussion splash. EXTREMITIES: With trace edema left lower extremity. SKIN: Warm and dry. No rash NEURO: Cranial nerves II through XII grossly intact. Strength is equal symmetric. Normal sensation. A/P Assessment and Plan NEURO/PSYCH: History of peripheral neuropathy History of EtOH abuse Depression/anxiety -Minimize sedation. -As needed Dilaudid 0.5 every 4 mg when necessary pain Hold home medications of oxycodoneacetaminophen as needed for pain and Neurontin 300 mg 3 times a day at this time. We'll continue thiamine at 100 mg IV daily. On B12 50 by mouth daily folic acid 0.4 mg by mouth daily at home for EtOH use RESP: -Nasal cannula oxygen to maintain saturations greater than equal to 92% currently on 2 L nasal cannula Incentive spirometry while awake Follow-up on chest x-ray CV: Hypotension secondary to hypovolemia/sepsis? History of hypertension Lactic acidosis. Resolved -Normal saline IV fluids 1L bolus now on 50 g albumin 1 . Normal saline currently at 42 cc an hour Previously on low-dose Lasix 20 mEq IV twice a day will resume since currently hemodynamically stable On spironolactone 50 mill grams twice a day at home. This is currently on hold Follow-up on CVP. EKG/ echo ordered. Results pending CT/troponin negative Nils-Synephrine ordered for vasopressor support if needed. GI: GI bleed most likely variceal bleed Ascites/abdominal Liver cirrhosis History of gastroesophageal reflux disease Elevated transaminases likely secondary to EtOH Hypoalbuminemia -GI consulted on admission EGD revealed gastric ulcer in antrum. This is biopsied. Gastropathy. Old banding. No varices. Ultrasound - Liver cirrhosis with moderate ascites. Splenomegaly. -Continue Protonix at 40 mg twice a day -SBP prophylaxis with Rocephin 1 g IV every 24 hours 7 days with upper GI bleed Status post paracentesis 7 L on 01/19. Last 5.7 L 01/24 Renal/: Acute kidney injury - resolved History of bladder cancer/muscular invasive Bilateral hydronephrosis by history right greater than left BPH Ultrasound - Echogenic kidneys characteristic of medical renal disease with moderate right hydronephrosis and mild left hydronephrosis. -Most likely secondary to ATN. Monitor renal function closely. Noted recent CT chest revealed right greater than left hydronephrosis. Currently with adequate urine output. -F/u at [place] for bladder cancer Dr. Simeon discussed with his urologist at [facility], due to his decompensated cirrhosis, recent gi bleeding due to portal htn , poor nutritional status he will high risk for surgery and anesthesia .Reaccumulating ascites Resume Flomax 0.4 mg daily when clinically indicated ID: Start empirically on vancomycin, Zosyn. Pertinent cultures 01/24 - blood cultures 2 - pending 01/23 - urine - pending 01/23 - blood cultures 2 - no growth to date 01/19 - peritoneal fluid - no growth 01/14 - blood cultures 2 - NGTD No obvious source of sepsis present time. Pro-calcitonin /lactate 1.1 HEME: Severe anemia requiring transfusion of 7 units PRBCs Left lower extremity DVT 12/25/16 - left iliac and deep femoral Leukocytosis -Given 7 units of PRBC during this hospitalization -IR consulted for IVC filter placement performed 01/20 Follow-up leukocytosis likely multifactorial ENDO: Hypokalemia - resolved Hypophosphatemia Follow-up on a.m. CMP PROPH: IVC filter, Protonix Critical Care: The total care time was 35 minutes. Time to perform other separately billable procedures was not included in the critical care time. Ramon Mata MD Jan 25, 2017 10:52
[2017-01-25] MEDS: VANCOMYCIN INJ 1,250 MG in SODIUM CHLOR 0.9% 250 ML INJ 250 ML IV SCH (11:37)
[2017-01-25] MEDS: hydrOXYzine HCL 25 MG TAB PO PRN ×2 (12:21→22:18)
--- NOTE | 2017-01-25 12:59 | EKG ---
Date Performed: 01/24/2017 Time Performed: 12:53:30 PTAGE: 66 years EKG: ECTOPIC ATRIAL TACHYCARDIA ABNORMAL RHYTHM ECG PREVIOUS TRACING : 01/14/2017 15.48 Compared to previous tracing, ectopic atrial tachycardia lang s replaced Sinus rhythm . DOCTOR: Jorge Davidson Interpretating Date/Time 01/25/2017 12:57:35
--- NOTE | 2017-01-25 16:31 | EC ---
Study Study Date:01/25/2017 STUDY CONCLUSIONS SUMMARY - Left ventricle: The cavity size was normal. Wall thickness was normal. Systolic function was normal. The estimated ejection fraction was in the range of 60% to 65%. Wall motion was normal; there were no regional wall motion abnormalities. - Aortic valve: Valve area: 2.54cm^2 (Vmax). - Mitral valve: Mild regurgitation. - Tricuspid valve: Mild regurgitation. - Pericardium, extracardiac: A small pericardial effusion cannot be excluded. If LV function is below 40, please consider prescribing an ACEI or ARB or document rationale for non-use. PROCEDURE DATA STUDY STATUS: Elective. Procedure: Transthoracic echocardiography. Image quality was fair. Scanning was performed from the parasternal, apical, and subcostal acoustic windows. Study completion: The patient tolerated the procedure well. Transthoracic echocardiography. M-mode, complete 2D, complete spectral Doppler, and color Doppler. Height: Height: 69in. Weight: Weight: 151.7lb. Body mass index: BMI: 22.4kg/m^2. Body surface area: BSA: 1.84m^2. Patient status: Inpatient. CARDIAC ANATOMY LEFT VENTRICLE: The cavity size was normal. Wall thickness was normal. Systolic function was normal. The estimated ejection fraction was in the range of 60% to 65%. Wall motion was normal; there were no regional wall motion abnormalities. AORTIC VALVE: Trileaflet; normal thickness leaflets. Doppler: Transvalvular velocity was within the normal range. There was no stenosis. No regurgitation. Valve area: 2.54cm^2 (Vmax). Indexed valve area: 1.38cm^2/m^2 (Vmax). AORTA: Aortic root: The aortic root was normal in size. MITRAL VALVE: Structurally normal valve. Doppler: Transvalvular velocity was within the normal range. There was no evidence for stenosis. Mild regurgitation. LEFT ATRIUM: The atrium was normal in size. RIGHT VENTRICLE: The cavity size was normal. Wall thickness was normal. PULMONIC VALVE: Doppler: Transvalvular velocity was within the normal range. There was no evidence for stenosis. No regurgitation. TRICUSPID VALVE: Structurally normal valve. Doppler: Transvalvular velocity was within the normal range. Mild regurgitation. PULMONARY ARTERY: The main pulmonary artery was normal-sized. Systolic pressure was within the normal range. RIGHT ATRIUM: The atrium was normal in size. PERICARDIUM: A small pericardial effusion cannot be excluded. SYSTEMIC VEINS: Inferior vena cava: The vessel was normal in size. Patient weight: 151.7lb _Ejection fraction:_ 65-75% _Fractional shortening:_ 32% up to 5Kg 5-11.5Kg 11.6-22.9Kg 23-45Kg 45-57Kg Aortic Root 7-13 <17 13-22 17-27 17-27 LA diam 6-13 <23 24-38 33-47 37-40 RVID 10-17 7-15 7-15 7-18 8-17 LVIDd 12-22 <32 24-38 33-47 37-40 LVPW 2-4 3-6 5-7 6-8 7-8 IVS 2-4 3-6 5-7 6-8 7-8 BASIC MEASUREMENTS ADULT NORMAL Left ventricle LV internal dimension, ED, chordal *38.4 mm 43-52 level, PLAX LV internal dimension, ES, chordal 27.3 mm 23-38 level, PLAX Fractional shortening, chordal level, *29 % >29 PLAX LV posterior wall thickness, ED 9.5 mm IVS/LVPW ratio, ED 1.01 <1.3 Ventricular septum Septal thickness, ED 9.59 mm Aortic valve Leaflet separation 15 mm 15-26 BASIC MEASUREMENTS ADULT NORMAL Aortic valve Leaflet separation 15 mm 15-26 Aorta Root diameter, ED 27 mm 20-37 Left atrium Anterior-posterior dimension, ES 28 mm 19-40 Anterior-posterior dimension index, ES 1.52 cm/m^2 <2.2 LA/aortic root ratio 1.04 DOPPLER MEASUREMENTS ADULT NORMAL Main pulmonary artery Pressure, S 19 mm Hg =30 Aortic valve Peak velocity, S 118 cm/s Valve area, Vmax 2.54 cm^2 Valve area index, Vmax 1.38 cm^2/m^2 Mitral valve Peak E-wave velocity 63.7 cm/s Peak A-wave velocity 75 cm/s Deceleration time 190 ms 150-230 Peak E/A ratio 0.8 Maximal regurgitant velocity 271 cm/s Tricuspid valve Regurgitant peak velocity 179 cm/s Peak RV-RA gradient, S 13 mm Hg Systemic veins Estimated CVP 10 mm Hg Right ventricle RV pressure, S 23 mm Hg <30 Pulmonic valve Peak velocity, S 97.7 cm/s LEGEND: Mean values are shown as u=mean value. Asterisk (*) ovalles values outside specified normal range. Prepared and signed by Letitia Nolan [id number]
[2017-01-25] MEDS: SPIRONOLACTONE 25 MG TAB PO SCH (18:00)
[2017-01-26] VITALS (11 sets, daily range): BP systolic 109–123; BP diastolic 56–69; PULSE 70–84; RESP 11–20; TEMP 98.9–100.5; O2SAT 97–100
[2017-01-26] MEDS: VANCOMYCIN INJ 1,250 MG in SODIUM CHLOR 0.9% 250 ML INJ 250 ML IV SCH (04:28)
[2017-01-26] MEDS: HYDROmorphone HCL PF 1 MG/ML VIAL IV PRN (04:28)
[2017-01-26] MEDS: PIPERACIL-TAZO 4.5 GM PREMIX 100 ML IV SCH ×3 (04:29→18:08)
[2017-01-26] MEDS: SODIUM CHLOR 0.9% 1000 ML INJ 1,000 ML IV SCH (05:48)
[2017-01-26] MEDS: MULTIVITAMIN TAB PO SCH (08:02)
[2017-01-26] MEDS: FOLIC ACID 1 MG TAB PO SCH (08:03)
[2017-01-26] MEDS: RIFAXIMIN 550 MG TAB PO SCH ×2 (08:03→20:37)
[2017-01-26] MEDS: GABAPENTIN 300 MG CAP PO SCH ×3 (08:03→18:08)
[2017-01-26] MEDS: TAMSULOSIN HCL 0.4 MG CAP PO SCH (08:03)
[2017-01-26] MEDS: SPIRONOLACTONE 25 MG TAB PO SCH ×2 (08:03→18:08)
[2017-01-26] MEDS: POTASSIUM CHLORIDE 20 MEQ CONTROLLED RELEASE TAB PO SCH (08:03)
[2017-01-26] MEDS: THIAMINE HCL 100 MG TAB PO SCH (08:03)
[2017-01-26] MEDS: FERROUS FUMARATE 325 MG TAB (106 MG ELEMENTAL IRON) PO SCH (08:03)
[2017-01-26] MEDS: PANTOPRAZOLE SOD 40 MG DELAYED RELEASE TAB PO SCH ×2 (08:03→20:37)
[2017-01-26] MEDS: ACETAMINOPHEN/HYDROcodone 325 MG/5 MG TAB PO PRN ×2 (08:04→20:37)
[2017-01-26] MEDS: FUROSEMIDE 20 MG/2 ML VIAL IV PUSH SCH (08:04)
[2017-01-26] MEDS: SODIUM CHLORIDE 0.9% FLUSH 10 ML FLUSH IVF SCH (08:04)
[2017-01-26] MEDS: Central Line Short Term Adult 7Fr or larger Daily NS Lock Flush IV FLUSH SCH (08:04)
--- NOTE | 2017-01-26 08:19 | HHI.CCPN ---
Subjective Remarks/Hospital Course Patient is a 66-year-old male with past medical history significant for alcoholic cirrhosis, esophageal varices, bladder cancer, recent DVT (12/25/16 ) in left leg on therapeutic Lovenox was started noticing melanotic stools predominantly since yesterday. He states that he has noted on all for the last 2 weeks.. Yesterday night he had multiple episodes of melanotic diarrhea. Apparently he is scheduled to undergo cystectomy at [facility], and this is currently hold. Per GI notes, patient was scheduled to have EGD/banding at [facility] [place] on Tuesday. He denies alcohol consumption and last drink was 7 months ago denies any hematemesis. In the emergency department hgb is 4.6, INR 1.4 and WBC 17.8.he has been placed on IV Protonix infusion and octreotide infusion as he has a history of esophageal varices. Blood transfusion had been ordered and is pending at this time. Last EGD colonoscopy was 07/21/16 which showed adenomatous polyps in colon, large esophageal varices in distal esophagus. He was to return in 4 weeks for EGD/band ligation, but apparently patient did not follow-up I evaluated the patient in the ED. He is in [id number] distress and he is pale. His blood pressure is in the 90s. Patient received 1 L of normal saline bolus. I will give 2L additional fluid boluses. Check a lactic acid. I will start him on Rocephin for SBP prophylaxis. Patient will have bedside ultrasound and probable paracentesis once in the ICU. Patient received treatment for hyperkalemia in the ED will repeat K at 5 PM 01/15: Received 7 units PRBCs ordered since admission. Remains normotensive currently. Complains of vague abdominal pain/moaning in room. Answers questions appropriately. Afebrile. Hemoccult positive BM's. 01/16: Afebrile. 2 bowel movements/dark tarry overnight. Hemodynamically stable. Noted EGD revealed gastric ulcers in antrum was biopsied. Gastropathy. Old banding with no esophageal varices. Moderate ascites on ultrasound. Patient at baseline compared yesterday neurologic baseline 01/17: Currently on commode for bowel prep for colonoscopy today. Hemoglobin stable. Denies chest pain or shortness of breath. Afebrile. Hemodynamically stable 01/24: Re consulted secondary to hypotension. Patient had 5.7 L ascites removed today. Tmax 102.8. No chest pain, shortness of breath. 01/25: Currently afebrile. On 6 L ascites removed yesterday. Off vasopressors. Appears comfortable. Noted elevated WBCs. Subjective 01/26: Tmax 99.7. Remained normotensive throughout the night. Complaining of nausea currently. Abdomen slightly more distended. Denies chest pain or shortness of breath. Objective Vital Signs Date Time Temp Pulse Resp B/P Pulse Ox O2 Delivery O2 Flow Rate FiO2 01/26/17 08:00 99.7 80 18 110/69 100 01/25/17 20:39 Nasal Cannula 3.00 01/22/17 11:34 21 Intake and Output 01/25/17 01/25/17 01/26/17 08:00 16:00 00:00 Intake Total 672 ml 1338 ml 792 ml Output Total 200 ml Balance 672 ml 1138 ml 792 ml Result Diagram: 01/25/17 0409 01/25/17 0409 Other Results Microbiology Date/Time Procedure Status Source Growth 01/24/17 14:40 Gram Stain - Final Resulted Fluid Peritoneal Fluid 01/24/17 14:40 Body Fluid Culture - Preliminary Resulted Fluid Peritoneal Fluid NO GROWTH IN 24 HOURS. 01/24/17 13:10 Aerobic Blood Culture - Preliminary Resulted Blood Peripheral NO GROWTH IN 1 DAY 01/24/17 13:10 Anaerobic Blood Culture - Preliminary Resulted Blood Peripheral NO GROWTH IN 1 DAY 01/23/17 14:40 Urine Culture - Final Complete Urine Clean Catch [facility] Last Impressions Chest X-Ray 01/24/17 1657 Signed Impressions: Service Date/Time: Tuesday, January 24, 2017 17:16 - CONCLUSION: Interval placement of right internal jugular central venous line with no evidence of pneumothorax. Silvano Dubois MD Cyst Biopsy Asp-Paracentesis US 01/24/17 0000 Signed Impressions: Service Date/Time: Tuesday, January 24, 2017 13:34 - CONCLUSION: Uncomplicated ultrasound guided paracentesis. Geremias Ruth MD Abdomen X-Ray 01/24/17 0000 Signed Impressions: Service Date/Time: Tuesday, January 24, 2017 13:47 - CONCLUSION: Nonspecific bowel gas pattern which may represent mild ileus or gastroenteritis. Silvano Dubois MD IVC Filter Placement X-Ray 01/20/17 0836 Signed Impressions: Service Date/Time: January 12:40 - CONCLUSION: Uncomplicated inferior vena cava filter placement as above. Sai Hernández MD Abdomen Ultrasound 01/15/17 0000 Signed Impressions: Service Date/Time: Sunday, January 15, 2017 16:21 - CONCLUSION: 1. Liver cirrhosis with moderate ascites. Splenomegaly. 2. Echogenic kidneys characteristic of medical renal disease with moderate right hydronephrosis and mild left hydronephrosis. Trevon Real MD Lower Extremity Ultrasound 01/14/17 0000 Signed Impressions: Service Date/Time: Saturday, January 14, 2017 17:28 - CONCLUSION: Left iliac and deep femoral DVT. No evidence of DVT on the right. Desmond Villatoro MD Objective Remarks GEN: 66-year-old male, improved quite confused HEENT: Normocephalic; atraumatic NECK: Neck is supple, + JVD, no lymphadenopathy. Right IJ is clean dry and intact CHEST: Chest is clear to auscultation bilaterally without wheezes rales or rhonchi CARDIAC: RRR. S1, S2. No S4. No murmur ABDOMEN: Soft, distended, mild tenderness to palpation; bowel sounds are present in all four quadrants. No succussion splash. EXTREMITIES: With trace edema left lower extremity. SKIN: Warm and dry. No rash NEURO: Cranial nerves II through XII grossly intact. Strength is equal symmetric. Normal sensation. A/P Assessment and Plan NEURO/PSYCH: History of peripheral neuropathy History of EtOH abuse Depression/anxiety -Minimize sedation. -As needed Dilaudid 0.5 every 4 mg when necessary pain Hold home medications of oxycodoneacetaminophen as needed for pain and Neurontin 300 mg 3 times a day at this time. We'll continue thiamine at 100 mg IV daily. On B12 50 by mouth daily folic acid 0.4 mg by mouth daily at home for EtOH use RESP: -Nasal cannula oxygen to maintain saturations greater than equal to 92% currently on 2 L nasal cannula Incentive spirometry while awake Follow-up on chest x-ray CV: Hypotension secondary to hypovolemia/sepsis? History of hypertension Lactic acidosis. Resolved -Normal saline IV fluids 1L bolus now on 50 g albumin 1 01/24. Normal saline currently at 42 cc an hour to be discontinued Previously on low-dose Lasix 20 mg IV once a day will resume since currently hemodynamically stable On spironolactone 50 mill grams twice a day at home. This is currently been resumed Echocardiogram - EF 60-65%. Mild MR/TR. No regional wall motion abnormality. GI: GI bleed most likely variceal bleed Ascites/abdominal Liver cirrhosis History of gastroesophageal reflux disease Elevated transaminases likely secondary to EtOH Hypoalbuminemia -GI consulted on admission EGD revealed gastric ulcer in antrum. This was biopsied. Gastropathy. Old banding. No varices. Ultrasound - Liver cirrhosis with moderate ascites. Splenomegaly. -Continue Protonix at 40 mg twice a day -SBP prophylaxis with Rocephin 1 g IV every 24 hours 7 days with upper GI bleed likely Status post paracentesis 7 L on 01/19. Last 5.7 L 01/24 Renal/: Acute kidney injury - resolved History of bladder cancer/muscular invasive Bilateral hydronephrosis by history right greater than left BPH Ultrasound - Echogenic kidneys characteristic of medical renal disease with moderate right hydronephrosis and mild left hydronephrosis. -Most likely secondary to ATN. Monitor renal function closely. Noted recent CT chest revealed right greater than left hydronephrosis. Currently with adequate urine output. -F/u at [facility] for bladder cancer Dr. Simeon discussed with his urologist at [facility], due to his decompensated cirrhosis, recent gi bleeding due to portal htn , poor nutritional status he will high risk for surgery and anesthesia .Reaccumulating ascites Resume Flomax 0.4 mg daily when clinically indicated ID: Funguria Start empirically on vancomycin, Zosyn. Pertinent cultures 01/24 - blood cultures 2 -no growth 01/23 - urine -continue to 01/23 - blood cultures 2 - no growth to date 01/19 - peritoneal fluid - no growth 01/14 - blood cultures 2 - NGTD No obvious source of sepsis present time. Pro-calcitonin /lactate 1.1 HEME: Severe anemia requiring transfusion of 7 units PRBCs Left lower extremity DVT 12/25/16 - left iliac and deep femoral Leukocytosis -Given 7 units of PRBC during this hospitalization -IR consulted for IVC filter placement performed 01/20 Follow-up leukocytosis likely multifactorial ENDO: Hypokalemia - resolved Hypophosphatemia Follow-up on a.m. CMP PROPH: IVC filter, Protonix Critical Care: The total care time was 35 minutes. Time to perform other separately billable procedures was not included in the critical care time. Patient is stable from a critical care medicine standpoint. We'll assign care to hospitalist 01/27/2017. Ramon Mata MD Jan 26, 2017 08:19
--- NOTE | 2017-01-26 08:22 | PD.TRANSFR ---
Transfer Summary Admission Date Jan 14, 2017 at 15:04 Admitting Diagnosis gi bleed, hyperkalemia Diagnoses: (1) GI bleed Diagnosis: Principal (2) Hypotension Diagnosis: Principal (3) Anemia requiring transfusions Diagnosis: Principal (4) Leukocytosis Diagnosis: Principal (5) Hyperkalemia Diagnosis: Principal (6) Acute kidney injury Diagnosis: Principal (7) DVT (deep venous thrombosis) Diagnosis: Principal (8) Bladder cancer Diagnosis: Principal (9) Hypertension Diagnosis: Principal (10) Ascites due to alcoholic cirrhosis Diagnosis: Principal Transfer Summary/Subjective This is 66-year-old male admitted with hypotension/upper GI bleed receives 70s. BCs and 2 FFP. He has known history of bladder cancer with muscle invasion. Noted nonbleeding large gastric ulcer currently in Protonix drip. Colonoscopy revealed colonic polyps which were biopsied but no acute findings. Dr. Perry is following him from a heme standpoint. He recommends start heparin drip versus IVC filter which has been ordered by IR for iliac DVT. Reconsult secondary to hypotension after paracentesis. Stable 48 hours. We' ll transfer to floor. I D following for possible infectious etiology. On vancomycin and Zosyn currently. Objective Vital Signs Date Time Temp Pulse Resp B/P Pulse Ox O2 Delivery O2 Flow Rate FiO2 01/26/17 08:00 99.7 80 18 110/69 100 01/25/17 20:39 Nasal Cannula 3.00 01/22/17 11:34 21 Intake and Output 01/25/17 01/25/17 01/26/17 08:00 16:00 00:00 Intake Total 672 ml 1338 ml 792 ml Output Total 200 ml Balance 672 ml 1138 ml 792 ml Result Diagram: 01/25/17 0409 01/25/17 0409 Other Results Microbiology Date/Time Procedure Status Source Growth 01/23/17 14:40 Urine Culture - Final Complete Urine Clean Catch Leilani [facility]icans [facility] Last Impressions Chest X-Ray 01/24/17 1657 Signed Impressions: Service Date/Time: Tuesday, January 24, 2017 17:16 - CONCLUSION: Interval placement of right internal jugular central venous line with no evidence of pneumothorax. Silvano Dubois MD Cyst Biopsy Asp-Paracentesis US 01/24/17 0000 Signed Impressions: Service Date/Time: Tuesday, January 24, 2017 13:34 - CONCLUSION: Uncomplicated ultrasound guided paracentesis. Geremias Ruth MD Abdomen X-Ray 01/24/17 0000 Signed Impressions: Service Date/Time: Tuesday, January 24, 2017 13:47 - CONCLUSION: Nonspecific bowel gas pattern which may represent mild ileus or gastroenteritis. Silvano Dubois MD IVC Filter Placement X-Ray 01/20/17 0836 Signed Impressions: Service Date/Time: January 12:40 - CONCLUSION: Uncomplicated inferior vena cava filter placement as above. Sai Hernández MD Abdomen Ultrasound 01/15/17 0000 Signed Impressions: Service Date/Time: Sunday, January 15, 2017 16:21 - CONCLUSION: 1. Liver cirrhosis with moderate ascites. Splenomegaly. 2. Echogenic kidneys characteristic of medical renal disease with moderate right hydronephrosis and mild left hydronephrosis. Trevon Real MD Lower Extremity Ultrasound 01/14/17 0000 Signed Impressions: Service Date/Time: Saturday, January 14, 2017 17:28 - CONCLUSION: Left iliac and deep femoral DVT. No evidence of DVT on the right. Desmond Villatoro MD Objective Remarks GEN: 66-year-old male, improved quite confused HEENT: Normocephalic; atraumatic NECK: Neck is supple, + JVD, no lymphadenopathy. Right IJ is clean dry and intact CHEST: Chest is clear to auscultation bilaterally without wheezes rales or rhonchi CARDIAC: RRR. S1, S2. No S4. No murmur ABDOMEN: Soft, distended, mild tenderness to palpation; bowel sounds are present in all four quadrants. No succussion splash. EXTREMITIES: With trace edema left lower extremity. SKIN: Warm and dry. No rash NEURO: Cranial nerves II through XII grossly intact. Strength is equal symmetric. Normal sensation. A/P Assessment and Plan NEURO/PSYCH: History of peripheral neuropathy History of EtOH abuse Depression/anxiety -Minimize sedation. -As needed Dilaudid 0.5 every 4 mg when necessary pain Hold home medications of oxycodoneacetaminophen as needed for pain and Neurontin 300 mg 3 times a day at this time. We'll continue thiamine at 100 mg IV daily. On B12 50 by mouth daily folic acid 0.4 mg by mouth daily at home for EtOH use RESP: -Nasal cannula oxygen to maintain saturations greater than equal to 92% currently on 2 L nasal cannula Incentive spirometry while awake Follow-up on chest x-ray CV: Hypotension secondary to hypovolemia/sepsis? History of hypertension Lactic acidosis. Resolved -Normal saline IV fluids 1L bolus now on 50 g albumin 1 01/24. Normal saline currently at 42 cc an hour to be discontinued Previously on low-dose Lasix 20 mg IV once a day will resume since currently hemodynamically stable On spironolactone 50 mill grams twice a day at home. This is currently been resumed Echocardiogram - EF 60-65%. Mild MR/TR. No regional wall motion abnormality. GI: GI bleed most likely variceal bleed Ascites/abdominal Liver cirrhosis History of gastroesophageal reflux disease Elevated transaminases likely secondary to EtOH Hypoalbuminemia -GI consulted on admission EGD revealed gastric ulcer in antrum. This was biopsied. Gastropathy. Old banding. No varices. Ultrasound - Liver cirrhosis with moderate ascites. Splenomegaly. -Continue Protonix at 40 mg twice a day -SBP prophylaxis with Rocephin 1 g IV every 24 hours 7 days with upper GI bleed likely Status post paracentesis 7 L on 01/19. Last 5.7 L 01/24 Renal/: Acute kidney injury - resolved History of bladder cancer/muscular invasive Bilateral hydronephrosis by history right greater than left BPH Ultrasound - Echogenic kidneys characteristic of medical renal disease with moderate right hydronephrosis and mild left hydronephrosis. -Most likely secondary to ATN. Monitor renal function closely. Noted recent CT chest revealed right greater than left hydronephrosis. Currently with adequate urine output. -F/u at [facility] for bladder cancer Dr. Simeon discussed with his urologist at [facility], due to his decompensated cirrhosis, recent gi bleeding due to portal htn , poor nutritional status he will high risk for surgery and anesthesia .Reaccumulating ascites Resume Flomax 0.4 mg daily when clinically indicated ID: Funguria Start empirically on vancomycin, Zosyn. Pertinent cultures 01/24 - blood cultures 2 -no growth 01/23 - urine -continue to 01/23 - blood cultures 2 - no growth to date 01/19 - peritoneal fluid - no growth 01/14 - blood cultures 2 - NGTD No obvious source of sepsis present time. Pro-calcitonin /lactate 1.1 HEME: Severe anemia requiring transfusion of 7 units PRBCs Left lower extremity DVT 12/25/16 - left iliac and deep femoral Leukocytosis -Given 7 units of PRBC during this hospitalization -IR consulted for IVC filter placement performed 01/20 Follow-up leukocytosis likely multifactorial ENDO: Hypokalemia - resolved Hypophosphatemia Follow-up on a.m. CMP PROPH: IVC filter, Protonix Critical Care: The total care time was 35 minutes. Time to perform other separately billable procedures was not included in the critical care time. Patient is stable from a critical care medicine standpoint. We'll assign care to hospitalist 01/27/2017. Ramon Mata MD Jan 26, 2017 08:22
[2017-01-26 11:26] LABS: AUTOMATED NEUTROPHIL # 17.9 TH/MM3 (1.8-7.7); BASOPHIL # 0.1 TH/MM3 (0-0.2); BASOPHIL % 0.4 % (0.0-2.0); EOSINOPHIL # 0.2 TH/MM3 (0-0.4); HEMATOCRIT 24.8 % (39.0-51.0); HEMO FLAGS DIFF FINAL; LYMPH % 2.8 % (9.0-44.0); LYMPHOCYTE # 0.6 TH/MM3 (1.0-4.8); MEAN CELL VOLUME 87.2 FL (80.0-100.0); MEAN CORPUSCULAR HEMOGLOBIN 28.2 PG (27.0-34.0); MEAN CORPUSCULAR HGB CONC 32.3 % (32.0-36.0); MONO % 7.7 % (0.0-8.0); NEUT % 88.1 % (16.0-70.0); PLATELET COUNT 240 TH/MM3 (150-450); RED BLOOD COUNT 2.85 MIL/MM3 (4.50-5.90); WHITE BLOOD COUNT 20.4 TH/MM3 (4.0-11.0)
[2017-01-26 11:46] LABS: BICARBONATE 24.8 MEQ/L (21.0-32.0); POTASSIUM 3.6 MEQ/L (3.5-5.1)
[2017-01-26] MEDS ORDERED: POTASSIUM CHLORIDE 20 MEQ CONTROLLED RELEASE TAB PO ONE (13:15)
[2017-01-26] MEDS: ACETAMINOPHEN 325 MG TAB PO PRN (20:50)
[2017-01-26] MEDS ORDERED: PHARMACY ORDERED LAB ONE (23:45)
[2017-01-27] VITALS (10 sets, daily range): BP systolic 98–144; BP diastolic 57–80; PULSE 69–98; RESP 18–20; TEMP 97.7–98.9; O2SAT 93–99
[2017-01-27] MEDS: ACETAMINOPHEN/HYDROcodone 325 MG/5 MG TAB PO PRN ×5 (00:39→19:54)
[2017-01-27] MEDS: VANCOMYCIN INJ 1,250 MG in SODIUM CHLOR 0.9% 250 ML INJ 250 ML IV SCH (00:45)
[2017-01-27] MEDS: PIPERACIL-TAZO 4.5 GM PREMIX 100 ML IV SCH ×4 (00:46→18:39)
[2017-01-27 01:24] LABS: ALT (GPT) 23 U/L (12-78); ANION GAP 8 MEQ/L (5-15); AST (GOT) 29 U/L (15-37); BICARBONATE 26.9 MEQ/L (21.0-32.0); BLOOD UREA NITROGEN 13 MG/DL (7-18); CHLORIDE 104 MEQ/L (98-107); GLOMERULAR FILTRATION RATE 71 ML/MIN (>89); MAGNESIUM 1.6 MG/DL (1.5-2.5); POTASSIUM 3.6 MEQ/L (3.5-5.1); SODIUM (NA) 139 MEQ/L (136-145)
[2017-01-27 01:27] LABS: ALKALINE PHOSPHATASE 415 U/L (45-117); TOTAL BILIRUBIN ADULT 0.7 MG/DL (0.2-1.0); VANCOMYCIN TROUGH 12.8 MCG/ML (5.0-10.0)
[2017-01-27 05:13] LABS: AUTOMATED NEUTROPHIL # 13.5 TH/MM3 (1.8-7.7); BASOPHIL % 0.2 % (0.0-2.0); EOSINOPHIL # 0.3 TH/MM3 (0-0.4); EOSINOPHIL % 1.6 % (0.0-4.0); HEMATOCRIT 23.4 % (39.0-51.0); HEMO FLAGS DIFF FINAL; LYMPH % 6.5 % (9.0-44.0); LYMPHOCYTE # 1.1 TH/MM3 (1.0-4.8); MEAN CORPUSCULAR HEMOGLOBIN 28.6 PG (27.0-34.0); MEAN CORPUSCULAR HGB CONC 32.8 % (32.0-36.0); MONO % 8.5 % (0.0-8.0); NEUT % 83.2 % (16.0-70.0); PLATELET COUNT 228 TH/MM3 (150-450); RED BLOOD COUNT 2.69 MIL/MM3 (4.50-5.90); RED CELL DISTRIBUTION WIDTH 18.6 % (11.6-17.2); WHITE BLOOD COUNT 16.2 TH/MM3 (4.0-11.0)
--- NOTE | 2017-01-27 08:59 | HHI.PR ---
Subjective Remarks resting comfortably with no distress. no active bleeding. had a low garde fever last night. Objective Vitals Vital Signs Date Time Temp Pulse Resp B/P Pulse Ox O2 Delivery O2 Flow Rate FiO2 01/27/17 04:00 98.5 69 18 104/61 98 01/27/17 00:00 98.4 70 18 115/69 97 01/26/17 21:31 98 Nasal Cannula 3.00 01/26/17 20:14 82 01/26/17 20:00 100.5 82 18 110/56 97 01/26/17 19:45 Room Air 01/26/17 16:00 98.9 84 16 123/69 100 01/26/17 10:00 84 I/O 01/26/17 01/26/17 01/26/17 01/27/17 01/27/17 01/27/17 07:00 15:00 23:00 07:00 15:00 23:00 Intake Total 442 ml 480 ml 740 ml Output Total 300 ml Balance 142 ml 480 ml 740 ml Intake Oral 480 ml 240 ml IV Total 442 ml 500 ml Output Urine Total 300 ml # Voids 2 1 # Bowel Movements 0 0 1 Result Diagram: 01/27/17 0440 01/27/17 0440 Imaging Last Impressions Chest X-Ray 01/24/17 1657 Signed Impressions: Service Date/Time: Tuesday, January 24, 2017 17:16 - CONCLUSION: Interval placement of right internal jugular central venous line with no evidence of pneumothorax. Silvano Dubois MD Cyst Biopsy Asp-Paracentesis US 01/24/17 0000 Signed Impressions: Service Date/Time: Tuesday, January 24, 2017 13:34 - CONCLUSION: Uncomplicated ultrasound guided paracentesis. Geremias Ruth MD Abdomen X-Ray 01/24/17 0000 Signed Impressions: Service Date/Time: Tuesday, January 24, 2017 13:47 - CONCLUSION: Nonspecific bowel gas pattern which may represent mild ileus or gastroenteritis. Silvano Dubois MD IVC Filter Placement X-Ray 01/20/17 0836 Signed Impressions: Service Date/Time: January 12:40 - CONCLUSION: Uncomplicated inferior vena cava filter placement as above. Sai Hernández MD Abdomen Ultrasound 01/15/17 0000 Signed Impressions: Service Date/Time: Sunday, January 15, 2017 16:21 - CONCLUSION: 1. Liver cirrhosis with moderate ascites. Splenomegaly. 2. Echogenic kidneys characteristic of medical renal disease with moderate right hydronephrosis and mild left hydronephrosis. Trevon Real MD Lower Extremity Ultrasound 01/14/17 0000 Signed Impressions: Service Date/Time: Saturday, January 14, 2017 17:28 - CONCLUSION: Left iliac and deep femoral DVT. No evidence of DVT on the right. Desmond Villatoro MD Objective Remarks GENERAL: This is a well-nourished, well-developed patient, in no apparent distress. CARDIOVASCULAR: Regular rate and regular rhythm without murmurs, gallops, or rubs. RESPIRATORY: Clear to auscultation. Breath sounds equal bilaterally. No wheezes , rales, or rhonchi. GASTROINTESTINAL: Abdomen soft, non-tender, mildly distended. Normal, active bowel sounds MUSCULOSKELETAL: Extremities without clubbing, cyanosis, or edema. NEURO: Alert & Oriented x4 to person, place, time, situation. Moves all ext x4 Procedures paracentesis IVC filter placement EGD/ colonoscopy central line placement Medications and IVs Current Medications Sodium Chloride (NS 1000 ml Inj) 1,000 ml @ 1,000 mls/hr Q1H IV Last administered on 01/14/17 16:10; Start 01/14/17 at 13:37; Stop 01/14/17 at 14:36 ; Status DC Sodium Chloride 2 ml 2 ml UNSCH PRN IVF FLUSH AFTER USING IV ACCESS Last administered on 01/22/17 22:53; Start 01/14/17 at 13:45; Stop 01/24/17 at 16:59 ; Status DC Octreotide Acetate 500 mcg/ Sodium Chloride 500.5 ml @ 50 mls/hr Q10H IV Last administered on 01/15/17 10:31; Start 01/14/17 at 13:45; Stop 01/16/17 at 06:46 ; Status DC Pantoprazole Sodium 80 mg/ Sodium Chloride 35 ml @ 420 mls/hr ONCE ONCE IV Last administered on 01/14/17 15:40; Start 01/14/17 at 13:45; Stop 01/14/17 at 13:49; Status DC Pantoprazole Sodium 80 mg/ Sodium Chloride 100 ml @ 10 mls/hr Q10H IV Last administered on 01/18/17 08:12; Start 01/14/17 at 13:45; Stop 01/18/17 at 11:46 ; Status DC Sodium Chloride (NS 250 ml Inj) 250 ml @ 15 mls/hr ONCE ONCE IV Last administered on 01/14/17 16:48; Start 01/14/17 at 14:45; Stop 01/15/17 at 07:24 ; Status DC Calcium Gluconate (Calcium Gluconate Inj) 1 gm ONCE ONCE SLOW IVP Last administered on 01/14/17 16:15; Start 01/14/17 at 15:15; Stop 01/14/17 at 15:16 ; Status DC Insulin Human Regular (NovoLIN R INJ) 10 units ONCE ONCE IV PUSH Last administered on 01/14/17 16:15; Start 01/14/17 at 15:15; Stop 01/14/17 at 15:16 ; Status DC Dextrose (D50w (Vial) Inj) 50 ml ONCE ONCE IV PUSH Last administered on 16:15; Start 01/14/17 at 15:15; Stop 01/14/17 at 15:16; Status DC Sodium Bicarbonate (Sodium Bicarbonate 8.4% Inj) 50 meq ONCE ONCE SLOW IVP Last administered on 01/14/17 16:26; Start 01/14/17 at 15:15; Stop 01/14/17 at 15:16; Status DC Albuterol Sulfate 10 mg 10 mg ONCE ONCE INH Last administered on 01/14/17 17: 07; Start 01/14/17 at 15:15; Stop 01/14/17 at 15:16; Status DC Ceftriaxone Sodium 1000 mg/ Sodium Chloride 100 ml @ 200 mls/hr Q24H IV Last administered on 01/22/17 17:07; Start 01/14/17 at 17:00; Stop 01/23/17 at 16:23 ; Status DC Sodium Chloride 1,000 ml @ 999 mls/hr BOLUS ONCE IV Last administered on 01/14 16:48; Start 01/14/17 at 16:30; Stop 01/14/17 at 17:30; Status DC Sodium Chloride (NS 1000 ml Inj) 1,000 ml @ 125 mls/hr Q8H IV Last administered on 01/15/17 00:19; Start 01/14/17 at 17:00; Stop 01/15/17 at 08:06 ; Status DC Diphenhydramine HCl (Benadryl Inj) 50 mg ONCE ONCE IV PUSH Last administered on 01/14/17 18:15; Start 01/14/17 at 18:00; Stop 01/14/17 at 18:01; Status DC Diphenhydramine HCl (Benadryl Inj) 25 mg ONCE ONCE IV PUSH ; Start 01/14/17 at 18:45; Stop 01/14/17 at 18:46; Status DC Hydromorphone HCl 0.5 mg 0.5 mg Q4H PRN IV BREAKTHROUGH PAIN Last administered on 01/26/17 04:28; Start 01/15/17 at 02:30 Magnesium Sulfate/ Dextrose (Magnesium Sulfate 1 Gm Premix) 100 ml @ 100 mls/ hr Q1H IV ; Start 01/15/17 at 08:15; Stop 01/15/17 at 10:14; Status DC Furosemide 20 mg 20 mg BID@09,18 IV PUSH Last administered on 01/21/17 08:38; Start 01/15/17 at 09:00; Stop 01/21/17 at 09:41; Status DC Sodium Chloride 1,000 ml @ 42 mls/hr [id number] IV Last administered on 05:48; Start 01/15/17 at 08:15; Stop 01/26/17 at 08:13; Status DC Thiamine HCl/ Sodium Chloride (Thiamine Inj/NS Inj) 101 ml @ 101 mls/hr DAILY IV Last administered on 01/21/17 08:37; Start 01/15/17 at 09:00; Stop at 09:33; Status DC Propofol (Diprivan 200 Mg/20 ml Inj) 100 mg STK-MED ONCE IV ; Start 01/15/17 at 13:09; Stop 01/15/17 at 13:19; Status DC Polyethylene Glycol/ Electrolytes 4000 ml 4,000 ml ONCE ONCE PO Last administered on 01/16/17 16:06; Start 01/16/17 at 16:00; Stop 01/16/17 at 16:01 ; Status DC Sodium Phosphate/ Sodium Chloride (Sodium Phosphate Inj/NS 250 ml Inj) 260 ml @ 43.333 mls/ hr ONCE ONCE IV Last administered on 01/17/17 09:00; Start at 09:00; Stop 01/17/17 at 14:59; Status DC Folic Acid (Folate) 1 mg DAILY PO Last administered on 01/26/17 08:03; Start 01/17/17 at 09:00 Gabapentin (Neurontin) 300 mg TID PO Last administered on 01/26/17 18:08; Start 01/17/17 at 09:00 Tamsulosin HCl (Flomax) 0.4 mg DAILY PO Last administered on 01/26/17 08:03; Start 01/17/17 at 09:00 Ferrous Fumarate (Hemocyte) 325 mg DAILY PO Last administered on 01/26/17 08: 03; Start 01/17/17 at 09:00 Multivitamins (Theragran) 1 tab DAILY PO Last administered on 01/26/17 08:02; Start 01/17/17 at 09:00 Ketamine HCl (Ketalar Inj) 20 mg STK-MED ONCE IV ; Start 01/15/17 at 12:00; Stop 01/17/17 at 08:49; Status DC Propofol (Diprivan 200 Mg/20 ml Inj) 40 mg STK-MED ONCE IV ; Start 01/17/17 at 13:30; Stop 01/17/17 at 14:19; Status DC Miscellaneous Information ALL NURSING DEPARTME... UNSCH PRN .XX SEE LABEL COMMENTS; Start 01/17/17 at 14:09; Stop 01/18/17 at 14:08; Status DC Midazolam HCl (Versed Inj) 2 mg STK-MED ONCE .ROUTE ; Start 01/17/17 at 14:51; Stop 01/17/17 at 14:52; Status DC Fentanyl Citrate (fentaNYL INJ) 100 mcg STK-MED ONCE .ROUTE ; Start 01/17/17 at 14:51; Stop 01/17/17 at 14:52; Status DC Potassium Chloride 60 meq 60 meq ONCE ONCE PO Last administered on 01/18/17 08:02; Start 01/18/17 at 07:30; Stop 01/18/17 at 07:31; Status DC Heparin Sodium/ Dextrose (Heparin-D5W Inj) 250 ml @ 0 mls/hr TITRATE IV Last administered on 01/20/17 03:35; Start 01/18/17 at 08:15; Stop 01/20/17 at 08:37 ; Status DC Pantoprazole Sodium (Protonix) 40 mg Q12HR PO Last administered on 01/26/17 20 :37; Start 01/18/17 at 21:00 Rifaximin (Xifaxan) 550 mg BID PO Last administered on 01/26/17 20:37; Start 01/18/17 at 21:00 Albumin Human (Albumin 25% Inj) 25 gm ONCE ONCE IV Last administered on 07:10; Start 01/19/17 at 08:00; Stop 01/19/17 at 08:01; Status DC Hydromorphone HCl (Dilaudid Pf Inj) 0.5 mg STAT ONCE IV Last administered on 09:49; Start 01/19/17 at 09:45; Stop 01/19/17 at 09:46; Status DC Albumin Human (Albumin 25% Inj) ONCE ONCE IV Last administered on 01/19/17 15:09; Start 01/19/17 at 15:00; Stop 01/19/17 at 15:01; Status DC Acetaminophen (Tylenol) 650 mg Q6H PRN PO SEE LABEL COMMENTS Last administered on 01/26/17 20:50; Start 01/19/17 at 17:45 Iohexol (Omnipaque 350 Inj) 50 ml STK-MED ONCE .XX Last administered on 13:22; Start 01/20/17 at 13:22; Stop 01/20/17 at 13:23; Status DC Vancomycin HCl (Vancomycin Inj) 1,000 mg STK-MED ONCE IV Last administered on 12:50; Start 01/20/17 at 12:50; Stop 01/20/17 at 13:29; Status DC Fentanyl Citrate (fentaNYL INJ) 100 mcg STK-MED ONCE IV Last administered on 12:50; Start 01/20/17 at 12:50; Stop 01/20/17 at 13:30; Status DC Potassium Chloride 60 meq 60 meq ONCE ONCE PO Last administered on 01/21/17 06:36; Start 01/21/17 at 06:45; Stop 01/21/17 at 06:46; Status DC Potassium Chloride (KCl 20 Meq Premix Inj) 100 ml @ 50 mls/hr ONCE ONCE IV Last administered on 01/21/17 06:36; Start 01/21/17 at 06:30; Stop 01/21/17 at 08:29; Status DC Thiamine HCl (Vitamin B1) 100 mg DAILY PO Last administered on 01/26/17 08:03 ; Start 01/22/17 at 09:00 Potassium Chloride (KCl) 20 meq DAILY PO Last administered on 01/26/17 08:03; Start 01/22/17 at 09:00 Furosemide (Lasix Inj) 20 mg DAILY IV PUSH Last administered on 01/26/17 08:04 ; Start 01/22/17 at 09:00 Lactulose (Lactulose Liq) 30 ml DAILY PRN PO cirrhosis/encephalopathy; Start at 09:45 Aminocaproic Acid 250 mg 250 mg STK-MED ONCE IV ; Start 01/17/17 at 05:00; Stop 01/21/17 at 09:49; Status DC Cefazolin Sodium/ Dextrose (Ancef 2 Gm Premix) 50 ml @ As Directed STK-MED ONCE IV ; Start 01/17/17 at 05:00; Stop 01/21/17 at 09:49; Status DC Heparin Sodium (Porcine) (Heparin Inj) 10,000 units STK-MED ONCE SQ ; Start at 05:00; Stop 01/21/17 at 09:49; Status DC Phenylephrine HCl 10 mg 10 mg STK-MED ONCE IV ; Start 01/17/17 at 05:00; Stop at 09:49; Status DC Nitroglycerin/ Dextrose (Nitroglycerin-Dextrose Inj) 250 ml @ As Directed STK- MED ONCE IV ; Start 01/17/17 at 05:00; Stop 01/21/17 at 09:49; Status DC Acetaminophen 1000 mg 1,000 mg STK-MED ONCE IV ; Start 01/17/17 at 05:00; Stop 01/21/17 at 09:49; Status DC Dexmedetomidine HCl (Precedex Inj) 50 ml @ As Directed STK-MED ONCE IV ; Start 01/17/17 at 05:00; Stop 01/21/17 at 09:50; Status DC Glycopyrrolate (Robinul Inj) 0.2 mg STK-MED ONCE IV ; Start 01/17/17 at 05:00; Stop 01/21/17 at 09:50; Status DC Potassium Chloride (KCl) 40 meq ONCE ONCE PO ; Start 01/21/17 at 19:45; Stop at 19:50; Status DC Acetaminophen/ Hydrocodone Bitart 1 tab 1 tab Q4H PRN PO PAIN 2-10 Last administered on 01/27/17 04:43; Start 01/22/17 at 11:15 Ceftriaxone Sodium/Sodium Chloride (Rocephin Inj/NS Inj) 100 ml @ 200 mls/hr Q24H IV Last administered on 01/24/17 16:56; Start 01/23/17 at 18:00; Stop at 17:12; Status DC Acetaminophen (Ofirmev Inj) 1,000 mg ONCE ONCE IV Last administered on 13:00; Start 01/24/17 at 12:45; Stop 01/24/17 at 12:46; Status DC Acetaminophen (Ofirmev Inj) 1,000 mg Q8HR PRN IV high grade fevers >101; Start 01/24/17 at 12:45 Albumin Human (Albumin 25% Inj) 25 gm ONCE ONCE IV Last administered on 16:56; Start 01/24/17 at 16:15; Stop 01/24/17 at 16:16; Status DC Albumin Human (Albumin 25% Inj) 12.5 gm ONCE ONCE IV Last administered on 01/24 16:55; Start 01/24/17 at 16:15; Stop 01/24/17 at 16:16; Status DC Sodium Chloride (NS Flush) DAILY IVF Last administered on 01/26/17 08:04; Start 01/25/17 at 09:00 Sodium Chloride UNSCH PRN IVF SEE PROTOCOL; Start 01/24/17 at 17:00 Sodium Chloride (NS 1000 ml Inj) 1,000 ml @ 999 mls/hr BOLUS ONCE IV Last administered on 01/24/17 17:15; Start 01/24/17 at 17:15; Stop 01/24/17 at 18:15 ; Status DC Albumin Human 50 gm 50 gm ONCE ONCE IV Last administered on 01/24/17 17:56; Start 01/24/17 at 17:15; Stop 01/24/17 at 17:16; Status DC Pharmacy Profile Note 0 ml @ 0 mls/hr UNSCH OTHER ; Start 01/24/17 at 17:15 Cefepime HCl 2000 mg/Sodium Chloride 100 ml @ 200 mls/hr Q8H IV ; Start at 17:15; Stop 01/24/17 at 17:15; Status DC Piperacillin Sod/ Tazobactam Sod (Zosyn 4.5 Gm Premix) 100 ml @ 200 mls/hr Q6H IV Last administered on 01/27/17 04:43; Start 01/24/17 at 18:00 Terbutaline Sulfate 1 mg 1 mg UNSCH PRN SQ For Extravasation; Start 01/24/17 at 17:15; Stop 01/26/17 at 08:13; Status DC Phenylephrine HCl 160 mg/Dextrose 500 ml @ 0 mls/hr TITRATE IV Last administered on 01/24/17 17:57; Start 01/24/17 at 17:15; Stop 01/26/17 at 08:13 ; Status DC Vancomycin HCl/ Sodium Chloride (Vancomycin Inj/ NS 250 ml Inj) 262.5 ml @ 250 mls/hr Q18H IV Last administered on 01/27/17 00:45; Start 01/24/17 at 18:00; Stop 01/27/17 at 08:22; Status DC Miscellaneous Information SPECIFIC LAB TO BE DRAWN:VANCOMYCIN TROUGH DATE TO... ONCE ONCE .XX Last administered on 01/26/17 23:45; Start 01/26/17 at 23:45; Stop 01/26/17 at 23:46; Status DC Sodium Chloride (NS Flush) DAILY IV FLUSH Last administered on 01/26/17 08:04 ; Start 01/25/17 at 09:00 Sodium Chloride (NS Flush) UNSCH PRN IV FLUSH SEE PROTOCOL TABLE; Start at 17:45 Hydroxyzine HCl (Atarax) 25 mg Q8H PRN PO pruritis Last administered on 22:18; Start 01/25/17 at 12:00 Spironolactone (Aldactone) 25 mg BID@09,18 PO Last administered on 01/26/17 18 :08; Start 01/25/17 at 18:00 Ondansetron HCl (Zofran Inj) 4 mg Q6HR PRN IV PUSH NAUSEA; Start 01/26/17 at 08 :15 Potassium Chloride 20 meq 20 meq ONCE ONCE PO Last administered on 01/26/17t 14:05; Start 01/26/17 at 13:15; Stop 01/26/17 at 13:16; Status DC Vancomycin HCl/ Sodium Chloride (Vancomycin Inj/ NS 500 ml Inj) 515 ml @ 250 mls/hr Q18H IV ; Start 01/27/17 at 18:00 Miscellaneous Information SPECIFIC LAB TO BE DRAWN:VANCOMYCIN TROUGH DATE TO... ONCE ONCE .XX ; Start 01/29/17 at 23:45; Stop 01/29/17 at 23:46 A/P Assessment and Plan A/P Hypotension secondary to hypovolemia/sepsis?-resolved. History of hypertension Lactic acidosis. Resolved Normal saline currently at 42 cc an hour to be discontinued continue lasix and aldactone Echocardiogram - EF 60-65%. Mild MR/TR. No regional wall motion abnormality. GI bleed most likely variceal bleed Ascites/abdominal Liver cirrhosis History of gastroesophageal reflux disease Elevated transaminases likely secondary to EtOH Hypoalbuminemia -GI consulted on admission EGD revealed gastric ulcer in antrum. This was biopsied. Gastropathy. Old banding. No varices. Ultrasound - Liver cirrhosis with moderate ascites. Splenomegaly. -Continue Protonix at 40 mg twice a day Status post paracentesis 7 L on 01/19. Last 5.7 L 01/24 History of peripheral neuropathy History of EtOH abuse Depression/anxiety -Minimize sedation. -As needed Dilaudid 0.5 every 4 mg when necessary pain Hold home medications of oxycodoneacetaminophen as needed for pain and Neurontin 300 mg 3 times a day at this time. We'll continue thiamine and folic acid. Acute kidney injury - resolved History of bladder cancer/muscular invasive Bilateral hydronephrosis by history right greater than left BPH Ultrasound - Echogenic kidneys characteristic of medical renal disease with moderate right hydronephrosis and mild left hydronephrosis. Noted recent CT chest revealed right greater than left hydronephrosis. Currently with adequate urine output. -F/u at [facility] for bladder cancer Dr. Simeon discussed with his urologist at [facility], due to his decompensated cirrhosis, recent gi bleeding due to portal htn , poor nutritional status he will high risk for surgery and anesthesia . evaluated by Urology- recommended f/u with [facility]. Funguria Started empirically on vancomycin, Zosyn. Pertinent cultures 01/24 - blood cultures 2 -no growth 01/23 - urine -continue to 01/23 - blood cultures 2 - no growth to date 01/19 - peritoneal fluid - no growth 01/14 - blood cultures 2 - NGTD ID following. Severe anemia requiring transfusion of 7 units PRBCs Left lower extremity DVT 12/25/16 - left iliac and deep femoral Leukocytosis -Given 7 units of PRBC during this hospitalization -s/p IVC filter placement performed 01/20 Follow-up leukocytosis likely multifactorial evaluated by hematology. Hypokalemia - resolved Hypophosphatemia-resolved PROPH: IVC filter, Protonix continue PT. Discharge Planning possible rehab- within the next 2-3 days if stable. Vance Frazier MD Jan 27, 2017 08:59
[2017-01-27] MEDS: ONDANSETRON HCL 4 MG/2 ML VIAL IV PUSH PRN ×2 (09:34→18:38)
[2017-01-27] MEDS: THIAMINE HCL 100 MG TAB PO SCH (09:38)
[2017-01-27] MEDS: FUROSEMIDE 20 MG/2 ML VIAL IV PUSH SCH (09:38)
[2017-01-27] MEDS: FOLIC ACID 1 MG TAB PO SCH (09:39)
[2017-01-27] MEDS: MULTIVITAMIN TAB PO SCH (09:39)
[2017-01-27] MEDS: SPIRONOLACTONE 25 MG TAB PO SCH ×2 (09:39→18:38)
[2017-01-27] MEDS: RIFAXIMIN 550 MG TAB PO SCH ×2 (09:39→19:53)
[2017-01-27] MEDS: POTASSIUM CHLORIDE 20 MEQ CONTROLLED RELEASE TAB PO SCH (09:39)
[2017-01-27] MEDS: TAMSULOSIN HCL 0.4 MG CAP PO SCH (09:39)
[2017-01-27] MEDS: GABAPENTIN 300 MG CAP PO SCH ×3 (09:39→18:38)
[2017-01-27] MEDS: PANTOPRAZOLE SOD 40 MG DELAYED RELEASE TAB PO SCH ×2 (09:39→19:53)
[2017-01-27] MEDS: FERROUS FUMARATE 325 MG TAB (106 MG ELEMENTAL IRON) PO SCH (09:58)
[2017-01-27] MEDS: Central Line Short Term Adult 7Fr or larger Daily NS Lock Flush IV FLUSH SCH (09:58)
[2017-01-27] MEDS: SODIUM CHLORIDE 0.9% FLUSH 10 ML FLUSH IVF SCH (09:58)
[2017-01-27 12:01] LABS: BACTERIA, URINE OCC /hpf; BLOOD, URINE LARGE (NEG); COMMENT (UR) CULTURE INDICATED; CULTURE IF INDICATED CULTURE INDICATED; GLUCOSE,URINE NEG (NEG); KETONE, URINE NEG (NEG); NITRITE,URINE NEG (NEG); SQUAMOUS EPITHELIAL CELL URINE <1 /hpf (0-5); URINE COLOR YELLOW (YELLW/STRAW)
[2017-01-27] MEDS: HYDROmorphone HCL PF 1 MG/ML VIAL IV PRN ×2 (12:46→22:00)
--- NOTE | 2017-01-27 13:29 | HHI.IDPN ---
Subjective Subjective Remarks Notes reviewed D/W RN One low grade temps last night Had some nausea Temps ok now Repeat UC pending UC with low colony count Leilani albicans BC negative CXR ok WBC down to 16K Antibiotics Zosyn Vancomycin Lines RIJ TLC - 01/24 Past Medical History Liver cirrhosis Varices LLE DVT diagnosed Invasive bladder cancer GERD Hyperlipidemia Anxiety/depression BPH Past Surgical History EGD/colonoscopy on 07/21/16 Cystoscopy with TURP Umbilical hernia repair Inguinal hernia repair Allergies: Uncoded Allergies: BCG TREATMENT (Adverse Reaction, Severe, HTYPOTENSION , 12/25/16) Objective . Vital Signs Date Time Temp Pulse Resp B/P Pulse Ox O2 Delivery O2 Flow Rate FiO2 01/27/17 12:00 98.2 78 18 143/80 99 01/27/17 10:04 96 21 01/27/17 08:00 98.5 75 18 114/65 98 01/27/17 04:00 98.5 69 18 104/61 98 01/27/17 00:00 98.4 70 18 115/69 97 01/26/17 21:31 98 Nasal Cannula 3.00 01/26/17 20:14 82 01/26/17 20:00 100.5 82 18 110/56 97 01/26/17 19:45 Room Air 01/26/17 16:00 98.9 84 16 123/69 100 01/26/17 01/26/17 01/27/17 15:00 23:00 07:00 Intake Total 480 ml 740 ml Balance 480 ml 740 ml Intake Oral 480 ml 240 ml IV Total 500 ml # Voids 2 1 # Bowel Movements 0 1 . Laboratory Tests Test 01/26/17 01/27/17 10:56 04:40 White Blood Count 20.4 TH/MM3 16.2 TH/MM3 Red Blood Count 2.85 MIL/MM3 2.69 MIL/MM3 Hemoglobin 8.0 GM/DL 7.7 GM/DL Hematocrit 24.8 % 23.4 % Mean Corpuscular Volume 87.2 FL 87.0 FL Mean Corpuscular Hemoglobin 28.2 PG 28.6 PG Mean Corpuscular Hemoglobin 32.3 % 32.8 % Concent Red Cell Distribution Width 18.0 % 18.6 % Platelet Count 240 TH/MM3 228 TH/MM3 Mean Platelet Volume 9.7 FL 9.7 FL Neutrophils (%) (Auto) 88.1 % 83.2 % Lymphocytes (%) (Auto) 2.8 % 6.5 % Monocytes (%) (Auto) 7.7 % 8.5 % Eosinophils (%) (Auto) 1.0 % 1.6 % Basophils (%) (Auto) 0.4 % 0.2 % Neutrophils # (Auto) 17.9 TH/MM3 13.5 TH/MM3 Lymphocytes # (Auto) 0.6 TH/MM3 1.1 TH/MM3 Monocytes # (Auto) 1.6 TH/MM3 1.4 TH/MM3 Eosinophils # (Auto) 0.2 TH/MM3 0.3 TH/MM3 Basophils # (Auto) 0.1 TH/MM3 0.0 TH/MM3 CBC Comment DIFF FINAL DIFF FINAL Differential Comment Laboratory Tests Test 01/26/17 01/26/17 01/27/17 01/27/17 06:25 10:56 00:40 04:40 Ammonia 32 MCMOL/L Sodium Level 138 MEQ/L 139 MEQ/L Potassium Level 3.6 MEQ/L 3.6 MEQ/L Chloride Level 103 MEQ/L 104 MEQ/L Carbon Dioxide Level 24.8 MEQ/L 26.9 MEQ/L Anion Gap 10 MEQ/L 8 MEQ/L Blood Urea Nitrogen 14 MG/DL 13 MG/DL Creatinine 1.17 MG/DL 1.05 MG/DL 1.08 MG/DL Estimat Glomerular Filtration 63 ML/MIN 71 ML/MIN 69 ML/MIN Rate Random Glucose 157 MG/DL 82 MG/DL Calcium Level 8.0 MG/DL 8.0 MG/DL Phosphorus Level 2.7 MG/DL Magnesium Level 1.6 MG/DL Total Bilirubin 0.7 MG/DL Aspartate Amino Transf 29 U/L (AST/SGOT) Alanine Aminotransferase 23 U/L (ALT/SGPT) Alkaline Phosphatase 415 U/L Total Protein 6.0 GM/DL Albumin 2.1 GM/DL Lactic Acid Level 2.0 mmol/L Microbiology Date/Time Procedure Status Source Growth 01/24/17 14:40 Gram Stain - Final Complete Fluid Peritoneal Fluid 01/24/17 14:40 Body Fluid Culture - Final Complete Fluid Peritoneal Fluid NO GROWTH IN 72 HRS.--AEROBICALLY OR ... 01/27/17 11:25 Urine Culture Received Urine Clean Catch Pending Imaging Last Impressions Chest X-Ray 01/24/17 [id number] Signed Impressions: Service Date/Time: Tuesday, January 24, 2017 17:16 - CONCLUSION: Interval placement of right internal jugular central venous line with no evidence of pneumothorax. Silvano Dubois MD Cyst Biopsy Asp-Paracentesis US 01/24/17 0000 Signed Impressions: Service Date/Time: Tuesday, January 24, 2017 13:34 - CONCLUSION: Uncomplicated ultrasound guided paracentesis. Geremias Ruth MD Abdomen X-Ray 01/24/17 0000 Signed Impressions: Service Date/Time: Tuesday, January 24, 2017 13:47 - CONCLUSION: Nonspecific bowel gas pattern which may represent mild ileus or gastroenteritis. Silvano Dubois MD IVC Filter Placement X-Ray 01/20/17 0836 Signed Impressions: Service Date/Time: January 12:40 - CONCLUSION: Uncomplicated inferior vena cava filter placement as above. Sai Hernández MD Abdomen Ultrasound 01/15/17 0000 Signed Impressions: Service Date/Time: Sunday, January 15, 2017 16:21 - CONCLUSION: 1. Liver cirrhosis with moderate ascites. Splenomegaly. 2. Echogenic kidneys characteristic of medical renal disease with moderate right hydronephrosis and mild left hydronephrosis. Trevon Real MD Lower Extremity Ultrasound 01/14/17 0000 Signed Impressions: Service Date/Time: Saturday, January 14, 2017 17:28 - CONCLUSION: Left iliac and deep femoral DVT. No evidence of DVT on the right. Desmond Villatoro MD Physical Exam GENERAL: resting, not in respiratory distress. SKIN: Warm and dry. No generalized rash. HEENT: [place] conjunctiva. No scleral icterus. No injection or drainage. Nose without bleeding, or purulent drainage. Moist oral mucosa. NECK: Supple, nontender, no meningeal signs. Line with no evidence of infection CARDIOVASCULAR: Regular rate and rhythm without rubs. Has some systolic murmur heard at the apex. RESPIRATORY: Clear to auscultation. Breath sounds equal bilaterally. No wheezes , rales, or rhonchi. Decreased breath sounds at the bases. GASTROINTESTINAL: Abdomen globular and less distended, no tenderness on palpation. Bowel sounds are present and normoactive. Has positive ascites. No rebound. No guarding. MUSCULOSKELETAL: Extremities without clubbing, cyanosis. His LLE is larger compared to his RLE. No calf tenderness. LE edema better NEUROLOGICAL: Non-focal PSYCH: Normal affect, calm and cooperative LINE: TLC with no evidence of infection Assessment & Plan Remarks IMPRESSION Sepsis, better Fevers, possible sepsis due to source - better - has dysuria and (+) UA - has not had lion during this admission - no evidence of SBP based on fluid analysis ETOH cirrhosis with protal HT< varices, ascites DVT LLE, has IVC filter GIB, H/H stable Bladder CA, intermittent hematuria Leukocytosis, likely multifactorial, improving RECOMMENDATION Follow new C/S Continue IV Zosyn Stop vancomycin Monitor temps Monitor progress D/W Areli Escamilla MD Jan 27, 2017 13:29
[2017-01-27] MEDS ORDERED: VANCOMYCIN INJ 1,500 MG in SODIUM CHLORID 0.9% 500 ML INJ 500 ML IV SCH (18:00)
[2017-01-27] MEDS: Central Line Short Term Adult 7Fr or larger PRN NS Lock Flush IV FLUSH (22:01)
[2017-01-28] VITALS (11 sets, daily range): BP systolic 94–116; BP diastolic 55–70; PULSE 72–97; RESP 16–20; TEMP 98.2–102.6; O2SAT 91–98
[2017-01-28] MEDS: HYDROmorphone HCL PF 1 MG/ML VIAL IV PRN ×2 (03:38→07:45)
[2017-01-28] MEDS: Central Line Short Term Adult 7Fr or larger PRN NS Lock Flush IV FLUSH (03:39)
[2017-01-28] MEDS: PIPERACIL-TAZO 4.5 GM PREMIX 100 ML IV SCH ×5 (05:58→23:17)
[2017-01-28] MEDS: ACETAMINOPHEN/HYDROcodone 325 MG/5 MG TAB PO PRN ×5 (05:58→23:17)
[2017-01-28 07:16] LABS: AUTOMATED NEUTROPHIL # 13.7 TH/MM3 (1.8-7.7); BASOPHIL # 0.1 TH/MM3 (0-0.2); BASOPHIL % 0.5 % (0.0-2.0); EOSINOPHIL # 0.4 TH/MM3 (0-0.4); EOSINOPHIL % 2.2 % (0.0-4.0); HEMO FLAGS DIFF FINAL; LYMPH % 6.6 % (9.0-44.0); LYMPHOCYTE # 1.1 TH/MM3 (1.0-4.8); MEAN CELL VOLUME 86.9 FL (80.0-100.0); MEAN CORPUSCULAR HEMOGLOBIN 27.8 PG (27.0-34.0); MEAN CORPUSCULAR HGB CONC 32.1 % (32.0-36.0); MONO % 9.1 % (0.0-8.0); NEUT % 81.6 % (16.0-70.0); PLATELET COUNT 292 TH/MM3 (150-450); RED CELL DISTRIBUTION WIDTH 18.2 % (11.6-17.2); WHITE BLOOD COUNT 16.8 TH/MM3 (4.0-11.0)
[2017-01-28] MEDS: FOLIC ACID 1 MG TAB PO SCH (07:45)
[2017-01-28] MEDS: THIAMINE HCL 100 MG TAB PO SCH (07:45)
[2017-01-28] MEDS: POTASSIUM CHLORIDE 20 MEQ CONTROLLED RELEASE TAB PO SCH (07:45)
[2017-01-28] MEDS: PANTOPRAZOLE SOD 40 MG DELAYED RELEASE TAB PO SCH ×2 (07:46→20:57)
[2017-01-28] MEDS: SPIRONOLACTONE 25 MG TAB PO SCH ×2 (07:46→18:45)
[2017-01-28] MEDS: RIFAXIMIN 550 MG TAB PO SCH ×2 (07:46→20:57)
[2017-01-28] MEDS: MULTIVITAMIN TAB PO SCH (07:46)
[2017-01-28] MEDS: GABAPENTIN 300 MG CAP PO SCH ×3 (07:46→17:04)
[2017-01-28] MEDS: TAMSULOSIN HCL 0.4 MG CAP PO SCH (07:46)
[2017-01-28] MEDS: FERROUS FUMARATE 325 MG TAB (106 MG ELEMENTAL IRON) PO SCH (07:46)
[2017-01-28] MEDS: Central Line Short Term Adult 7Fr or larger Daily NS Lock Flush IV FLUSH SCH (07:47)
[2017-01-28] MEDS: FUROSEMIDE 20 MG/2 ML VIAL IV PUSH SCH (07:47)
--- NOTE | 2017-01-28 08:48 | HHI.PR ---
Subjective Remarks resting comfortably with no distress. denies pain. no fever. overall doing fine. no new complaints. Objective Vitals Vital Signs Date Time Temp Pulse Resp B/P Pulse Ox O2 Delivery O2 Flow Rate FiO2 01/28/17 08:00 98.5 80 18 116/63 97 01/28/17 07:53 Room Air 01/28/17 04:00 98.6 83 16 110/70 97 01/28/17 00:01 98.9 78 16 102/63 91 01/28/17 00:01 Room Air 01/27/17 22:35 98 21 01/27/17 20:00 98.9 79 20 98/57 97 01/27/17 20:00 Room Air 01/27/17 16:00 97.7 98 18 144/63 93 01/27/17 12:00 98.2 78 18 143/80 99 01/27/17 10:04 96 21 I/O 01/27/17 01/27/17 01/27/17 01/28/17 01/28/17 01/28/17 07:00 15:00 23:00 07:00 15:00 23:00 Intake Total 740 ml 1200 ml 800 ml 180 ml Balance 740 ml 1200 ml 800 ml 180 ml Intake Oral 240 ml 1200 ml 700 ml 180 ml IV Total 500 ml 100 ml # Voids 1 4 5 2 # Bowel Movements 1 0 1 Result Diagram: 01/28/17 0655 01/27/17 0440 Imaging Last Impressions Chest X-Ray 01/24/17 1657 Signed Impressions: Service Date/Time: Tuesday, January 24, 2017 17:16 - CONCLUSION: Interval placement of right internal jugular central venous line with no evidence of pneumothorax. Silvano Dubois MD Cyst Biopsy Asp-Paracentesis US 01/24/17 0000 Signed Impressions: Service Date/Time: Tuesday, January 24, 2017 13:34 - CONCLUSION: Uncomplicated ultrasound guided paracentesis. Geremias Ruth MD Abdomen X-Ray 01/24/17 0000 Signed Impressions: Service Date/Time: Tuesday, January 24, 2017 13:47 - CONCLUSION: Nonspecific bowel gas pattern which may represent mild ileus or gastroenteritis. Silvano Dubois MD IVC Filter Placement X-Ray 01/20/17 0836 Signed Impressions: Service Date/Time: January 12:40 - CONCLUSION: Uncomplicated inferior vena cava filter placement as above. Sai Hernández MD Abdomen Ultrasound 01/15/17 0000 Signed Impressions: Service Date/Time: Sunday, January 15, 2017 16:21 - CONCLUSION: 1. Liver cirrhosis with moderate ascites. Splenomegaly. 2. Echogenic kidneys characteristic of medical renal disease with moderate right hydronephrosis and mild left hydronephrosis. Trevon Real MD Lower Extremity Ultrasound 01/14/17 0000 Signed Impressions: Service Date/Time: Saturday, January 14, 2017 17:28 - CONCLUSION: Left iliac and deep femoral DVT. No evidence of DVT on the right. Desmond Villatoro MD Objective Remarks GENERAL: This is a well-nourished, well-developed patient, in no apparent distress. CARDIOVASCULAR: Regular rate and regular rhythm without murmurs, gallops, or rubs. RESPIRATORY: Clear to auscultation. Breath sounds equal bilaterally. No wheezes , rales, or rhonchi. GASTROINTESTINAL: Abdomen soft, non-tender, mildly distended. Normal, active bowel sounds MUSCULOSKELETAL: Extremities without clubbing, cyanosis, or edema. NEURO: Alert & Oriented x4 to person, place, time, situation. Moves all ext x4 Procedures paracentesis IVC filter placement EGD/ colonoscopy central line placement Medications and IVs Current Medications Sodium Chloride (NS 1000 ml Inj) 1,000 ml @ 1,000 mls/hr Q1H IV Last administered on 01/14/17 16:10; Start 01/14/17 at 13:37; Stop 01/14/17 at 14:36 ; Status DC Sodium Chloride 2 ml 2 ml UNSCH PRN IVF FLUSH AFTER USING IV ACCESS Last administered on 01/22/17 22:53; Start 01/14/17 at 13:45; Stop 01/24/17 at 16:59 ; Status DC Octreotide Acetate 500 mcg/ Sodium Chloride 500.5 ml @ 50 mls/hr Q10H IV Last administered on 01/15/17 10:31; Start 01/14/17 at 13:45; Stop 01/16/17 at 06:46 ; Status DC Pantoprazole Sodium 80 mg/ Sodium Chloride 35 ml @ 420 mls/hr ONCE ONCE IV Last administered on 01/14/17 15:40; Start 01/14/17 at 13:45; Stop 01/14/17 at 13:49; Status DC Pantoprazole Sodium 80 mg/ Sodium Chloride 100 ml @ 10 mls/hr Q10H IV Last administered on 01/18/17 08:12; Start 01/14/17 at 13:45; Stop 01/18/17 at 11:46 ; Status DC Sodium Chloride (NS 250 ml Inj) 250 ml @ 15 mls/hr ONCE ONCE IV Last administered on 01/14/17 16:48; Start 01/14/17 at 14:45; Stop 01/15/17 at 07:24 ; Status DC Calcium Gluconate (Calcium Gluconate Inj) 1 gm ONCE ONCE SLOW IVP Last administered on 01/14/17 16:15; Start 01/14/17 at 15:15; Stop 01/14/17 at 15:16 ; Status DC Insulin Human Regular (NovoLIN R INJ) 10 units ONCE ONCE IV PUSH Last administered on 01/14/17 16:15; Start 01/14/17 at 15:15; Stop 01/14/17 at 15:16 ; Status DC Dextrose (D50w (Vial) Inj) 50 ml ONCE ONCE IV PUSH Last administered on 16:15; Start 01/14/17 at 15:15; Stop 01/14/17 at 15:16; Status DC Sodium Bicarbonate (Sodium Bicarbonate 8.4% Inj) 50 meq ONCE ONCE SLOW IVP Last administered on 01/14/17 16:26; Start 01/14/17 at 15:15; Stop 01/14/17 at 15:16; Status DC Albuterol Sulfate 10 mg 10 mg ONCE ONCE INH Last administered on 01/14/17 17: 07; Start 01/14/17 at 15:15; Stop 01/14/17 at 15:16; Status DC Ceftriaxone Sodium 1000 mg/ Sodium Chloride 100 ml @ 200 mls/hr Q24H IV Last administered on 01/22/17 17:07; Start 01/14/17 at 17:00; Stop 01/23/17 at 16:23 ; Status DC Sodium Chloride 1,000 ml @ 999 mls/hr BOLUS ONCE IV Last administered on 01/14 16:48; Start 01/14/17 at 16:30; Stop 01/14/17 at 17:30; Status DC Sodium Chloride (NS 1000 ml Inj) 1,000 ml @ 125 mls/hr Q8H IV Last administered on 01/15/17 00:19; Start 01/14/17 at 17:00; Stop 01/15/17 at 08:06 ; Status DC Diphenhydramine HCl (Benadryl Inj) 50 mg ONCE ONCE IV PUSH Last administered on 01/14/17 18:15; Start 01/14/17 at 18:00; Stop 01/14/17 at 18:01; Status DC Diphenhydramine HCl (Benadryl Inj) 25 mg ONCE ONCE IV PUSH ; Start 01/14/17 at 18:45; Stop 01/14/17 at 18:46; Status DC Hydromorphone HCl 0.5 mg 0.5 mg Q4H PRN IV BREAKTHROUGH PAIN Last administered on 01/28/17 07:45; Start 01/15/17 at 02:30 Magnesium Sulfate/ Dextrose (Magnesium Sulfate 1 Gm Premix) 100 ml @ 100 mls/ hr Q1H IV ; Start 01/15/17 at 08:15; Stop 01/15/17 at 10:14; Status DC Furosemide 20 mg 20 mg BID@09,18 IV PUSH Last administered on 01/21/17 08:38; Start 01/15/17 at 09:00; Stop 01/21/17 at 09:41; Status DC Sodium Chloride 1,000 ml @ 42 mls/hr [id number] IV Last administered on 05:48; Start 01/15/17 at 08:15; Stop 01/26/17 at 08:13; Status DC Thiamine HCl/ Sodium Chloride (Thiamine Inj/NS Inj) 101 ml @ 101 mls/hr DAILY IV Last administered on 01/21/17 08:37; Start 01/15/17 at 09:00; Stop at 09:33; Status DC Propofol (Diprivan 200 Mg/20 ml Inj) 100 mg STK-MED ONCE IV ; Start 01/15/17 at 13:09; Stop 01/15/17 at 13:19; Status DC Polyethylene Glycol/ Electrolytes 4000 ml 4,000 ml ONCE ONCE PO Last administered on 01/16/17 16:06; Start 01/16/17 at 16:00; Stop 01/16/17 at 16:01 ; Status DC Sodium Phosphate/ Sodium Chloride (Sodium Phosphate Inj/NS 250 ml Inj) 260 ml @ 43.333 mls/ hr ONCE ONCE IV Last administered on 01/17/17 09:00; Start at 09:00; Stop 01/17/17 at 14:59; Status DC Folic Acid (Folate) 1 mg DAILY PO Last administered on 01/28/17 07:45; Start 01/17/17 at 09:00 Gabapentin (Neurontin) 300 mg TID PO Last administered on 01/28/17 07:46; Start 01/17/17 at 09:00 Tamsulosin HCl (Flomax) 0.4 mg DAILY PO Last administered on 01/28/17 07:46; Start 01/17/17 at 09:00 Ferrous Fumarate (Hemocyte) 325 mg DAILY PO Last administered on 01/28/17 07: 46; Start 01/17/17 at 09:00 Multivitamins (Theragran) 1 tab DAILY PO Last administered on 01/28/17 07:46; Start 01/17/17 at 09:00 Ketamine HCl (Ketalar Inj) 20 mg STK-MED ONCE IV ; Start 01/15/17 at 12:00; Stop 01/17/17 at 08:49; Status DC Propofol (Diprivan 200 Mg/20 ml Inj) 40 mg STK-MED ONCE IV ; Start 01/17/17 at 13:30; Stop 01/17/17 at 14:19; Status DC Miscellaneous Information ALL NURSING DEPARTME... UNSCH PRN .XX SEE LABEL COMMENTS; Start 01/17/17 at 14:09; Stop 01/18/17 at 14:08; Status DC Midazolam HCl (Versed Inj) 2 mg STK-MED ONCE .ROUTE ; Start 01/17/17 at 14:51; Stop 01/17/17 at 14:52; Status DC Fentanyl Citrate (fentaNYL INJ) 100 mcg STK-MED ONCE .ROUTE ; Start 01/17/17 at 14:51; Stop 01/17/17 at 14:52; Status DC Potassium Chloride 60 meq 60 meq ONCE ONCE PO Last administered on 01/18/17 08:02; Start 01/18/17 at 07:30; Stop 01/18/17 at 07:31; Status DC Heparin Sodium/ Dextrose (Heparin-D5W Inj) 250 ml @ 0 mls/hr TITRATE IV Last administered on 01/20/17 03:35; Start 01/18/17 at 08:15; Stop 01/20/17 at 08:37 ; Status DC Pantoprazole Sodium (Protonix) 40 mg Q12HR PO Last administered on 01/28/17 07 :46; Start 01/18/17 at 21:00 Rifaximin (Xifaxan) 550 mg BID PO Last administered on 01/28/17 07:46; Start 01/18/17 at 21:00 Albumin Human (Albumin 25% Inj) 25 gm ONCE ONCE IV Last administered on 07:10; Start 01/19/17 at 08:00; Stop 01/19/17 at 08:01; Status DC Hydromorphone HCl (Dilaudid Pf Inj) 0.5 mg STAT ONCE IV Last administered on 09:49; Start 01/19/17 at 09:45; Stop 01/19/17 at 09:46; Status DC Albumin Human (Albumin 25% Inj) ONCE ONCE IV Last administered on 01/19/17 15:09; Start 01/19/17 at 15:00; Stop 01/19/17 at 15:01; Status DC Acetaminophen (Tylenol) 650 mg Q6H PRN PO SEE LABEL COMMENTS Last administered on 01/26/17 20:50; Start 01/19/17 at 17:45 Iohexol (Omnipaque 350 Inj) 50 ml STK-MED ONCE .XX Last administered on 13:22; Start 01/20/17 at 13:22; Stop 01/20/17 at 13:23; Status DC Vancomycin HCl (Vancomycin Inj) 1,000 mg STK-MED ONCE IV Last administered on 12:50; Start 01/20/17 at 12:50; Stop 01/20/17 at 13:29; Status DC Fentanyl Citrate (fentaNYL INJ) 100 mcg STK-MED ONCE IV Last administered on 12:50; Start 01/20/17 at 12:50; Stop 01/20/17 at 13:30; Status DC Potassium Chloride 60 meq 60 meq ONCE ONCE PO Last administered on 01/21/17 06:36; Start 01/21/17 at 06:45; Stop 01/21/17 at 06:46; Status DC Potassium Chloride (KCl 20 Meq Premix Inj) 100 ml @ 50 mls/hr ONCE ONCE IV Last administered on 01/21/17 06:36; Start 01/21/17 at 06:30; Stop 01/21/17 at 08:29; Status DC Thiamine HCl (Vitamin B1) 100 mg DAILY PO Last administered on 01/28/17 07:45 ; Start 01/22/17 at 09:00 Potassium Chloride (KCl) 20 meq DAILY PO Last administered on 01/28/17 07:45; Start 01/22/17 at 09:00 Furosemide (Lasix Inj) 20 mg DAILY IV PUSH Last administered on 01/28/17 07:47 ; Start 01/22/17 at 09:00 Lactulose (Lactulose Liq) 30 ml DAILY PRN PO cirrhosis/encephalopathy; Start at 09:45 Aminocaproic Acid 250 mg 250 mg STK-MED ONCE IV ; Start 01/17/17 at 05:00; Stop 01/21/17 at 09:49; Status DC Cefazolin Sodium/ Dextrose (Ancef 2 Gm Premix) 50 ml @ As Directed STK-MED ONCE IV ; Start 01/17/17 at 05:00; Stop 01/21/17 at 09:49; Status DC Heparin Sodium (Porcine) (Heparin Inj) 10,000 units STK-MED ONCE SQ ; Start at 05:00; Stop 01/21/17 at 09:49; Status DC Phenylephrine HCl 10 mg 10 mg STK-MED ONCE IV ; Start 01/17/17 at 05:00; Stop at 09:49; Status DC Nitroglycerin/ Dextrose (Nitroglycerin-Dextrose Inj) 250 ml @ As Directed STK- MED ONCE IV ; Start 01/17/17 at 05:00; Stop 01/21/17 at 09:49; Status DC Acetaminophen 1000 mg 1,000 mg STK-MED ONCE IV ; Start 01/17/17 at 05:00; Stop 01/21/17 at 09:49; Status DC Dexmedetomidine HCl (Precedex Inj) 50 ml @ As Directed STK-MED ONCE IV ; Start 01/17/17 at 05:00; Stop 01/21/17 at 09:50; Status DC Glycopyrrolate (Robinul Inj) 0.2 mg STK-MED ONCE IV ; Start 01/17/17 at 05:00; Stop 01/21/17 at 09:50; Status DC Potassium Chloride (KCl) 40 meq ONCE ONCE PO ; Start 01/21/17 at 19:45; Stop at 19:50; Status DC Acetaminophen/ Hydrocodone Bitart 1 tab 1 tab Q4H PRN PO PAIN 2-10 Last administered on 01/28/17 05:58; Start 01/22/17 at 11:15 Ceftriaxone Sodium/Sodium Chloride (Rocephin Inj/NS Inj) 100 ml @ 200 mls/hr Q24H IV Last administered on 01/24/17 16:56; Start 01/23/17 at 18:00; Stop at 17:12; Status DC Acetaminophen (Ofirmev Inj) 1,000 mg ONCE ONCE IV Last administered on 13:00; Start 01/24/17 at 12:45; Stop 01/24/17 at 12:46; Status DC Acetaminophen (Ofirmev Inj) 1,000 mg Q8HR PRN IV high grade fevers >101; Start 01/24/17 at 12:45 Albumin Human (Albumin 25% Inj) 25 gm ONCE ONCE IV Last administered on 16:56; Start 01/24/17 at 16:15; Stop 01/24/17 at 16:16; Status DC Albumin Human (Albumin 25% Inj) 12.5 gm ONCE ONCE IV Last administered on 01/24 16:55; Start 01/24/17 at 16:15; Stop 01/24/17 at 16:16; Status DC Sodium Chloride (NS Flush) DAILY IVF Last administered on 01/27/17 09:58; Start 01/25/17 at 09:00 Sodium Chloride UNSCH PRN IVF SEE PROTOCOL; Start 01/24/17 at 17:00 Sodium Chloride (NS 1000 ml Inj) 1,000 ml @ 999 mls/hr BOLUS ONCE IV Last administered on 01/24/17 17:15; Start 01/24/17 at 17:15; Stop 01/24/17 at 18:15 ; Status DC Albumin Human 50 gm 50 gm ONCE ONCE IV Last administered on 01/24/17 17:56; Start 01/24/17 at 17:15; Stop 01/24/17 at 17:16; Status DC Pharmacy Profile Note 0 ml @ 0 mls/hr UNSCH OTHER ; Start 01/24/17 at 17:15; Stop 01/27/17 at 13:27; Status DC Cefepime HCl 2000 mg/Sodium Chloride 100 ml @ 200 mls/hr Q8H IV ; Start at 17:15; Stop 01/24/17 at 17:15; Status DC Piperacillin Sod/ Tazobactam Sod (Zosyn 4.5 Gm Premix) 100 ml @ 200 mls/hr Q6H IV Last administered on 01/28/17 05:58; Start 01/24/17 at 18:00 Terbutaline Sulfate 1 mg 1 mg UNSCH PRN SQ For Extravasation; Start 01/24/17 at 17:15; Stop 01/26/17 at 08:13; Status DC Phenylephrine HCl 160 mg/Dextrose 500 ml @ 0 mls/hr TITRATE IV Last administered on 01/24/17 17:57; Start 01/24/17 at 17:15; Stop 01/26/17 at 08:13 ; Status DC Vancomycin HCl/ Sodium Chloride (Vancomycin Inj/ NS 250 ml Inj) 262.5 ml @ 250 mls/hr Q18H IV Last administered on 01/27/17 00:45; Start 01/24/17 at 18:00; Stop 01/27/17 at 08:22; Status DC Miscellaneous Information SPECIFIC LAB TO BE DRAWN:VANCOMYCIN TROUGH DATE TO... ONCE ONCE .XX Last administered on 01/26/17 23:45; Start 01/26/17 at 23:45; Stop 01/26/17 at 23:46; Status DC Sodium Chloride (NS Flush) DAILY IV FLUSH Last administered on 01/28/17 07:47 ; Start 01/25/17 at 09:00 Sodium Chloride (NS Flush) UNSCH PRN IV FLUSH SEE PROTOCOL TABLE Last administered on 01/28/17 03:39; Start 01/24/17 at 17:45 Hydroxyzine HCl (Atarax) 25 mg Q8H PRN PO pruritis Last administered on 22:18; Start 01/25/17 at 12:00 Spironolactone (Aldactone) 25 mg BID@09,18 PO Last administered on 01/28/17 07 :46; Start 01/25/17 at 18:00 Ondansetron HCl (Zofran Inj) 4 mg Q6HR PRN IV PUSH NAUSEA Last administered on 01/27/17 18:38; Start 01/26/17 at 08:15 Potassium Chloride 20 meq 20 meq ONCE ONCE PO Last administered on 01/26/17 14:05; Start 01/26/17 at 13:15; Stop 01/26/17 at 13:16; Status DC Vancomycin HCl/ Sodium Chloride (Vancomycin Inj/ NS 500 ml Inj) 515 ml @ 250 mls/hr Q18H IV ; Start 01/27/17 at 18:00; Stop 01/27/17 at 18:00; Status DC Miscellaneous Information SPECIFIC LAB TO BE DRAWN:VANCOMYCIN TROUGH DATE TO... ONCE ONCE .XX ; Start 01/29/17 at 23:45; Stop 01/29/17 at 23:46; Status Cancel A/P Assessment and Plan A/P Hypotension secondary to hypovolemia/sepsis?-resolved. History of hypertension Lactic acidosis. Resolved continue lasix and aldactone Echocardiogram - EF 60-65%. Mild MR/TR. No regional wall motion abnormality. GI bleed most likely variceal bleed Ascites/abdominal Liver cirrhosis History of gastroesophageal reflux disease Elevated transaminases likely secondary to EtOH Hypoalbuminemia -GI consulted EGD revealed gastric ulcer in antrum. This was biopsied. Gastropathy. Old banding. No varices. s/p colonoscopy with polypectomy Ultrasound - Liver cirrhosis with moderate ascites. Splenomegaly. -Continue Protonix at 40 mg twice a day Status post paracentesis 7 L on 01/19. Last 5.7 L 01/24 History of peripheral neuropathy History of EtOH abuse Depression/anxiety -Minimize sedation. -As needed norco and Dilaudid - continue thiamine and folic acid. Acute kidney injury - resolved History of bladder cancer/muscular invasive Bilateral hydronephrosis by history right greater than left BPH Ultrasound - Echogenic kidneys characteristic of medical renal disease with moderate right hydronephrosis and mild left hydronephrosis. Noted recent CT chest revealed right greater than left hydronephrosis. Currently with adequate urine output. -F/u at [facility] for bladder cancer Dr. Simeon discussed with his urologist at [facility], due to his decompensated cirrhosis, recent gi bleeding due to portal htn , poor nutritional status he will high risk for surgery and anesthesia . evaluated by Urology- recommended f/u with [facility]. UTI continue Zosyn. Pertinent cultures follow the repeated UC on 01/27 01/24 - blood cultures 2 -no growth 01/23 - urine -continue to 01/23 - blood cultures 2 - no growth to date 01/19 - peritoneal fluid - no growth 01/14 - blood cultures 2 - NGTD ID following. Severe anemia requiring transfusion of 7 units PRBCs Left lower extremity DVT 12/25/16 - left iliac and deep femoral Leukocytosis -Given 7 units of PRBC during this hospitalization -s/p IVC filter placement performed 01/20 Follow-up leukocytosis likely multifactorial evaluated by hematology. Hypokalemia - resolved Hypophosphatemia-resolved PROPH: IVC filter, Protonix continue PT. Discharge Planning dc planning to SNF early next week if stable and cleared by ID. d/w the patient, his daughter and case management. Vance Frazier MD Jan 28, 2017 08:48
[2017-01-28] MEDS: SODIUM CHLORIDE 0.9% FLUSH 10 ML FLUSH IVF SCH (09:00)
--- NOTE | 2017-01-28 10:38 | HHI.IDPN ---
Subjective Subjective Remarks Notes reviewed Occ low grade temps Patient is resting D/W Dr Frazier Repeat UC pending BC negative CXR ok WBC same 16K Antibiotics Zosyn Past Medical History Liver cirrhosis Varices LLE DVT diagnosed Invasive bladder cancer GERD Hyperlipidemia Anxiety/depression BPH Past Surgical History EGD/colonoscopy on 07/21/16 Cystoscopy with TURP Umbilical hernia repair Inguinal hernia repair Allergies: Uncoded Allergies: BCG TREATMENT (Adverse Reaction, Severe, HTYPOTENSION , 12/25/16) Objective . Vital Signs Date Time Temp Pulse Resp B/P Pulse Ox O2 Delivery O2 Flow Rate FiO2 01/28/17 09:56 100.2 01/28/17 08:00 98.5 80 18 116/63 97 01/28/17 07:53 Room Air 01/28/17 04:00 98.6 83 16 110/70 97 01/28/17 00:01 98.9 78 16 102/63 91 01/28/17 00:01 Room Air 01/27/17 22:35 98 21 01/27/17 20:30 89 01/27/17 20:00 98.9 79 20 98/57 97 01/27/17 20:00 Room Air 01/27/17 16:00 97.7 98 18 144/63 93 01/27/17 12:00 98.2 78 18 143/80 99 01/27/17 01/27/17 01/28/17 15:00 23:00 07:00 Intake Total 1200 ml 800 ml 180 ml Balance 1200 ml 800 ml 180 ml Intake Oral 1200 ml 700 ml 180 ml IV Total 100 ml # Voids 4 5 2 # Bowel Movements 0 1 . Laboratory Tests Test 01/26/17 01/27/17 01/28/17 10:56 04:40 06:55 White Blood Count 20.4 TH/MM3 16.2 TH/MM3 16.8 TH/MM3 Red Blood Count 2.85 MIL/MM3 2.69 MIL/MM3 3.00 MIL/MM3 Hemoglobin 8.0 GM/DL 7.7 GM/DL 8.3 GM/DL Hematocrit 24.8 % 23.4 % 26.0 % Mean Corpuscular Volume 87.2 FL 87.0 FL 86.9 FL Mean Corpuscular Hemoglobin 28.2 PG 28.6 PG 27.8 PG Mean Corpuscular Hemoglobin 32.3 % 32.8 % 32.1 % Concent Red Cell Distribution Width 18.0 % 18.6 % 18.2 % Platelet Count 240 TH/MM3 228 TH/MM3 292 TH/MM3 Mean Platelet Volume 9.7 FL 9.7 FL 9.6 FL Neutrophils (%) (Auto) 88.1 % 83.2 % 81.6 % Lymphocytes (%) (Auto) 2.8 % 6.5 % 6.6 % Monocytes (%) (Auto) 7.7 % 8.5 % 9.1 % Eosinophils (%) (Auto) 1.0 % 1.6 % 2.2 % Basophils (%) (Auto) 0.4 % 0.2 % 0.5 % Neutrophils # (Auto) 17.9 TH/MM3 13.5 TH/MM3 13.7 TH/MM3 Lymphocytes # (Auto) 0.6 TH/MM3 1.1 TH/MM3 1.1 TH/MM3 Monocytes # (Auto) 1.6 TH/MM3 1.4 TH/MM3 1.5 TH/MM3 Eosinophils # (Auto) 0.2 TH/MM3 0.3 TH/MM3 0.4 TH/MM3 Basophils # (Auto) 0.1 TH/MM3 0.0 TH/MM3 0.1 TH/MM3 CBC Comment DIFF FINAL DIFF FINAL DIFF FINAL Differential Comment Laboratory Tests Test 01/26/17 01/27/17 01/27/17 10:56 00:40 04:40 Sodium Level 138 MEQ/L 139 MEQ/L Potassium Level 3.6 MEQ/L 3.6 MEQ/L Chloride Level 103 MEQ/L 104 MEQ/L Carbon Dioxide Level 24.8 MEQ/L 26.9 MEQ/L Anion Gap 10 MEQ/L 8 MEQ/L Blood Urea Nitrogen 14 MG/DL 13 MG/DL Creatinine 1.17 MG/DL 1.05 MG/DL 1.08 MG/DL Estimat Glomerular Filtration 63 ML/MIN 71 ML/MIN 69 ML/MIN Rate Random Glucose 157 MG/DL 82 MG/DL Calcium Level 8.0 MG/DL 8.0 MG/DL Phosphorus Level 2.7 MG/DL Magnesium Level 1.6 MG/DL Total Bilirubin 0.7 MG/DL Aspartate Amino Transf 29 U/L (AST/SGOT) Alanine Aminotransferase 23 U/L (ALT/SGPT) Alkaline Phosphatase 415 U/L Total Protein 6.0 GM/DL Albumin 2.1 GM/DL Lactic Acid Level 2.0 mmol/L Microbiology Date/Time Procedure Status Source Growth 01/27/17 11:25 Urine Culture Received Urine Clean Catch Pending Imaging Last Impressions Chest X-Ray 01/24/17 1657 Signed Impressions: Service Date/Time: Tuesday, January 24, 2017 17:16 - CONCLUSION: Interval placement of right internal jugular central venous line with no evidence of pneumothorax. Silvano Dubois MD Cyst Biopsy Asp-Paracentesis US 01/24/17 0000 Signed Impressions: Service Date/Time: Tuesday, January 24, 2017 13:34 - CONCLUSION: Uncomplicated ultrasound guided paracentesis. Geremias Ruth MD Abdomen X-Ray 01/24/17 0000 Signed Impressions: Service Date/Time: Tuesday, January 24, 2017 13:47 - CONCLUSION: Nonspecific bowel gas pattern which may represent mild ileus or gastroenteritis. Silvano Dubois MD IVC Filter Placement X-Ray 01/20/17 0836 Signed Impressions: Service Date/Time: January 12:40 - CONCLUSION: Uncomplicated inferior vena cava filter placement as above. Sai Hernández MD Abdomen Ultrasound 01/15/17 0000 Signed Impressions: Service Date/Time: Sunday, January 15, 2017 16:21 - CONCLUSION: 1. Liver cirrhosis with moderate ascites. Splenomegaly. 2. Echogenic kidneys characteristic of medical renal disease with moderate right hydronephrosis and mild left hydronephrosis. Trevon Real MD Lower Extremity Ultrasound 01/14/17 0000 Signed Impressions: Service Date/Time: Saturday, January 14, 2017 17:28 - CONCLUSION: Left iliac and deep femoral DVT. No evidence of DVT on the right. Desmond Villatoro MD Physical Exam GENERAL: resting, not in respiratory distress. SKIN: Warm and dry. No generalized rash. HEENT: [place] conjunctiva. No scleral icterus. No injection or drainage. Nose without bleeding, or purulent drainage. Moist oral mucosa. NECK: Supple, nontender, no meningeal signs. Line with no evidence of infection CARDIOVASCULAR: Regular rate and rhythm without rubs. Has some systolic murmur heard at the apex. RESPIRATORY: Clear to auscultation. Breath sounds equal bilaterally. No wheezes , rales, or rhonchi. Decreased breath sounds at the bases. GASTROINTESTINAL: Abdomen globular and less distended, no tenderness on palpation. Bowel sounds are present and normoactive. Has positive ascites. No rebound. No guarding. MUSCULOSKELETAL: Extremities without clubbing, cyanosis. His LLE is larger compared to his RLE. No calf tenderness. LE edema better NEUROLOGICAL: Non-focal PSYCH: Normal affect, calm and cooperative LINE: TLC with no evidence of infection Assessment & Plan Remarks IMPRESSION Sepsis, better Fevers, possible sepsis due to source - occ low grade - better ETOH cirrhosis with protal HT< varices, ascites DVT LLE, has IVC filter GIB, H/H stable Bladder CA, intermittent hematuria Leukocytosis, likely multifactorial, stable RECOMMENDATION Follow new C/S Continue IV Zosyn - if stable this weekend, and nothing new on C/S, change to Levaquin and give 14 days Monitor temps Monitor progress D/C plan to rehab, possibly Tuesday per attending D/W Dr Frazier ([facility]) ADDENDUM: 1230 noon Received call from RN. Patient's temp up to 102. He is awake and alert and wanting his pain meds SBP 95. Not SOB Has central line, placed 4 days ago Will get stat BC, one line and one periphery Continue Zosyn Increase Diflucan does to 400 daily Follow new C/S Dr Meraz will follow this weekend Areli Ni MD Jan 28, 2017 10:38
[2017-01-28] MEDS ORDERED: ACETAMINOPHEN 325 MG TAB PO PRN (11:45)
[2017-01-28] MEDS ORDERED: FLUCONAZOLE 100 MG TAB PO SCH (12:00)
[2017-01-28] MEDS: FLUCONAZOLE 400 MG PREMIX BAG 200 ML IV SCH (14:21)
[2017-01-29] VITALS (7 sets, daily range): BP systolic 108–131; BP diastolic 66–75; PULSE 68–97; RESP 16–20; TEMP 98.5–100.5; O2SAT 95–99
[2017-01-29] MEDS: ACETAMINOPHEN/HYDROcodone 325 MG/5 MG TAB PO PRN ×2 (03:44→08:36)
[2017-01-29] MEDS: PIPERACIL-TAZO 4.5 GM PREMIX 100 ML IV SCH ×3 (05:52→16:48)
[2017-01-29] MEDS: MULTIVITAMIN TAB PO SCH (08:35)
[2017-01-29] MEDS: RIFAXIMIN 550 MG TAB PO SCH ×2 (08:35→21:03)
[2017-01-29] MEDS: PANTOPRAZOLE SOD 40 MG DELAYED RELEASE TAB PO SCH ×2 (08:35→21:02)
[2017-01-29] MEDS: GABAPENTIN 300 MG CAP PO SCH ×2 (08:35→10:58)
[2017-01-29] MEDS: FUROSEMIDE 20 MG/2 ML VIAL IV PUSH SCH (08:35)
[2017-01-29] MEDS: SPIRONOLACTONE 25 MG TAB PO SCH ×2 (08:35→16:48)
[2017-01-29] MEDS: THIAMINE HCL 100 MG TAB PO SCH (08:35)
[2017-01-29] MEDS: TAMSULOSIN HCL 0.4 MG CAP PO SCH (08:36)
[2017-01-29] MEDS: POTASSIUM CHLORIDE 20 MEQ CONTROLLED RELEASE TAB PO SCH (08:36)
[2017-01-29] MEDS: FOLIC ACID 1 MG TAB PO SCH (08:36)
[2017-01-29] MEDS: FERROUS FUMARATE 325 MG TAB (106 MG ELEMENTAL IRON) PO SCH (08:36)
[2017-01-29] MEDS: SODIUM CHLORIDE 0.9% FLUSH 10 ML FLUSH IVF SCH (08:37)
[2017-01-29] MEDS: Central Line Short Term Adult 7Fr or larger Daily NS Lock Flush IV FLUSH SCH (08:37)
[2017-01-29] MEDS: Central Line Short Term Adult 7Fr or larger PRN NS Lock Flush IV FLUSH ×2 (08:37→21:04)
[2017-01-29] MEDS: HYDROmorphone HCL PF 1 MG/ML VIAL IV PRN (10:51)
[2017-01-29] MEDS: FLUCONAZOLE 400 MG PREMIX BAG 200 ML IV SCH (12:35)
[2017-01-29] MEDS: GABAPENTIN 400 MG CAP PO SCH ×2 (12:35→16:48)
--- NOTE | 2017-01-29 16:52 | HHI.PR ---
Subjective Remarks f/u for infection and GI bleed. Patient denied any SOB. he stated he had chills yesterday and a fever. otherwise he has been afebrile since then. patient c/o B/L foot pain that is chronic. he stated pain is no controlled. this is not new pain. Objective Vitals Vital Signs Date Time Temp Pulse Resp B/P Pulse Ox O2 Delivery O2 Flow Rate FiO2 01/29/17 12:00 98.7 97 16 115/73 96 01/29/17 08:30 76 01/29/17 08:30 Room Air 01/29/17 08:00 98.6 75 18 112/72 95 01/29/17 04:00 98.7 68 16 108/69 96 01/29/17 00:00 98.5 86 18 108/66 96 01/28/17 20:15 Room Air 01/28/17 20:00 98.2 75 18 94/55 96 01/28/17 19:59 79 01/28/17 18:09 72 103/63 I/O 01/28/17 01/28/17 01/28/17 01/29/17 01/29/17 01/29/17 07:00 15:00 23:00 07:00 15:00 23:00 Intake Total 180 ml 480 ml 240 ml 240 ml Balance 180 ml 480 ml 240 ml 240 ml Intake Oral 180 ml 480 ml 240 ml 240 ml # Voids 2 4 3 1 # Bowel Movements 2 1 0 Result Diagram: 01/28/17 0655 01/27/17 0440 Objective Remarks GENERAL: This is a well-nourished, well-developed patient, in no apparent distress. CARDIOVASCULAR: Regular rate and regular rhythm without murmurs, gallops, or rubs. RESPIRATORY: Clear to auscultation. Breath sounds equal bilaterally. No wheezes , rales, or rhonchi. GASTROINTESTINAL: Abdomen soft, non-tender, mildly distended. Normal, active bowel sounds MUSCULOSKELETAL: Extremities without clubbing, cyanosis. left foot +1 pitting edema. NEURO: Alert & Oriented x4 to person, place, time, situation. Moves all ext x4 Procedures paracentesis IVC filter placement EGD/ colonoscopy central line placement Medications and IVs Current Medications Sodium Chloride (NS 1000 ml Inj) 1,000 ml @ 1,000 mls/hr Q1H IV Last administered on 01/14/17 16:10; Start 01/14/17 at 13:37; Stop 01/14/17 at 14:36 ; Status DC Sodium Chloride 2 ml 2 ml UNSCH PRN IVF FLUSH AFTER USING IV ACCESS Last administered on 01/22/17 22:53; Start 01/14/17 at 13:45; Stop 01/24/17 at 16:59 ; Status DC Octreotide Acetate 500 mcg/ Sodium Chloride 500.5 ml @ 50 mls/hr Q10H IV Last administered on 01/15/17 10:31; Start 01/14/17 at 13:45; Stop 01/16/17 at 06:46 ; Status DC Pantoprazole Sodium 80 mg/ Sodium Chloride 35 ml @ 420 mls/hr ONCE ONCE IV Last administered on 01/14/17 15:40; Start 01/14/17 at 13:45; Stop 01/14/17 at 13:49; Status DC Pantoprazole Sodium 80 mg/ Sodium Chloride 100 ml @ 10 mls/hr Q10H IV Last administered on 01/18/17 08:12; Start 01/14/17 at 13:45; Stop 01/18/17 at 11:46 ; Status DC Sodium Chloride (NS 250 ml Inj) 250 ml @ 15 mls/hr ONCE ONCE IV Last administered on 01/14/17 16:48; Start 01/14/17 at 14:45; Stop 01/15/17 at 07:24 ; Status DC Calcium Gluconate (Calcium Gluconate Inj) 1 gm ONCE ONCE SLOW IVP Last administered on 01/14/17 16:15; Start 01/14/17 at 15:15; Stop 01/14/17 at 15:16 ; Status DC Insulin Human Regular (NovoLIN R INJ) 10 units ONCE ONCE IV PUSH Last administered on 01/14/17 16:15; Start 01/14/17 at 15:15; Stop 01/14/17 at 15:16 ; Status DC Dextrose (D50w (Vial) Inj) 50 ml ONCE ONCE IV PUSH Last administered on 16:15; Start 01/14/17 at 15:15; Stop 01/14/17 at 15:16; Status DC Sodium Bicarbonate (Sodium Bicarbonate 8.4% Inj) 50 meq ONCE ONCE SLOW IVP Last administered on 01/14/17 16:26; Start 01/14/17 at 15:15; Stop 01/14/17 at 15:16; Status DC Albuterol Sulfate 10 mg 10 mg ONCE ONCE INH Last administered on 01/14/17 17: 07; Start 01/14/17 at 15:15; Stop 01/14/17 at 15:16; Status DC Ceftriaxone Sodium 1000 mg/ Sodium Chloride 100 ml @ 200 mls/hr Q24H IV Last administered on 01/22/17 17:07; Start 01/14/17 at 17:00; Stop 01/23/17 at 16:23 ; Status DC Sodium Chloride 1,000 ml @ 999 mls/hr BOLUS ONCE IV Last administered on 01/14 16:48; Start 01/14/17 at 16:30; Stop 01/14/17 at 17:30; Status DC Sodium Chloride (NS 1000 ml Inj) 1,000 ml @ 125 mls/hr Q8H IV Last administered on 01/15/17 00:19; Start 01/14/17 at 17:00; Stop 01/15/17 at 08:06 ; Status DC Diphenhydramine HCl (Benadryl Inj) 50 mg ONCE ONCE IV PUSH Last administered on 01/14/17 18:15; Start 01/14/17 at 18:00; Stop 01/14/17 at 18:01; Status DC Diphenhydramine HCl (Benadryl Inj) 25 mg ONCE ONCE IV PUSH ; Start 01/14/17 at 18:45; Stop 01/14/17 at 18:46; Status DC Hydromorphone HCl 0.5 mg 0.5 mg Q4H PRN IV BREAKTHROUGH PAIN Last administered on 01/29/17 10:51; Start 01/15/17 at 02:30; Stop 01/29/17 at 12:11 ; Status DC Magnesium Sulfate/ Dextrose (Magnesium Sulfate 1 Gm Premix) 100 ml @ 100 mls/ hr Q1H IV ; Start 01/15/17 at 08:15; Stop 01/15/17 at 10:14; Status DC Furosemide 20 mg 20 mg BID@09,18 IV PUSH Last administered on 01/21/17 08:38; Start 01/15/17 at 09:00; Stop 01/21/17 at 09:41; Status DC Sodium Chloride 1,000 ml @ 42 mls/hr [id number] IV Last administered on 05:48; Start 01/15/17 at 08:15; Stop 01/26/17 at 08:13; Status DC Thiamine HCl/ Sodium Chloride (Thiamine Inj/NS Inj) 101 ml @ 101 mls/hr DAILY IV Last administered on 01/21/17 08:37; Start 01/15/17 at 09:00; Stop at 09:33; Status DC Propofol (Diprivan 200 Mg/20 ml Inj) 100 mg STK-MED ONCE IV ; Start 01/15/17 at 13:09; Stop 01/15/17 at 13:19; Status DC Polyethylene Glycol/ Electrolytes 4000 ml 4,000 ml ONCE ONCE PO Last administered on 01/16/17 16:06; Start 01/16/17 at 16:00; Stop 01/16/17 at 16:01 ; Status DC Sodium Phosphate/ Sodium Chloride (Sodium Phosphate Inj/NS 250 ml Inj) 260 ml @ 43.333 mls/ hr ONCE ONCE IV Last administered on 01/17/17 09:00; Start at 09:00; Stop 01/17/17 at 14:59; Status DC Folic Acid (Folate) 1 mg DAILY PO Last administered on 01/29/17 08:36; Start 01/17/17 at 09:00 Gabapentin (Neurontin) 300 mg TID PO Last administered on 01/29/17 10:58; Start 01/17/17 at 09:00; Stop 01/29/17 at 12:11; Status DC Tamsulosin HCl (Flomax) 0.4 mg DAILY PO Last administered on 01/29/17 08:36; Start 01/17/17 at 09:00 Ferrous Fumarate (Hemocyte) 325 mg DAILY PO Last administered on 01/29/17 08: 36; Start 01/17/17 at 09:00 Multivitamins (Theragran) 1 tab DAILY PO Last administered on 01/29/17 08:35; Start 01/17/17 at 09:00 Ketamine HCl (Ketalar Inj) 20 mg STK-MED ONCE IV ; Start 01/15/17 at 12:00; Stop 01/17/17 at 08:49; Status DC Propofol (Diprivan 200 Mg/20 ml Inj) 40 mg STK-MED ONCE IV ; Start 01/17/17 at 13:30; Stop 01/17/17 at 14:19; Status DC Miscellaneous Information ALL NURSING DEPARTME... UNSCH PRN .XX SEE LABEL COMMENTS; Start 01/17/17 at 14:09; Stop 01/18/17 at 14:08; Status DC Midazolam HCl (Versed Inj) 2 mg STK-MED ONCE .ROUTE ; Start 01/17/17 at 14:51; Stop 01/17/17 at 14:52; Status DC Fentanyl Citrate (fentaNYL INJ) 100 mcg STK-MED ONCE .ROUTE ; Start 01/17/17 at 14:51; Stop 01/17/17 at 14:52; Status DC Potassium Chloride 60 meq 60 meq ONCE ONCE PO Last administered on 01/18/17 08:02; Start 01/18/17 at 07:30; Stop 01/18/17 at 07:31; Status DC Heparin Sodium/ Dextrose (Heparin-D5W Inj) 250 ml @ 0 mls/hr TITRATE IV Last administered on 01/20/17 03:35; Start 01/18/17 at 08:15; Stop 01/20/17 at 08:37 ; Status DC Pantoprazole Sodium (Protonix) 40 mg Q12HR PO Last administered on 01/29/17 08 :35; Start 01/18/17 at 21:00 Rifaximin (Xifaxan) 550 mg BID PO Last administered on 01/29/17 08:35; Start 01/18/17 at 21:00 Albumin Human (Albumin 25% Inj) 25 gm ONCE ONCE IV Last administered on 07:10; Start 01/19/17 at 08:00; Stop 01/19/17 at 08:01; Status DC Hydromorphone HCl (Dilaudid Pf Inj) 0.5 mg STAT ONCE IV Last administered on 09:49; Start 01/19/17 at 09:45; Stop 01/19/17 at 09:46; Status DC Albumin Human (Albumin 25% Inj) ONCE ONCE IV Last administered on 01/19/17 15:09; Start 01/19/17 at 15:00; Stop 01/19/17 at 15:01; Status DC Acetaminophen (Tylenol) 650 mg Q6H PRN PO SEE LABEL COMMENTS Last administered on 01/26/17 20:50; Start 01/19/17 at 17:45 Iohexol (Omnipaque 350 Inj) 50 ml STK-MED ONCE .XX Last administered on 13:22; Start 01/20/17 at 13:22; Stop 01/20/17 at 13:23; Status DC Vancomycin HCl (Vancomycin Inj) 1,000 mg STK-MED ONCE IV Last administered on 12:50; Start 01/20/17 at 12:50; Stop 01/20/17 at 13:29; Status DC Fentanyl Citrate (fentaNYL INJ) 100 mcg STK-MED ONCE IV Last administered on 12:50; Start 01/20/17 at 12:50; Stop 01/20/17 at 13:30; Status DC Potassium Chloride 60 meq 60 meq ONCE ONCE PO Last administered on 01/21/17 06:36; Start 01/21/17 at 06:45; Stop 01/21/17 at 06:46; Status DC Potassium Chloride (KCl 20 Meq Premix Inj) 100 ml @ 50 mls/hr ONCE ONCE IV Last administered on 01/21/17 06:36; Start 01/21/17 at 06:30; Stop 01/21/17 at 08:29; Status DC Thiamine HCl (Vitamin B1) 100 mg DAILY PO Last administered on 01/29/17 08:35 ; Start 01/22/17 at 09:00 Potassium Chloride (KCl) 20 meq DAILY PO Last administered on 01/29/17 08:36; Start 01/22/17 at 09:00 Furosemide (Lasix Inj) 20 mg DAILY IV PUSH Last administered on 01/29/17 08:35 ; Start 01/22/17 at 09:00 Lactulose (Lactulose Liq) 30 ml DAILY PRN PO cirrhosis/encephalopathy; Start at 09:45 Aminocaproic Acid 250 mg 250 mg STK-MED ONCE IV ; Start 01/17/17 at 05:00; Stop 01/21/17 at 09:49; Status DC Cefazolin Sodium/ Dextrose (Ancef 2 Gm Premix) 50 ml @ As Directed STK-MED ONCE IV ; Start 01/17/17 at 05:00; Stop 01/21/17 at 09:49; Status DC Heparin Sodium (Porcine) (Heparin Inj) 10,000 units STK-MED ONCE SQ ; Start at 05:00; Stop 01/21/17 at 09:49; Status DC Phenylephrine HCl 10 mg 10 mg STK-MED ONCE IV ; Start 01/17/17 at 05:00; Stop at 09:49; Status DC Nitroglycerin/ Dextrose (Nitroglycerin-Dextrose Inj) 250 ml @ As Directed STK- MED ONCE IV ; Start 01/17/17 at 05:00; Stop 01/21/17 at 09:49; Status DC Acetaminophen 1000 mg 1,000 mg STK-MED ONCE IV ; Start 01/17/17 at 05:00; Stop 01/21/17 at 09:49; Status DC Dexmedetomidine HCl (Precedex Inj) 50 ml @ As Directed STK-MED ONCE IV ; Start 01/17/17 at 05:00; Stop 01/21/17 at 09:50; Status DC Glycopyrrolate (Robinul Inj) 0.2 mg STK-MED ONCE IV ; Start 01/17/17 at 05:00; Stop 01/21/17 at 09:50; Status DC Potassium Chloride (KCl) 40 meq ONCE ONCE PO ; Start 01/21/17 at 19:45; Stop at 19:50; Status DC Acetaminophen/ Hydrocodone Bitart 1 tab 1 tab Q4H PRN PO PAIN 2-10 Last administered on 01/29/17 08:36; Start 01/22/17 at 11:15; Stop 01/29/17 at 12:11 ; Status DC Ceftriaxone Sodium/Sodium Chloride (Rocephin Inj/NS Inj) 100 ml @ 200 mls/hr Q24H IV Last administered on 01/24/17 16:56; Start 01/23/17 at 18:00; Stop at 17:12; Status DC Acetaminophen (Ofirmev Inj) 1,000 mg ONCE ONCE IV Last administered on 13:00; Start 01/24/17 at 12:45; Stop 01/24/17 at 12:46; Status DC Acetaminophen (Ofirmev Inj) 1,000 mg Q8HR PRN IV high grade fevers >101; Start 01/24/17 at 12:45; Stop 01/28/17 at 11:42; Status DC Albumin Human (Albumin 25% Inj) 25 gm ONCE ONCE IV Last administered on 16:56; Start 01/24/17 at 16:15; Stop 01/24/17 at 16:16; Status DC Albumin Human (Albumin 25% Inj) 12.5 gm ONCE ONCE IV Last administered on 01/24 16:55; Start 01/24/17 at 16:15; Stop 01/24/17 at 16:16; Status DC Sodium Chloride (NS Flush) DAILY IVF Last administered on 01/29/17 08:37; Start 01/25/17 at 09:00 Sodium Chloride UNSCH PRN IVF SEE PROTOCOL; Start 01/24/17 at 17:00 Sodium Chloride (NS 1000 ml Inj) 1,000 ml @ 999 mls/hr BOLUS ONCE IV Last administered on 01/24/17 17:15; Start 01/24/17 at 17:15; Stop 01/24/17 at 18:15 ; Status DC Albumin Human 50 gm 50 gm ONCE ONCE IV Last administered on 01/24/17 17:56; Start 01/24/17 at 17:15; Stop 01/24/17 at 17:16; Status DC Pharmacy Profile Note 0 ml @ 0 mls/hr UNSCH OTHER ; Start 01/24/17 at 17:15; Stop 01/27/17 at 13:27; Status DC Cefepime HCl 2000 mg/Sodium Chloride 100 ml @ 200 mls/hr Q8H IV ; Start at 17:15; Stop 01/24/17 at 17:15; Status DC Piperacillin Sod/ Tazobactam Sod (Zosyn 4.5 Gm Premix) 100 ml @ 200 mls/hr Q6H IV Last administered on 01/29/17 12:02; Start 01/24/17 at 18:00 Terbutaline Sulfate 1 mg 1 mg UNSCH PRN SQ For Extravasation; Start 01/24/17 at 17:15; Stop 01/26/17 at 08:13; Status DC Phenylephrine HCl 160 mg/Dextrose 500 ml @ 0 mls/hr TITRATE IV Last administered on 01/24/17 17:57; Start 01/24/17 at 17:15; Stop 01/26/17 at 08:13 ; Status DC Vancomycin HCl/ Sodium Chloride (Vancomycin Inj/ NS 250 ml Inj) 262.5 ml @ 250 mls/hr Q18H IV Last administered on 01/27/17 00:45; Start 01/24/17 at 18:00; Stop 01/27/17 at 08:22; Status DC Miscellaneous Information SPECIFIC LAB TO BE DRAWN:VANCOMYCIN TROUGH DATE TO... ONCE ONCE .XX Last administered on 01/26/17 23:45; Start 01/26/17 at 23:45; Stop 01/26/17 at 23:46; Status DC Sodium Chloride (NS Flush) DAILY IV FLUSH Last administered on 01/29/17 08:37 ; Start 01/25/17 at 09:00 Sodium Chloride (NS Flush) UNSCH PRN IV FLUSH SEE PROTOCOL TABLE Last administered on 01/29/17 08:37; Start 01/24/17 at 17:45 Hydroxyzine HCl (Atarax) 25 mg Q8H PRN PO pruritis Last administered on 22:18; Start 01/25/17 at 12:00 Spironolactone (Aldactone) 25 mg BID@09,18 PO Last administered on 01/29/17 08 :35; Start 01/25/17 at 18:00 Ondansetron HCl (Zofran Inj) 4 mg Q6HR PRN IV PUSH NAUSEA Last administered on 01/27/17 18:38; Start 01/26/17 at 08:15 Potassium Chloride 20 meq 20 meq ONCE ONCE PO Last administered on 01/26/17 14:05; Start 01/26/17 at 13:15; Stop 01/26/17 at 13:16; Status DC Vancomycin HCl/ Sodium Chloride (Vancomycin Inj/ NS 500 ml Inj) 515 ml @ 250 mls/hr Q18H IV ; Start 01/27/17 at 18:00; Stop 01/27/17 at 18:00; Status DC Miscellaneous Information SPECIFIC LAB TO BE DRAWN:VANCOMYCIN TROUGH DATE TO... ONCE ONCE .XX ; Start 01/29/17 at 23:45; Stop 01/29/17 at 23:46; Status Cancel Fluconazole (Diflucan) 100 mg DAILY PO Last administered on 01/28/17 12:13; Start 01/28/17 at 12:00; Stop 01/28/17 at 12:35; Status DC Acetaminophen 650 mg 650 mg Q6HR PRN PO FEVER Last administered on 01/28/17 12 :13; Start 01/28/17 at 11:45 Fluconazole/ Sodium Chloride (Diflucan 400 Mg Premix Bag) 200 ml @ 100 mls/hr Q24H IV Last administered on 01/29/17 12:35; Start 01/28/17 at 14:00 Gabapentin (Neurontin) 400 mg TID PO Last administered on 01/29/17 12:35; Start 01/29/17 at 13:00 Oxycodone HCl (Roxicodone) 10 mg Q4H PRN PO pain 1-10 Last administered on 01/29 12:35; Start 01/29/17 at 12:15 A/P Problem List: (1) GI bleed ICD Code: K92.2 Status: Acute (2) Hypotension ICD Code: I95.9 Status: Acute (3) Anemia requiring transfusions ICD Code: D64.9 Status: Acute (4) Leukocytosis ICD Code: D72.829 Status: Acute (5) Hyperkalemia ICD Code: E87.5 Status: Acute (6) Acute kidney injury ICD Code: N17.9 Status: Acute (7) DVT (deep venous thrombosis) ICD Code: I82.409 Status: Acute (8) Bladder cancer ICD Code: C67.9 Status: Acute (9) Hypertension ICD Code: I10 Status: Chronic (10) Ascites due to alcoholic cirrhosis ICD Code: K70.31 Status: Acute Assessment and Plan Hypotension secondary to hypovolemia/sepsis?-resolved. History of hypertension Lactic acidosis. Resolved continue lasix and aldactone Echocardiogram - EF 60-65%. Mild MR/TR. No regional wall motion abnormality. GI bleed most likely variceal bleed Ascites/abdominal Liver cirrhosis History of gastroesophageal reflux disease Elevated transaminases likely secondary to EtOH Hypoalbuminemia -GI consulted EGD revealed gastric ulcer in antrum. This was biopsied. Gastropathy. Old banding. No varices. s/p colonoscopy with polypectomy Ultrasound - Liver cirrhosis with moderate ascites. Splenomegaly. -Continue Protonix at 40 mg twice a day Status post paracentesis 7 L on 01/19. Last 5.7 L 01/24 History of peripheral neuropathy History of EtOH abuse Depression/anxiety -Minimize sedation. -As needed norco and Dilaudid - continue thiamine and folic acid. Acute kidney injury - resolved History of bladder cancer/muscular invasive Bilateral hydronephrosis by history right greater than left BPH Ultrasound - Echogenic kidneys characteristic of medical renal disease with moderate right hydronephrosis and mild left hydronephrosis. Noted recent CT chest revealed right greater than left hydronephrosis. Currently with adequate urine output. -F/u at [facility] for bladder cancer Dr. Simeon discussed with his urologist at [facility], due to his decompensated cirrhosis, recent gi bleeding due to portal htn , poor nutritional status he will high risk for surgery and anesthesia . evaluated by Urology- recommended f/u with [facility]. UTI continue Zosyn. Pertinent cultures follow the repeated UC on 01/27 01/24 - blood cultures 2 -no growth 01/23 - urine -continue to 01/23 - blood cultures 2 - no growth to date 01/19 - peritoneal fluid - no growth 01/14 - blood cultures 2 - NGTD repeat blood cultures on 01/28 so far no growth. ID following. Severe anemia requiring transfusion of 7 units PRBCs Left lower extremity DVT 12/25/16 - left iliac and deep femoral Leukocytosis -Given 7 units of PRBC during this hospitalization -s/p IVC filter placement performed 01/20 Follow-up leukocytosis likely multifactorial evaluated by hematology. Hypokalemia - resolved Hypophosphatemia-resolved Peripheral neuropathy -increase gabapentin to 400 gm TID -change narco to oxycodone which patient was original on as outpatient. d/c IV Dilaudid since no indication for IV Dilaudid for chronic pain. PROPH: IVC filter, Protonix continue PT. Discharge Planning anticipate discharge if Blood cultures negative for at least 2 days and okay with infectious disease. Problem Qualifiers (1) Hypotension: Qualified Code: I95.9 - Hypotension, unspecified hypotension type (2) DVT (deep venous thrombosis): Socorro Sin MD Jan 29, 2017 16:52
[2017-01-29] MEDS ORDERED: PHARMACY ORDERED LAB ONE (23:45)
[2017-01-30] VITALS (9 sets, daily range): BP systolic 100–116; BP diastolic 58–74; PULSE 71–89; RESP 20–22; TEMP 99.3–99.9; O2SAT 95–97
[2017-01-30] MEDS: PIPERACIL-TAZO 4.5 GM PREMIX 100 ML IV SCH ×4 (00:39→17:34)
[2017-01-30 06:47] LABS: HEMATOCRIT 25.7 % (39.0-51.0); MEAN CORPUSCULAR HGB CONC 32.2 % (32.0-36.0); PLATELET COUNT 283 TH/MM3 (150-450); RED BLOOD COUNT 2.95 MIL/MM3 (4.50-5.90); RED CELL DISTRIBUTION WIDTH 18.1 % (11.6-17.2); REVIEW FLAG FINAL
[2017-01-30] MEDS: SODIUM CHLORIDE 0.9% FLUSH 10 ML FLUSH IVF SCH (09:00)
[2017-01-30] MEDS: SPIRONOLACTONE 25 MG TAB PO SCH ×3 (09:00→18:00)
[2017-01-30] MEDS: Central Line Short Term Adult 7Fr or larger Daily NS Lock Flush IV FLUSH SCH (09:16)
[2017-01-30] MEDS: FUROSEMIDE 20 MG/2 ML VIAL IV PUSH SCH (09:17)
[2017-01-30] MEDS: POTASSIUM CHLORIDE 20 MEQ CONTROLLED RELEASE TAB PO SCH (09:20)
[2017-01-30] MEDS: TAMSULOSIN HCL 0.4 MG CAP PO SCH (09:21)
[2017-01-30] MEDS: MULTIVITAMIN TAB PO SCH (09:21)
[2017-01-30] MEDS: THIAMINE HCL 100 MG TAB PO SCH (09:21)
[2017-01-30] MEDS: RIFAXIMIN 550 MG TAB PO SCH ×2 (09:21→21:16)
[2017-01-30] MEDS: FOLIC ACID 1 MG TAB PO SCH (09:21)
[2017-01-30] MEDS: PANTOPRAZOLE SOD 40 MG DELAYED RELEASE TAB PO SCH ×2 (09:21→21:16)
[2017-01-30] MEDS: FERROUS FUMARATE 325 MG TAB (106 MG ELEMENTAL IRON) PO SCH (09:21)
[2017-01-30] MEDS: GABAPENTIN 400 MG CAP PO SCH ×3 (09:23→17:35)
[2017-01-30] MEDS: FLUCONAZOLE 400 MG PREMIX BAG 200 ML IV SCH (13:16)
--- NOTE | 2017-01-30 16:06 | HHI.PR ---
Subjective Remarks Patient denies fevers and chills states he feels great had low grade fever last night with a tmax of 100.5 other vital signs stable wbc still persistently elevated Objective Vitals Vital Signs Date Time Temp Pulse Resp B/P Pulse Ox O2 Delivery O2 Flow Rate FiO2 01/30/17 14:43 95 Room Air 01/30/17 14:42 20 01/30/17 13:40 75 116/69 01/30/17 12:00 99.8 82 20 110/62 95 01/30/17 09:26 80 101/65 01/30/17 08:00 99.3 83 20 101/68 95 01/30/17 04:00 99.4 86 20 113/74 96 01/30/17 00:00 99.9 89 20 114/74 95 01/29/17 21:00 Room Air 01/29/17 20:00 100.5 79 20 119/71 99 01/29/17 20:00 79 I/O 01/29/17 01/29/17 01/29/17 01/30/17 01/30/17 01/30/17 07:00 15:00 23:00 07:00 15:00 23:00 Intake Total 240 ml 600 ml 240 ml 580 ml 300 ml Output Total 400 ml 600 ml 600 ml Balance 240 ml 200 ml -360 ml -20 ml 300 ml Intake Oral 240 ml 600 ml 240 ml 480 ml IV Total 100 ml 300 ml Output Urine Total 400 ml 600 ml 600 ml # Voids 1 3 # Bowel Movements 0 2 Result Diagram: 01/30/17 0618 01/27/17 0440 Imaging Last Impressions Chest X-Ray 01/24/17 1657 Signed Impressions: Service Date/Time: Tuesday, January 24, 2017 17:16 - CONCLUSION: Interval placement of right internal jugular central venous line with no evidence of pneumothorax. Silvano Dubois MD Cyst Biopsy Asp-Paracentesis US 01/24/17 0000 Signed Impressions: Service Date/Time: Tuesday, January 24, 2017 13:34 - CONCLUSION: Uncomplicated ultrasound guided paracentesis. Geremias Ruth MD Abdomen X-Ray 01/24/17 0000 Signed Impressions: Service Date/Time: Tuesday, January 24, 2017 13:47 - CONCLUSION: Nonspecific bowel gas pattern which may represent mild ileus or gastroenteritis. Silvano Dubois MD IVC Filter Placement X-Ray 01/20/17 0836 Signed Impressions: Service Date/Time: January 12:40 - CONCLUSION: Uncomplicated inferior vena cava filter placement as above. Sai Hernández MD Abdomen Ultrasound 01/15/17 0000 Signed Impressions: Service Date/Time: Sunday, January 15, 2017 16:21 - CONCLUSION: 1. Liver cirrhosis with moderate ascites. Splenomegaly. 2. Echogenic kidneys characteristic of medical renal disease with moderate right hydronephrosis and mild left hydronephrosis. rTevon Real MD Lower Extremity Ultrasound 01/14/17 0000 Signed Impressions: Service Date/Time: Saturday, January 14, 2017 17:28 - CONCLUSION: Left iliac and deep femoral DVT. No evidence of DVT on the right. Desmond Villatoro MD Objective Remarks GENERAL: This is a well-nourished, well-developed patient, in no apparent distress. CARDIOVASCULAR: Regular rate and regular rhythm without murmurs, gallops, or rubs. RESPIRATORY: Clear to auscultation. Breath sounds equal bilaterally. No wheezes , rales, or rhonchi. GASTROINTESTINAL: Abdomen soft, non-tender, mildly distended. Normal, active bowel sounds MUSCULOSKELETAL: Extremities without clubbing, cyanosis. left foot +1 pitting edema. NEURO: Alert & Oriented x4 to person, place, time, situation. Moves all ext x4 Procedures paracentesis IVC filter placement EGD/ colonoscopy central line placement Medications and IVs Current Medications Medications (Trade) Dose Ordered Sig/Dejuan Route Start Time Stop Time Status Last Admin (Folate) 1 mg DAILY PO 01/17/17 09:00 01/30/17 09:21 (Flomax) 0.4 mg DAILY PO 01/17/17 09:00 01/30/17 09:21 (Hemocyte) 325 mg DAILY PO 01/17/17 09:00 01/30/17 09:21 (Theragran) 1 tab DAILY PO 01/17/17 09:00 01/30/17 09:21 (Protonix) 40 mg Q12HR PO 01/18/17 21:00 01/30/17 21:16 (Xifaxan) 550 mg BID PO 01/18/17 21:00 01/30/17 21:16 (Tylenol) 650 mg Q6H PRN PO 01/19/17 17:45 01/26/17 20:50 (Vitamin B1) 100 mg DAILY PO 01/22/17 09:00 01/30/17 09:21 (KCl) 20 meq DAILY PO 01/22/17 09:00 01/30/17 09:20 (Lasix Inj) 20 mg DAILY IV PUSH 01/22/17 09:00 01/30/17 09:17 (Lactulose Liq) 30 ml DAILY PRN PO 01/21/17 09:45 (NS Flush) DAILY IVF 01/25/17 09:00 01/29/17 08:37 Sodium Chloride UNSCH PRN IVF 01/24/17 17:00 (Zosyn 4.5 Gm Premix) 100 ml @ 200 mls/hr Q6H IV 01/24/17 18:00 01/30/17 17:34 (NS Flush) DAILY IV FLUSH 01/25/17 09:00 01/30/17 09:16 (NS Flush) UNSCH PRN IV FLUSH 01/24/17 17:45 01/30/17 21:17 (Atarax) 25 mg Q8H PRN PO 01/25/17 12:00 01/25/17 22:18 (Aldactone) 25 mg BID@09,18 PO 01/25/17 18:00 01/29/17 16:48 (Zofran Inj) 4 mg Q6HR PRN IV PUSH 01/26/17 08:15 01/27/17 18:38 Acetaminophen 650 mg 650 mg Q6HR PRN PO 01/28/17 11:45 01/28/17 12:13 (Diflucan 400 Mg Premix Bag) 200 ml @ 100 mls/hr Q24H IV 01/28/17 14:00 01/30/17 13:16 (Neurontin) 400 mg TID PO 01/29/17 13:00 01/30/17 17:35 (Roxicodone) 10 mg Q4H PRN PO 01/29/17 12:15 01/30/17 21:28 Urinary Catheter: No Vascular Central Line Catheter: No A/P Problem List: (1) GI bleed ICD Code: K92.2 Status: Acute (2) Hypotension ICD Code: I95.9 Status: Acute (3) Anemia requiring transfusions ICD Code: D64.9 Status: Acute (4) Leukocytosis ICD Code: D72.829 Status: Acute (5) Hyperkalemia ICD Code: E87.5 Status: Acute (6) Acute kidney injury ICD Code: N17.9 Status: Acute (7) DVT (deep venous thrombosis) ICD Code: I82.409 Status: Acute (8) Bladder cancer ICD Code: C67.9 Status: Acute (9) Hypertension ICD Code: I10 Status: Chronic (10) Ascites due to alcoholic cirrhosis ICD Code: K70.31 Status: Acute Assessment and Plan Hypotension secondary to hypovolemia/sepsis?-resolved. History of hypertension Lactic acidosis. Resolved continue lasix and aldactone Echocardiogram - EF 60-65%. Mild MR/TR. No regional wall motion abnormality. GI bleed most likely variceal bleed Ascites/abdominal Liver cirrhosis History of gastroesophageal reflux disease Elevated transaminases likely secondary to EtOH Hypoalbuminemia -GI consulted EGD revealed gastric ulcer in antrum. This was biopsied. Gastropathy. Old banding. No varices. s/p colonoscopy with polypectomy Ultrasound - Liver cirrhosis with moderate ascites. Splenomegaly. -Continue Protonix at 40 mg twice a day Status post paracentesis 7 L on 01/19. Last 5.7 L 01/24 History of peripheral neuropathy History of EtOH abuse Depression/anxiety -Minimize sedation. -As needed norco and Dilaudid - continue thiamine and folic acid. Acute kidney injury - resolved History of bladder cancer/muscular invasive Bilateral hydronephrosis by history right greater than left BPH Ultrasound - Echogenic kidneys characteristic of medical renal disease with moderate right hydronephrosis and mild left hydronephrosis. Noted recent CT chest revealed right greater than left hydronephrosis. Currently with adequate urine output. -F/u at [facility] for bladder cancer Dr. Simeon discussed with his urologist at [facility], due to his decompensated cirrhosis, recent gi bleeding due to portal htn , poor nutritional status he will high risk for surgery and anesthesia . evaluated by Urology- recommended f/u with [facility]. UTI continue Zosyn. Pertinent cultures follow the repeated UC on 01/27 01/24 - blood cultures 2 -no growth 01/23 - urine -continue to 01/23 - blood cultures 2 - no growth to date 01/19 - peritoneal fluid - no growth 01/14 - blood cultures 2 - NGTD repeat blood cultures on 01/28 so far no growth. ID following. Severe anemia requiring transfusion of 7 units PRBCs Left lower extremity DVT 12/25/16 - left iliac and deep femoral Leukocytosis -Given 7 units of PRBC during this hospitalization -s/p IVC filter placement performed 01/20 Follow-up leukocytosis likely multifactorial evaluated by hematology. Hypokalemia - resolved Hypophosphatemia-resolved Peripheral neuropathy -increase gabapentin to 400 gm TID -change narco to oxycodone which patient was original on as outpatient. d/c IV Dilaudid since no indication for IV Dilaudid for chronic pain. PROPH: IVC filter, Protonix continue PT. Discharge Planning Dc once patient 26 fever free and pending ID clearance. Problem Qualifiers (1) Hypotension: Qualified Code: I95.9 - Hypotension, unspecified hypotension type (2) DVT (deep venous thrombosis): Carson Guerin MD Jan 30, 2017 16:06
[2017-01-30] MEDS: Central Line Short Term Adult 7Fr or larger PRN NS Lock Flush IV FLUSH (21:17)
[2017-01-31] VITALS (10 sets, daily range): BP systolic 94–112; BP diastolic 54–70; PULSE 74–92; RESP 16–20; TEMP 98.2–100.4; O2SAT 94–98
[2017-01-31] MEDS: PIPERACIL-TAZO 4.5 GM PREMIX 100 ML IV SCH ×2 (00:33→05:38)
[2017-01-31 06:18] LABS: AUTOMATED NEUTROPHIL # 9.4 TH/MM3 (1.8-7.7); BASOPHIL # 0.1 TH/MM3 (0-0.2); BASOPHIL % 0.5 % (0.0-2.0); EOSINOPHIL # 0.2 TH/MM3 (0-0.4); EOSINOPHIL % 2.1 % (0.0-4.0); LYMPH % 6.9 % (9.0-44.0); LYMPHOCYTE # 0.8 TH/MM3 (1.0-4.8); MEAN CELL VOLUME 87.7 FL (80.0-100.0); MEAN CORPUSCULAR HEMOGLOBIN 30.4 PG (27.0-34.0); MEAN CORPUSCULAR HGB CONC 34.6 % (32.0-36.0); MONO % 8.3 % (0.0-8.0); NEUT % 82.2 % (16.0-70.0); PLATELET COUNT 196 TH/MM3 (150-450); RED BLOOD COUNT 2.07 MIL/MM3 (4.50-5.90); RED CELL DISTRIBUTION WIDTH 18.8 % (11.6-17.2); WHITE BLOOD COUNT 11.4 TH/MM3 (4.0-11.0)
[2017-01-31 06:24] LABS: HEMO FLAGS DIFF FINAL
[2017-01-31 06:28] LABS: ANION GAP 9 MEQ/L (5-15); AST (GOT) 25 U/L (15-37); BICARBONATE 26.8 MEQ/L (21.0-32.0); BLOOD UREA NITROGEN 14 MG/DL (7-18); CHLORIDE 100 MEQ/L (98-107); GLOMERULAR FILTRATION RATE 61 ML/MIN (>89); HEMATOCRIT 18.1 % (39.0-51.0); MAGNESIUM 1.9 MG/DL (1.5-2.5); SODIUM (NA) 136 MEQ/L (136-145)
[2017-01-31 06:46] LABS: ALKALINE PHOSPHATASE 356 U/L (45-117); ALT (GPT) 23 U/L (12-78); TOTAL BILIRUBIN ADULT 0.6 MG/DL (0.2-1.0)
[2017-01-31] MEDS: SODIUM CHLORIDE 0.9% FLUSH 10 ML FLUSH IVF SCH (09:00)
[2017-01-31] MEDS: FOLIC ACID 1 MG TAB PO SCH (09:44)
[2017-01-31] MEDS: PANTOPRAZOLE SOD 40 MG DELAYED RELEASE TAB PO SCH ×2 (09:44→22:13)
[2017-01-31] MEDS: POTASSIUM CHLORIDE 20 MEQ CONTROLLED RELEASE TAB PO SCH (09:44)
[2017-01-31] MEDS: MULTIVITAMIN TAB PO SCH (09:44)
[2017-01-31] MEDS: FERROUS FUMARATE 325 MG TAB (106 MG ELEMENTAL IRON) PO SCH (09:44)
[2017-01-31] MEDS: THIAMINE HCL 100 MG TAB PO SCH (09:44)
[2017-01-31] MEDS: SPIRONOLACTONE 25 MG TAB PO SCH ×2 (09:44→16:44)
[2017-01-31] MEDS: TAMSULOSIN HCL 0.4 MG CAP PO SCH (09:44)
[2017-01-31] MEDS: GABAPENTIN 400 MG CAP PO SCH ×3 (09:44→16:43)
[2017-01-31] MEDS: RIFAXIMIN 550 MG TAB PO SCH ×2 (09:44→22:13)
[2017-01-31] MEDS: FUROSEMIDE 20 MG/2 ML VIAL IV PUSH SCH ×2 (09:45→22:13)
[2017-01-31] MEDS: Central Line Short Term Adult 7Fr or larger Daily NS Lock Flush IV FLUSH SCH (09:45)
--- NOTE | 2017-01-31 10:32 | HHI.PR ---
Subjective Remarks in no distress. had a low grade fever earlier. noted a drop in H/H. seen with at the bedside. Objective Vitals Vital Signs Date Time Temp Pulse Resp B/P Pulse Ox O2 Delivery O2 Flow Rate FiO2 01/31/17 08:01 83 01/31/17 08:00 100.0 89 19 102/54 94 01/31/17 00:00 Room Air 01/31/17 00:00 100.4 81 20 107/64 96 01/30/17 21:25 Room Air 01/30/17 20:00 99.6 78 22 101/62 95 01/30/17 20:00 71 01/30/17 19:17 20 01/30/17 18:14 88 100/58 01/30/17 16:00 99.6 78 20 111/60 97 01/30/17 14:43 95 Room Air 01/30/17 13:40 75 116/69 01/30/17 12:00 99.8 82 20 110/62 95 I/O 01/30/17 01/30/17 01/30/17 01/31/17 01/31/17 01/31/17 07:00 15:00 23:00 07:00 15:00 23:00 Intake Total 580 ml 300 ml 242 ml Output Total 600 ml Balance -20 ml 300 ml 242 ml Intake Oral 480 ml 242 ml IV Total 100 ml 300 ml Output Urine Total 600 ml Result Diagram: 01/31/17 0550 01/31/17 0550 Imaging Last Impressions Chest X-Ray 01/24/17 1657 Signed Impressions: Service Date/Time: Tuesday, January 24, 2017 17:16 - CONCLUSION: Interval placement of right internal jugular central venous line with no evidence of pneumothorax. Silvano Dubois MD Cyst Biopsy Asp-Paracentesis US 01/24/17 0000 Signed Impressions: Service Date/Time: Tuesday, January 24, 2017 13:34 - CONCLUSION: Uncomplicated ultrasound guided paracentesis. Geremias Ruth MD Abdomen X-Ray 01/24/17 0000 Signed Impressions: Service Date/Time: Tuesday, January 24, 2017 13:47 - CONCLUSION: Nonspecific bowel gas pattern which may represent mild ileus or gastroenteritis. Silvano Dubois MD IVC Filter Placement X-Ray 01/20/17 0836 Signed Impressions: Service Date/Time: January 12:40 - CONCLUSION: Uncomplicated inferior vena cava filter placement as above. Sai Hernández MD Abdomen Ultrasound 01/15/17 0000 Signed Impressions: Service Date/Time: Sunday, January 15, 2017 16:21 - CONCLUSION: 1. Liver cirrhosis with moderate ascites. Splenomegaly. 2. Echogenic kidneys characteristic of medical renal disease with moderate right hydronephrosis and mild left hydronephrosis. Trevon Real MD Lower Extremity Ultrasound 01/14/17 0000 Signed Impressions: Service Date/Time: Saturday, January 14, 2017 17:28 - CONCLUSION: Left iliac and deep femoral DVT. No evidence of DVT on the right. Desmond Villatoro MD Objective Remarks GENERAL: This is a well-nourished, well-developed patient, in no apparent distress. CARDIOVASCULAR: Regular rate and regular rhythm without murmurs, gallops, or rubs. RESPIRATORY: Clear to auscultation. Breath sounds equal bilaterally. No wheezes , rales, or rhonchi. GASTROINTESTINAL: Abdomen soft, non-tender, mildly distended. Normal, active bowel sounds MUSCULOSKELETAL: Extremities without clubbing, cyanosis, or edema. NEURO: Alert & Oriented x4 to person, place, time, situation. Moves all ext x4 Procedures paracentesis IVC filter placement EGD/ colonoscopy central line placement Medications and IVs Current Medications Sodium Chloride (NS 1000 ml Inj) 1,000 ml @ 1,000 mls/hr Q1H IV Last administered on 01/14/17 16:10; Start 01/14/17 at 13:37; Stop 01/14/17 at 14:36 ; Status DC Sodium Chloride 2 ml 2 ml UNSCH PRN IVF FLUSH AFTER USING IV ACCESS Last administered on 01/22/17 22:53; Start 01/14/17 at 13:45; Stop 01/24/17 at 16:59 ; Status DC Octreotide Acetate 500 mcg/ Sodium Chloride 500.5 ml @ 50 mls/hr Q10H IV Last administered on 01/15/17 10:31; Start 01/14/17 at 13:45; Stop 01/16/17 at 06:46 ; Status DC Pantoprazole Sodium 80 mg/ Sodium Chloride 35 ml @ 420 mls/hr ONCE ONCE IV Last administered on 01/14/17 15:40; Start 01/14/17 at 13:45; Stop 01/14/17 at 13:49; Status DC Pantoprazole Sodium 80 mg/ Sodium Chloride 100 ml @ 10 mls/hr Q10H IV Last administered on 01/18/17 08:12; Start 01/14/17 at 13:45; Stop 01/18/17 at 11:46 ; Status DC Sodium Chloride (NS 250 ml Inj) 250 ml @ 15 mls/hr ONCE ONCE IV Last administered on 01/14/17 16:48; Start 01/14/17 at 14:45; Stop 01/15/17 at 07:24 ; Status DC Calcium Gluconate (Calcium Gluconate Inj) 1 gm ONCE ONCE SLOW IVP Last administered on 01/14/17 16:15; Start 01/14/17 at 15:15; Stop 01/14/17 at 15:16 ; Status DC Insulin Human Regular (NovoLIN R INJ) 10 units ONCE ONCE IV PUSH Last administered on 01/14/17 16:15; Start 01/14/17 at 15:15; Stop 01/14/17 at 15:16 ; Status DC Dextrose (D50w (Vial) Inj) 50 ml ONCE ONCE IV PUSH Last administered on 16:15; Start 01/14/17 at 15:15; Stop 01/14/17 at 15:16; Status DC Sodium Bicarbonate (Sodium Bicarbonate 8.4% Inj) 50 meq ONCE ONCE SLOW IVP Last administered on 01/14/17 16:26; Start 01/14/17 at 15:15; Stop 01/14/17 at 15:16; Status DC Albuterol Sulfate 10 mg 10 mg ONCE ONCE INH Last administered on 01/14/17 17: 07; Start 01/14/17 at 15:15; Stop 01/14/17 at 15:16; Status DC Ceftriaxone Sodium 1000 mg/ Sodium Chloride 100 ml @ 200 mls/hr Q24H IV Last administered on 01/22/17 17:07; Start 01/14/17 at 17:00; Stop 01/23/17 at 16:23 ; Status DC Sodium Chloride 1,000 ml @ 999 mls/hr BOLUS ONCE IV Last administered on 01/14 16:48; Start 01/14/17 at 16:30; Stop 01/14/17 at 17:30; Status DC Sodium Chloride (NS 1000 ml Inj) 1,000 ml @ 125 mls/hr Q8H IV Last administered on 01/15/17 00:19; Start 01/14/17 at 17:00; Stop 01/15/17 at 08:06 ; Status DC Diphenhydramine HCl (Benadryl Inj) 50 mg ONCE ONCE IV PUSH Last administered on 01/14/17 18:15; Start 01/14/17 at 18:00; Stop 01/14/17 at 18:01; Status DC Diphenhydramine HCl (Benadryl Inj) 25 mg ONCE ONCE IV PUSH ; Start 01/14/17 at 18:45; Stop 01/14/17 at 18:46; Status DC Hydromorphone HCl 0.5 mg 0.5 mg Q4H PRN IV BREAKTHROUGH PAIN Last administered on 01/29/17 10:51; Start 01/15/17 at 02:30; Stop 01/29/17 at 12:11 ; Status DC Magnesium Sulfate/ Dextrose (Magnesium Sulfate 1 Gm Premix) 100 ml @ 100 mls/ hr Q1H IV ; Start 01/15/17 at 08:15; Stop 01/15/17 at 10:14; Status DC Furosemide 20 mg 20 mg BID@09,18 IV PUSH Last administered on 01/21/17 08:38; Start 01/15/17 at 09:00; Stop 01/21/17 at 09:41; Status DC Sodium Chloride 1,000 ml @ 42 mls/hr [id number] IV Last administered on 05:48; Start 01/15/17 at 08:15; Stop 01/26/17 at 08:13; Status DC Thiamine HCl/ Sodium Chloride (Thiamine Inj/NS Inj) 101 ml @ 101 mls/hr DAILY IV Last administered on 01/21/17 08:37; Start 01/15/17 at 09:00; Stop at 09:33; Status DC Propofol (Diprivan 200 Mg/20 ml Inj) 100 mg STK-MED ONCE IV ; Start 01/15/17 at 13:09; Stop 01/15/17 at 13:19; Status DC Polyethylene Glycol/ Electrolytes 4000 ml 4,000 ml ONCE ONCE PO Last administered on 01/16/17 16:06; Start 01/16/17 at 16:00; Stop 01/16/17 at 16:01 ; Status DC Sodium Phosphate/ Sodium Chloride (Sodium Phosphate Inj/NS 250 ml Inj) 260 ml @ 43.333 mls/ hr ONCE ONCE IV Last administered on 01/17/17 09:00; Start at 09:00; Stop 01/17/17 at 14:59; Status DC Folic Acid (Folate) 1 mg DAILY PO Last administered on 01/31/17 09:44; Start at 09:00 Gabapentin (Neurontin) 300 mg TID PO Last administered on 01/29/17 10:58; Start 01/17/17 at 09:00; Stop 01/29/17 at 12:11; Status DC Tamsulosin HCl (Flomax) 0.4 mg DAILY PO Last administered on 01/31/17 09:44; Start 01/17/17 at 09:00 Ferrous Fumarate (Hemocyte) 325 mg DAILY PO Last administered on 01/31/17 09:44 ; Start 01/17/17 at 09:00 Multivitamins (Theragran) 1 tab DAILY PO Last administered on 01/31/17 09:44; Start 01/17/17 at 09:00 Ketamine HCl (Ketalar Inj) 20 mg STK-MED ONCE IV ; Start 01/15/17 at 12:00; Stop 01/17/17 at 08:49; Status DC Propofol (Diprivan 200 Mg/20 ml Inj) 40 mg STK-MED ONCE IV ; Start 01/17/17 at 13:30; Stop 01/17/17 at 14:19; Status DC Miscellaneous Information ALL NURSING DEPARTME... UNSCH PRN .XX SEE LABEL COMMENTS; Start 01/17/17 at 14:09; Stop 01/18/17 at 14:08; Status DC Midazolam HCl (Versed Inj) 2 mg STK-MED ONCE .ROUTE ; Start 01/17/17 at 14:51; Stop 01/17/17 at 14:52; Status DC Fentanyl Citrate (fentaNYL INJ) 100 mcg STK-MED ONCE .ROUTE ; Start 01/17/17 at 14:51; Stop 01/17/17 at 14:52; Status DC Potassium Chloride 60 meq 60 meq ONCE ONCE PO Last administered on 01/18/17 08:02; Start 01/18/17 at 07:30; Stop 01/18/17 at 07:31; Status DC Heparin Sodium/ Dextrose (Heparin-D5W Inj) 250 ml @ 0 mls/hr TITRATE IV Last administered on 01/20/17 03:35; Start 01/18/17 at 08:15; Stop 01/20/17 at 08:37 ; Status DC Pantoprazole Sodium (Protonix) 40 mg Q12HR PO Last administered on 01/31/17 09: 44; Start 01/18/17 at 21:00 Rifaximin (Xifaxan) 550 mg BID PO Last administered on 01/31/17 09:44; Start at 21:00 Albumin Human (Albumin 25% Inj) 25 gm ONCE ONCE IV Last administered on 07:10; Start 01/19/17 at 08:00; Stop 01/19/17 at 08:01; Status DC Hydromorphone HCl (Dilaudid Pf Inj) 0.5 mg STAT ONCE IV Last administered on 09:49; Start 01/19/17 at 09:45; Stop 01/19/17 at 09:46; Status DC Albumin Human (Albumin 25% Inj) ONCE ONCE IV Last administered on 01/19/17 15:09; Start 01/19/17 at 15:00; Stop 01/19/17 at 15:01; Status DC Acetaminophen (Tylenol) 650 mg Q6H PRN PO SEE LABEL COMMENTS Last administered on 01/26/17 20:50; Start 01/19/17 at 17:45 Iohexol (Omnipaque 350 Inj) 50 ml STK-MED ONCE .XX Last administered on 13:22; Start 01/20/17 at 13:22; Stop 01/20/17 at 13:23; Status DC Vancomycin HCl (Vancomycin Inj) 1,000 mg STK-MED ONCE IV Last administered on 12:50; Start 01/20/17 at 12:50; Stop 01/20/17 at 13:29; Status DC Fentanyl Citrate (fentaNYL INJ) 100 mcg STK-MED ONCE IV Last administered on 12:50; Start 01/20/17 at 12:50; Stop 01/20/17 at 13:30; Status DC Potassium Chloride 60 meq 60 meq ONCE ONCE PO Last administered on 01/21/17 06:36; Start 01/21/17 at 06:45; Stop 01/21/17 at 06:46; Status DC Potassium Chloride (KCl 20 Meq Premix Inj) 100 ml @ 50 mls/hr ONCE ONCE IV Last administered on 01/21/17 06:36; Start 01/21/17 at 06:30; Stop 01/21/17 at 08:29; Status DC Thiamine HCl (Vitamin B1) 100 mg DAILY PO Last administered on 01/31/17 09:44; Start 01/22/17 at 09:00 Potassium Chloride (KCl) 20 meq DAILY PO Last administered on 01/31/17 09:44; Start 01/22/17 at 09:00 Furosemide (Lasix Inj) 20 mg DAILY IV PUSH Last administered on 01/31/17 09:45 ; Start 01/22/17 at 09:00 Lactulose (Lactulose Liq) 30 ml DAILY PRN PO cirrhosis/encephalopathy; Start at 09:45 Aminocaproic Acid 250 mg 250 mg STK-MED ONCE IV ; Start 01/17/17 at 05:00; Stop 01/21/17 at 09:49; Status DC Cefazolin Sodium/ Dextrose (Ancef 2 Gm Premix) 50 ml @ As Directed STK-MED ONCE IV ; Start 01/17/17 at 05:00; Stop 01/21/17 at 09:49; Status DC Heparin Sodium (Porcine) (Heparin Inj) 10,000 units STK-MED ONCE SQ ; Start at 05:00; Stop 01/21/17 at 09:49; Status DC Phenylephrine HCl 10 mg 10 mg STK-MED ONCE IV ; Start 01/17/17 at 05:00; Stop at 09:49; Status DC Nitroglycerin/ Dextrose (Nitroglycerin-Dextrose Inj) 250 ml @ As Directed STK- MED ONCE IV ; Start 01/17/17 at 05:00; Stop 01/21/17 at 09:49; Status DC Acetaminophen 1000 mg 1,000 mg STK-MED ONCE IV ; Start 01/17/17 at 05:00; Stop 01/21/17 at 09:49; Status DC Dexmedetomidine HCl (Precedex Inj) 50 ml @ As Directed STK-MED ONCE IV ; Start 01/17/17 at 05:00; Stop 01/21/17 at 09:50; Status DC Glycopyrrolate (Robinul Inj) 0.2 mg STK-MED ONCE IV ; Start 01/17/17 at 05:00; Stop 01/21/17 at 09:50; Status DC Potassium Chloride (KCl) 40 meq ONCE ONCE PO ; Start 01/21/17 at 19:45; Stop at 19:50; Status DC Acetaminophen/ Hydrocodone Bitart 1 tab 1 tab Q4H PRN PO PAIN 2-10 Last administered on 01/29/17 08:36; Start 01/22/17 at 11:15; Stop 01/29/17 at 12:11 ; Status DC Ceftriaxone Sodium/Sodium Chloride (Rocephin Inj/NS Inj) 100 ml @ 200 mls/hr Q24H IV Last administered on 01/24/17 16:56; Start 01/23/17 at 18:00; Stop at 17:12; Status DC Acetaminophen (Ofirmev Inj) 1,000 mg ONCE ONCE IV Last administered on 13:00; Start 01/24/17 at 12:45; Stop 01/24/17 at 12:46; Status DC Acetaminophen (Ofirmev Inj) 1,000 mg Q8HR PRN IV high grade fevers >101; Start 01/24/17 at 12:45; Stop 01/28/17 at 11:42; Status DC Albumin Human (Albumin 25% Inj) 25 gm ONCE ONCE IV Last administered on 16:56; Start 01/24/17 at 16:15; Stop 01/24/17 at 16:16; Status DC Albumin Human (Albumin 25% Inj) 12.5 gm ONCE ONCE IV Last administered on 01/24 16:55; Start 01/24/17 at 16:15; Stop 01/24/17 at 16:16; Status DC Sodium Chloride (NS Flush) DAILY IVF Last administered on 01/29/17 08:37; Start 01/25/17 at 09:00 Sodium Chloride UNSCH PRN IVF SEE PROTOCOL; Start 01/24/17 at 17:00 Sodium Chloride (NS 1000 ml Inj) 1,000 ml @ 999 mls/hr BOLUS ONCE IV Last administered on 01/24/17 17:15; Start 01/24/17 at 17:15; Stop 01/24/17 at 18:15 ; Status DC Albumin Human 50 gm 50 gm ONCE ONCE IV Last administered on 01/24/17 17:56; Start 01/24/17 at 17:15; Stop 01/24/17 at 17:16; Status DC Pharmacy Profile Note 0 ml @ 0 mls/hr UNSCH OTHER ; Start 01/24/17 at 17:15; Stop 01/27/17 at 13:27; Status DC Cefepime HCl 2000 mg/Sodium Chloride 100 ml @ 200 mls/hr Q8H IV ; Start at 17:15; Stop 01/24/17 at 17:15; Status DC Piperacillin Sod/ Tazobactam Sod (Zosyn 4.5 Gm Premix) 100 ml @ 200 mls/hr Q6H IV Last administered on 01/31/17 05:38; Start 01/24/17 at 18:00 Terbutaline Sulfate 1 mg 1 mg UNSCH PRN SQ For Extravasation; Start 01/24/17 at 17:15; Stop 01/26/17 at 08:13; Status DC Phenylephrine HCl 160 mg/Dextrose 500 ml @ 0 mls/hr TITRATE IV Last administered on 01/24/17 17:57; Start 01/24/17 at 17:15; Stop 01/26/17 at 08:13 ; Status DC Vancomycin HCl/ Sodium Chloride (Vancomycin Inj/ NS 250 ml Inj) 262.5 ml @ 250 mls/hr Q18H IV Last administered on 01/27/17 00:45; Start 01/24/17 at 18:00; Stop 01/27/17 at 08:22; Status DC Miscellaneous Information SPECIFIC LAB TO BE DRAWN:VANCOMYCIN TROUGH DATE TO... ONCE ONCE .XX Last administered on 01/26/17 23:45; Start 01/26/17 at 23:45; Stop 01/26/17 at 23:46; Status DC Sodium Chloride (NS Flush) DAILY IV FLUSH Last administered on 01/31/17 09:45 ; Start 01/25/17 at 09:00 Sodium Chloride (NS Flush) UNSCH PRN IV FLUSH SEE PROTOCOL TABLE Last administered on 01/30/17 21:17; Start 01/24/17 at 17:45 Hydroxyzine HCl (Atarax) 25 mg Q8H PRN PO pruritis Last administered on 22:18; Start 01/25/17 at 12:00 Spironolactone (Aldactone) 25 mg BID@09,18 PO Last administered on 01/31/17 09: 44; Start 01/25/17 at 18:00 Ondansetron HCl (Zofran Inj) 4 mg Q6HR PRN IV PUSH NAUSEA Last administered on 01/27/17 18:38; Start 01/26/17 at 08:15 Potassium Chloride 20 meq 20 meq ONCE ONCE PO Last administered on 01/26/17 14:05; Start 01/26/17 at 13:15; Stop 01/26/17 at 13:16; Status DC Vancomycin HCl/ Sodium Chloride (Vancomycin Inj/ NS 500 ml Inj) 515 ml @ 250 mls/hr Q18H IV ; Start 01/27/17 at 18:00; Stop 01/27/17 at 18:00; Status DC Miscellaneous Information SPECIFIC LAB TO BE DRAWN:VANCOMYCIN TROUGH DATE TO... ONCE ONCE .XX ; Start 01/29/17 at 23:45; Stop 01/29/17 at 23:46; Status Cancel Fluconazole (Diflucan) 100 mg DAILY PO Last administered on 01/28/17 12:13; Start 01/28/17 at 12:00; Stop 01/28/17 at 12:35; Status DC Acetaminophen 650 mg 650 mg Q6HR PRN PO FEVER Last administered on 01/28/17 12 :13; Start 01/28/17 at 11:45 Fluconazole/ Sodium Chloride (Diflucan 400 Mg Premix Bag) 200 ml @ 100 mls/hr Q24H IV Last administered on 01/30/17 13:16; Start 01/28/17 at 14:00 Gabapentin (Neurontin) 400 mg TID PO Last administered on 01/31/17 09:44; Start 01/29/17 at 13:00 Oxycodone HCl (Roxicodone) 10 mg Q4H PRN PO pain 1-10 Last administered on t 09:43; Start 01/29/17 at 12:15 A/P Assessment and Plan A/P Hypotension secondary to hypovolemia/sepsis?-resolved. History of hypertension Lactic acidosis. Resolved continue lasix and aldactone Echocardiogram - EF 60-65%. Mild MR/TR. No regional wall motion abnormality. GI bleed most likely variceal bleed Ascites/abdominal Liver cirrhosis History of gastroesophageal reflux disease Elevated transaminases likely secondary to EtOH Hypoalbuminemia -GI consulted EGD revealed gastric ulcer in antrum. This was biopsied. Gastropathy. Old banding. No varices. s/p colonoscopy with polypectomy Ultrasound - Liver cirrhosis with moderate ascites. Splenomegaly. -Continue Protonix at 40 mg twice a day Status post paracentesis 7 L on 01/19. Last 5.7 L 01/24 History of peripheral neuropathy History of EtOH abuse Depression/anxiety -Minimize sedation. -As needed norco and Dilaudid - continue thiamine and folic acid. Acute kidney injury - resolved History of bladder cancer/muscular invasive Bilateral hydronephrosis by history right greater than left BPH Ultrasound - Echogenic kidneys characteristic of medical renal disease with moderate right hydronephrosis and mild left hydronephrosis. Noted recent CT chest revealed right greater than left hydronephrosis. Currently with adequate urine output. -F/u at [facility] for bladder cancer Dr. Simeon discussed with his urologist at [facility], due to his decompensated cirrhosis, recent gi bleeding due to portal htn , poor nutritional status he will high risk for surgery and anesthesia . evaluated by Urology- recommended f/u with [facility]. UTI recurrent fever continue Zosyn. Pertinent cultures 01/24 - blood cultures 2 -no growth 01/23 - urine -continue to 01/23 - blood cultures 2 - no growth to date 01/19 - peritoneal fluid - no growth 01/14 - blood cultures 2 - NGTD repeat blood cultures on 01/28 so far no growth. ID following. Severe anemia requiring transfusion of 7 units PRBCs Left lower extremity DVT 12/25/16 - left iliac and deep femoral Leukocytosis -previously Given 7 units of PRBC during this hospitalization -will transfuse with two more prbc today -continue to monitor H/H -s/p IVC filter placement performed 01/20 evaluated by hematology. Hypokalemia - resolved Hypophosphatemia-resolved Peripheral neuropathy -on gabapentin to 400 gm TID -changed narco to oxycodone which patient was original on as outpatient. PROPH: IVC filter, Protonix continue PT. Discharge Planning d/w the RN and . Vance Frazier MD January 31, 2017 10:32
--- NOTE | 2017-01-31 10:49 | HHI.IDPN ---
Subjective Subjective Remarks Notes reviewed Occ low grade temps Hgb down to 6.3 To get PRBC States he has intermittent hematuria, and blood in stool and at times black stools More abdominal distension Has received 2 treatments with BCG, when he was first diagnosed with bladder CA in 2009, since has had mitomycin Has significant adverse reaction to BCG treatments WBC better, down to 11.4 Nothing new on C/S BC negative Repeat UC negative Antibiotics Zosyn Diflucan Past Medical History Reviewed Allergies: Uncoded Allergies: BCG TREATMENT (Adverse Reaction, Severe, HTYPOTENSION , 12/25/16) Objective . Vital Signs Date Time Temp Pulse Resp B/P Pulse Ox O2 Delivery O2 Flow Rate FiO2 01/31/17 08:01 83 01/31/17 08:00 100.0 89 19 102/54 94 01/31/17 00:00 Room Air 01/31/17 00:00 100.4 81 20 107/64 96 01/30/17 21:25 Room Air 01/30/17 20:00 99.6 78 22 101/62 95 01/30/17 20:00 71 01/30/17 19:17 20 01/30/17 18:14 88 100/58 01/30/17 16:00 99.6 78 20 111/60 97 01/30/17 14:43 95 Room Air 01/30/17 13:40 75 116/69 01/30/17 12:00 99.8 82 20 110/62 95 01/30/17 01/30/17 01/31/17 15:00 23:00 07:00 Intake Total 300 ml 242 ml Balance 300 ml 242 ml Intake Oral 242 ml IV Total 300 ml . Laboratory Tests Test 01/30/17 01/31/17 06:18 05:50 White Blood Count 18.0 TH/MM3 11.4 TH/MM3 Red Blood Count 2.95 MIL/MM3 2.07 MIL/MM3 Hemoglobin 8.3 GM/DL 6.3 GM/DL Hematocrit 25.7 % 18.1 % Mean Corpuscular Volume 87.0 FL 87.7 FL Mean Corpuscular Hemoglobin 28.0 PG 30.4 PG Mean Corpuscular Hemoglobin 32.2 % 34.6 % Concent Red Cell Distribution Width 18.1 % 18.8 % Platelet Count 283 TH/MM3 196 TH/MM3 Mean Platelet Volume 9.7 FL 9.1 FL Neutrophils (%) (Auto) 82.2 % Lymphocytes (%) (Auto) 6.9 % Monocytes (%) (Auto) 8.3 % Eosinophils (%) (Auto) 2.1 % Basophils (%) (Auto) 0.5 % Neutrophils # (Auto) 9.4 TH/MM3 Lymphocytes # (Auto) 0.8 TH/MM3 Monocytes # (Auto) 0.9 TH/MM3 Eosinophils # (Auto) 0.2 TH/MM3 Basophils # (Auto) 0.1 TH/MM3 CBC Comment DIFF FINAL Differential Comment Laboratory Tests Test 01/31/17 05:50 Sodium Level 136 MEQ/L Potassium Level 4.0 MEQ/L Chloride Level 100 MEQ/L Carbon Dioxide Level 26.8 MEQ/L Anion Gap 9 MEQ/L Blood Urea Nitrogen 14 MG/DL Creatinine 1.20 MG/DL Estimat Glomerular Filtration 61 ML/MIN Rate Random Glucose 86 MG/DL Calcium Level 8.6 MG/DL Phosphorus Level 3.0 MG/DL Magnesium Level 1.9 MG/DL Total Bilirubin 0.6 MG/DL Aspartate Amino Transf 25 U/L (AST/SGOT) Alanine Aminotransferase 23 U/L (ALT/SGPT) Alkaline Phosphatase 356 U/L Total Protein 6.4 GM/DL Albumin 2.1 GM/DL Microbiology Date/Time Procedure Status Source Growth 01/28/17 13:17 Aerobic Blood Culture - Preliminary Resulted Blood Line NO GROWTH IN 2 DAYS 01/28/17 13:17 Anaerobic Blood Culture - Preliminary Resulted Blood Line NO GROWTH IN 2 DAYS 01/28/17 13:20 Aerobic Blood Culture - Preliminary Resulted Blood Peripheral NO GROWTH IN 2 DAYS 01/28/17 13:20 Anaerobic Blood Culture - Preliminary Resulted Blood Peripheral NO GROWTH IN 2 DAYS Imaging Last Impressions Chest X-Ray 01/24/17 1657 Signed Impressions: Service Date/Time: Tuesday, January 24, 2017 17:16 - CONCLUSION: Interval placement of right internal jugular central venous line with no evidence of pneumothorax. Silvano Dubois MD Cyst Biopsy Asp-Paracentesis US 01/24/17 0000 Signed Impressions: Service Date/Time: Tuesday, January 24, 2017 13:34 - CONCLUSION: Uncomplicated ultrasound guided paracentesis. Geremias Ruth MD Abdomen X-Ray 01/24/17 0000 Signed Impressions: Service Date/Time: Tuesday, January 24, 2017 13:47 - CONCLUSION: Nonspecific bowel gas pattern which may represent mild ileus or gastroenteritis. Silvano Dubois MD IVC Filter Placement X-Ray 01/20/17 0836 Signed Impressions: Service Date/Time: January 12:40 - CONCLUSION: Uncomplicated inferior vena cava filter placement as above. Sai Hernández MD Abdomen Ultrasound 01/15/17 0000 Signed Impressions: Service Date/Time: Sunday, January 15, 2017 16:21 - CONCLUSION: 1. Liver cirrhosis with moderate ascites. Splenomegaly. 2. Echogenic kidneys characteristic of medical renal disease with moderate right hydronephrosis and mild left hydronephrosis. Trevon Real MD Lower Extremity Ultrasound 01/14/17 0000 Signed Impressions: Service Date/Time: Saturday, January 14, 2017 17:28 - CONCLUSION: Left iliac and deep femoral DVT. No evidence of DVT on the right. Desmond Villatoro MD Physical Exam GENERAL: awake and alert, not in respiratory distress. SKIN: Warm and dry. No generalized rash. HEENT: [place] conjunctiva. No scleral icterus. No injection or drainage. Moist oral mucosa. NECK: Supple, nontender, no meningeal signs. Line with no evidence of infection CARDIOVASCULAR: Regular rate and rhythm without rubs. Has some systolic murmur heard at the apex. RESPIRATORY: Clear to auscultation. Breath sounds equal bilaterally. No wheezes , rales, or rhonchi. Decreased breath sounds at the bases. GASTROINTESTINAL: Abdomen globular and distended, no tenderness on palpation. Bowel sounds are present and normoactive. Has positive ascites. No rebound. No guarding. MUSCULOSKELETAL: Extremities without clubbing, cyanosis. His LLE is larger compared to his RLE. No calf tenderness. LE edema better NEUROLOGICAL: Non-focal PSYCH: Normal affect, calm and cooperative LINE: no evidence of infection Assessment & Plan Remarks IMPRESSION Sepsis, better Fevers, possible sepsis due to source - intermittent low grade ETOH cirrhosis with protal HT< varices, ascites DVT LLE, has IVC filter GIB Bladder CA, intermittent hematuria Leukocytosis, likely multifactorial, better RECOMMENDATION Change Zosyn to Levaquin If stable, change Diflucan to po Check urine for AFB. - has had pyuria, C/S negative, possibly due to current Abx, concern with AFB (had BCG treatment) - this could be followed as outpatient Monitor temps Monitor progress Long discussion with patient - myself, Dr Frazier, 2 RNs and answered all his questions If temps ok, he can go to rehab in next day or 2 Areli Ni MD January 31, 2017 10:49
--- NOTE | 2017-01-31 11:58 | HHI.GIFU ---
Subjective Remarks Ambulating in room. Explained to patient that we were asked to see him again for his 2 point drop in Hgb. States he has not seen any bleeding. He is not having any nausea, vomiting. He does have abdominal distention and tenderness. (+) low grade fever. (Yolanda Hansen) Objective Vitals I&O Vital Signs Date Time Temp Pulse Resp B/P Pulse Ox O2 Delivery O2 Flow Rate FiO2 01/31/17 10:40 99.6 80 16 103/63 96 01/31/17 10:25 99.5 78 16 94/59 97 01/31/17 08:01 83 01/31/17 08:00 100.0 89 19 102/54 94 01/31/17 00:00 Room Air 01/31/17 00:00 100.4 81 20 107/64 96 01/30/17 21:25 Room Air 01/30/17 20:00 99.6 78 22 101/62 95 01/30/17 20:00 71 01/30/17 19:17 20 01/30/17 18:14 88 100/58 01/30/17 16:00 99.6 78 20 111/60 97 01/30/17 14:43 95 Room Air 01/30/17 13:40 75 116/69 01/30/17 12:00 99.8 82 20 110/62 95 I/O 01/30/17 01/30/17 01/30/17 01/31/17 01/31/17 01/31/17 07:00 15:00 23:00 07:00 15:00 23:00 Intake Total 580 ml 300 ml 242 ml Output Total 600 ml Balance -20 ml 300 ml 242 ml Intake Oral 480 ml 242 ml IV Total 100 ml 300 ml Output Urine Total 600 ml Laboratory Laboratory Tests Test 01/31/17 01/31/17 05:50 07:45 White Blood Count 11.4 Red Blood Count 2.07 Hemoglobin 6.3 Hematocrit 18.1 Mean Corpuscular Volume 87.7 Mean Corpuscular Hemoglobin 30.4 Mean Corpuscular Hemoglobin 34.6 Concent Red Cell Distribution Width 18.8 Platelet Count 196 Mean Platelet Volume 9.1 Neutrophils (%) (Auto) 82.2 Lymphocytes (%) (Auto) 6.9 Monocytes (%) (Auto) 8.3 Eosinophils (%) (Auto) 2.1 Basophils (%) (Auto) 0.5 Neutrophils # (Auto) 9.4 Lymphocytes # (Auto) 0.8 Monocytes # (Auto) 0.9 Eosinophils # (Auto) 0.2 Basophils # (Auto) 0.1 CBC Comment DIFF FINAL Differential Comment Sodium Level 136 Potassium Level 4.0 Chloride Level 100 Carbon Dioxide Level 26.8 Anion Gap 9 Blood Urea Nitrogen 14 Creatinine 1.20 Estimat Glomerular Filtration 61 Rate Random Glucose 86 Calcium Level 8.6 Phosphorus Level 3.0 Magnesium Level 1.9 Total Bilirubin 0.6 Aspartate Amino Transf 25 (AST/SGOT) Alanine Aminotransferase 23 (ALT/SGPT) Alkaline Phosphatase 356 Total Protein 6.4 Albumin 2.1 Blood Type A POSITIVE Antibody Screen POSITIVE Crossmatch Leukocyte-Reduced Red Blood Cells Blood Bank Comment Date/Time Procedure Status Source Growth 01/28/17 13:20 Aerobic Blood Culture - Preliminary Resulted Blood Peripheral NO GROWTH IN 3 DAYS 01/28/17 13:20 Anaerobic Blood Culture - Preliminary Resulted Blood Peripheral NO GROWTH IN 3 DAYS 01/27/17 11:25 Urine Culture - Final Complete Urine Clean Catch NO GROWTH IN 48 HOURS. Imaging Last Impressions Chest X-Ray 01/24/17 1657 Signed Impressions: Service Date/Time: Tuesday, January 24, 2017 17:16 - CONCLUSION: Interval placement of right internal jugular central venous line with no evidence of pneumothorax. Silvano Dubois MD Cyst Biopsy Asp-Paracentesis US 01/24/17 0000 Signed Impressions: Service Date/Time: Tuesday, January 24, 2017 13:34 - CONCLUSION: Uncomplicated ultrasound guided paracentesis. Geremias Ruth MD Abdomen X-Ray 01/24/17 0000 Signed Impressions: Service Date/Time: Tuesday, January 24, 2017 13:47 - CONCLUSION: Nonspecific bowel gas pattern which may represent mild ileus or gastroenteritis. Silvano Dubois MD IVC Filter Placement X-Ray 01/20/17 0836 Signed Impressions: Service Date/Time: January 12:40 - CONCLUSION: Uncomplicated inferior vena cava filter placement as above. Sai Hernández MD Abdomen Ultrasound 01/15/17 0000 Signed Impressions: Service Date/Time: Sunday, January 15, 2017 16:21 - CONCLUSION: 1. Liver cirrhosis with moderate ascites. Splenomegaly. 2. Echogenic kidneys characteristic of medical renal disease with moderate right hydronephrosis and mild left hydronephrosis. Trevon Real MD Lower Extremity Ultrasound 01/14/17 0000 Signed Impressions: Service Date/Time: Saturday, January 14, 2017 17:28 - CONCLUSION: Left iliac and deep femoral DVT. No evidence of DVT on the right. Desmond Villatoro MD Physical Exam HEENT: Normocephalic; atraumatic; CHEST: CTA. CARDIAC: RRR. ABDOMEN: Soft, distended with ascites, mild diffuse tenderness; bowel sounds are present in all four quadrants. EXTREMITIES: No clubbing, cyanosis, or edema. SKIN: Ecchymotic areas BREAD DISTRIBUTOR: No focal deficits; lethargic and oriented times three. (Yolanda Hansen) Assessment and Plan Plan ASSESSMENT: - Severe anemia with melena and hx of esophageal varices. S/P EGD on (01/16/16)- --> signs of old varices banding, no varices at this time, severe gastropathy, no active bleeding, no old blood, multiple ulcers in the antrum, no active bleeding; path benign but suggestive possibility h pylori induced gastritis. Stool h pylori pending was ordered, I do not see where this was sent. Abdomen Ultrasound 01/15/17 1. Liver cirrhosis with moderate ascites. Splenomegaly. 2. Echogenic kidneys characteristic of medical renal disease with moderate right hydronephrosis and mild left hydronephrosis. Colonoscopy (01/17/17)----> 1. Polyp sessile hepatic flexure -6 mm-hot snare polypectomy with complete removal polyp diminutive midtransverse-hot snare polypectomy with complete removal polyp descending-6 mm-hot snare polypectomy with complete removal two polyps in sigmoid, one 6 mm, one 8 mm sessile-hot snare polypectomy , some bleeding from both sites, 1 clip and respectively 2 clips applied at the sites no further bleeding edematous rectal mucosa 2. Retroflexed views revealed internal hemorrhoids 3. Retroflexed views revealed small internal hemorrhoids 4. Revealed decreased sphincter tone 5. Revealed external hemorrhoids. Pathology shows adenomatous polyps hepatic flexure and transverse mid colon, and tubulovillous adenoma from sigmoid. GI Reconsulted for 2 point drop in Hgb. Pt has not seen any obvious blood loss. His stool is dark brown, but no obvious bleeding. He has mild abdominal tenderness that seems to be more related to his ascites. Long discussion with patient about known gastric ulcers and drop in hgb, recommendation for repeat EGD- pt states "the last thing I want to do is another endoscopy, you all went in there twice and didn't do anything!" Explained the rationale for EGD and how if there is not active GI bleeding, then it can be difficult to treat. Pt is still upset and very reluctant to have another endoscopy. Will d/w Dr. Wagner. S/P 7 units PRBC. PPI - Multiple gastric ulcers. PPI. - Leukocytosis, improved, but with low grade fevers. Levaquin, Diflucan. - Ascites. S/P paracentesis with removal of 7,000cc fluid (01/19/17) and 7,000 fluid (01/24/17). Lasix, Spironolactone. Now with distention/low grade fever. Will increase spironolactone and lasix and consider repeat paracentesis with c/s if no improvement. Abx per ID. - Liver cirrhosis, no ETOH x 6 months. - BARBARA, with electrolyte abnormalities. Per primary- multi factorial - Bladder cancer, new onset blood per urethra, urology consulted. he was suppose to undergo cystectomy which was scheduled at [facility], but this is on hold now- Pt states the only reason he is here is to get his liver well enough that he can have cystectomy at [facility]. - Recent DVT in left leg on Lovenox, on hold, hematology on the case. Heparin. Plan: - Recommend repeat EGD in am- pt currently refusing - 2 gram sodium diet - Increase Lasix to 20mg IV BID - Increase Spironolactone to 50mg po BID - Cont. Protonix 40mg po BID - Abx per ID recommendations - Monitor HH - Transfuse as needed to keep hgb >7 - Send stool for H. Pylori- ordered on 01/19, still not sent. Will place another order for this - Supportive care - Further recommendations to follow based on results of above - Patient seen and examined by Dr. Wanger and myself and this note is written on her behalf. (Yolanda Hansen) Physician Comments Seen and examined with BINDING END STITCHER, no active bleeding reported but acute drop in H/H. Transfused 2 units of PRBC today. Talked to him and daughter about EGD tomorrow. They are agreeable. (Horacio Wagner MD) Yolanda Hansen January 31, 2017 11:58 Horacio Wagner MD January 31, 2017 20:12
[2017-01-31] MEDS: LEVOFLOXACIN 750 MG TAB PO SCH (12:31)
[2017-01-31 13:23] LABS: APTT (PATIENT) 28.9 SEC (24.3-30.1); INTERNATIONAL NORMALIZED RATIO 1.2 RATIO; PROTHROMBIN TIME - PATIENT 13.5 SEC (9.8-11.6)
[2017-01-31] MEDS: FLUCONAZOLE 400 MG PREMIX BAG 200 ML IV SCH (14:37)
--- NOTE | 2017-01-31 15:59 | PD.ONC.PN ---
Subjective Subjective Remarks Tmax 100.4 overnight. Pt resting in bed in no distress. He is disappointed that he has to stay an inpatient longer. Objective Data Date Time Temp Pulse Resp B/P Pulse Ox O2 Delivery O2 Flow Rate FiO2 01/31/17 12:00 99.6 83 19 111/58 94 01/31/17 10:40 99.6 80 16 103/63 96 01/31/17 10:25 99.5 78 16 94/59 97 01/31/17 08:15 Room Air 01/31/17 08:01 83 01/31/17 08:00 100.0 89 19 102/54 94 01/31/17 00:00 Room Air 01/31/17 00:00 100.4 81 20 107/64 96 01/30/17 21:25 Room Air 01/30/17 20:00 99.6 78 22 101/62 95 01/30/17 20:00 71 01/30/17 19:17 20 01/30/17 18:14 88 100/58 01/30/17 16:00 99.6 78 20 111/60 97 01/31/17 01/31/17 01/31/17 07:00 15:00 23:00 Intake Total 425 ml Balance 425 ml Result Diagram: 01/31/17 0550 01/31/17 0550 Laboratory Results Laboratory Tests Test 01/31/17 01/31/17 01/31/17 05:50 07:45 12:35 White Blood Count 11.4 TH/MM3 Red Blood Count 2.07 MIL/MM3 Hemoglobin 6.3 GM/DL Hematocrit 18.1 % Mean Corpuscular Volume 87.7 FL Mean Corpuscular Hemoglobin 30.4 PG Mean Corpuscular Hemoglobin 34.6 % Concent Red Cell Distribution Width 18.8 % Platelet Count 196 TH/MM3 Mean Platelet Volume 9.1 FL Neutrophils (%) (Auto) 82.2 % Lymphocytes (%) (Auto) 6.9 % Monocytes (%) (Auto) 8.3 % Eosinophils (%) (Auto) 2.1 % Basophils (%) (Auto) 0.5 % Neutrophils # (Auto) 9.4 TH/MM3 Lymphocytes # (Auto) 0.8 TH/MM3 Monocytes # (Auto) 0.9 TH/MM3 Eosinophils # (Auto) 0.2 TH/MM3 Basophils # (Auto) 0.1 TH/MM3 CBC Comment DIFF FINAL Differential Comment Sodium Level 136 MEQ/L Potassium Level 4.0 MEQ/L Chloride Level 100 MEQ/L Carbon Dioxide Level 26.8 MEQ/L Anion Gap 9 MEQ/L Blood Urea Nitrogen 14 MG/DL Creatinine 1.20 MG/DL Estimat Glomerular Filtration 61 ML/MIN Rate Random Glucose 86 MG/DL Calcium Level 8.6 MG/DL Phosphorus Level 3.0 MG/DL Magnesium Level 1.9 MG/DL Total Bilirubin 0.6 MG/DL Aspartate Amino Transf 25 U/L (AST/SGOT) Alanine Aminotransferase 23 U/L (ALT/SGPT) Alkaline Phosphatase 356 U/L Total Protein 6.4 GM/DL Albumin 2.1 GM/DL Blood Type A POSITIVE Antibody Screen POSITIVE Crossmatch Leukocyte-Reduced Red Blood Cells Blood Bank Comment Haptoglobin 253 MG/DL Prothrombin Time 13.5 SEC Prothromb Time International 1.2 RATIO Ratio Activated Partial 28.9 SEC Thromboplast Time Fibrinogen 428 mg/dL Lactate Dehydrogenase 363 U/L Administered Medications Medications (Trade) Dose Ordered Sig/Dejuan Route PRN Reason Start Time Stop Time Status Last Admin Dose Admin Folic Acid (Folate) 1 mg DAILY PO 01/17/17 09:00 01/31/17 09:44 Tamsulosin HCl (Flomax) 0.4 mg DAILY PO 01/17/17 09:00 01/31/17 09:44 Ferrous Fumarate (Hemocyte) 325 mg DAILY PO 01/17/17 09:00 01/31/17 09:44 Multivitamins (Theragran) 1 tab DAILY PO 01/17/17 09:00 01/31/17 09:44 Pantoprazole Sodium (Protonix) 40 mg Q12HR PO 01/18/17 21:00 01/31/17 09:44 Rifaximin (Xifaxan) 550 mg BID PO 01/18/17 21:00 01/31/17 09:44 Acetaminophen (Tylenol) 650 mg Q6H PRN PO SEE LABEL COMMENTS 01/19/17 17:45 01/26/17 20:50 Thiamine HCl (Vitamin B1) 100 mg DAILY PO 01/22/17 09:00 01/31/17 09:44 Potassium Chloride (KCl) 20 meq DAILY PO 01/22/17 09:00 01/31/17 09:44 Sodium Chloride (NS Flush) DAILY IVF 01/25/17 09:00 01/29/17 08:37 Sodium Chloride (NS Flush) DAILY IV FLUSH 01/25/17 09:00 01/31/17 09:45 Sodium Chloride (NS Flush) UNSCH PRN IV FLUSH SEE PROTOCOL TABLE 01/24/17 17:45 01/30/17 21:17 Hydroxyzine HCl (Atarax) 25 mg Q8H PRN PO pruritis 01/25/17 12:00 01/25/17 22:18 Ondansetron HCl (Zofran Inj) 4 mg Q6HR PRN IV PUSH NAUSEA 01/26/17 08:15 01/27/17 18:38 Acetaminophen 650 mg 650 mg Q6HR PRN PO FEVER 01/28/17 11:45 01/28/17 12:13 Fluconazole/ Sodium Chloride (Diflucan 400 Mg Premix Bag) 200 ml @ 100 mls/hr Q24H IV 01/28/17 14:00 01/31/17 14:37 Gabapentin (Neurontin) 400 mg TID PO 01/29/17 13:00 01/31/17 12:31 Oxycodone HCl (Roxicodone) 10 mg Q4H PRN PO pain 1-10 01/29/17 12:15 01/31/17 14:37 Levofloxacin (Levaquin) 750 mg Q24H PO 01/31/17 11:00 02/07/17 10:59 01/31/17 12:31 Objective Remarks GENERAL: Middle aged male, upright in bed in [facility]. SKIN: Warm and dry. HEAD: Normocephalic. EYES: No injection or drainage. NECK: Supple, trachea midline. CARDIOVASCULAR: +S1/S2. RESPIRATORY: Breath sounds equal bilaterally. No accessory muscle use. GASTROINTESTINAL: Abdomen soft, non-tender, nondistended. EXTREMITIES: No edema. NEUROLOGICAL: Awake and alert. Moving all extremities. Assessment/Plan Problem List: (1) DVT (deep venous thrombosis) Status: Acute Plan: --retrievable IVC filter placed on 01/20 --heparin gtt 01/18-01/20 (2) Hyperbilirubinemia Status: Acute Plan: --Mild hyperbilirubinemia secondary to liver disease (3) Bladder cancer Status: Acute Plan: --outpatient management --diagnosed in 2009. --follows with Dr. Lo. --did receive intravesicular BCG treatment. --was supposed to go to [facility] later this month for a cystectomy. (4) Anemia Status: Acute Assessment 66y/o male admitted with melanotic stools, anemia h/o bladder cancer, alcoholic cirrhosis, esophageal varices, and DVT of the left lower extremity. Plan 1. 2 units PRBC's ordered today for Hgb 6.3 today. 2. Will check stool for occult blood. Fibrinogen OK. 3. Per RN, no julio blood in urine or stool. 4. Monitor blood counts. Attending Statement The exam, history, and the medical decision-making described in the above note were completed with the assistance of the mid-level provider. I reviewed and agree with the findings presented. I attest that I had a [id number] encounter with the patient on the same day, and personally performed and documented my assessment and findings in the medical record Remains anemic. PRBC transfusion today check LDH , haptoglobin and bilirubin components in am Problem Qualifiers (1) DVT (deep venous thrombosis): (2) Anemia: Qualified Code: D64.9 - Anemia, unspecified type [facility] January 31, 2017 15:59 Jeancarlos Perry MD February 01, 2017 00:11
[2017-01-31] MEDS: ACETAMINOPHEN 325 MG TAB PO PRN (16:44)
[2017-01-31 22:48] LABS: HEMATOCRIT 26.2 % (39.0-51.0)
[2017-01-31 22:51] LABS: REVIEW FLAG FINAL
[2017-02-01] VITALS: BP 102/66; PULSE 74; RESP 17; TEMP 98.1; O2SAT 97
[2017-02-01 04:00] VITALS: BP_SYST 100; BP_SYST 111; BP_DIAS 60; BP_DIAS 71; PULSE 72; PULSE 78; RESP 17; TEMP 100.3; TEMP 97.6; O2SAT 97
[2017-02-01] MEDS: ACETAMINOPHEN 325 MG TAB PO PRN ×2 (05:48→20:55)
[2017-02-01 06:25] LABS: AUTOMATED NEUTROPHIL # 14.9 TH/MM3 (1.8-7.7); BASOPHIL # 0.1 TH/MM3 (0-0.2); BASOPHIL % 0.6 % (0.0-2.0); EOSINOPHIL # 0.4 TH/MM3 (0-0.4); HEMO FLAGS DIFF FINAL; LYMPH % 5.6 % (9.0-44.0); MEAN CELL VOLUME 86.7 FL (80.0-100.0); MEAN CORPUSCULAR HEMOGLOBIN 28.2 PG (27.0-34.0); MEAN CORPUSCULAR HGB CONC 32.5 % (32.0-36.0); MONO % 7.9 % (0.0-8.0); NEUT % 83.9 % (16.0-70.0); PLATELET COUNT 268 TH/MM3 (150-450); RED BLOOD COUNT 3.34 MIL/MM3 (4.50-5.90); RED CELL DISTRIBUTION WIDTH 19.2 % (11.6-17.2); WHITE BLOOD COUNT 17.7 TH/MM3 (4.0-11.0)
[2017-02-01 06:39] LABS: INDIRECT BILIRUBIN 0.5 MG/DL (0.0-0.8)
[2017-02-01 08:00] VITALS: PULSE 72
[2017-02-01 08:03] VITALS: BP 111/58; PULSE 82; RESP 17; TEMP 98.7; O2SAT 98
[2017-02-01] MEDS: Central Line Short Term Adult 7Fr or larger Daily NS Lock Flush IV FLUSH SCH (08:46)
[2017-02-01] MEDS: GABAPENTIN 400 MG CAP PO SCH ×3 (08:47→17:05)
[2017-02-01] MEDS: FERROUS FUMARATE 325 MG TAB (106 MG ELEMENTAL IRON) PO SCH (08:47)
[2017-02-01] MEDS: FOLIC ACID 1 MG TAB PO SCH (08:47)
[2017-02-01] MEDS: POTASSIUM CHLORIDE 20 MEQ CONTROLLED RELEASE TAB PO SCH (08:47)
[2017-02-01] MEDS: SODIUM CHLORIDE 0.9% FLUSH 10 ML FLUSH IVF SCH (08:48)
[2017-02-01] MEDS: RIFAXIMIN 550 MG TAB PO SCH ×2 (08:48→20:55)
[2017-02-01] MEDS: THIAMINE HCL 100 MG TAB PO SCH (08:48)
[2017-02-01] MEDS: TAMSULOSIN HCL 0.4 MG CAP PO SCH (08:48)
[2017-02-01] MEDS: FUROSEMIDE 20 MG/2 ML VIAL IV PUSH SCH ×2 (08:48→20:57)
[2017-02-01] MEDS: MULTIVITAMIN TAB PO SCH (08:48)
[2017-02-01] MEDS: SPIRONOLACTONE 25 MG TAB PO SCH ×2 (08:48→17:04)
[2017-02-01] MEDS: PANTOPRAZOLE SOD 40 MG DELAYED RELEASE TAB PO SCH ×2 (08:48→20:55)
[2017-02-01] MEDS: FLUCONAZOLE 100 MG TAB PO SCH (08:58)
--- NOTE | 2017-02-01 10:08 | HHI.PR ---
Subjective Remarks resting comfortably with no distress. no new complaints. on and off low grade fever. Objective Vitals Vital Signs Date Time Temp Pulse Resp B/P Pulse Ox O2 Delivery O2 Flow Rate FiO2 02/01/17 04:00 100.3 78 17 111/71 97 02/01/17 00:00 98.1 74 17 102/66 97 01/31/17 20:45 Room Air 01/31/17 20:00 98.2 74 17 104/65 96 01/31/17 16:00 100.3 92 18 112/68 98 01/31/17 15:35 100.3 92 18 112/68 98 01/31/17 15:20 99.8 83 16 108/70 97 01/31/17 12:00 99.6 83 19 111/58 94 01/31/17 10:40 99.6 80 16 103/63 96 01/31/17 10:25 99.5 78 16 94/59 97 I/O 01/31/17 01/31/17 01/31/17 02/01/17 02/01/17 02/01/17 07:00 15:00 23:00 07:00 15:00 23:00 Intake Total 905 ml 240 ml 240 ml Output Total 200 ml Balance 905 ml 240 ml 40 ml Intake Oral 480 ml 240 ml 240 ml IV Total 105 ml Packed Cells 320 ml Output Urine Total 200 ml # Voids 6 3 # Bowel Movements 5 2 Result Diagram: 02/01/17 0555 01/31/17 0550 Imaging Last Impressions Chest X-Ray 01/24/17 1657 Signed Impressions: Service Date/Time: Tuesday, January 24, 2017 17:16 - CONCLUSION: Interval placement of right internal jugular central venous line with no evidence of pneumothorax. Silvano Dubois MD Cyst Biopsy Asp-Paracentesis US 01/24/17 0000 Signed Impressions: Service Date/Time: Tuesday, January 24, 2017 13:34 - CONCLUSION: Uncomplicated ultrasound guided paracentesis. Geremias Ruth MD Abdomen X-Ray 01/24/17 0000 Signed Impressions: Service Date/Time: Tuesday, January 24, 2017 13:47 - CONCLUSION: Nonspecific bowel gas pattern which may represent mild ileus or gastroenteritis. Silvano Dubois MD IVC Filter Placement X-Ray 01/20/17 0836 Signed Impressions: Service Date/Time: January 12:40 - CONCLUSION: Uncomplicated inferior vena cava filter placement as above. Sai Hernández MD Abdomen Ultrasound 01/15/17 0000 Signed Impressions: Service Date/Time: Sunday, January 15, 2017 16:21 - CONCLUSION: 1. Liver cirrhosis with moderate ascites. Splenomegaly. 2. Echogenic kidneys characteristic of medical renal disease with moderate right hydronephrosis and mild left hydronephrosis. Trevon Real MD Lower Extremity Ultrasound 01/14/17 0000 Signed Impressions: Service Date/Time: Saturday, January 14, 2017 17:28 - CONCLUSION: Left iliac and deep femoral DVT. No evidence of DVT on the right. Desmond Villatoro MD Objective Remarks GENERAL: This is a well-nourished, well-developed patient, in no apparent distress. CARDIOVASCULAR: Regular rate and regular rhythm without murmurs, gallops, or rubs. RESPIRATORY: Clear to auscultation. Breath sounds equal bilaterally. No wheezes , rales, or rhonchi. GASTROINTESTINAL: Abdomen soft, non-tender, mildly distended. Normal, active bowel sounds MUSCULOSKELETAL: Extremities without clubbing, cyanosis, or edema. NEURO: Alert & Oriented x4 to person, place, time, situation. Moves all ext x4 Procedures paracentesis IVC filter placement EGD/ colonoscopy central line placement Medications and IVs Current Medications Sodium Chloride (NS 1000 ml Inj) 1,000 ml @ 1,000 mls/hr Q1H IV Last administered on 01/14/17 16:10; Start 01/14/17 at 13:37; Stop 01/14/17 at 14:36 ; Status DC Sodium Chloride 2 ml 2 ml UNSCH PRN IVF FLUSH AFTER USING IV ACCESS Last administered on 01/22/17 22:53; Start 01/14/17 at 13:45; Stop 01/24/17 at 16:59 ; Status DC Octreotide Acetate 500 mcg/ Sodium Chloride 500.5 ml @ 50 mls/hr Q10H IV Last administered on 01/15/17 10:31; Start 01/14/17 at 13:45; Stop 01/16/17 at 06:46 ; Status DC Pantoprazole Sodium 80 mg/ Sodium Chloride 35 ml @ 420 mls/hr ONCE ONCE IV Last administered on 01/14/17 15:40; Start 01/14/17 at 13:45; Stop 01/14/17 at 13:49; Status DC Pantoprazole Sodium 80 mg/ Sodium Chloride 100 ml @ 10 mls/hr Q10H IV Last administered on 01/18/17 08:12; Start 01/14/17 at 13:45; Stop 01/18/17 at 11:46 ; Status DC Sodium Chloride (NS 250 ml Inj) 250 ml @ 15 mls/hr ONCE ONCE IV Last administered on 01/14/17 16:48; Start 01/14/17 at 14:45; Stop 01/15/17 at 07:24 ; Status DC Calcium Gluconate (Calcium Gluconate Inj) 1 gm ONCE ONCE SLOW IVP Last administered on 01/14/17 16:15; Start 01/14/17 at 15:15; Stop 01/14/17 at 15:16 ; Status DC Insulin Human Regular (NovoLIN R INJ) 10 units ONCE ONCE IV PUSH Last administered on 01/14/17 16:15; Start 01/14/17 at 15:15; Stop 01/14/17 at 15:16 ; Status DC Dextrose (D50w (Vial) Inj) 50 ml ONCE ONCE IV PUSH Last administered on 16:15; Start 01/14/17 at 15:15; Stop 01/14/17 at 15:16; Status DC Sodium Bicarbonate (Sodium Bicarbonate 8.4% Inj) 50 meq ONCE ONCE SLOW IVP Last administered on 01/14/17 16:26; Start 01/14/17 at 15:15; Stop 01/14/17 at 15:16; Status DC Albuterol Sulfate 10 mg 10 mg ONCE ONCE INH Last administered on 01/14/17 17: 07; Start 01/14/17 at 15:15; Stop 01/14/17 at 15:16; Status DC Ceftriaxone Sodium 1000 mg/ Sodium Chloride 100 ml @ 200 mls/hr Q24H IV Last administered on 01/22/17 17:07; Start 01/14/17 at 17:00; Stop 01/23/17 at 16:23 ; Status DC Sodium Chloride 1,000 ml @ 999 mls/hr BOLUS ONCE IV Last administered on 01/14 16:48; Start 01/14/17 at 16:30; Stop 01/14/17 at 17:30; Status DC Sodium Chloride (NS 1000 ml Inj) 1,000 ml @ 125 mls/hr Q8H IV Last administered on 01/15/17 00:19; Start 01/14/17 at 17:00; Stop 01/15/17 at 08:06 ; Status DC Diphenhydramine HCl (Benadryl Inj) 50 mg ONCE ONCE IV PUSH Last administered on 01/14/17 18:15; Start 01/14/17 at 18:00; Stop 01/14/17 at 18:01; Status DC Diphenhydramine HCl (Benadryl Inj) 25 mg ONCE ONCE IV PUSH ; Start 01/14/17 at 18:45; Stop 01/14/17 at 18:46; Status DC Hydromorphone HCl 0.5 mg 0.5 mg Q4H PRN IV BREAKTHROUGH PAIN Last administered on 01/29/17 10:51; Start 01/15/17 at 02:30; Stop 01/29/17 at 12:11 ; Status DC Magnesium Sulfate/ Dextrose (Magnesium Sulfate 1 Gm Premix) 100 ml @ 100 mls/ hr Q1H IV ; Start 01/15/17 at 08:15; Stop 01/15/17 at 10:14; Status DC Furosemide 20 mg 20 mg BID@09,18 IV PUSH Last administered on 01/21/17 08:38; Start 01/15/17 at 09:00; Stop 01/21/17 at 09:41; Status DC Sodium Chloride 1,000 ml @ 42 mls/hr [id number] IV Last administered on 05:48; Start 01/15/17 at 08:15; Stop 01/26/17 at 08:13; Status DC Thiamine HCl/ Sodium Chloride (Thiamine Inj/NS Inj) 101 ml @ 101 mls/hr DAILY IV Last administered on 01/21/17 08:37; Start 01/15/17 at 09:00; Stop at 09:33; Status DC Propofol (Diprivan 200 Mg/20 ml Inj) 100 mg STK-MED ONCE IV ; Start 01/15/17 at 13:09; Stop 01/15/17 at 13:19; Status DC Polyethylene Glycol/ Electrolytes 4000 ml 4,000 ml ONCE ONCE PO Last administered on 01/16/17 16:06; Start 01/16/17 at 16:00; Stop 01/16/17 at 16:01 ; Status DC Sodium Phosphate/ Sodium Chloride (Sodium Phosphate Inj/NS 250 ml Inj) 260 ml @ 43.333 mls/ hr ONCE ONCE IV Last administered on 01/17/17 09:00; Start at 09:00; Stop 01/17/17 at 14:59; Status DC Folic Acid (Folate) 1 mg DAILY PO Last administered on 02/01/17 08:47; Start at 09:00 Gabapentin (Neurontin) 300 mg TID PO Last administered on 01/29/17 10:58; Start 01/17/17 at 09:00; Stop 01/29/17 at 12:11; Status DC Tamsulosin HCl (Flomax) 0.4 mg DAILY PO Last administered on 02/01/17 08:48; Start 01/17/17 at 09:00 Ferrous Fumarate (Hemocyte) 325 mg DAILY PO Last administered on 02/01/17 08:47 ; Start 01/17/17 at 09:00 Multivitamins (Theragran) 1 tab DAILY PO Last administered on 02/01/17 08:48; Start 01/17/17 at 09:00 Ketamine HCl (Ketalar Inj) 20 mg STK-MED ONCE IV ; Start 01/15/17 at 12:00; Stop 01/17/17 at 08:49; Status DC Propofol (Diprivan 200 Mg/20 ml Inj) 40 mg STK-MED ONCE IV ; Start 01/17/17 at 13:30; Stop 01/17/17 at 14:19; Status DC Miscellaneous Information ALL NURSING DEPARTME... UNSCH PRN .XX SEE LABEL COMMENTS; Start 01/17/17 at 14:09; Stop 01/18/17 at 14:08; Status DC Midazolam HCl (Versed Inj) 2 mg STK-MED ONCE .ROUTE ; Start 01/17/17 at 14:51; Stop 01/17/17 at 14:52; Status DC Fentanyl Citrate (fentaNYL INJ) 100 mcg STK-MED ONCE .ROUTE ; Start 01/17/17 at 14:51; Stop 01/17/17 at 14:52; Status DC Potassium Chloride 60 meq 60 meq ONCE ONCE PO Last administered on 01/18/17 08:02; Start 01/18/17 at 07:30; Stop 01/18/17 at 07:31; Status DC Heparin Sodium/ Dextrose (Heparin-D5W Inj) 250 ml @ 0 mls/hr TITRATE IV Last administered on 01/20/17 03:35; Start 01/18/17 at 08:15; Stop 01/20/17 at 08:37 ; Status DC Pantoprazole Sodium (Protonix) 40 mg Q12HR PO Last administered on 02/01/17 08: 48; Start 01/18/17 at 21:00 Rifaximin (Xifaxan) 550 mg BID PO Last administered on 02/01/17 08:48; Start at 21:00 Albumin Human (Albumin 25% Inj) 25 gm ONCE ONCE IV Last administered on 07:10; Start 01/19/17 at 08:00; Stop 01/19/17 at 08:01; Status DC Hydromorphone HCl (Dilaudid Pf Inj) 0.5 mg STAT ONCE IV Last administered on 09:49; Start 01/19/17 at 09:45; Stop 01/19/17 at 09:46; Status DC Albumin Human (Albumin 25% Inj) ONCE ONCE IV Last administered on 01/19/17 15:09; Start 01/19/17 at 15:00; Stop 01/19/17 at 15:01; Status DC Acetaminophen (Tylenol) 650 mg Q6H PRN PO SEE LABEL COMMENTS Last administered on 02/01/17 05:48; Start 01/19/17 at 17:45 Iohexol (Omnipaque 350 Inj) 50 ml STK-MED ONCE .XX Last administered on 13:22; Start 01/20/17 at 13:22; Stop 01/20/17 at 13:23; Status DC Vancomycin HCl (Vancomycin Inj) 1,000 mg STK-MED ONCE IV Last administered on 12:50; Start 01/20/17 at 12:50; Stop 01/20/17 at 13:29; Status DC Fentanyl Citrate (fentaNYL INJ) 100 mcg STK-MED ONCE IV Last administered on 12:50; Start 01/20/17 at 12:50; Stop 01/20/17 at 13:30; Status DC Potassium Chloride 60 meq 60 meq ONCE ONCE PO Last administered on 01/21/17 06:36; Start 01/21/17 at 06:45; Stop 01/21/17 at 06:46; Status DC Potassium Chloride (KCl 20 Meq Premix Inj) 100 ml @ 50 mls/hr ONCE ONCE IV Last administered on 01/21/17 06:36; Start 01/21/17 at 06:30; Stop 01/21/17 at 08:29; Status DC Thiamine HCl (Vitamin B1) 100 mg DAILY PO Last administered on 02/01/17 08:48; Start 01/22/17 at 09:00 Potassium Chloride (KCl) 20 meq DAILY PO Last administered on 02/01/17 08:47; Start 01/22/17 at 09:00 Furosemide (Lasix Inj) 20 mg DAILY IV PUSH Last administered on 01/31/17 09:45 ; Start 01/22/17 at 09:00; Stop 01/31/17 at 12:03; Status DC Lactulose (Lactulose Liq) 30 ml DAILY PRN PO cirrhosis/encephalopathy; Start at 09:45 Aminocaproic Acid 250 mg 250 mg STK-MED ONCE IV ; Start 01/17/17 at 05:00; Stop 01/21/17 at 09:49; Status DC Cefazolin Sodium/ Dextrose (Ancef 2 Gm Premix) 50 ml @ As Directed STK-MED ONCE IV ; Start 01/17/17 at 05:00; Stop 01/21/17 at 09:49; Status DC Heparin Sodium (Porcine) (Heparin Inj) 10,000 units STK-MED ONCE SQ ; Start at 05:00; Stop 01/21/17 at 09:49; Status DC Phenylephrine HCl 10 mg 10 mg STK-MED ONCE IV ; Start 01/17/17 at 05:00; Stop at 09:49; Status DC Nitroglycerin/ Dextrose (Nitroglycerin-Dextrose Inj) 250 ml @ As Directed STK- MED ONCE IV ; Start 01/17/17 at 05:00; Stop 01/21/17 at 09:49; Status DC Acetaminophen 1000 mg 1,000 mg STK-MED ONCE IV ; Start 01/17/17 at 05:00; Stop 01/21/17 at 09:49; Status DC Dexmedetomidine HCl (Precedex Inj) 50 ml @ As Directed STK-MED ONCE IV ; Start 01/17/17 at 05:00; Stop 01/21/17 at 09:50; Status DC Glycopyrrolate (Robinul Inj) 0.2 mg STK-MED ONCE IV ; Start 01/17/17 at 05:00; Stop 01/21/17 at 09:50; Status DC Potassium Chloride (KCl) 40 meq ONCE ONCE PO ; Start 01/21/17 at 19:45; Stop at 19:50; Status DC Acetaminophen/ Hydrocodone Bitart 1 tab 1 tab Q4H PRN PO PAIN 2-10 Last administered on 01/29/17 08:36; Start 01/22/17 at 11:15; Stop 01/29/17 at 12:11 ; Status DC Ceftriaxone Sodium/Sodium Chloride (Rocephin Inj/NS Inj) 100 ml @ 200 mls/hr Q24H IV Last administered on 01/24/17 16:56; Start 01/23/17 at 18:00; Stop at 17:12; Status DC Acetaminophen (Ofirmev Inj) 1,000 mg ONCE ONCE IV Last administered on 13:00; Start 01/24/17 at 12:45; Stop 01/24/17 at 12:46; Status DC Acetaminophen (Ofirmev Inj) 1,000 mg Q8HR PRN IV high grade fevers >101; Start 01/24/17 at 12:45; Stop 01/28/17 at 11:42; Status DC Albumin Human (Albumin 25% Inj) 25 gm ONCE ONCE IV Last administered on 16:56; Start 01/24/17 at 16:15; Stop 01/24/17 at 16:16; Status DC Albumin Human (Albumin 25% Inj) 12.5 gm ONCE ONCE IV Last administered on 01/24 16:55; Start 01/24/17 at 16:15; Stop 01/24/17 at 16:16; Status DC Sodium Chloride (NS Flush) DAILY IVF Last administered on 02/01/17 08:48; Start 01/25/17 at 09:00 Sodium Chloride UNSCH PRN IVF SEE PROTOCOL; Start 01/24/17 at 17:00 Sodium Chloride (NS 1000 ml Inj) 1,000 ml @ 999 mls/hr BOLUS ONCE IV Last administered on 01/24/17 17:15; Start 01/24/17 at 17:15; Stop 01/24/17 at 18:15 ; Status DC Albumin Human 50 gm 50 gm ONCE ONCE IV Last administered on 01/24/17 17:56; Start 01/24/17 at 17:15; Stop 01/24/17 at 17:16; Status DC Pharmacy Profile Note 0 ml @ 0 mls/hr UNSCH OTHER ; Start 01/24/17 at 17:15; Stop 01/27/17 at 13:27; Status DC Cefepime HCl 2000 mg/Sodium Chloride 100 ml @ 200 mls/hr Q8H IV ; Start at 17:15; Stop 01/24/17 at 17:15; Status DC Piperacillin Sod/ Tazobactam Sod (Zosyn 4.5 Gm Premix) 100 ml @ 200 mls/hr Q6H IV Last administered on 01/31/17 05:38; Start 01/24/17 at 18:00; Stop 01/31/17 at 10:28; Status DC Terbutaline Sulfate 1 mg 1 mg UNSCH PRN SQ For Extravasation; Start 01/24/17 at 17:15; Stop 01/26/17 at 08:13; Status DC Phenylephrine HCl 160 mg/Dextrose 500 ml @ 0 mls/hr TITRATE IV Last administered on 01/24/17 17:57; Start 01/24/17 at 17:15; Stop 01/26/17 at 08:13 ; Status DC Vancomycin HCl/ Sodium Chloride (Vancomycin Inj/ NS 250 ml Inj) 262.5 ml @ 250 mls/hr Q18H IV Last administered on 01/27/17 00:45; Start 01/24/17 at 18:00; Stop 01/27/17 at 08:22; Status DC Miscellaneous Information SPECIFIC LAB TO BE DRAWN:VANCOMYCIN TROUGH DATE TO... ONCE ONCE .XX Last administered on 01/26/17 23:45; Start 01/26/17 at 23:45; Stop 01/26/17 at 23:46; Status DC Sodium Chloride (NS Flush) DAILY IV FLUSH Last administered on 02/01/17 08:46 ; Start 01/25/17 at 09:00 Sodium Chloride (NS Flush) UNSCH PRN IV FLUSH SEE PROTOCOL TABLE Last administered on 01/30/17 21:17; Start 01/24/17 at 17:45 Hydroxyzine HCl (Atarax) 25 mg Q8H PRN PO pruritis Last administered on 22:18; Start 01/25/17 at 12:00 Spironolactone (Aldactone) 25 mg BID@09,18 PO Last administered on 01/31/17 09: 44; Start 01/25/17 at 18:00; Stop 01/31/17 at 12:03; Status DC Ondansetron HCl (Zofran Inj) 4 mg Q6HR PRN IV PUSH NAUSEA Last administered on 01/27/17 18:38; Start 01/26/17 at 08:15 Potassium Chloride 20 meq 20 meq ONCE ONCE PO Last administered on 01/26/17 14:05; Start 01/26/17 at 13:15; Stop 01/26/17 at 13:16; Status DC Vancomycin HCl/ Sodium Chloride (Vancomycin Inj/ NS 500 ml Inj) 515 ml @ 250 mls/hr Q18H IV ; Start 01/27/17 at 18:00; Stop 01/27/17 at 18:00; Status DC Miscellaneous Information SPECIFIC LAB TO BE DRAWN:VANCOMYCIN TROUGH DATE TO... ONCE ONCE .XX ; Start 01/29/17 at 23:45; Stop 01/29/17 at 23:46; Status Cancel Fluconazole (Diflucan) 100 mg DAILY PO Last administered on 01/28/17 12:13; Start 01/28/17 at 12:00; Stop 01/28/17 at 12:35; Status DC Acetaminophen 650 mg 650 mg Q6HR PRN PO FEVER Last administered on 01/28/17 12 :13; Start 01/28/17 at 11:45 Fluconazole/ Sodium Chloride (Diflucan 400 Mg Premix Bag) 200 ml @ 100 mls/hr Q24H IV Last administered on 01/31/17 14:37; Start 01/28/17 at 14:00; Stop 02/01 at 08:38; Status DC Gabapentin (Neurontin) 400 mg TID PO Last administered on 02/01/17 08:47; Start 01/29/17 at 13:00 Oxycodone HCl (Roxicodone) 10 mg Q4H PRN PO pain 1-10 Last administered on 05:48; Start 01/29/17 at 12:15 Levofloxacin (Levaquin) 750 mg Q24H PO Last administered on 01/31/17 12:31; Start 01/31/17 at 11:00; Stop 02/07/17 at 10:59 Furosemide (Lasix Inj) 20 mg BID IV PUSH Last administered on 02/01/17 08:48; Start 01/31/17 at 21:00 Spironolactone (Aldactone) 50 mg BID@09,18 PO Last administered on 02/01/17 08: 48; Start 01/31/17 at 18:00 Fluconazole (Diflucan) 100 mg DAILY PO Last administered on 02/01/17 08:58; Start 02/01/17 at 09:00; Stop 02/08/17 at 08:59 A/P Assessment and Plan A/P Hypotension secondary to hypovolemia/sepsis?-resolved. History of hypertension Lactic acidosis. Resolved continue lasix and aldactone Echocardiogram - EF 60-65%. Mild MR/TR. No regional wall motion abnormality. GI bleed most likely variceal bleed Ascites/abdominal Liver cirrhosis History of gastroesophageal reflux disease Elevated transaminases likely secondary to EtOH Hypoalbuminemia -GI consulted EGD revealed gastric ulcer in antrum. This was biopsied. Gastropathy. Old banding. No varices. s/p colonoscopy with polypectomy EGD to be repeated today due to recurrent drop in H/H. Ultrasound - Liver cirrhosis with moderate ascites. Splenomegaly. -Continue Protonix at 40 mg twice a day Status post paracentesis 7 L on 01/19. Last 5.7 L 01/24 History of peripheral neuropathy History of EtOH abuse Depression/anxiety -Minimize sedation. -As needed norco and Dilaudid - continue thiamine and folic acid. Acute kidney injury - resolved History of bladder cancer/muscular invasive Bilateral hydronephrosis by history right greater than left BPH Ultrasound - Echogenic kidneys characteristic of medical renal disease with moderate right hydronephrosis and mild left hydronephrosis. Noted recent CT chest revealed right greater than left hydronephrosis. Currently with adequate urine output. -F/u at [facility] for bladder cancer Dr. Simeon discussed with his urologist at [facility], due to his decompensated cirrhosis, recent gi bleeding due to portal htn , poor nutritional status he will high risk for surgery and anesthesia . evaluated by Urology- recommended f/u with [facility]. UTI recurrent fever continue Zosyn. Pertinent cultures 01/24 - blood cultures 2 -no growth 01/23 - urine -continue to 01/23 - blood cultures 2 - no growth to date 01/19 - peritoneal fluid - no growth 01/14 - blood cultures 2 - NGTD repeat blood cultures on 01/28 so far no growth. ID following. Severe anemia requiring transfusion of 7 units PRBCs Left lower extremity DVT 12/25/16 - left iliac and deep femoral Leukocytosis -previously Given 7 units of PRBC during this hospitalization -received two more prbc on 01/31 -continue to monitor H/H -s/p IVC filter placement performed 01/20 evaluated by hematology. EGD today. Hypokalemia - resolved Hypophosphatemia-resolved Peripheral neuropathy -on gabapentin to 400 gm TID -changed narco to oxycodone which patient was original on as outpatient. PROPH: IVC filter, Protonix continue PT. Discharge Planning possible discharge tomorrow if stable- pending EGD today and if cleared by GI and ID. Vance Frazier MD February 01, 2017 10:08
[2017-02-01] MEDS: LEVOFLOXACIN 750 MG TAB PO SCH (11:12)
--- NOTE | 2017-02-01 11:38 | HHI.IDPN ---
Subjective Subjective Remarks Notes reviewed D/W Dr Frazier No new problems GI evaluating for repeat EGD Hgb up to 9.4, got transfused WBC up to 17 this morning Occ temps 99-100 Nothing new on C/S BC negative Repeat UC negative Antibiotics Levaquin Diflucan Lines RIJ line Past Medical History Reviewed Allergies: Uncoded Allergies: BCG TREATMENT (Adverse Reaction, Severe, HTYPOTENSION , 12/25/16) Objective . Vital Signs Date Time Temp Pulse Resp B/P Pulse Ox O2 Delivery O2 Flow Rate FiO2 02/01/17 10:10 Room Air 21 02/01/17 04:00 100.3 78 17 111/71 97 02/01/17 00:00 98.1 74 17 102/66 97 01/31/17 20:45 Room Air 01/31/17 20:00 98.2 74 17 104/65 96 01/31/17 16:00 100.3 92 18 112/68 98 01/31/17 15:35 100.3 92 18 112/68 98 01/31/17 15:20 99.8 83 16 108/70 97 01/31/17 12:00 99.6 83 19 111/58 94 01/31/17 01/31/17 02/01/17 15:00 23:00 07:00 Intake Total 905 ml 240 ml 240 ml Output Total 200 ml Balance 905 ml 240 ml 40 ml Intake Oral 480 ml 240 ml 240 ml IV Total 105 ml Packed Cells 320 ml Output Urine Total 200 ml # Voids 6 3 # Bowel Movements 5 2 . Laboratory Tests Test 01/31/17 01/31/17 01/31/17 02/01/17 05:50 12:35 22:15 05:55 White Blood Count 11.4 TH/MM3 17.7 TH/MM3 Red Blood Count 2.07 MIL/MM3 3.34 MIL/MM3 Hemoglobin 6.3 GM/DL 8.8 GM/DL 9.4 GM/DL Hematocrit 18.1 % 26.2 % 29.0 % Mean Corpuscular Volume 87.7 FL 86.7 FL Mean Corpuscular Hemoglobin 30.4 PG 28.2 PG Mean Corpuscular Hemoglobin 34.6 % 32.5 % Concent Red Cell Distribution Width 18.8 % 19.2 % Platelet Count 196 TH/MM3 268 TH/MM3 Mean Platelet Volume 9.1 FL 9.5 FL Neutrophils (%) (Auto) 82.2 % 83.9 % Lymphocytes (%) (Auto) 6.9 % 5.6 % Monocytes (%) (Auto) 8.3 % 7.9 % Eosinophils (%) (Auto) 2.1 % 2.0 % Basophils (%) (Auto) 0.5 % 0.6 % Neutrophils # (Auto) 9.4 TH/MM3 14.9 TH/MM3 Lymphocytes # (Auto) 0.8 TH/MM3 1.0 TH/MM3 Monocytes # (Auto) 0.9 TH/MM3 1.4 TH/MM3 Eosinophils # (Auto) 0.2 TH/MM3 0.4 TH/MM3 Basophils # (Auto) 0.1 TH/MM3 0.1 TH/MM3 CBC Comment DIFF FINAL DIFF FINAL Differential Comment Haptoglobin 253 MG/DL 266 MG/DL Laboratory Tests Test 01/31/17 01/31/17 02/01/17 05:50 12:35 05:55 Sodium Level 136 MEQ/L Potassium Level 4.0 MEQ/L Chloride Level 100 MEQ/L Carbon Dioxide Level 26.8 MEQ/L Anion Gap 9 MEQ/L Blood Urea Nitrogen 14 MG/DL Creatinine 1.20 MG/DL Estimat Glomerular Filtration 61 ML/MIN Rate Random Glucose 86 MG/DL Calcium Level 8.6 MG/DL Phosphorus Level 3.0 MG/DL Magnesium Level 1.9 MG/DL Total Bilirubin 0.6 MG/DL 1.0 MG/DL Aspartate Amino Transf 25 U/L (AST/SGOT) Alanine Aminotransferase 23 U/L (ALT/SGPT) Alkaline Phosphatase 356 U/L Total Protein 6.4 GM/DL Albumin 2.1 GM/DL Lactate Dehydrogenase 363 U/L 378 U/L Direct Bilirubin 0.5 MG/DL Indirect Bilirubin 0.5 MG/DL Microbiology Date/Time Procedure Status Source Growth 01/31/17 11:50 Stool Occult Blood (ALTAGRACIA) Ordered Stool Stool Pending 02/01/17 05:05 Stool Occult Blood (ALTAGRACIA) - Final Complete Stool Stool HEMOCCULT NEGATIVE Imaging Last Impressions Chest X-Ray 01/24/17 [id number] Signed Impressions: Service Date/Time: Tuesday, January 24, 2017 17:16 - CONCLUSION: Interval placement of right internal jugular central venous line with no evidence of pneumothorax. Silvano Dubois MD Cyst Biopsy Asp-Paracentesis US 01/24/17 0000 Signed Impressions: Service Date/Time: Tuesday, January 24, 2017 13:34 - CONCLUSION: Uncomplicated ultrasound guided paracentesis. Geremias Ruth MD Abdomen X-Ray 01/24/17 0000 Signed Impressions: Service Date/Time: Tuesday, January 24, 2017 13:47 - CONCLUSION: Nonspecific bowel gas pattern which may represent mild ileus or gastroenteritis. Silvano Dubois MD IVC Filter Placement X-Ray 01/20/17 0836 Signed Impressions: Service Date/Time: January 12:40 - CONCLUSION: Uncomplicated inferior vena cava filter placement as above. Sai Hernández MD Abdomen Ultrasound 01/15/17 0000 Signed Impressions: Service Date/Time: Sunday, January 15, 2017 16:21 - CONCLUSION: 1. Liver cirrhosis with moderate ascites. Splenomegaly. 2. Echogenic kidneys characteristic of medical renal disease with moderate right hydronephrosis and mild left hydronephrosis. Trevon Real MD Lower Extremity Ultrasound 01/14/17 0000 Signed Impressions: Service Date/Time: Saturday, January 14, 2017 17:28 - CONCLUSION: Left iliac and deep femoral DVT. No evidence of DVT on the right. Desmond Villatoro MD Assessment & Plan Remarks IMPRESSION Sepsis, better Fevers, no new infection found - intermittent low grade - ?tumor - ?drug ETOH cirrhosis with protal HT< varices, ascites DVT LLE, has IVC filter GIB Bladder CA, intermittent hematuria Leukocytosis, likely multifactorial RECOMMENDATION Continue Levaquin Continue Diflucan End dates for Abx ordered GI work-up Remove line Monitor progress If temps stable, ok for D/C to rehab D/W Areli Liao MD February 01, 2017 11:38
[2017-02-01] MEDS ORDERED: PHENYLEPH/NS 1000 MCG/10 ML SYR IV ONE (12:00)
[2017-02-01] MEDS ORDERED: PROPOFOL 200 MG/20 ML AMP IV ONE (12:18)
--- NOTE | 2017-02-01 12:25 | GIPROC ---
[facility] [address] [facility]. [facility], [address] EGD PROCEDURE REPORT EXAM DATE: 02/01/2017 PATIENT NAME: Randall Kang MR #: [id number] BIRTHDATE: 1950 ATTENDING: Horacio Wagner MD ORDER #: [id number] TIMERS INSPECTOR: Kodak Villagran Stienbarger, Terrie, and Terese Marshall STATUS: inpatient INDICATIONS: The patient is a 66 yr old male here for an EGD due to iron deficiency anemia and acute post hemorrhagic anemia PROCEDURE PERFORMED: EGD w/ biopsy MEDICATIONS: None and Per Anesthesia. TOPICAL ANESTHETIC: CONSENT: The patient understands the risks and benefits of the procedure and understands that these risks include, but are not limited to: sedation, allergic reaction, infection, perforation and/or bleeding. Alternative means of evaluation and treatment include, among others: physical exam, x-rays, and/or surgical intervention. The patient elects to proceed with this endoscopic procedure. medical equipment was checked for proper function. Hand hygiene and appropriate measures for infection prevention was taken. After the risks, benefits and alternatives of the procedure were thoroughly explained, Informed consent was verified, confirmed and timeout was successfully executed by the treatment team. The patient was anesthetized with topical anesthesia and the Pentax [id number]-[id number] endoscope was introduced through the mouth and advanced to the second portion of the duodenum. Retroflexed views revealed no abnormalities The gastroscope was then slowly withdrawn and removed. ESOPHAGUS: There was a single small varix in the distal esophagus. There was evidence of prior scarring. STOMACH: A single non-bleeding, deep and clean-based ulcer ranging between 3-5 mm in size with surrounding edema was found in the gastric antrum. Biopsies were taken at edge of the ulcer. DUODENUM: The duodenal mucosa appeared normal in the bulb and second portion of the duodenum. ADVERSE EVENTS: There were no complications. IMPRESSIONS: 1. Single ulcer ranging between 3-5 mm in size was found in the gastric antrum; biopsies were taken 2. Normal duodenal mucosa in the bulb and second portion of the duodenum 3. Retroflexed views revealed no abnormalities RECOMMENDATIONS: 1. Await biopsy results. Biopsy results will not be ready for 7-10 days. If you don't hear from us in two weeks, call our office for biopsy results. 2. Anti-reflux regimen 3. Continue PPI 4. Avoid NSAIDS PATIENT CONDITION: stable DISPOSITION: Inpatient REPEAT EXAM: Return 3 months EGD pending biopsy results Horacio Wagner MD eSigned: Horacio Wagner MD 02/01/2017 12:25 PM cc: PATIENT NAME: Pearl Randall Edwin MR#: [id number]
[2017-02-01] MEDS ORDERED: DO NOT ADM ANY ANTICOAGULANT DRUGS PRN (12:29)
--- NOTE | 2017-02-01 14:12 | PD.ONC.PN ---
Subjective Subjective Remarks Tmax 100.3 overnight. Patient just back from EGD. He is hungry and asks me to change him to a regular diet. Objective Data Date Time Temp Pulse Resp B/P Pulse Ox O2 Delivery O2 Flow Rate FiO2 02/01/17 12:45 67 12 99/63 100 Nasal Cannula 2 02/01/17 12:39 63 14 92/58 100 Nasal Cannula 2 02/01/17 12:32 66 20 101/53 99 Nasal Cannula 2 02/01/17 12:31 98.3 67 20 75/50 98 Nasal Cannula 4 02/01/17 10:10 Room Air 21 02/01/17 04:00 100.3 78 17 111/71 97 02/01/17 00:00 98.1 74 17 102/66 97 01/31/17 20:45 Room Air 01/31/17 20:00 98.2 74 17 104/65 96 01/31/17 16:00 100.3 92 18 112/68 98 01/31/17 15:35 100.3 92 18 112/68 98 01/31/17 15:20 99.8 83 16 108/70 97 02/01/17 02/01/17 02/01/17 07:00 15:00 23:00 Intake Total 240 ml 600 ml Output Total 200 ml 0 ml Balance 40 ml 600 ml Result Diagram: 02/01/17 0555 01/31/17 0550 Laboratory Results Laboratory Tests Test 01/31/17 02/01/17 22:15 05:55 Hemoglobin 8.8 GM/DL 9.4 GM/DL Hematocrit 26.2 % 29.0 % White Blood Count 17.7 TH/MM3 Red Blood Count 3.34 MIL/MM3 Mean Corpuscular Volume 86.7 FL Mean Corpuscular Hemoglobin 28.2 PG Mean Corpuscular Hemoglobin 32.5 % Concent Red Cell Distribution Width 19.2 % Platelet Count 268 TH/MM3 Mean Platelet Volume 9.5 FL Neutrophils (%) (Auto) 83.9 % Lymphocytes (%) (Auto) 5.6 % Monocytes (%) (Auto) 7.9 % Eosinophils (%) (Auto) 2.0 % Basophils (%) (Auto) 0.6 % Neutrophils # (Auto) 14.9 TH/MM3 Lymphocytes # (Auto) 1.0 TH/MM3 Monocytes # (Auto) 1.4 TH/MM3 Eosinophils # (Auto) 0.4 TH/MM3 Basophils # (Auto) 0.1 TH/MM3 CBC Comment DIFF FINAL Differential Comment Haptoglobin 266 MG/DL Total Bilirubin 1.0 MG/DL Direct Bilirubin 0.5 MG/DL Indirect Bilirubin 0.5 MG/DL Lactate Dehydrogenase 378 U/L Culture Results Microbiology Date/Time Procedure Status Source Growth 01/31/17 11:50 Stool Occult Blood (ALTAGRACIA) Ordered Stool Stool Pending 02/01/17 05:05 Stool Occult Blood (ALTAGRACIA) - Final Complete Stool Stool HEMOCCULT NEGATIVE Administered Medications Medications (Trade) Dose Ordered Sig/Dejuan Route PRN Reason Start Time Stop Time Status Last Admin Dose Admin Folic Acid (Folate) 1 mg DAILY PO 01/17/17 09:00 02/01/17 08:47 Tamsulosin HCl (Flomax) 0.4 mg DAILY PO 01/17/17 09:00 02/01/17 08:48 Ferrous Fumarate (Hemocyte) 325 mg DAILY PO 01/17/17 09:00 02/01/17 08:47 Multivitamins (Theragran) 1 tab DAILY PO 01/17/17 09:00 02/01/17 08:48 Pantoprazole Sodium (Protonix) 40 mg Q12HR PO 01/18/17 21:00 02/01/17 08:48 Rifaximin (Xifaxan) 550 mg BID PO 01/18/17 21:00 02/01/17 08:48 Acetaminophen (Tylenol) 650 mg Q6H PRN PO SEE LABEL COMMENTS 01/19/17 17:45 02/01/17 05:48 Thiamine HCl (Vitamin B1) 100 mg DAILY PO 01/22/17 09:00 02/01/17 08:48 Potassium Chloride (KCl) 20 meq DAILY PO 01/22/17 09:00 02/01/17 08:47 Sodium Chloride (NS Flush) DAILY IVF 01/25/17 09:00 02/01/17 08:48 Sodium Chloride (NS Flush) DAILY IV FLUSH 01/25/17 09:00 02/01/17 08:46 Sodium Chloride (NS Flush) UNSCH PRN IV FLUSH SEE PROTOCOL TABLE 01/24/17 17:45 01/30/17 21:17 Hydroxyzine HCl (Atarax) 25 mg Q8H PRN PO pruritis 01/25/17 12:00 01/25/17 22:18 Ondansetron HCl (Zofran Inj) 4 mg Q6HR PRN IV PUSH NAUSEA 01/26/17 08:15 01/27/17 18:38 Acetaminophen (Tylenol) 650 mg Q6HR PRN PO FEVER 01/28/17 11:45 01/28/17 12:13 Gabapentin (Neurontin) 400 mg TID PO 01/29/17 13:00 02/01/17 13:29 Oxycodone HCl (Roxicodone) 10 mg Q4H PRN PO pain 1-10 01/29/17 12:15 02/01/17 13:31 Levofloxacin (Levaquin) 750 mg Q24H PO 01/31/17 11:00 02/07/17 10:59 02/01/17 11:12 Furosemide (Lasix Inj) 20 mg BID IV PUSH 01/31/17 21:00 02/01/17 08:48 Spironolactone (Aldactone) 50 mg BID@,18 PO 01/31/17 18:00 02/01/17 08:48 Fluconazole (Diflucan) 100 mg DAILY PO 02/01/17 09:00 02/08/17 08:59 02/01/17 08:58 Objective Remarks GENERAL: chronically ill appearing male, sitting up in bed in nad SKIN: Warm and dry. HEAD: Normocephalic. EYES: No injection or drainage. NECK: Supple, trachea midline. CARDIOVASCULAR: Regular rate and rhythm RESPIRATORY: Breath sounds equal bilaterally. No accessory muscle use. GASTROINTESTINAL: Abdomen soft, non-tender, nondistended. EXTREMITIES: No cyanosis, or edema. MUSCULOSKELETAL: Adequate muscle tone. NEUROLOGICAL: awake and alert, normal speech. moving all extremities. Assessment/Plan Problem List: (1) Bladder cancer Status: Acute Plan: --outpatient management --diagnosed in 2009. --follows with Dr. Lo (Urology) but has no oncologist --did receive intravesicular BCG treatment. --was supposed to go to [facility] in late January for a cystectomy. will order CT C/A/P for further staging (2) Anemia Status: Acute Plan: --likely multifactorial d/t GIB + hematuria d/t bladder cancer (3) DVT (deep venous thrombosis) Status: Acute Plan: --retrievable IVC filter placed on 01/20 --heparin gtt 01/18-01/20 Assessment 66y/o male admitted with melanotic stools, anemia h/o bladder cancer, alcoholic cirrhosis, esophageal varices, and DVT of the left lower extremity. Plan 1. s/p EGD today which showed only a single ulcer in the gastric antrum. No active bleeding. 2. monitor CBC 3. supportive care 4. fs faxed to new patient referrals for follow up once discharged. will obtain CT C/A/P for staging as patient has been inpatient for almost a month. Attending Statement The exam, history, and the medical decision-making described in the above note were completed with the assistance of the mid-level provider. I reviewed and agree with the findings presented. I attest that I had a [id number] encounter with the patient on the same day, and personally performed and documented my assessment and findings in the medical records. anemia multifactorial. no evidence of hemolysis will restage with CT scans for bladder cancer d/w rn Problem Qualifiers (1) Anemia: Qualified Code: D64.9 - Anemia, unspecified type (2) DVT (deep venous thrombosis): Karishma Lacey February 01, 2017 14:12 Jeancarlos Perry MD February 01, 2017 21:44
[2017-02-01] MEDS ORDERED: SODIUM CHLOR 0.9% 1000 ML INJ 1,000 ML IV SCH (15:00)
[2017-02-01 16:03] VITALS: BP 113/65; PULSE 91; RESP 17; TEMP 98.8; O2SAT 98
[2017-02-01] MEDS ORDERED: IOHEXOL 350 MG/ML 10 ML VIAL (for RAD DIAG) IV ONE (17:39)
--- NOTE | 2017-02-01 17:58 | RADRPT ---
EXAM DATE/TIME: 02/01/2017 17:32 [facility] COMPARISON: No previous studies available for comparison. INDICATIONS : Metastases. IV CONTRAST: 71 cc Omnipaque 350 (iohexol) IV RADIATION DOSE: 5.24 CTDIvol (mGy) MEDICAL HISTORY : Carcinoma, bladder. Cardiovascular disease Hypertension.Patient is currently on chemo SURGICAL HISTORY : None. ENCOUNTER: Initial ACUITY: 1 day PAIN SCALE: 2/10 LOCATION: Bilateral lower chest TECHNIQUE: Volumetric scanning of the chest was performed. Using automated exposure control and adjustment of t he mA and/or kV according to patient size, radiation dose was kept as low as reasonably achievable to obtain optimal diagnostic quality images. FINDINGS: LUNGS: There is a small groundglass opacity involving the subpleural aspects the left upper lobe anteriorly. The remaining lungs are clear. No mass. No bronchiectasis. PLEURA: There is no pleural thickening or pleural effusion. MEDIASTINUM: The heart is normal in size. No pericardial effusion. Significant coronary artery atherosclerotic kirt cifications. Aorta and pulmonary arteries are normal in caliber. A tiny subcarinal lymph node. No mandy nopathy. AXILLAE: Within normal limits. No lymphadenopathy. SKELETAL: Within normal limits for patient age. MISCELLANEOUS: See the CT the abdomen and pelvis reported separately. Gynecomastia. CONCLUSION: 1. Small groundglass infiltrate within the left upper lobe. 2. No CT evidence to suggest metastatic disease. 3. Significant coronary artery atherosclerotic calcifications. 4. Gynecomastia. Jonathan Zelaya Jr., MD on February 01, 2017 at 17:53 Board Certified Radiologist. This report was verified electronically.
--- NOTE | 2017-02-01 18:04 | RADRPT ---
EXAM DATE/TIME: 02/01/2017 17:37 [facility] COMPARISON: CT THORAX W CONTRAST, February 01, 2017, 17:32. EXTERNAL COMPARISON : [facility], INDICATIONS : Metastases. IV CONTRAST: 71 cc Omnipaque 350 (iohexol) IV ORAL CONTRAST: Prescribed oral contrast ingested. RADIATION DOSE: 5.24 CTDIvol (mGy) MEDICAL HISTORY : Carcinoma, bladder. Hypertension. Cardiovascular diseasePatient is currently on chemo. SURGICAL HISTORY : None. ENCOUNTER: Initial ACUITY: 1 day PAIN SCALE: 2/10 LOCATION: Bilateral lower quadrant TECHNIQUE: Volumetric scanning of the abdomen and pelvis was performed. Using automated exposure control and ad justment of the mA and/or kV according to patient size, radiation dose was kept as low as reasonably achievable to obtain optimal diagnostic quality images. FINDINGS: LOWER LUNGS: Seen a CT of the thorax dictated separately. LIVER: The liver is enlarged with a lobulated contour. It is heterogeneous. No mass or ductal dilatation. Re cannulization of the periumbilical vein. Moderate amount of ascites. SPLEEN: Normal size without lesion. PANCREAS: Within normal limits. KIDNEYS: Bilateral hydronephrosis and hydroureter. The ureters can be followed down to the urinary bladder. ADRENAL GLANDS: Within normal limits. VASCULAR: Disease calcified plaques in the aorta and inflow vessels. No weight or small change. Infrarenal IVC noted. There is a filling defect involving the left common femoral vein. BOWEL/MESENTERY: The stomach, small bowel, and colon demonstrate no acute abnormality. There is no free intraperitone al air or fluid. ABDOMINAL WALL: Within normal limits. RETROPERITONEUM: Adenopathy seen involving the pelvis bilaterally. Within the right hemipelvis there is a 3.8 x 3.3 cm necrotic appearing lymph node. On the left this measures 3.9-3.7 cm BLADDER: The bladder is markedly abnormal. There is soft tissue mass involving the posterior anterior portion of the bladder extending to the trigone. There is circumferential wall thickening involving the remai andrea portion of the urinary bladder. Urinary bladder is distended. REPRODUCTIVE: Within normal limits. INGUINAL: There is no lymphadenopathy or hernia. MUSCULOSKELETAL: Within normal limits for patient age. CONCLUSION: 1. Abnormal urinary bladder with mass and distention. 2. Bilateral hydronephrosis and hydroureter. 3. Bilateral pelvic adenopathy which appears necrotic in nature. 4. Cirrhosis with moderate amount of ascites. 5. Left common femoral vein DVT. Patient has an IVC filter. Jonathan Zelaya Jr., MD on February 01, 2017 at 17:56 Board Certified Radiologist. This report was verified electronically.
[2017-02-01 20:00] VITALS: BP 115/73; PULSE 77; RESP 18; TEMP 100.4; O2SAT 96
[2017-02-01 21:41] LABS: REVIEW FLAG FINAL
[2017-02-02] VITALS: BP 105/63; PULSE 89; RESP 18; TEMP 99.1; O2SAT 96
[2017-02-02 04:00] VITALS: BP 106/63; PULSE 86; RESP 16; TEMP 99.1; O2SAT 99
[2017-02-02 08:00] VITALS: BP 100/58; PULSE 74; RESP 18; TEMP 99.6; O2SAT 99
[2017-02-02] MEDS: FERROUS FUMARATE 325 MG TAB (106 MG ELEMENTAL IRON) PO SCH (08:04)
[2017-02-02] MEDS: RIFAXIMIN 550 MG TAB PO SCH (08:04)
[2017-02-02] MEDS: POTASSIUM CHLORIDE 20 MEQ CONTROLLED RELEASE TAB PO SCH (08:05)
[2017-02-02] MEDS: FOLIC ACID 1 MG TAB PO SCH (08:05)
[2017-02-02] MEDS: Central Line Short Term Adult 7Fr or larger Daily NS Lock Flush IV FLUSH SCH (08:05)
[2017-02-02] MEDS: SPIRONOLACTONE 25 MG TAB PO SCH (08:05)
[2017-02-02] MEDS: FUROSEMIDE 20 MG/2 ML VIAL IV PUSH SCH (08:05)
[2017-02-02] MEDS: TAMSULOSIN HCL 0.4 MG CAP PO SCH (08:05)
[2017-02-02] MEDS: GABAPENTIN 400 MG CAP PO SCH ×2 (08:05→11:51)
[2017-02-02] MEDS: FLUCONAZOLE 100 MG TAB PO SCH (08:05)
[2017-02-02] MEDS: THIAMINE HCL 100 MG TAB PO SCH (08:05)
[2017-02-02] MEDS: MULTIVITAMIN TAB PO SCH (08:05)
[2017-02-02] MEDS: PANTOPRAZOLE SOD 40 MG DELAYED RELEASE TAB PO SCH (08:05)
[2017-02-02] MEDS: SODIUM CHLORIDE 0.9% FLUSH 10 ML FLUSH IVF SCH (08:06)
[2017-02-02 08:24] LABS: HEMATOCRIT 26.2 % (39.0-51.0); MEAN CELL VOLUME 86.9 FL (80.0-100.0); MEAN CORPUSCULAR HEMOGLOBIN 29.4 PG (27.0-34.0); MEAN CORPUSCULAR HGB CONC 33.8 % (32.0-36.0); PLATELET COUNT 237 TH/MM3 (150-450); RED BLOOD COUNT 3.02 MIL/MM3 (4.50-5.90); RED CELL DISTRIBUTION WIDTH 19.3 % (11.6-17.2); REVIEW FLAG FINAL
--- NOTE | 2017-02-02 09:10 | HHI.PR ---
Subjective Remarks resting comfortably with no distress. denies pain. no new complaints. afebrile today. Objective Vitals Vital Signs Date Time Temp Pulse Resp B/P Pulse Ox O2 Delivery O2 Flow Rate FiO2 02/02/17 08:00 99.6 74 18 100/58 99 02/02/17 04:00 99.1 86 16 106/63 99 02/02/17 00:00 99.1 89 18 105/63 96 02/01/17 22:20 Room Air 02/01/17 20:00 100.4 77 18 115/73 96 02/01/17 16:03 98.8 91 17 113/65 98 02/01/17 13:00 98.3 67 16 108/71 100 Room Air 02/01/17 12:45 67 12 99/63 100 Nasal Cannula 2 02/01/17 12:39 63 14 92/58 100 Nasal Cannula 2 02/01/17 12:32 66 20 101/53 99 Nasal Cannula 2 02/01/17 12:31 98.3 67 20 75/50 98 Nasal Cannula 4 02/01/17 10:10 Room Air 21 I/O 02/01/17 02/01/17 02/01/17 02/02/17 02/02/17 02/02/17 07:00 15:00 23:00 07:00 15:00 23:00 Intake Total 240 ml 1000 ml 480 ml 480 ml Output Total 200 ml 0 ml 240 ml Balance 40 ml 1000 ml 480 ml 240 ml Intake Oral 240 ml 0 ml 480 ml 480 ml IV Total 700 ml Other 300 ml Output Urine Total 200 ml 0 ml 240 ml Estimated Blood Loss 0 ml # Voids 6 5 # Bowel Movements 2 1 1 2 Result Diagram: 02/02/17 0750 01/31/17 0550 Imaging Last Impressions Chest CT 02/01/17 0000 Signed Impressions: Service Date/Time: Wednesday, February 01, 2017 17:32 - CONCLUSION: 1. Small groundglass infiltrate within the left upper lobe. 2. No CT evidence to suggest metastatic disease. 3. Significant coronary artery atherosclerotic calcifications. 4. Gynecomastia. Jonathan Zelaya Jr., MD Abdomen/Pelvis CT 02/01/17 0000 Signed Impressions: Service Date/Time: Wednesday, February 01, 2017 17:37 - CONCLUSION: 1. Abnormal urinary bladder with mass and distention. 2. Bilateral hydronephrosis and hydroureter. 3. Bilateral pelvic adenopathy which appears necrotic in nature. 4. Cirrhosis with moderate amount of ascites. 5. Left common femoral vein DVT. Patient has an IVC filter. Jonathan Zelaya Jr., MD Chest X-Ray 01/24/17 1657 Signed Impressions: Service Date/Time: Tuesday, January 24, 2017 17:16 - CONCLUSION: Interval placement of right internal jugular central venous line with no evidence of pneumothorax. Silvano Dubois MD Cyst Biopsy Asp-Paracentesis US 01/24/17 0000 Signed Impressions: Service Date/Time: Tuesday, January 24, 2017 13:34 - CONCLUSION: Uncomplicated ultrasound guided paracentesis. Geremias Ruth MD Abdomen X-Ray 01/24/17 0000 Signed Impressions: Service Date/Time: Tuesday, January 24, 2017 13:47 - CONCLUSION: Nonspecific bowel gas pattern which may represent mild ileus or gastroenteritis. Silvano Dubois MD IVC Filter Placement X-Ray 01/20/17 0836 Signed Impressions: Service Date/Time: January 12:40 - CONCLUSION: Uncomplicated inferior vena cava filter placement as above. Sai Hernández MD Abdomen Ultrasound 01/15/17 0000 Signed Impressions: Service Date/Time: Sunday, January 15, 2017 16:21 - CONCLUSION: 1. Liver cirrhosis with moderate ascites. Splenomegaly. 2. Echogenic kidneys characteristic of medical renal disease with moderate right hydronephrosis and mild left hydronephrosis. Trevon Real MD Lower Extremity Ultrasound 01/14/17 0000 Signed Impressions: Service Date/Time: Saturday, January 14, 2017 17:28 - CONCLUSION: Left iliac and deep femoral DVT. No evidence of DVT on the right. Desmond Villatoro MD Objective Remarks GENERAL: This is a well-nourished, well-developed patient, in no apparent distress. CARDIOVASCULAR: Regular rate and regular rhythm without murmurs, gallops, or rubs. RESPIRATORY: Clear to auscultation. Breath sounds equal bilaterally. No wheezes , rales, or rhonchi. GASTROINTESTINAL: Abdomen soft, non-tender, mildly distended. Normal, active bowel sounds MUSCULOSKELETAL: Extremities without clubbing, cyanosis, or edema. NEURO: Alert & Oriented x4 to person, place, time, situation. Moves all ext x4 Procedures paracentesis IVC filter placement EGD/ colonoscopy central line placement Medications and IVs Current Medications Sodium Chloride (NS 1000 ml Inj) 1,000 ml @ 1,000 mls/hr Q1H IV Last administered on 01/14/17 16:10; Start 01/14/17 at 13:37; Stop 01/14/17 at 14:36 ; Status DC Sodium Chloride 2 ml 2 ml UNSCH PRN IVF FLUSH AFTER USING IV ACCESS Last administered on 01/22/17 22:53; Start 01/14/17 at 13:45; Stop 01/24/17 at 16:59 ; Status DC Octreotide Acetate 500 mcg/ Sodium Chloride 500.5 ml @ 50 mls/hr Q10H IV Last administered on 01/15/17 10:31; Start 01/14/17 at 13:45; Stop 01/16/17 at 06:46 ; Status DC Pantoprazole Sodium 80 mg/ Sodium Chloride 35 ml @ 420 mls/hr ONCE ONCE IV Last administered on 01/14/17 15:40; Start 01/14/17 at 13:45; Stop 01/14/17 at 13:49; Status DC Pantoprazole Sodium 80 mg/ Sodium Chloride 100 ml @ 10 mls/hr Q10H IV Last administered on 01/18/17 08:12; Start 01/14/17 at 13:45; Stop 01/18/17 at 11:46 ; Status DC Sodium Chloride (NS 250 ml Inj) 250 ml @ 15 mls/hr ONCE ONCE IV Last administered on 01/14/17 16:48; Start 01/14/17 at 14:45; Stop 01/15/17 at 07:24 ; Status DC Calcium Gluconate (Calcium Gluconate Inj) 1 gm ONCE ONCE SLOW IVP Last administered on 01/14/17 16:15; Start 01/14/17 at 15:15; Stop 01/14/17 at 15:16 ; Status DC Insulin Human Regular (NovoLIN R INJ) 10 units ONCE ONCE IV PUSH Last administered on 01/14/17 16:15; Start 01/14/17 at 15:15; Stop 01/14/17 at 15:16 ; Status DC Dextrose (D50w (Vial) Inj) 50 ml ONCE ONCE IV PUSH Last administered on 16:15; Start 01/14/17 at 15:15; Stop 01/14/17 at 15:16; Status DC Sodium Bicarbonate (Sodium Bicarbonate 8.4% Inj) 50 meq ONCE ONCE SLOW IVP Last administered on 01/14/17 16:26; Start 01/14/17 at 15:15; Stop 01/14/17 at 15:16; Status DC Albuterol Sulfate 10 mg 10 mg ONCE ONCE INH Last administered on 01/14/17 17: 07; Start 01/14/17 at 15:15; Stop 01/14/17 at 15:16; Status DC Ceftriaxone Sodium 1000 mg/ Sodium Chloride 100 ml @ 200 mls/hr Q24H IV Last administered on 01/22/17 17:07; Start 01/14/17 at 17:00; Stop 01/23/17 at 16:23 ; Status DC Sodium Chloride 1,000 ml @ 999 mls/hr BOLUS ONCE IV Last administered on 01/14 16:48; Start 01/14/17 at 16:30; Stop 01/14/17 at 17:30; Status DC Sodium Chloride (NS 1000 ml Inj) 1,000 ml @ 125 mls/hr Q8H IV Last administered on 01/15/17 00:19; Start 01/14/17 at 17:00; Stop 01/15/17 at 08:06 ; Status DC Diphenhydramine HCl (Benadryl Inj) 50 mg ONCE ONCE IV PUSH Last administered on 01/14/17 18:15; Start 01/14/17 at 18:00; Stop 01/14/17 at 18:01; Status DC Diphenhydramine HCl (Benadryl Inj) 25 mg ONCE ONCE IV PUSH ; Start 01/14/17 at 18:45; Stop 01/14/17 at 18:46; Status DC Hydromorphone HCl 0.5 mg 0.5 mg Q4H PRN IV BREAKTHROUGH PAIN Last administered on 01/29/17 10:51; Start 01/15/17 at 02:30; Stop 01/29/17 at 12:11 ; Status DC Magnesium Sulfate/ Dextrose (Magnesium Sulfate 1 Gm Premix) 100 ml @ 100 mls/ hr Q1H IV ; Start 01/15/17 at 08:15; Stop 01/15/17 at 10:14; Status DC Furosemide 20 mg 20 mg BID@09,18 IV PUSH Last administered on 01/21/17 08:38; Start 01/15/17 at 09:00; Stop 01/21/17 at 09:41; Status DC Sodium Chloride 1,000 ml @ 42 mls/hr [id number] IV Last administered on 05:48; Start 01/15/17 at 08:15; Stop 01/26/17 at 08:13; Status DC Thiamine HCl/ Sodium Chloride (Thiamine Inj/NS Inj) 101 ml @ 101 mls/hr DAILY IV Last administered on 01/21/17 08:37; Start 01/15/17 at 09:00; Stop at 09:33; Status DC Propofol (Diprivan 200 Mg/20 ml Inj) 100 mg STK-MED ONCE IV ; Start 01/15/17 at 13:09; Stop 01/15/17 at 13:19; Status DC Polyethylene Glycol/ Electrolytes 4000 ml 4,000 ml ONCE ONCE PO Last administered on 01/16/17 16:06; Start 01/16/17 at 16:00; Stop 01/16/17 at 16:01 ; Status DC Sodium Phosphate/ Sodium Chloride (Sodium Phosphate Inj/NS 250 ml Inj) 260 ml @ 43.333 mls/ hr ONCE ONCE IV Last administered on 01/17/17 09:00; Start at 09:00; Stop 01/17/17 at 14:59; Status DC Folic Acid (Folate) 1 mg DAILY PO Last administered on 02/02/17 08:05; Start at 09:00 Gabapentin (Neurontin) 300 mg TID PO Last administered on 01/29/17 10:58; Start 01/17/17 at 09:00; Stop 01/29/17 at 12:11; Status DC Tamsulosin HCl (Flomax) 0.4 mg DAILY PO Last administered on 02/02/17 08:05; Start 01/17/17 at 09:00 Ferrous Fumarate (Hemocyte) 325 mg DAILY PO Last administered on 02/02/17 08:04 ; Start 01/17/17 at 09:00 Multivitamins (Theragran) 1 tab DAILY PO Last administered on 02/02/17 08:05; Start 01/17/17 at 09:00 Ketamine HCl (Ketalar Inj) 20 mg STK-MED ONCE IV ; Start 01/15/17 at 12:00; Stop 01/17/17 at 08:49; Status DC Propofol (Diprivan 200 Mg/20 ml Inj) 40 mg STK-MED ONCE IV ; Start 01/17/17 at 13:30; Stop 01/17/17 at 14:19; Status DC Miscellaneous Information ALL NURSING DEPARTME... UNSCH PRN .XX SEE LABEL COMMENTS; Start 01/17/17 at 14:09; Stop 01/18/17 at 14:08; Status DC Midazolam HCl (Versed Inj) 2 mg STK-MED ONCE .ROUTE ; Start 01/17/17 at 14:51; Stop 01/17/17 at 14:52; Status DC Fentanyl Citrate (fentaNYL INJ) 100 mcg STK-MED ONCE .ROUTE ; Start 01/17/17 at 14:51; Stop 01/17/17 at 14:52; Status DC Potassium Chloride 60 meq 60 meq ONCE ONCE PO Last administered on 01/18/17 08:02; Start 01/18/17 at 07:30; Stop 01/18/17 at 07:31; Status DC Heparin Sodium/ Dextrose (Heparin-D5W Inj) 250 ml @ 0 mls/hr TITRATE IV Last administered on 01/20/17 03:35; Start 01/18/17 at 08:15; Stop 01/20/17 at 08:37 ; Status DC Pantoprazole Sodium (Protonix) 40 mg Q12HR PO Last administered on 02/02/17 08: 05; Start 01/18/17 at 21:00 Rifaximin (Xifaxan) 550 mg BID PO Last administered on 02/02/17 08:04; Start at 21:00 Albumin Human (Albumin 25% Inj) 25 gm ONCE ONCE IV Last administered on 07:10; Start 01/19/17 at 08:00; Stop 01/19/17 at 08:01; Status DC Hydromorphone HCl (Dilaudid Pf Inj) 0.5 mg STAT ONCE IV Last administered on 09:49; Start 01/19/17 at 09:45; Stop 01/19/17 at 09:46; Status DC Albumin Human (Albumin 25% Inj) ONCE ONCE IV Last administered on 01/19/17 15:09; Start 01/19/17 at 15:00; Stop 01/19/17 at 15:01; Status DC Acetaminophen (Tylenol) 650 mg Q6H PRN PO SEE LABEL COMMENTS Last administered on 02/01/17 20:55; Start 01/19/17 at 17:45 Iohexol (Omnipaque 350 Inj) 50 ml STK-MED ONCE .XX Last administered on 13:22; Start 01/20/17 at 13:22; Stop 01/20/17 at 13:23; Status DC Vancomycin HCl (Vancomycin Inj) 1,000 mg STK-MED ONCE IV Last administered on 12:50; Start 01/20/17 at 12:50; Stop 01/20/17 at 13:29; Status DC Fentanyl Citrate (fentaNYL INJ) 100 mcg STK-MED ONCE IV Last administered on 12:50; Start 01/20/17 at 12:50; Stop 01/20/17 at 13:30; Status DC Potassium Chloride 60 meq 60 meq ONCE ONCE PO Last administered on 01/21/17 06:36; Start 01/21/17 at 06:45; Stop 01/21/17 at 06:46; Status DC Potassium Chloride (KCl 20 Meq Premix Inj) 100 ml @ 50 mls/hr ONCE ONCE IV Last administered on 01/21/17 06:36; Start 01/21/17 at 06:30; Stop 01/21/17 at 08:29; Status DC Thiamine HCl (Vitamin B1) 100 mg DAILY PO Last administered on 02/02/17 08:05; Start 01/22/17 at 09:00 Potassium Chloride (KCl) 20 meq DAILY PO Last administered on 02/02/17 08:05; Start 01/22/17 at 09:00 Furosemide (Lasix Inj) 20 mg DAILY IV PUSH Last administered on 01/31/17 09:45 ; Start 01/22/17 at 09:00; Stop 01/31/17 at 12:03; Status DC Lactulose (Lactulose Liq) 30 ml DAILY PRN PO cirrhosis/encephalopathy; Start at 09:45 Aminocaproic Acid 250 mg 250 mg STK-MED ONCE IV ; Start 01/17/17 at 05:00; Stop 01/21/17 at 09:49; Status DC Cefazolin Sodium/ Dextrose (Ancef 2 Gm Premix) 50 ml @ As Directed STK-MED ONCE IV ; Start 01/17/17 at 05:00; Stop 01/21/17 at 09:49; Status DC Heparin Sodium (Porcine) (Heparin Inj) 10,000 units STK-MED ONCE SQ ; Start at 05:00; Stop 01/21/17 at 09:49; Status DC Phenylephrine HCl 10 mg 10 mg STK-MED ONCE IV ; Start 01/17/17 at 05:00; Stop at 09:49; Status DC Nitroglycerin/ Dextrose (Nitroglycerin-Dextrose Inj) 250 ml @ As Directed STK- MED ONCE IV ; Start 01/17/17 at 05:00; Stop 01/21/17 at 09:49; Status DC Acetaminophen 1000 mg 1,000 mg STK-MED ONCE IV ; Start 01/17/17 at 05:00; Stop 01/21/17 at 09:49; Status DC Dexmedetomidine HCl (Precedex Inj) 50 ml @ As Directed STK-MED ONCE IV ; Start 01/17/17 at 05:00; Stop 01/21/17 at 09:50; Status DC Glycopyrrolate (Robinul Inj) 0.2 mg STK-MED ONCE IV ; Start 01/17/17 at 05:00; Stop 01/21/17 at 09:50; Status DC Potassium Chloride (KCl) 40 meq ONCE ONCE PO ; Start 01/21/17 at 19:45; Stop at 19:50; Status DC Acetaminophen/ Hydrocodone Bitart 1 tab 1 tab Q4H PRN PO PAIN 2-10 Last administered on 01/29/17 08:36; Start 01/22/17 at 11:15; Stop 01/29/17 at 12:11 ; Status DC Ceftriaxone Sodium/Sodium Chloride (Rocephin Inj/NS Inj) 100 ml @ 200 mls/hr Q24H IV Last administered on 01/24/17 16:56; Start 01/23/17 at 18:00; Stop at 17:12; Status DC Acetaminophen (Ofirmev Inj) 1,000 mg ONCE ONCE IV Last administered on 13:00; Start 01/24/17 at 12:45; Stop 01/24/17 at 12:46; Status DC Acetaminophen (Ofirmev Inj) 1,000 mg Q8HR PRN IV high grade fevers >101; Start 01/24/17 at 12:45; Stop 01/28/17 at 11:42; Status DC Albumin Human (Albumin 25% Inj) 25 gm ONCE ONCE IV Last administered on 16:56; Start 01/24/17 at 16:15; Stop 01/24/17 at 16:16; Status DC Albumin Human (Albumin 25% Inj) 12.5 gm ONCE ONCE IV Last administered on 01/24 16:55; Start 01/24/17 at 16:15; Stop 01/24/17 at 16:16; Status DC Sodium Chloride (NS Flush) DAILY IVF Last administered on 02/01/17 08:48; Start 01/25/17 at 09:00 Sodium Chloride UNSCH PRN IVF SEE PROTOCOL; Start 01/24/17 at 17:00 Sodium Chloride (NS 1000 ml Inj) 1,000 ml @ 999 mls/hr BOLUS ONCE IV Last administered on 01/24/17 17:15; Start 01/24/17 at 17:15; Stop 01/24/17 at 18:15 ; Status DC Albumin Human 50 gm 50 gm ONCE ONCE IV Last administered on 01/24/17 17:56; Start 01/24/17 at 17:15; Stop 01/24/17 at 17:16; Status DC Pharmacy Profile Note 0 ml @ 0 mls/hr UNSCH OTHER ; Start 01/24/17 at 17:15; Stop 01/27/17 at 13:27; Status DC Cefepime HCl 2000 mg/Sodium Chloride 100 ml @ 200 mls/hr Q8H IV ; Start at 17:15; Stop 01/24/17 at 17:15; Status DC Piperacillin Sod/ Tazobactam Sod (Zosyn 4.5 Gm Premix) 100 ml @ 200 mls/hr Q6H IV Last administered on 01/31/17 05:38; Start 01/24/17 at 18:00; Stop 01/31/17 at 10:28; Status DC Terbutaline Sulfate 1 mg 1 mg UNSCH PRN SQ For Extravasation; Start 01/24/17 at 17:15; Stop 01/26/17 at 08:13; Status DC Phenylephrine HCl 160 mg/Dextrose 500 ml @ 0 mls/hr TITRATE IV Last administered on 01/24/17 17:57; Start 01/24/17 at 17:15; Stop 01/26/17 at 08:13 ; Status DC Vancomycin HCl/ Sodium Chloride (Vancomycin Inj/ NS 250 ml Inj) 262.5 ml @ 250 mls/hr Q18H IV Last administered on 01/27/17 00:45; Start 01/24/17 at 18:00; Stop 01/27/17 at 08:22; Status DC Miscellaneous Information SPECIFIC LAB TO BE DRAWN:VANCOMYCIN TROUGH DATE TO... ONCE ONCE .XX Last administered on 01/26/17 23:45; Start 01/26/17 at 23:45; Stop 01/26/17 at 23:46; Status DC Sodium Chloride (NS Flush) DAILY IV FLUSH Last administered on 02/02/17 08:05 ; Start 01/25/17 at 09:00 Sodium Chloride (NS Flush) UNSCH PRN IV FLUSH SEE PROTOCOL TABLE Last administered on 01/30/17 21:17; Start 01/24/17 at 17:45 Hydroxyzine HCl (Atarax) 25 mg Q8H PRN PO pruritis Last administered on 22:18; Start 01/25/17 at 12:00 Spironolactone (Aldactone) 25 mg BID@09,18 PO Last administered on 01/31/17 09: 44; Start 01/25/17 at 18:00; Stop 01/31/17 at 12:03; Status DC Ondansetron HCl (Zofran Inj) 4 mg Q6HR PRN IV PUSH NAUSEA Last administered on 01/27/17 18:38; Start 01/26/17 at 08:15 Potassium Chloride 20 meq 20 meq ONCE ONCE PO Last administered on 01/26/17 14:05; Start 01/26/17 at 13:15; Stop 01/26/17 at 13:16; Status DC Vancomycin HCl/ Sodium Chloride (Vancomycin Inj/ NS 500 ml Inj) 515 ml @ 250 mls/hr Q18H IV ; Start 01/27/17 at 18:00; Stop 01/27/17 at 18:00; Status DC Miscellaneous Information SPECIFIC LAB TO BE DRAWN:VANCOMYCIN TROUGH DATE TO... ONCE ONCE .XX ; Start 01/29/17 at 23:45; Stop 01/29/17 at 23:46; Status Cancel Fluconazole (Diflucan) 100 mg DAILY PO Last administered on 01/28/17 12:13; Start 01/28/17 at 12:00; Stop 01/28/17 at 12:35; Status DC Acetaminophen 650 mg 650 mg Q6HR PRN PO FEVER Last administered on 01/28/17 12 :13; Start 01/28/17 at 11:45 Fluconazole/ Sodium Chloride (Diflucan 400 Mg Premix Bag) 200 ml @ 100 mls/hr Q24H IV Last administered on 01/31/17 14:37; Start 01/28/17 at 14:00; Stop 02/01 at 08:38; Status DC Gabapentin (Neurontin) 400 mg TID PO Last administered on 02/02/17 08:05; Start 01/29/17 at 13:00 Oxycodone HCl (Roxicodone) 10 mg Q4H PRN PO pain 1-10 Last administered on 05:49; Start 01/29/17 at 12:15 Levofloxacin (Levaquin) 750 mg Q24H PO Last administered on 02/01/17 11:12; Start 01/31/17 at 11:00; Stop 02/07/17 at 10:59 Furosemide (Lasix Inj) 20 mg BID IV PUSH Last administered on 02/02/17 08:05; Start 01/31/17 at 21:00 Spironolactone (Aldactone) 50 mg BID@09,18 PO Last administered on 02/02/17 08: 05; Start 01/31/17 at 18:00 Fluconazole (Diflucan) 100 mg DAILY PO Last administered on 02/02/17 08:05; Start 02/01/17 at 09:00; Stop 02/08/17 at 08:59 Miscellaneous Information ALL NURSING DEPARTME... UNSCH PRN .XX SEE LABEL COMMENTS; Start 02/01/17 at 12:29; Stop 02/02/17 at 12:28 Sodium Chloride (NS 1000 ml Inj) 1,000 ml @ 42 mls/hr [id number] IV Last administered on 02/01/17 15:45; Start 02/01/17 at 15:00; Stop 02/02/17 at 14:48 Iohexol (Omnipaque 350 Inj) 70 ml STK-MED ONCE IV Last administered on 17:39; Start 02/01/17 at 17:39; Stop 02/01/17 at 17:40; Status DC Propofol (Diprivan 200 Mg/20 ml Inj) 90 mg STK-MED ONCE IV ; Start 02/01/17 at 12:18; Stop 02/01/17 at 19:10; Status DC A/P Assessment and Plan A/P Hypotension secondary to hypovolemia/sepsis?-resolved. History of hypertension Lactic acidosis. Resolved continue lasix and aldactone Echocardiogram - EF 60-65%. Mild MR/TR. No regional wall motion abnormality. GI bleed most likely variceal bleed Ascites/abdominal Liver cirrhosis History of gastroesophageal reflux disease Elevated transaminases likely secondary to EtOH Hypoalbuminemia -GI consulted EGD revealed gastric ulcer in antrum. This was biopsied. Gastropathy. Old banding. No varices. s/p colonoscopy with polypectomy EGD repeated on 02/01 due to a drop in H/H which showed ulcer in gastric antrum. Ultrasound - Liver cirrhosis with moderate ascites. Splenomegaly. -Continue Protonix at 40 mg twice a day Status post paracentesis 7 L on 01/19. Last 5.7 L 01/24 History of peripheral neuropathy History of EtOH abuse Depression/anxiety -Minimize sedation. -As needed norco and Dilaudid - continue thiamine and folic acid. Acute kidney injury - resolved History of bladder cancer/muscular invasive Bilateral hydronephrosis by history right greater than left BPH Ultrasound - Echogenic kidneys characteristic of medical renal disease with moderate right hydronephrosis and mild left hydronephrosis. Noted recent CT chest revealed right greater than left hydronephrosis. Currently with adequate urine output. -F/u at [facility] for bladder cancer Dr. Simeon discussed with his urologist at [facility], due to his decompensated cirrhosis, recent gi bleeding due to portal htn , poor nutritional status he will high risk for surgery and anesthesia . evaluated by Urology- recommended f/u with [facility]. UTI recurrent fever continue po antibiotics per ID. Pertinent cultures 01/24 - blood cultures 2 -no growth 01/23 - urine -continue to 01/23 - blood cultures 2 - no growth to date 01/19 - peritoneal fluid - no growth 01/14 - blood cultures 2 - NGTD repeat blood cultures on 01/28 so far no growth. severe anemia requiring transfusion of 7 units PRBCs Left lower extremity DVT 12/25/16 - left iliac and deep femoral Leukocytosis -previously Given 7 units of PRBC during this hospitalization -received two more prbc on 01/31 -H/H stable. -s/p IVC filter placement performed 01/20 evaluated by hematology. Hypokalemia - resolved Hypophosphatemia-resolved Peripheral neuropathy -on gabapentin to 400 gm TID -changed narco to oxycodone which patient was original on as outpatient. PROPH: IVC filter, Protonix continue PT. Discharge Planning dc to SNF today. see med list. f/u; pcp, GI, urology. d/w the patient and case management. d/w and GI. time spent 40 min. Vance Frazier MD February 02, 2017 09:10
[2017-02-02] MEDS ORDERED: LEVA750T PO (09:15)
[2017-02-02] MEDS ORDERED: OXYC-395 PO (09:15)
[2017-02-02] MEDS ORDERED: XIFA550T4 PO (09:15)
[2017-02-02] MEDS ORDERED: PANT40TA3 PO (09:15)
[2017-02-02] MEDS ORDERED: VITA100T2 PO (09:15)
[2017-02-02] MEDS ORDERED: FLUC100T2 PO (09:15)
--- NOTE | 2017-02-02 09:16 | HHI.DCPOC ---
Discharge Care Plan Diagnosis: (1) DVT (deep venous thrombosis) (2) GI bleed Your Health Problems Are: Bleeding Tendency Goals to Promote Your Health * To prevent worsening of your condition and complications * To maintain your health at the optimal level Directions to Meet Your Goals Take your medications as prescribed Follow your dietary instruction Follow activity as directed Keep your appointments as scheduled Take your immunizations and boosters as scheduled If your symptoms worsen call your PCP, if no PCP go to Urgent Care Center or Emergency Room Smoking is Dangerous to Your Health. Avoid second hand smoke Call the 24-hour hour crisis hotline for domestic abuse at Vance Frazier MD February 02, 2017 09:16
--- NOTE | 2017-02-02 09:18 | HHI.DS ---
Discharge Summary Admission Date Jan 14, 2017 at 15:04 Discharge Date: February 02, 2017 Admitting Diagnosis gi bleed, hyperkalemia (1) GI bleed ICD Code: K92.2 Diagnosis: Principal (2) Hypotension ICD Code: I95.9 Diagnosis: Principal (3) Anemia requiring transfusions ICD Code: D64.9 Diagnosis: Principal (4) Leukocytosis ICD Code: D72.829 Diagnosis: Principal (5) Hyperkalemia ICD Code: E87.5 Diagnosis: Principal (6) Acute kidney injury ICD Code: N17.9 Diagnosis: Principal (7) DVT (deep venous thrombosis) ICD Code: I82.409 Diagnosis: Principal (8) Bladder cancer ICD Code: C67.9 Diagnosis: Principal (9) Hypertension ICD Code: I10 Diagnosis: Principal (10) Ascites due to alcoholic cirrhosis ICD Code: K70.31 Diagnosis: Principal Procedures paracentesis IVC filter placement EGD/ colonoscopy central line placement Brief History - From Admission Patient is a 66-year-old male with past medical history significant for alcoholic cirrhosis, esophageal varices, bladder cancer, recent DVT (12/25/16 ) in left leg on therapeutic Lovenox was started noticing melanotic stools predominantly since yesterday. He states that he has noted on all for the last 2 weeks.. Yesterday night he had multiple episodes of melanotic diarrhea. Apparently he is scheduled to undergo cystectomy at [facility], and this is currently hold. Per GI notes, patient was scheduled to have EGD/banding at [facility] [place] on Tuesday. He denies alcohol consumption and last drink was 7 months ago denies any hematemesis. In the emergency department hgb is 4.6, INR 1.4 and WBC 17.8.he has been placed on IV Protonix infusion and octreotide infusion as he has a history of esophageal varices. Blood transfusion had been ordered and is pending at this time. Last EGD colonoscopy was 07/21/16 which showed adenomatous polyps in colon, large esophageal varices in distal esophagus. He was to return in 4 weeks for EGD/band ligation, but apparently patient did not follow-up I evaluated the patient in the ED. He is in [id number] distress and he is pale. His blood pressure is in the 90s. Patient received 1 L of normal saline bolus. I will give 2L additional fluid boluses. Check a lactic acid. I will start him on Rocephin for SBP prophylaxis. Patient will have bedside ultrasound and probable paracentesis once in the ICU. Patient received treatment for hyperkalemia in the ED will repeat K at 5 PM CBC/BMP: 02/02/17 0750 01/31/17 0550 Significant Findings Laboratory Tests Test 01/31/17 01/31/17 01/31/17 01/31/17 05:50 07:45 12:35 22:15 White Blood Count 11.4 TH/MM3 (4.0-11.0) Red Blood Count 2.07 MIL/MM3 (4.50-5.90) Hemoglobin 6.3 GM/DL 8.8 GM/DL (13.0-17.0) (13.0-17.0) Hematocrit 18.1 % 26.2 % (39.0-51.0) (39.0-51.0) Red Cell Distribution Width 18.8 % (11.6-17.2) Neutrophils (%) (Auto) 82.2 % (16.0-70.0) Lymphocytes (%) (Auto) 6.9 % (9.0-44.0) Monocytes (%) (Auto) 8.3 % (0.0-8.0) Neutrophils # (Auto) 9.4 TH/MM3 (1.8-7.7) Lymphocytes # (Auto) 0.8 TH/MM3 (1.0-4.8) Estimat Glomerular Filtration 61 ML/MIN (>89) Rate Alkaline Phosphatase 356 U/L (45-117) Albumin 2.1 GM/DL (3.4-5.0) Antibody Screen POSITIVE Haptoglobin 253 MG/DL (30-200) Prothrombin Time 13.5 SEC (9.8-11.6) Fibrinogen 428 mg/dL (227-377) Lactate Dehydrogenase 363 U/L (87-241) Test 02/01/17 02/01/17 02/02/17 05:55 21:23 07:50 White Blood Count 17.7 TH/MM3 16.0 TH/MM3 (4.0-11.0) (4.0-11.0) Red Blood Count 3.34 MIL/MM3 3.02 MIL/MM3 (4.50-5.90) (4.50-5.90) Hemoglobin 9.4 GM/DL 9.1 GM/DL 8.9 GM/DL (13.0-17.0) (13.0-17.0) (13.0-17.0) Hematocrit 29.0 % 27.0 % 26.2 % (39.0-51.0) (39.0-51.0) (39.0-51.0) Red Cell Distribution Width 19.2 % 19.3 % (11.6-17.2) (11.6-17.2) Neutrophils (%) (Auto) 83.9 % (16.0-70.0) Lymphocytes (%) (Auto) 5.6 % (9.0-44.0) Neutrophils # (Auto) 14.9 TH/MM3 (1.8-7.7) Monocytes # (Auto) 1.4 TH/MM3 (0-0.9) Haptoglobin 266 MG/DL (30-200) Direct Bilirubin 0.5 MG/DL (0.0-0.2) Lactate Dehydrogenase 378 U/L (87-241) Vitamin B12 Level 1579 PG/ML (193-986) Imaging Last Impressions Chest CT 02/01/17 0000 Signed Impressions: Service Date/Time: Wednesday, February 01, 2017 17:32 - CONCLUSION: 1. Small groundglass infiltrate within the left upper lobe. 2. No CT evidence to suggest metastatic disease. 3. Significant coronary artery atherosclerotic calcifications. 4. Gynecomastia. Jonathan Zelaya Jr., MD Abdomen/Pelvis CT 02/01/17 0000 Signed Impressions: Service Date/Time: Wednesday, February 01, 2017 17:37 - CONCLUSION: 1. Abnormal urinary bladder with mass and distention. 2. Bilateral hydronephrosis and hydroureter. 3. Bilateral pelvic adenopathy which appears necrotic in nature. 4. Cirrhosis with moderate amount of ascites. 5. Left common femoral vein DVT. Patient has an IVC filter. Jonathan Zelaya Jr., MD Chest X-Ray 01/24/17 8527 Signed Impressions: Service Date/Time: Tuesday, January 24, 2017 17:16 - CONCLUSION: Interval placement of right internal jugular central venous line with no evidence of pneumothorax. Silvano Dubois MD Cyst Biopsy Asp-Paracentesis US 01/24/17 0000 Signed Impressions: Service Date/Time: Tuesday, January 24, 2017 13:34 - CONCLUSION: Uncomplicated ultrasound guided paracentesis. Geremias Ruth MD Abdomen X-Ray 01/24/17 0000 Signed Impressions: Service Date/Time: Tuesday, January 24, 2017 13:47 - CONCLUSION: Nonspecific bowel gas pattern which may represent mild ileus or gastroenteritis. Silvano Dubois MD IVC Filter Placement X-Ray 01/20/17 0836 Signed Impressions: Service Date/Time: January 12:40 - CONCLUSION: Uncomplicated inferior vena cava filter placement as above. Sai Hernández MD Abdomen Ultrasound 01/15/17 0000 Signed Impressions: Service Date/Time: Sunday, January 15, 2017 16:21 - CONCLUSION: 1. Liver cirrhosis with moderate ascites. Splenomegaly. 2. Echogenic kidneys characteristic of medical renal disease with moderate right hydronephrosis and mild left hydronephrosis. Trevon Real MD Lower Extremity Ultrasound 01/14/17 0000 Signed Impressions: Service Date/Time: Saturday, January 14, 2017 17:28 - CONCLUSION: Left iliac and deep femoral DVT. No evidence of DVT on the right. Desmond Villatoro MD PE at Discharge GENERAL: This is a well-nourished, well-developed patient, in no apparent distress. CARDIOVASCULAR: Regular rate and regular rhythm without murmurs, gallops, or rubs. RESPIRATORY: Clear to auscultation. Breath sounds equal bilaterally. No wheezes , rales, or rhonchi. GASTROINTESTINAL: Abdomen soft, non-tender, mildly distended. Normal, active bowel sounds MUSCULOSKELETAL: Extremities without clubbing, cyanosis. left foot +1 pitting edema. NEURO: Alert & Oriented x4 to person, place, time, situation. Moves all ext x4 Transfer Summary This is 66-year-old male admitted with hypotension/upper GI bleed receives 70s. BCs and 2 FFP. He has known history of bladder cancer with muscle invasion. Noted nonbleeding large gastric ulcer currently in Protonix drip. Colonoscopy revealed colonic polyps which were biopsied but no acute findings. Dr. Perry is following him from a heme standpoint. He recommends start heparin drip versus IVC filter which has been ordered by IR for iliac DVT. Reconsult secondary to hypotension after paracentesis. Stable 48 hours. We' ll transfer to floor. I D following for possible infectious etiology. On vancomycin and Zosyn currently. Hospital Course Hypotension secondary to hypovolemia/sepsis?-resolved. History of hypertension Lactic acidosis. Resolved continue lasix and aldactone Echocardiogram - EF 60-65%. Mild MR/TR. No regional wall motion abnormality. GI bleed most likely variceal bleed Ascites/abdominal Liver cirrhosis History of gastroesophageal reflux disease Elevated transaminases likely secondary to EtOH Hypoalbuminemia -GI consulted EGD revealed gastric ulcer in antrum. This was biopsied. Gastropathy. Old banding. No varices. s/p colonoscopy with polypectomy EGD repeated on 02/01 due to a drop in H/H which showed ulcer in gastric antrum. Ultrasound - Liver cirrhosis with moderate ascites. Splenomegaly. -Continue Protonix at 40 mg twice a day Status post paracentesis 7 L on 01/19. Last 5.7 L 01/24 History of peripheral neuropathy History of EtOH abuse Depression/anxiety -Minimize sedation. -As needed norco and Dilaudid - continue thiamine and folic acid. Acute kidney injury - resolved History of bladder cancer/muscular invasive Bilateral hydronephrosis by history right greater than left BPH Ultrasound - Echogenic kidneys characteristic of medical renal disease with moderate right hydronephrosis and mild left hydronephrosis. Noted recent CT chest revealed right greater than left hydronephrosis. Currently with adequate urine output. -F/u at [facility] for bladder cancer Dr. Simeon discussed with his urologist at [facility], due to his decompensated cirrhosis, recent gi bleeding due to portal htn , poor nutritional status he will high risk for surgery and anesthesia . evaluated by Urology- recommended f/u with [facility]. UTI recurrent fever continue po antibiotics per ID. Pertinent cultures 01/24 - blood cultures 2 -no growth 01/23 - urine -continue to 01/23 - blood cultures 2 - no growth to date 01/19 - peritoneal fluid - no growth 01/14 - blood cultures 2 - NGTD repeat blood cultures on 01/28 so far no growth. severe anemia requiring transfusion of 7 units PRBCs Left lower extremity DVT 12/25/16 - left iliac and deep femoral Leukocytosis -previously Given 7 units of PRBC during this hospitalization -received two more prbc on 01/31 -H/H stable. -s/p IVC filter placement performed 01/20 evaluated by hematology. Hypokalemia - resolved Hypophosphatemia-resolved Peripheral neuropathy -on gabapentin to 400 gm TID -changed narco to oxycodone which patient was original on as outpatient. PROPH: IVC filter, Protonix continue PT. Pt Condition on Discharge: Fair Discharge Disposition: Discharge to SNF Discharge Time: > 30 minutes Discharge Instructions DIET: Follow Instructions for: Heart Healthy Diet Activities you can perform: Regular-No Restrictions Follow up Referrals: Gastroenterology Oncology - 1 Week with Jeancarlos Perry MD PCP Follow-up Urology New Medications: Furosemide (Lasix) 40 Mg Tab 40 MG PO DAILY diuretic #30 Ref 0 TAB Fluconazole (Fluconazole) 100 Mg Tab 100 MG PO DAILY infection Days 6 Ref 0 TAB Levofloxacin (Levaquin) 750 Mg Tab 750 MG PO Q24H infection Days 5 Ref 0 TAB Oxycodone (Oxycodone) 10 Mg Tab 10 MG PO Q6HR PRN pain #12 Ref 0 TAB Pantoprazole (Pantoprazole) 40 Mg Tab 40 MG PO Q12HR gastric ulcer Days 30 Ref 0 TAB Rifaximin (Xifaxan) 550 Mg Tab 550 MG PO BID cirrhosis Days 30 Ref 0 TAB Thiamine (Vitamin B-1) 100 Mg Tab 100 MG PO DAILY vitamin Days 30 Ref 0 TAB Continued Medications: Cyanocobalamin (Vitamin B-12) 50 Mcg Tab 50 MCG PO DAILY Nutritional Supplement #1 Ref 0 BOTTLE Ferrous Fumarate (Iron) 18 Mg Tab 18 MG PO BID Nutritional Supplement Ref 0 TAB Folic Acid (Folic Acid) 5 Mg Cap 0.4 MG PO DAILY Nutritional Supplement Ref 0 CAP Gabapentin (Gabapentin) 300 Mg Cap 300 MG PO TID #90 Ref 0 CAP Multiple Vitamin (Multiple Vitamin) 1 Tab 1 TAB PO DAILY Nutritional Supplement Ref 0 TAB Spironolactone (Spironolactone) 50 Mg Tab 50 MG PO BIDPC #60 Ref 0 TAB Tamsulosin (Tamsulosin) 0.4 Mg Cap 0.4 MG PO DAILY Manage Prostate Problems #30 Ref 0 CAP Discontinued Medications: Enoxaparin Inj (Lovenox Inj) 60 Mg/0.6 Ml Syr 60 MG SQ Q12H Days 30 INJECTION Oxycodone-Acetaminophen (Oxycodone-Acetaminophen) 7.5-325 mg Tab 1 TAB PO Q6H PRN PAIN GREATER THAN 5 #20 TAB Vance Frazier MD February 02, 2017 09:18
[2017-02-02] MEDS ORDERED: FURO1TAB60 PO (09:21)
[2017-02-02] MEDS: LEVOFLOXACIN 750 MG TAB PO SCH (10:09)
[2017-02-02 11:13] VITALS: O2SAT 99
[2017-02-02 12:00] VITALS: BP 103/62; PULSE 79; RESP 18; TEMP 99; O2SAT 97
== END 2017-02-02 14:12 | DRG 356 ==
LOC: NEPC 13:11 → NEDA 15:04 → HCVR 22:50 → HCIN 01-17 18:46 → N07A 01-17 21:13 → HIMW 01-24 13:28 → N04B 01-26 11:41
PROVIDERS: ADMIT Internal Medicine; ATTEND Internal Medicine
PROC: 30233N1 Transfusion of Nonautologous Red Blood Cells into Peripheral Vein, Percutaneous Approach (ICD-10-PCS; 2017-01-14)
PROC: 0DB68ZX Excision of Stomach, Via Natural or Artificial Opening Endoscopic, Diagnostic (ICD-10-PCS; 2017-01-15)
PROC: 30233K1 Transfusion of Nonautologous Frozen Plasma into Peripheral Vein, Percutaneous Approach (ICD-10-PCS; principal; 2017-01-15 12:50)
PROC: 0DBK8ZX Excision of Ascending Colon, Via Natural or Artificial Opening Endoscopic, Diagnostic (ICD-10-PCS; 2017-01-17)
PROC: 0DBL8ZX Excision of Transverse Colon, Via Natural or Artificial Opening Endoscopic, Diagnostic (ICD-10-PCS; 2017-01-17)
PROC: 0DBN8ZX Excision of Sigmoid Colon, Via Natural or Artificial Opening Endoscopic, Diagnostic (ICD-10-PCS; 2017-01-17)
PROC: 0DBM8ZX Excision of Descending Colon, Via Natural or Artificial Opening Endoscopic, Diagnostic (ICD-10-PCS; 2017-01-17)
PROC: 0W9G3ZZ Drainage of Peritoneal Cavity, Percutaneous Approach (ICD-10-PCS; 2017-01-19)
PROC: 06H03DZ Insertion of Intraluminal Device into Inferior Vena Cava, Percutaneous Approach (ICD-10-PCS; 2017-01-24)
PROC: 0W9G3ZX Drainage of Peritoneal Cavity, Percutaneous Approach, Diagnostic (ICD-10-PCS; 2017-01-24)
PROC: 05HM33Z Insertion of Infusion Device into Right Internal Jugular Vein, Percutaneous Approach (ICD-10-PCS; 2017-01-24)
PROC: 0DB68ZX Excision of Stomach, Via Natural or Artificial Opening Endoscopic, Diagnostic (ICD-10-PCS; 2017-02-01)
DX: K92.2 Gastrointestinal hemorrhage, unspecified (principal); N17.0 Acute kidney failure with tubular necrosis; J96.00 Acute respiratory failure, unspecified whether with hypoxia or hypercapnia; A41.9 Sepsis, unspecified organism; I95.9 Hypotension, unspecified; E87.4 Mixed disorder of acid-base balance; K76.6 Portal hypertension; E46 Unspecified protein-calorie malnutrition; D62 Acute posthemorrhagic anemia; N39.0 Urinary tract infection, site not specified; K70.31 Alcoholic cirrhosis of liver with ascites; E83.39 Other disorders of phosphorus metabolism; E87.5 Hyperkalemia; C67.9 Malignant neoplasm of bladder, unspecified; I85.10 Secondary esophageal varices without bleeding; G62.9 Polyneuropathy, unspecified; K25.9 Gastric ulcer, unspecified as acute or chronic, without hemorrhage or perforation; M19.90 Unspecified osteoarthritis, unspecified site; F41.9 Anxiety disorder, unspecified; F32.9 Major depressive disorder, single episode, unspecified; E78.00 Pure hypercholesterolemia, unspecified; M10.9 Gout, unspecified; I10 Essential (primary) hypertension; Z87.891 Personal history of nicotine dependence; Z86.718 Personal history of other venous thrombosis and embolism; K21.9 Gastro-esophageal reflux disease without esophagitis; E78.5 Hyperlipidemia, unspecified; N40.0 Benign prostatic hyperplasia without lower urinary tract symptoms; F12.90 Cannabis use, unspecified, uncomplicated; K59.00 Constipation, unspecified; Z86.010 Personal history of colon polyps; F41.8 Other specified anxiety disorders; K31.9 Disease of stomach and duodenum, unspecified; E86.1 Hypovolemia; D12.2 Benign neoplasm of ascending colon; D12.3 Benign neoplasm of transverse colon; D12.4 Benign neoplasm of descending colon; R16.1 Splenomegaly, not elsewhere classified; D12.5 Benign neoplasm of sigmoid colon; K64.4 Residual hemorrhoidal skin tags; K64.8 Other hemorrhoids; E87.6 Hypokalemia; R00.0 Tachycardia, unspecified; M79.672 Pain in left foot; M79.671 Pain in right foot; G89.29 Other chronic pain
CPT/HCPCS: 36430; 36556; 36600; 37191; 49083; 71010; 71260; 74000; 74177; 76700; 76937; 80048; 80053; 80076; 80202; 81001; 82042; 82140; 82247; 82248; 82272; 82550; 82565; 82607; 82747; 82805; 82945; 83010; 83605; 83615; 83735; 84100; 84132; 84145; 84155; 84157; 84443; 84484; 85007; 85014; 85018; 85025; 85027; 85384; 85610; 85730; 86077; 86317; 86703; 86705; 86803; 86850; 86870; 86880; 86900; 86901; 86920; 86922; 86927; 87040; 87070; 87086; 87205; 87338; 88112; 88305; 88312; 89051; 93005; 93306; 93970; 94150; 94664; 99291; C1729; C1769; C1880; C9113; C9399; J0131; J0610; J0690; J0696; J1170; J1200; J1450; J1644; J1815; J1940; J2250; J2354; J2370; J2405; J2543; J3010; J3370; J3411; J3480; J7030; J7040; J7050; J7060; J7611; P9016; P9017; P9047; Q9967

== ENCOUNTER 2017-03-18 07:39 | Day surgery (SDC) | payer OTHER ==
[~2017-03-18 07:39] MED LIST changes: -ENOX60P SQ; +FLUC100T2 PO; +FOLI5CAP PO; +FURO1TAB60 PO; +GABA300C5 PO; +LEVA750T PO; +OXYC-395 PO; -OXYC1TAB35 PO; +PANT40TA3 PO; +SPIR50TA PO; +TAMS0.4C4 PO; +VITA100T2 PO; +XIFA550T4 PO
[2017-03-18 08:29] VITALS: BP 97/67; PULSE 87; RESP 16; TEMP 98.3; O2SAT 93
[2017-03-18] MEDS ORDERED: ALBUMIN HUMAN 25% 25 GM/100 ML BAGP IV ONE (09:45)
[2017-03-18 10:30] VITALS: BP 95/69; PULSE 74; RESP 16; O2SAT 95
[2017-03-18 10:45] VITALS: BP 99/58; PULSE 70; RESP 18; O2SAT 96
--- NOTE | 2017-03-18 10:52 | RADRPT ---
EXAM DATE/TIME: 03/18/2017 08:00 [place] COMPARISON: US GUIDED ABD PARACENTESIS, January 24, 2017, 13:34. INDICATIONS : Ascities. MEDICAL HISTORY : Hypercholesterolemia. Hypertension. Reading glasses. Missing broken teeth. Dizziness. Numbness. Card iac disorders. Hyperlipidemia. Hernias bilaterally. Bladder cancer. Arthritis. Gout. Left leg and lef t thumb fracture. Liver disease. Anxiety. Depression. SURGICAL HISTORY : One testicle removed for infection. Right side hernia repaired. ENCOUNTER: Subsequent ACUITY: 3 months PAIN SCORE: 0/10 LOCATION: Right lower quadrant FLUID: Total volume of 11,300 cc of clear, yellow fluid was removed. Fluid was discarded. Paracentesis was therapeutic only. Post procedure scanning reveals no hematoma or other complication. TECHNIQUE: 1. Ultrasound guidance for abdominal paracentesis. 2. Paracentesis. The risks, benefits, and alternatives to ultrasound guided paracentesis were explained to the patient in detail including the risk of bleeding and infection. Written and verbal informed consent was obt ained. With the patient on the ultrasound table, ultrasound imaging was used to select the most appropriate approach for paracentesis. Overlying skin was prepped and draped in the usual sterile fashion and wi th a local anesthetic, a dermatotomy was made with an 11 blade scalpel. A 6 [place] [id number] ca theter was introduced into the peritoneal cavity and fluid was collected. The patient tolerated the procedure well and left the ultrasound suite in stable condition. CONCLUSION: Uncomplicated ultrasound guided paracentesis. Patient received albumin per protocol. Valente Parks MD FACR on March 18, 2017 at 10:50 Board Certified Radiologist. This report was verified electronically.
== END 2017-03-18 11:15 | disposition home or self-care (01) ==
LOC: HRAD 07:39 → HRIP 07:46 → HRAD 11:15
PROVIDERS: ATTEND Internal Medicine Hematology
DX: K70.31 Alcoholic cirrhosis of liver with ascites (principal); I10 Essential (primary) hypertension; E78.5 Hyperlipidemia, unspecified; E78.00 Pure hypercholesterolemia, unspecified; D50.9 Iron deficiency anemia, unspecified; C67.8 Malignant neoplasm of overlapping sites of bladder; I82.402 Acute embolism and thrombosis of unspecified deep veins of left lower extremity; M19.90 Unspecified osteoarthritis, unspecified site; M10.9 Gout, unspecified; F32.9 Major depressive disorder, single episode, unspecified; F41.9 Anxiety disorder, unspecified; Z88.7 Allergy status to serum and vaccine
CPT/HCPCS: 49083; 96365; C1729; P9047